=== PATIENT | female | born 1945 | race Caucasian/White ===

== ENCOUNTER 2020-03-24 11:56 | Inpatient (IN) | payer MEDICARE, MEDICAID, SELFPAY ==
[2020-03-24] VITALS (9 sets, daily range): BP systolic 123–132; BP diastolic 65–86; PULSE 100–132; RESP 18–24; TEMP 36.2–36.6; O2SAT 94–97; BMI 36.4
--- NOTE | 2020-03-24 | ECG_ITS ---
Measurements Intervals [place] Rate: 153 P: MS: 0 QRS: -84 QRSD: 126 T: 24 QT: 312 QTc: 499 Interpretive Statements ATRIAL FIBRILLATION WITH RAPID VENTRICULAR RESPONSE RIGHT BUNDLE BRANCH BLOCK INFERIOR INFARCT, AGE INDETERMINATE CONSIDER ANTERIOR INFARCT, AGE INDETERMINATE BASELINE ARTIFACT- I, II, AVR, AVL, AVF, V2-V3 ABNORMAL ECG Electronically Signed On 03-24-2020 15:54:59 [employer] by Andre Campoverde D.O.
--- NOTE | ~2020-03-24 | XR_ITS ---
EXAMINATION: XR chest 1V INDICATION: Chest pain TECHNIQUE: AP view of the chest is obtained. COMPARISON: 12/14/2018 FINDINGS: There are airspace opacities of the lung bases. No pleural effusion or pneumothorax is iden tified. The cardiomediastinal silhouette is normal. A calcified nodule of the left lung base is consi stent with old granulomatous disease. IMPRESSION: 1. Bibasilar airspace opacities, consistent with atelectasis versus pneumonia. Reviewed, dictated and finalized at location A. T MECHANIC
--- NOTE | ~2020-03-24 | XR_ITS ---
EXAMINATION: XR lumbar spine 2-3V DATE: 03/24/2020 12:42 INDICATION: Low back pain TECHNIQUE: Anteroposterior and lateral views of the lumbar spine, and cone-down lateral view of the l umbosacral junction were obtained. COMPARISON: None. FINDINGS: Bone alignment is normal. There is no fracture. There is severe loss of intervertebral disc space height at L4-5 and L5-S1 and moderate loss of intervertebral disc space height throughout the remainder of the lumbar spine. Small degenerative osteophytes project from the anterior endplates of multiple vertebral bodies. Calcified atherosclerosis is noted. IMPRESSION: 1. Moderate to severe lumbar spondylosis without acute findings. Reviewed, dictated and finalized at location A. NDER WIND UP HELPER
--- NOTE | ~2020-03-24 | US_ITS ---
EXAMINATION: US venous doppler [facility] DATE: 03/25/2020 07:57 INDICATION: Bilateral lower limb swelling TECHNIQUE: Gonzalez scale images without and with compression and Doppler images of the bilateral lower e xtremity veins were obtained. COMPARISON: 04/10/2018 FINDINGS: The right common femoral vein, profunda femoral vein, femoral vein, popliteal vein, peroneal trunk, p osterior tibial veins, and greater saphenous vein are patent. The left common femoral vein, profunda femoral vein, femoral vein, popliteal vein, peroneal trunk, po sterior tibial veins, and greater saphenous vein are patent. IMPRESSION: 1. Patent bilateral lower extremity veins. No evidence of deep venous thrombosis. Reviewed, dictated and finalized at location A. ER UNLOADER IMPRESSION: 1. Patent bilateral lower extremity veins. No evidence of deep venous thrombosi s.
--- NOTE | ~2020-03-24 | CT_ITS ---
EXAMINATION: CT abdomen pelvis w con EXAM DATE: 03/24/2020 15:36 INDICATION: Left lower quadrant pain. TECHNIQUE: Spiral CT of the abdomen and pelvis was performed following intravenous injection of 100 m L Omnipaque 350. Axial, coronal and sagittal images were reviewed. The dose-length product (DLP) fo r this examination was 1270.93 mGy-cm. The exposure was tailored according to patient size (auto mA exposure control), and iterative reconstruction (ASIR) was used as additional dose reduction techniqu e. Comparison is made to prior examination from 04/09/[address] FINDINGS: Geographic shaped region of slightly increased enhancement in the left liver lobe likely a vascular perfusion anomaly, transient hepatic attenuation difference in atypical location. The liver , spleen, adrenal glands and pancreas are otherwise unremarkable. Gallbladder is unremarkable. No b iliary obstruction. Portal and splenic veins are patent. Kidneys enhance symmetrically. There is n o hydronephrosis. The uterus is unremarkable. The bladder is undistended at time of imaging. The re is no retroperitoneal or pelvic lymphadenopathy. There is mild scattered arteriosclerotic diseas e. The appendix is normal. The stomach and small bowel are unremarkable. There is mild sigmoid colonic diverticulosis. There is no adjacent inflammatory change to suggest diverticulitis. There is expecte d amount of colonic stool. No free intraperitoneal gas. The heart is normal in size. There are n o pericardial or pleural effusions. Left basilar scarring unchanged. There are no osteoblastic or o steolytic lesions identified. IMPRESSION: 1. No acute intra-abdominal findings. 2. Mild sigmoid diverticulosis. Reviewed, dictated and finalized at location A. ISH LITERATURE PROFESSOR
[2020-03-24] MEDS: METOPROLOL TARTRATE INJ 5 MG/5 ML VIAL IV PUSH (12:13)
[2020-03-24 12:21] LABS: Basophils Percent Auto 0.3 % (0.2-1.2); Eosinophils Percent Auto 0.1 % (0-4.4); Hematocrit 44.5 % (37.0-47.0); Hemoglobin 13.9 g/dL (12.0-15.0); Immature Granulocyte Absolute 0.07 K/mm3 (0.00-0.031); Immature Granulocyte Percent A 0.5 % (0-0.5); Lymphocytes Absolute Auto 1.46 K/mm3 (0.9-3.2); Lymphocytes Percent Auto 9.9 % (18.3-44.2); Mean Corpuscular HGB Conc 31.2 g/dl (32-36); Mean Corpuscular Hemoglobin 29.6 pg (26-34); Mean Corpuscular Volume 94.9 fl (80-100); Monocytes Absolute Auto 0.7 K/mm3 (0.1-0.6); Monocytes Percent Auto 4.5 % (2.6-8.5); Neutrophils Absolute Auto 12.5 K/mm3 (1.3-6.7); Neutrophils Percent Auto 84.7 % (45.5-73.1); Platelet Count Result 265 k/mm3 (150-375); Red Blood Count 4.69 M/mm3 (4.2-5.4); Red Cell Distribution Width 13.6 % (11.5-14.5); White Blood Count 14.7 K/mm3 (4.5-10.0)
[2020-03-24 12:33] LABS: Prothrombin Time 14.1 Seconds (11.1-14.7)
[2020-03-24 12:35] LABS: Potassium 4.5 mmol/L (3.4-5.0)
[2020-03-24 12:39] LABS: Alanine Aminotransferase 19 U/L (4-35); Albumin Level 4.3 g/dL (3.5-5.1); Alkaline Phosphatase 101 U/L (38-126); Anion Gap 8 mmol/L (8-16); Aspartate Amino Transferase 28 U/L (14-36); Bilirubin,Total 0.6 mg/dL (0.2-1.3); Blood Urea Nitrogen 14 mg/dL (7-17); Calcium 9.3 mg/dL (8.4-10.2); Carbon Dioxide 30 mmol/L (22-30); Chloride 100 mmol/L (98-107); Estimated CRCL calculation 88 ml/min; Estimated Glomerular Filt Rate > 60; Glucose 243 mg/dL (65-105); Sodium 138 mmol/L (137-145)
[2020-03-24 12:48] LABS: NT Pro B Type Natriuretic Pept 606 PG/ML (5-100); Troponin I < 0.012 ng/mL (0.000-0.034)
[2020-03-24 13:57] LABS: Add Urine Microscopic? YES; Appearance Urine Clear (Clear); Bilirubin Urine Negative (Negative); Color Urine Yellow (Yellow); Glucose Urine UA 3+ mg/dL (Negative); Ketones Urine Trace mg/dL (Negative); Leukocyte Esterase Ur Trace LEU/UL (Negative); Mucus Urine Heavy /lpf; Nitrate Urine Negative (Negative); Protein Urine 2+ mg/dL (Negative); RBC Urine 0-2 /hpf (0-2); Specific Grav Ur 1.029 (1.001-1.035); Urobilinogen Urine Negative mg/dL (<2.0)
--- NOTE | 2020-03-24 13:58 | ED.GENADULT ---
HPI - General Adult General Chief complaint: Back Pain/Injury Stated complaint: low back pain Time Seen by Provider: 03/24/20 12:00 Source: patient Mode of arrival: EMS Limitations: no limitations History of Present Illness HPI narrative: 74-year-old with a history of COPD, hypertension, diabetes, dementia who was brought in from home with complaints of low back pain for past 2 days. Patient denies any trauma or lifting any heavy objects. No history of chest pain or shortness of breath. No Covid exposure. However when patient was placed on the monitor she is tachycardic. Troponin Onset (ago): day(s) (2) Location: back (Lower back) Radiation: non-radiation Severity: moderate Quality: aching Exacerbating factors: none Associated symptoms: denies other symptoms Related Data Home Medications Medication Instructions Recorded Confirmed acetaminophen 500 mg PO Q6H PRN 03/24/20 albuterol sulfate 1 inh INHALATION QID PRN 03/24/20 budesonide-formoterol [Symbicort] 2 puff INHALATION Q12H 03/24/20 codeine-guaifenesin [Cheratussin ea PO 03/24/20 AC] donepezil [Aricept] 10 mg PO HS 03/24/20 ferrous sulfate 325 mg PO DAILY 03/24/20 hydrocolloid dressing [Duoderm] 03/24/20 ibuprofen 600 mg PO Q6H PRN 03/24/20 insulin glargine [Lantus Solostar 30 unit SUBCUT QPM 03/24/20 U-100 Insulin] ipratropium-albuterol 3 ml INHALATION Q6H PRN 03/24/20 levothyroxine 50 mcg PO DAILY 03/24/20 mecobalamin (vitamin B12) 1,000 mcg SUBLINGUAL DAILY 03/24/20 metformin [Riomet] 500 mg PO BID 03/24/20 nystatin 1 applic TOPICAL QID 03/24/20 omeprazole 20 mg PO DAILY 03/24/20 umeclidinium-vilanterol [Anoro 1 inh INHALATION DAILY 03/24/20 Ellipta] Allergies Allergy/AdvReac Type Severity Reaction Status Date / Time No Known Allergies Allergy Unknown Verified 03/24/20 11:57 Review of Systems Review of Systems: All systems reviewed & are unremarkable except as noted in HPI and below Constitutional: Constitutional: Reports no additional constitutional complaints Eyes: Eyes: Reports no additional eye complaints ENT: Reports system reviewed and no additional complaints, except as documented Cardiovascular: Cardiovascular: Reports no additional cardiovascular complaints Respiratory: Respiratory: Reports no additional respiratory complaints Gastrointestinal: Gastrointestinal: Reports no additional gastrointestinal complaints Musculoskeletal: Musculoskeletal: Reports as per HPI Neurologic: Reports system reviewed and no additional complaints, except as documented Endocrine: Endocrine: Reports no additional endocrine complaints PMFSH Family History Family History Father Cerebrovascular accident Grandparent Cerebrovascular accident Family history of heart disease in male family member before age 55 Mother Family history of heart disease in male family member before age 55 Social History Social History Alcohol intake: never Exam Narrative: Exam Narrative: GENERAL: Well-appearing, well-nourished, and in no acute distress. HEAD: Normocephalic, atraumatic. EYES: PERRLA and EOMI. NECK: Supple. CHEST: Clear to auscultation. No respiratory distress. HEART: Tachycardic. ABDOMEN: Soft, nontender, nondistended, normal active bowel sounds. EXTREMITIES: Normal range of motion. No edema. SKIN: Warm, dry, no rash. NEURO: No focal deficits. Alert and oriented x3. PSYCH: Normal mood and affect. Course Course Emergency Course: Patient was placed on the data conversion analyst showed A. fib with RVR, which patient never had it before given IV 5 mg of Lopressor. Her heart rate dropped to 101 range presently she is maintaining heart rate anywhere between 60s to 108. Discussed labs and x-ray findings with the patient and the son. Will admit her to the hospital for A. fib with RVR. I discussed with Dr. Bhatia agreed to consult the
[2020-03-24 14:00] LABS: Blood Urine Negative (Negative)
[2020-03-24] MEDS: ENOXAPARIN 100 MG/ML SYRINGE 90 MG SUB-Q (14:34)
--- NOTE | 2020-03-24 15:15 | PM.IMHP ---
H&P: HPI History of Present Illness Date/Time: 03/24/20 15:15 <Snehal Henderson PA-C - Last Filed: 03/24/20 19:30> Chief Complaint: Low back pain. <Snehal Henderson PA-C - Last Filed: 03/24/20 19:30> Narrative: This is a 74-year-old female with insulin-dependent diabetes, dementia, hypothyroidism, hypertension, anemia, COPD, and diastolic congestive heart failure who presented to the emergency department earlier today via EMS from [place] for evaluation of low back pain. She tells me she has chronic low back pain however has been much worse over the past 3 days or so, to the point where she has pretty severe pain when trying to move. It has been difficult for her to transfer from bed to wheelchair to commode due to the pain. The pain is described as constant and aching however is sharp and shooting with movement. It does not radiate into the buttocks or legs but is made worse when raising her legs off the bed. Tylenol seems to help. On arrival to the emergency department she was found to be in atrial fibrillation with rapid ventricular response, and is completely asymptomatic with this thus it is impossible to tell how long she has been in this rhythm and she denies having ever been diagnosed with such. At the time my evaluation she is is supine in bed and has no real complaints. She specifically denies fever, chills, sweats, cold and flu symptoms, chest pain, pleuritic pain, palpitations, shortness of breath, nausea, vomiting, and dysuria. No saddle anesthesia, bowel, or bladder incontinence. No focal weakness. She has not had any recent falls or injury. No exposure to COVID-19. <Snehal Henderson PA-C - Last Filed: 03/24/20 19:30> Review of Systems Review of Systems: Narrative: Twelve systems were reviewed with pertinent positives and negatives as per HPI. She denies sinus congestion, rhinorrhea, otalgia, and odynophagia. No cough. No anosmia or dysgeusia. No headache. No vertigo. She does have mild neuropathy in her feet, and that is unchanged. She has had several loose stools over the past couple of days and on exam she was tender to palpation in the left lower quadrant. She denies blood in mucus in the stool. No history of kidney stones or diverticulitis. She denies blurry vision, polydipsia, polyuria. Except as documented, all other systems were reviewed and are negative. <Snehal Henderson PA-C - Last Filed: 03/24/20 19:30> [facility] Past Medical History Medical History: Medical History (Updated 03/24/20 @ 20:05 by Jodie Bhatia MD) Anemia Arthritis COPD (chronic obstructive pulmonary disease) Dementia Diabetic peripheral neuropathy Former smoker 50 pack-year smoking history. Grade II diastolic dysfunction Noted on echocardiogram in December 2018. Ejection fraction was 60 to 65%. Hypothyroidism Insulin dependent type 2 diabetes mellitus <Snehal Henderson PA-C - Last Filed: 03/24/20 19:30> Surgical History Surgical History: Surgical History History of cataract extraction History of dilation and curettage <Snehal Henderson PA-C - Last Filed: 03/24/20 19:30> Family History Family History: Family History (Updated 03/24/20 @ 20:00 by Jodie Bhatia MD) Father Cerebrovascular accident Grandparent Cerebrovascular accident Family history of heart disease in male family member before age 55 Mother Family history of heart disease in male family member before age 55 Heart disease of a heart attack Heart attack <Snehal Henderson PA-C - Last Filed: 03/24/20 19:30> Social History Social History: Social History (Updated 03/24/20 @ 20:01 by Jodie Bhatia MD) Social History: She is a resident at [facility]. Former smoker, up to a pack of cigarettes a day for 50 years, and quit in 2009. She stopped drinking alcohol in 2007. No illicit substance use. Three children.
--- NOTE | 2020-03-24 17:02 | ADMGEN ---
This patient, Ana Neely, was admitted to IMU Room 201-01 at 1551 on 03/24/20. Patient/family oriented to hospital policies and general routines including ID bracelet, bed and alarms, visiting hours, pain management, procedures, bathroom and other care routines, personal items, smoking policy, room service/diet, and visiting hours. Information on how to activate the Rapid Response Team has been discussed. Patient/Family are encouraged to report perceived risks to care and to ask questions if they do not understand what they are told or what they should do.
[2020-03-24 17:30] LABS: Troponin I < 0.012 ng/mL (0.000-0.034)
[2020-03-24 17:37] LABS: Glucose Point of Care 174 (65-105)
--- NOTE | 2020-03-24 19:34 | PM.CNCAR ---
Assessment and Plan Assessment and plan (1) Atrial fibrillation with rapid ventricular response: Code(s): I48.91 - Unspecified atrial fibrillation Status: Acute Assessment and Plan: Patient incidentally found to have atrial fibrillation RVR of uncertain duration. Heart rate is a bit better with IV diltiazem. She did get a dose of Lovenox in the emergency room. She seems to be tolerating it well with no clinical heart failure. The etiology is related to her age and I wonder she may have some sleep apnea. Will do an echo to see there is any left ventricular dysfunction or valve disease. I will transition her from IV diltiazem to p.o. diltiazem tomorrow, and start an anticoagulant, Eliquis 5 mg BID to avoid drug interaction with diltiazem. Check an apnea link as well. Since she is asymptomatic and likely has a low activity level we will pursue rate control and anticoagulation strategy. Reviewed all this with the patient and she is in agreement. (2) Hypothyroidism: Code(s): E03.9 - Hypothyroidism, unspecified Status: Acute Assessment and Plan: Normal on levothyroxine (3) COPD (chronic obstructive pulmonary disease): Code(s): J44.9 - Chronic obstructive pulmonary disease, unspecified Status: Inactive Assessment and Plan: Stable. (4) Dementia: Code(s): F03.90 - Unspecified dementia without behavioral disturbance Status: Acute Assessment and Plan: Some memory loss but overall fairly intact (5) Insulin dependent type 2 diabetes mellitus: Code(s): E11.9 - Type 2 diabetes mellitus without complications; Z79.4 - senior living (current) use of insulin Status: Acute Assessment and Plan: Treatment per hospitalist History of Present Illness History of Present Illness Consult date/time: 03/24/20 19:34 Reason For Visit: afib with rvr Narrative: Date of service: 03/24/2020 Mrs. Ana Neely is a pleasant 74-year-old white female whom I was asked to see at the request of the hospitalist for my advice and opinion regarding her new onset of atrial fibrillation, in consultation. She has a history of dementia, diabetes, hypertension, COPD and diastolic CHF. The patient was transferred from [facility] to the emergency room for complaints of low back pain and was found to have AFib RVR. Heart rate of 153 and she appeared asymptomatic. She denies any chest pain or pressure, or shortness of breath. She was given Lopressor 5 mg IV push and then started on at Cardizem drip at 5 milligrams/hour. Current heart rate is running 100-115 beats per minute. The patient states that she gets around without a walker or cane and has had no falls or dizziness. No history of any bleeding problems. She is hypothyroid and takes levothyroxine; her TSH was normal today. Review of Systems Constitutional: Constitutional: Denies chills and Denies weakness Eyes: Eyes: Reports no additional eye complaints ENT: Denies epistaxis and Denies nasal congestion Cardiovascular: Cardiovascular: Denies chest pain, Denies pedal edema, Denies leg edema, Denies lightheadedness and Denies palpitations Respiratory: Respiratory: Denies hemoptysis, Denies dyspnea and Denies dyspnea on exertion Gastrointestinal: Gastrointestinal: Denies abdominal pain and Denies hematochezia Genitourinary: Genitourinary: Denies hematuria Musculoskeletal: Musculoskeletal: Reports back pain Integumentary/Breasts: Skin/Breast: Denies rash Neurologic: Reports confusion
[2020-03-24 20:51] LABS: Hemoglobin A1C 7.4 % (<5.7)
[2020-03-24 21:03] LABS: Troponin I < 0.012 ng/mL (0.000-0.034)
[2020-03-24] MEDS: DONEPEZIL HCL 10 MG TABLET PO (21:29)
[2020-03-24] MEDS: APIXABAN 5 MG TABLET PO (21:29)
[2020-03-24 21:34] LABS: Glucose Point of Care 235 (65-105)
[2020-03-24] MEDS: INSULIN GLARGINE (*BKC) 100 UNITS/ML 30 UNITS SUB-Q (21:48)
[2020-03-24 23:42] LABS: Glucose Point of Care 231 (65-105)
[2020-03-25] VITALS (12 sets, daily range): BP systolic 103–121; BP diastolic 45–76; PULSE 70–127; RESP 16–22; TEMP 35.8–37; O2SAT 90–100
[2020-03-25 05:20] LABS: Hematocrit 40.5 % (37.0-47.0); Hemoglobin 12.7 g/dL (12.0-15.0); Mean Corpuscular HGB Conc 31.4 g/dl (32-36); Mean Corpuscular Hemoglobin 29.7 pg (26-34); Mean Corpuscular Volume 94.8 fl (80-100); Mean Platelet Volume 10.4 fl (7.4-10.4); Platelet Count Result 258 k/mm3 (150-375); Red Blood Count 4.27 M/mm3 (4.2-5.4); Red Cell Distribution Width 13.9 % (11.5-14.5); White Blood Count 8.1 K/mm3 (4.5-10.0)
[2020-03-25 05:52] LABS: Alanine Aminotransferase 13 U/L (4-35); Albumin Level 3.6 g/dL (3.5-5.1); Alkaline Phosphatase 85 U/L (38-126); Anion Gap 5 mmol/L (8-16); Aspartate Amino Transferase 19 U/L (14-36); Bilirubin,Total 0.5 mg/dL (0.2-1.3); Blood Urea Nitrogen 13 mg/dL (7-17); CRP 7.4 mg/dL (<1.0); Calcium 8.8 mg/dL (8.4-10.2); Carbon Dioxide 33 mmol/L (22-30); Chloride 101 mmol/L (98-107); Estimated CRCL calculation 76 ml/min; Estimated Glomerular Filt Rate > 60; Glucose 191 mg/dL (65-105); Magnesium 1.7 mg/dL (1.6-2.3); Potassium 3.8 mmol/L (3.4-5.0); Sodium 139 mmol/L (137-145)
[2020-03-25] MEDS: ENOXAPARIN 100 MG/ML SYRINGE 90 MG SUB-Q (06:36)
[2020-03-25] MEDS: LEVOTHYROXINE SODIUM 50 MCG TABLET PO (06:37)
--- NOTE | 2020-03-25 06:59 | PC.NURSE ---
Pt. was bladder scanned at 5:30 her bladder showed less than 200 ml. of urine.
--- NOTE | 2020-03-25 07:38 | PCRCNOTE ---
Apnea link was not performed due to not having time to apply it to patient. Will be administered tonight (03/25/20)
[2020-03-25 07:43] LABS: Glucose Point of Care 182 (65-105)
[2020-03-25] MEDS: dilTIAZem HCL CD 180 MG CAP.ER.24H PO (09:08)
[2020-03-25] MEDS: PANTOPRAZOLE 40 MG TABLET PO (09:08)
[2020-03-25] MEDS: APIXABAN 5 MG TABLET PO ×2 (09:08→20:16)
[2020-03-25 11:20] LABS: Glucose Point of Care 240 (65-105)
[2020-03-25] MEDS: INSULIN ASPART (*BKC) 100 UNITS/ML SUB-Q (12:25)
--- NOTE | 2020-03-25 14:47 | PM.IMPN ---
Progress Note: A&P Assessment and Plan (1) Atrial fibrillation with rapid ventricular response: Code(s): I48.91 - Unspecified atrial fibrillation Status: Acute Assessment and Plan: The patient was found to have new onset AFib with RVR. She was started on a diltiazem drip with improvement in her rate. She was also started on therapeutic Lovenox. She remained stable and was transitioned to oral diltiazem and Eliquis. [id number]-Farp = 5. Patient has been asymptomatic so unclear of duration. TSH normal. LE venous doppler negative. Appreciate cardiology input. (2) Low back pain: Qualifiers: Back pain laterality: midline Chronicity: unspecified Sciatica presence: without sciatica Qualified Code(s): M54.5 - Low back pain Code(s): M54.5 - Low back pain Status: Acute Assessment and Plan: [place] patient with musculoskeletal back pain. Lumbar xray showing moderate to severe lumbar spondylosis without acute findings. She seems to do well with Tylenol. PT/OT consulted. (3) Leukocytosis: Code(s): D72.829 - Elevated white blood cell count, unspecified Status: Acute Assessment and Plan: Patient with elevated white blood cell count at 14.7K. no evidence to suggest infection. Repeat WBC normal. 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 Glucose reviewed on 03/25. Glucose elevated at times. Continue sliding scale insulin, Accu-Cheks, and hypoglycemic protocol. Continue Lantus (5) Hypothyroidism: Code(s): E03.9 - Hypothyroidism, unspecified Status: Acute Assessment and Plan: TSH normal. Continue levothyroxine. (6) Dementia: Code(s): F03.90 - Unspecified dementia without behavioral disturbance Status: Acute Assessment and Plan: Stable. Continue Aricept. (7) Grade II diastolic dysfunction: Code(s): I51.9 - Heart disease, unspecified Status: Inactive Assessment and Plan: Stable. Trop negative x3. BNP 600. CXR showing bibasilar airspace opacities, consistent with atelectasis versus pneumonia; suspect atelectasis. Subjective Date/time seen: 03/25/20 14:47 Interval history: Date of service 03/25 74yo female with COPD, DM and dementia here for back pain and found to have AFib/RVR. Patient feels well. No complaints of CP or SOB. No n/v. Was out of bed earlier today. No palpitations. no cough. no anosmia or dysgeusia. Exam Narrative: Exam Narrative: 96.4 114/76 96 20 95% ra Gen - NARD sitting up in bed in NARD Chest - few basilar rhonchi o/w clear, nml RR CV - Irregularly irregular, Tele showing AFib with mostly controlled rate Abd - soft, obese, NT, +BS Ext - trace pedal LE edema; Negative Danya's sign Psych - alert, pleasant and cooperative. Skin - warm and dry Objective Data Vital Signs Vital Signs: Vital Signs - 24 hr 03/24/20 18:00 03/24/20 20:00 03/24/20 22:00 Temperature 97.2 F L Pulse Rate 108 H 100 112 H Respiratory Rate 22 H Blood Pressure 132/65 Pulse Oximetry 97 03/24/20 23:45 03/25/20 00:00 03/25/20 01:38 Temperature 97.6 F Pulse Rate 104 H 127 H 104 H Respiratory Rate 20 20 Blood Pressure 131/75 Pulse Oximetry 95 95 03/25/20 04:00 03/25/20 06:00 03/25/20 08:00 Temperature 97.6 F 96.8 F L Pulse Rate 82 94 89 Respiratory Rate 22 H 20 Blood Pressure 119/74 103/45 L Pulse Oximetry 100 90 03/25/20 10:00 03/25/20 11:50 03/25/20 12:00 Temperature 96.4 F L Pulse Rate 103 H 86 97 Respiratory Rate 20 Blood Pressure 114/76 Pulse Oximetry 95 03/25/20 14:00 Temperature Pulse Rate 96 Respiratory Rate Blood Pressure Pulse Oximetry Intake/Output Intake/Output: Intake & Output 03/22/20 03/23/20 03/24/20
--- NOTE | 2020-03-25 15:17 | PM.PNCARD ---
Progress Note: A&P Assessment and Plan (1) Atrial fibrillation with rapid ventricular response: Code(s): I48.91 - Unspecified atrial fibrillation Status: Acute Assessment and Plan: Patient incidentally found to have atrial fibrillation RVR of uncertain duration. Since she is asymptomatic and has a low activity level we will pursue rate control and anticoagulation strategy Heart rate is controlled with diltiazem 180 mg daily. Anticoagulated with Eliquis 5 mg BID Check an Apnea Link as well. Reviewed again with the patient and she is in agreement. Transferring to a medical bed. Follow heart rate with vital signs. Back to [place] when she has a negative COVID test. (2) Hypothyroidism: Code(s): E03.9 - Hypothyroidism, unspecified Status: Acute Assessment and Plan: Normal TSH on levothyroxine (3) Dementia: Code(s): F03.90 - Unspecified dementia without behavioral disturbance Status: Acute Assessment and Plan: Some memory loss but overall fairly intact (4) Insulin dependent type 2 diabetes mellitus: Code(s): E11.9 - Type 2 diabetes mellitus without complications; Z79.4 - care home (current) use of insulin Status: Acute Assessment and Plan: Treatment per hospitalist Subjective Date/time seen: 03/25/20 15:17 Interval history: Follow-up for new onset of atrial fibrillation, uncertain duration. Date of service: 03/25/2020 Patient was transitioned from IV diltiazem to p.o. diltiazem 180 mg daily this morning, and she was started on Eliquis 5 mg b.i.d.. Telemetry shows AFib heart rate 80-110 beats per minute. Apnea link could not be performed last night. Review of Systems Constitutional: Constitutional: Reports fatigue Eyes: Eyes: Reports no additional eye complaints ENT: Denies epistaxis Cardiovascular: Cardiovascular: Denies chest pain, Denies pedal edema, Denies leg edema, Denies lightheadedness and Denies palpitations Respiratory: Respiratory: Denies cough, Denies hemoptysis and Denies dyspnea Gastrointestinal: Gastrointestinal: Denies abdominal pain Genitourinary: Genitourinary: Denies hematuria Musculoskeletal: Musculoskeletal: Reports back pain (better) Integumentary/Breasts: Skin/Breast: Denies rash Neurologic: Reports system reviewed and no additional complaints, except as documented and Reports confusion Psychiatric: Psychiatric: Reports no additional psychiatric complaints Exam Narrative: Exam Narrative: Obese older lady, alert, able answer questions fairly easily, no distress Const: General: comfortable, no acute distress and confusion (Mild memory loss) Orientation/consciousness: confusion (Mild memory loss) HENMT: General nose exam: no epistaxis Eyes: EOM: EOMs intact bilaterally Neck: Neck: supple and no JVD (Obese neck however) Resp: Effort & Inspection: normal respiratory effort Auscultation: rales (Few fine rales in the right face) Cardio: Rhythm: abnormal rhythm irregularly irregular Heart sounds: no murmurs Other: Pedal pulses are intact GI: Inspection: non-distended Skin: General skin exam: normal color and no rashes or lesions noted Neuro: General: confusion (Mild memory loss) Cognition (Neuro): abnormal cognition Speech: normal speech Motor exam (neuro): Normal motor muscle tone present throughout Other: Fairly well oriented despite her mild dementia Extrem: General: edema (Trace lower extremity edema) Psych: Mental Status: mental status grossly abnormal (Some memory loss noted) Affect: normal affect Objective Data Vital Signs Vital Signs: Vital Signs - 24 hr 03/24/20 18:00
[2020-03-25 16:06] LABS: Glucose Point of Care 166 (65-105)
--- NOTE | 2020-03-25 16:33 | PC.NURSE ---
This patient, Ana Neely, was transferred to [facility] on 03/25/20 at 1630. Personal belongings sent with patient. Report given to Nirmala SCHAFER. Appropriate documentation sent with patient.
[2020-03-25] MEDS: INSULIN GLARGINE (*BKC) 100 UNITS/ML 30 UNITS SUB-Q (17:50)
[2020-03-25 17:53] LABS: Glucose Point of Care 215 (65-105)
[2020-03-25] MEDS: TOLNAFTATE 1% POWDER 45 GM BTL 1 APPLIC TOPICAL (20:16)
[2020-03-25] MEDS: DONEPEZIL HCL 10 MG TABLET PO (20:16)
[2020-03-25 21:20] LABS: Glucose Point of Care 217 (65-105)
[2020-03-26] MEDS: LEVOTHYROXINE SODIUM 50 MCG TABLET PO (05:40)
[2020-03-26 06:00] VITALS: BP 144/60; PULSE 104; RESP 16; TEMP 36.1; O2SAT 94
[2020-03-26] MEDS: ACETAMINOPHEN 325 MG TABLET 650 MG PO ×3 (06:48→18:59)
[2020-03-26 07:40] LABS: Glucose Point of Care 197 (65-105)
[2020-03-26] MEDS: APIXABAN 5 MG TABLET PO ×2 (08:40→20:10)
[2020-03-26] MEDS: PANTOPRAZOLE 40 MG TABLET PO (08:40)
[2020-03-26 08:41] VITALS: RESP 16; O2SAT 95
[2020-03-26] MEDS: TOLNAFTATE 1% POWDER 45 GM BTL 1 APPLIC TOPICAL ×2 (08:41→20:10)
[2020-03-26] MEDS: dilTIAZem HCL CD 180 MG CAP.ER.24H PO (08:41)
--- NOTE | 2020-03-26 09:36 | PM.PNCARD ---
Progress Note: A&P Assessment and Plan (1) Atrial fibrillation with rapid ventricular response: Code(s): I48.91 - Unspecified atrial fibrillation Status: Acute Assessment and Plan: Patient incidentally found to have atrial fibrillation RVR of uncertain duration. Since she is asymptomatic and has a low activity level we will pursue rate control and anticoagulation Anticoagulated with Eliquis 5 mg BID Will need to follow heart rate via vital signs. Heart rate is a little fast now. Will increase her diltiazem 240 mg p.o. daily Reviewed again with the patient and she is in agreement. Transferring to a medical bed. Follow heart rate with vital signs. Back to [place] when she has a negative COVID test. (2) Hypothyroidism: Code(s): E03.9 - Hypothyroidism, unspecified Status: Acute Assessment and Plan: Normal TSH on levothyroxine (3) Dementia: Code(s): F03.90 - Unspecified dementia without behavioral disturbance Status: Acute Assessment and Plan: Some memory loss but overall fairly intact (4) Insulin dependent type 2 diabetes mellitus: Code(s): E11.9 - Type 2 diabetes mellitus without complications; Z79.4 - [facility] (current) use of insulin Status: Acute Assessment and Plan: Treatment per hospitalist Subjective Date/time seen: 03/26/20 09:36 Interval history: Follow-up for new onset of atrial fibrillation, uncertain duration. Date of service: 03/26/2020 Patient was transitioned from IV diltiazem to p.o. diltiazem 180 mg daily this morning, and she was started on Eliquis 5 mg b.i.d.. Telemetry shows AFib heart rate 80-110 beats per minute. Apnea link could not be performed last night. Review of Systems Constitutional: Constitutional: Denies chills, Reports fatigue and Denies weakness Eyes: Eyes: Reports no additional eye complaints ENT: Denies epistaxis and Denies nasal congestion Cardiovascular: Cardiovascular: Denies chest pain, Denies pedal edema, Denies leg edema, Denies lightheadedness, Denies palpitations, Denies dyspnea and Denies dyspnea on exertion Respiratory: Respiratory: Denies cough, Denies hemoptysis, Denies dyspnea and Denies dyspnea on exertion Gastrointestinal: Gastrointestinal: Denies abdominal pain and Denies hematochezia Genitourinary: Genitourinary: Denies hematuria Musculoskeletal: Musculoskeletal: Reports back pain (better) Integumentary/Breasts: Skin/Breast: Denies rash Neurologic: Reports system reviewed and no additional complaints, except as documented, Reports confusion and Denies weakness Psychiatric: Psychiatric: Reports no additional psychiatric complaints and Reports confusion Endocrine: Endocrine: Reports fatigue and Denies palpitations Exam Narrative: Exam Narrative: Obese older lady, alert, able answer questions fairly easily, no distress Const: General: comfortable, no acute distress and confusion Orientation/consciousness: confusion HENMT: General nose exam: no epistaxis Eyes: EOM: EOMs intact bilaterally Neck: Neck: supple and no JVD (Obese neck however) Thyroid: thyroid normal Carotids: no bruits Lymphatic: lymphadenopathy not noted Resp: Effort & Inspection: normal respiratory effort Auscultation: rales (Few fine rales in the right face) Cardio: Rate: tachycardic Rhythm: abnormal rhythm irregularly irregular Heart sounds: no murmurs Other: Pedal pulses are intact GI: Inspection: non-distended Skin: General skin exam: normal color and no rashes or lesions noted Neuro: General: confusion Cognition (Neuro): abnormal cognition Speech: normal speech Motor exam (neuro): Normal
--- NOTE | 2020-03-26 11:19 | PCDIET ---
Physician consult for DM. Patient states to no diet questions or concerns. Patient is eating 50-100% of a heart healthy/diabetic diet. Patient instruction attached. No further nutritional intervention.
[2020-03-26 12:01] LABS: Glucose Point of Care 242 (65-105)
[2020-03-26] MEDS: INSULIN ASPART (*BKC) 100 UNITS/ML SUB-Q (12:03)
[2020-03-26 14:00] VITALS: BP 128/71; PULSE 83; RESP 16; TEMP 36.1; O2SAT 94
[2020-03-26 16:31] LABS: Glucose Point of Care 170 (65-105)
[2020-03-26] MEDS: INSULIN GLARGINE (*BKC) 100 UNITS/ML 30 UNITS SUB-Q (17:36)
--- NOTE | 2020-03-26 18:09 | PM.IMPN ---
Progress Note: A&P Assessment and Plan (1) Atrial fibrillation with rapid ventricular response: Code(s): I48.91 - Unspecified atrial fibrillation Status: Acute Assessment and Plan: The patient was found to have new onset AFib with RVR. She was started on a diltiazem drip with improvement in her rate. She was also started on therapeutic Lovenox. She remained stable and was transitioned to oral diltiazem and Eliquis. [id number] = 5. Patient has been asymptomatic so unclear of duration. TSH normal. LE venous doppler negative. Cardizem dose adjusted for better rate control. Appreciate cardiology input. (2) Low back pain: Qualifiers: Back pain laterality: midline Chronicity: unspecified Sciatica presence: without sciatica Qualified Code(s): M54.5 - Low back pain Code(s): M54.5 - Low back pain Status: Acute Assessment and Plan: [place] patient with musculoskeletal back pain. Lumbar xray showing moderate to severe lumbar spondylosis without acute findings. She seems to do well with Tylenol. PT/OT consulted. (3) Leukocytosis: Code(s): D72.829 - Elevated white blood cell count, unspecified Status: Acute Assessment and Plan: Patient with elevated white blood cell count at 14.7K. no evidence to suggest infection. Repeat WBC normal. 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 Glucose reviewed on 03/26 Glucose elevated at times (170-240). Continue sliding scale insulin, Accu-Cheks, and hypoglycemic protocol. Resume metformin. Continue Lantus. (5) Hypothyroidism: Code(s): E03.9 - Hypothyroidism, unspecified Status: Acute Assessment and Plan: TSH normal. Continue levothyroxine. (6) Dementia: Code(s): F03.90 - Unspecified dementia without behavioral disturbance Status: Acute Assessment and Plan: Stable. Continue Aricept. (7) Grade II diastolic dysfunction: Code(s): I51.9 - Heart disease, unspecified Status: Inactive Assessment and Plan: Stable. Trop negative x3. BNP 600. CXR showing bibasilar airspace opacities, consistent with atelectasis versus pneumonia; suspect atelectasis. Additional Plan Placement being arranged. COVID-19 screening test STILL pending. Subjective Date/time seen: 03/26/20 18:09 Interval history: Date of service 03/26 74yo female with COPD, DM and dementia here for back pain and found to have AFib/RVR. No issues overnight. Patient slept well. No chest pain or shortness of breath. No nausea or vomiting. Eating normally. Exam Narrative: Exam Narrative: AF 96.9 128/71 83 16 94% ra Gen - NARD Chest - few scattered rhonchi, nml RR CV - Irregularly irregular Abd - soft, obese, NT, +BS Ext - trace pedal LE edema Psych - alert, pleasant and cooperative. Skin - warm and dry Objective Data Vital Signs Vital Signs: Vital Signs - 24 hr 03/25/20 22:00 03/25/20 23:10 03/26/20 06:00 Temperature 98.6 F 97.0 F L Pulse Rate 70 104 H Respiratory Rate 16 94 H Blood Pressure 121/56 L 144/60 H Pulse Oximetry 94 95 16 L 03/26/20 08:41 03/26/20 14:00 Temperature 96.9 F L Pulse Rate 83 Respiratory Rate 16 16 Blood Pressure 128/71 Pulse Oximetry 95 94 Intake/Output Intake/Output: Intake & Output 03/23/20 03/24/20 03/25/20 03/26/20 23:59 23:59 23:59 23:59 Intake Total 530 1000 Output Total 550 550 Balance -20 450 Meds/Results Medications: Active Medications Generic Name Dose Route Start Last Admin Trade Name Freq PRN Reason Stop Dose Admin Acetaminophen 650 mg 03/24/20 14:17 03/26/20 10:28 Acetaminophen 325 Mg Tablet PO 650 mg Q4H PRN Administration Mild Pain (1-3) or Fever Apixaban 5 mg 03/24/20 21:0
[2020-03-26 18:27] LABS: SARS-CoV-2 RNA PCR Negative
[2020-03-26 19:43] VITALS: O2SAT 95
[2020-03-26 20:00] VITALS: PULSE 83; RESP 16; O2SAT 95
[2020-03-26] MEDS: DONEPEZIL HCL 10 MG TABLET PO (20:10)
[2020-03-26 21:03] LABS: Glucose Point of Care 244 (65-105)
[2020-03-26 22:00] VITALS: BP 137/69; PULSE 83; RESP 16; TEMP 36.2; O2SAT 95
--- NOTE | 2020-03-27 | ECHO_ITS ---
Patient Info Name: Ana Neely Age: 74 years : 1945 Gender: Female Ht: 63 in Wt: 205 lbs BSA: 2.08 m2 HR: 84 bpm BP: 121 / 56 mmHg Technical Quality: Good Exam Date: 03/27/2020 8:35 AM Exam Location: [facility] Pulmonary Patient Status: Inpatient Admit Date: 03/26/2020 Staff Ordering Physician: Snehal Henderson PA-C Card Room Manager: Mannie De Luna RDCS, RT Attending Provider: Owen Hunter MD Referring Physician: Beatriz RUSSELL; Exam Type: CA echo doppler color flow Study Info Indications I48.1 - Persistent atrial fibrillation Complete two-dimensional, color flow and Doppler transthoracic echocardiogram is performed. Strain analysis performed. Summary 1. Complete two-dimensional, color flow and Doppler transthoracic echocardiogram is performed. 2. Normal LV size, mild LVH; normal LV systolic function, EF 55-60%; diastolic dysfunction is present with elevated left heart pressures. Mild left atrial enlargement. Mild mitral annular calcification, mild MR. Aortic valve is not well visualized, no hemodynamically significant stenosis by Doppler. [id number] TR, moderate pulmonary hypertension, RVSP 51 mmHg. Left Ventricle Left ventricular chamber dimension is normal. Left ventricular systolic function is normal, estimated at 55-60%. There is mildly increased left ventricular wall thickness. The left ventricular diastolic function is abnormal. Right Ventricle Right ventricular chamber dimension is normal. Right ventricular systolic function is normal. Left Atria Left atrial chamber dimension is mildly enlarged. Right Atria Right atrial chamber dimension is normal. Aortic Valve The aortic valve is not well visualized. There is no aortic valve stenosis. Pulmonic Valve The pulmonic valve is not well visualized. Mitral Valve The mitral valve has normal leaflets. There is mild mitral valve regurgitation. The mitral valve annulus is mildly calcified. Tricuspid Valve The tricuspid valve leaflets are normal. There is moderate tricuspid valve regurgitation. Mild pulmonary hypertension, estimated pulmonary arterial systolic pressure is 51 mmHg. Pericardium/Pleural The pericardium appears epicardial fat pad. Inferior Vena Cava Dilated inferior vena cava with <50% collapse upon inspiration consistent with elevated right atrial pressure, 15 mmHg. Aorta There is mild aortic atherosclerosis. Left Ventricular Outflow Tract Name Value Normal LVOT 2D LVOT Diameter 1.9 cm LVOT Doppler LVOT Peak Gradient 3 mmHg LVOT Mean Gradient 2 mmHg LVOT VTI 17 cm LVOT VTI/AV VTI Ratio 0.6 LVOT Stroke Volume 45 ml LVOT CO 3.7 l/min LVOT CI 1.8 l/min/m2 Mitral Valve Name Value Normal MV Doppler
[2020-03-27] MEDS: LEVOTHYROXINE SODIUM 50 MCG TABLET PO (05:52)
[2020-03-27] MEDS: ACETAMINOPHEN 325 MG TABLET 650 MG PO (05:52)
[2020-03-27 06:00] VITALS: BP 133/60; PULSE 95; RESP 16; TEMP 36.1; O2SAT 94
[2020-03-27 07:58] LABS: Glucose Point of Care 172 (65-105)
[2020-03-27] MEDS: PANTOPRAZOLE 40 MG TABLET PO (09:16)
[2020-03-27] MEDS: metFORMIN HCL 500 MG TABLET PO (09:17)
[2020-03-27] MEDS: CYANOCOBALAMIN 1,000 MCG TABLET 1000 MCG PO (09:18)
[2020-03-27] MEDS: APIXABAN 5 MG TABLET PO (09:19)
[2020-03-27] MEDS: TOLNAFTATE 1% POWDER 45 GM BTL 1 APPLIC TOPICAL (10:50)
[2020-03-27 10:57] VITALS: BP 117/97; PULSE 76; RESP 17; TEMP 36.2; O2SAT 91
[2020-03-27] MEDS: INSULIN ASPART (*BKC) 100 UNITS/ML SUB-Q (11:20)
[2020-03-27 11:23] LABS: Glucose Point of Care 204 (65-105)
--- NOTE | 2020-03-27 15:32 | PC.NURSE ---
On 03/27/20, the student, [HEBERT RICHARDSON ], provided care and completed [facility] documentation on this patient. I have reviewed the student's documentation and agree with the findings.
--- NOTE | 2020-03-27 17:43 | PM.DS ---
DS: Admitting Diagnosis Admitting Diagnosis Admitting Diagnosis: Back pain with AFib rapid ventricular response DS: Discharge Diagnosis Discharge Diagnosis (1) Atrial fibrillation with rapid ventricular response: Code(s): I48.91 - Unspecified atrial fibrillation Status: Acute Assessment and Plan: The patient was found to have new onset AFib with RVR. She was started on a diltiazem drip with improvement in her rate. She was also started on therapeutic Lovenox. She remained stable and was transitioned to oral diltiazem 240 mg daily and Eliquis 5 mg b.i.d.. [id number] = 5. Patient has been asymptomatic so unclear of duration. TSH normal. LE venous doppler negative. Will follow-up with cardiology (2) Low back pain: Qualifiers: Back pain laterality: midline Chronicity: unspecified Sciatica presence: without sciatica Qualified Code(s): M54.5 - Low back pain Code(s): M54.5 - Low back pain Status: Acute Assessment and Plan: [place] patient with musculoskeletal back pain. Lumbar xray showing moderate to severe lumbar spondylosis without acute findings. She seems to do well with Tylenol. PT/OT consult with patient while here also (3) Leukocytosis: Code(s): D72.829 - Elevated white blood cell count, unspecified Status: Acute Assessment and Plan: Patient with elevated white blood cell count at 14.7K. no evidence to suggest infection. Repeat WBC normal. 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 Glucose reviewed on 03/27. Glucose elevated at times. Continue sliding scale insulin while here Accu-Cheks, and hypoglycemic protocol. Continued Lantus (5) Hypothyroidism: Code(s): E03.9 - Hypothyroidism, unspecified Status: Acute Assessment and Plan: TSH normal. Continue levothyroxine. (6) Dementia: Code(s): F03.90 - Unspecified dementia without behavioral disturbance Status: Acute Assessment and Plan: Stable. Continue Aricept. (7) Grade II diastolic dysfunction: Code(s): I51.9 - Heart disease, unspecified Status: Inactive Assessment and Plan: Stable. Trop negative x3. BNP 600. CXR showing bibasilar airspace opacities, consistent with atelectasis versus pneumonia; suspect atelectasis, with resolving leukocytosis echo normal 60% 5 DS: Summary Hospital Course Hospital Course: 74-year-old mildly demented female with type 2 diabetes on insulin who resides in assisted living presented to emergency room with complaints of back pain. She was found to be in atrial fibrillation rapid ventricular response and was admitted. Placed on diltiazem drip been transitioned to p.o. diltiazem 240 daily and placed on Lovenox and transitioned to Eliquis 5 b.i.d.. Seen by cardiology. Echo no significant valvular problems and normal ejection fraction 60%. Back pain thought to be mild muscle skeletal and resolved with Tylenol Time Spent with Patient Time attestation: Total time spent providing and/or coordinating discharge services: 35 minutes Exam Narrative: Exam Narrative: Condition on discharge Blood pressure 118/86 pulse is 76 irregular Lungs clear CV regular no murmur heard Extremities without edema Neuro alert pleasant cooperative sitting in a chair eating lunch, up with physical therapy and stable to be discharged back to assisted living DS: Data Data Completed and Pending Labs on day of discharge: Labs from last 24 hours 03/27/20 03/27/20 03/26/20 11:16 07:52 20:13 POC Capillary Glucose 204 H 172 H 244 H SARS-CoV-2 RNA (RT-PCR) 03/25/20 16:22 POC Capillary Glucose SARS-CoV-2 RNA (RT-PCR) Negative Discharge Plan Discharge Attending physician on discharge: Humza Garcia
== END 2020-03-27 13:45 | DRG 309 ==
LOC: ANHED 14:12 → ANHIMU 15:07 → ANH2MED 03-25 16:36
PROVIDERS: Physician Assistant; Admitting Provider Internal Medicine; Emergency Provider Family Medicine; PCP Physician Assistant; Visit Provider Internal Medicine
DX: I48.91 Unspecified atrial fibrillation (principal); I50.32 Chronic diastolic (congestive) heart failure; E11.9 Type 2 diabetes mellitus without complications; F03.90 Unspecified dementia, unspecified severity, without behavioral disturbance, psychotic disturbance, mood disturbance, and anxiety; I11.0 Hypertensive heart disease with heart failure; E03.9 Hypothyroidism, unspecified; Z79.4 Long term (current) use of insulin; J44.9 Chronic obstructive pulmonary disease, unspecified; Z20.822 Contact with and (suspected) exposure to COVID-19
CPT/HCPCS: 36415; 71045; 72100; 74177; 80053; 81001; 83036; 83735; 83880; 84443; 84484; 85025; 85027; 85610; 86140; 87086; 93005; 93306; 93970; 94640; 94762; 96372; 96374; 96375; 97110; 97116; 97161; 97165; 99285; A9270; C9803; G0378; J1650; J1815; Q9967; U0003; U0005

== ENCOUNTER 2020-11-24 14:03 | Inpatient (IN) | payer MEDICARE, MEDICAID, SELFPAY ==
[2020-11-24] VITALS (8 sets, daily range): BP systolic 128–136; BP diastolic 66–84; PULSE 66–109; RESP 18–29; TEMP 36.4–36.7; O2SAT 92–97; BMI 40.7
--- NOTE | ~2020-11-24 | XR_ITS ---
EXAMINATION: XR chest 1V portable EXAM DATE: 11/24/2020 14:25 INDICATION: Dyspnea. TECHNIQUE: Portable AP frontal chest x-ray was obtained. Comparison is made to prior examination from 03/24/2020. FINDINGS: There is small to moderate left, and small right pleural effusion. There is bibasilar atele ctasis. Superimposed edema or pneumonia also possible. Cardiomegaly and pulmonary vascular congestion . These findings appear to developed compared to previous examination, consider CHF exacerbation. No pneumothorax suspected. Some thoracic spondylosis. IMPRESSION: 1. Findings consistent with CHF exacerbation. Pneumonia not excludable. 2. Small to moderate left, small right effusions, adjacent atelectasis. Reviewed, dictated and finalized at location A.
--- NOTE | ~2020-11-24 | XR_ITS ---
EXAMINATION: [id number] DATE: 11/27/2020 12:40 INDICATION: Right pleural effusion postthoracentesis TECHNIQUE: frontal view of the chest was obtained. COMPARISON: Chest radiograph dated 11/24/2020 FINDINGS: Mild opacities at the right lower lung zone with near complete resolution of the prior right pleural effusion postthoracentesis. Additional mild opacities at the left lower lung zone with some blunting at costophrenic angle consistent with small left pleural effusion and associated basilar atelectasis and/or pneumonia. Calcified left lower lobe nodule consistent with old granulomatous disease. No pneu mothorax. The cardiomediastinal silhouette is normal. IMPRESSION: 1. Near complete resolution of prior right pleural effusion with no pneumothorax post thoracentesis. 2. Decreased opacities in the left lower lung zone consistent with decreasing small left pleural effu alaina and associated basilar atelectasis and/or pneumonia. Reviewed, dictated and finalized at location A. IMPRESSION: 1. Near complete resolution of prior right pleural effusion with no pneumothora x post thoracentesis. 2. Decreased opacities in the left lower lung zone consistent with decreasing s mall left pleural effusion and associated basilar atelectasis and/or pneumonia.
--- NOTE | ~2020-11-24 | NM_ITS ---
EXAMINATION: NM hepatobiliary wo pharm DATE: 11/28/2020 12:49 INDICATION: Gallbladder wall thickening nonspecific for acute cholecystitis on prior ultrasound COMPARISON: None. TECHNIQUE: 4 mCi Tc-99m mebrofenin (Choletec) was administered intravenously. Scintigraphic images o f the abdomen were obtained for 46 minutes. Patient was unable to continue to lie flat precluding ass essment of gallbladder ejection fraction. FINDINGS: There is normal clearance of radiotracer from the blood pool. There is homogeneous tracer u ptake by the liver. Activity progresses to the bowel and gallbladder. IMPRESSION: 1. Activity extending into the gall bladder which with relatively high specificity excludes acute ch olecystitis. Reviewed, dictated and finalized at location A. IMPRESSION: 1. Activity extending into the gall bladder which with relatively high specifi city excludes acute cholecystitis.
--- NOTE | ~2020-11-24 | CT_ITS ---
EXAMINATION: CT chest abdomen pelvis wo con EXAM DATE: 11/26/2020 13:52 INDICATION: Sepsis. TECHNIQUE: Spiral CT of the chest, abdomen and pelvis was performed without contrast. Axial, ramirez l and sagittal images chest, abdomen and pelvis were reviewed. Coronal maximum intensity pixel image s of chest reviewed. The dose-length product (DLP) for this examination was 1566.66 mGy-cm. The exp osure was tailored according to patient size (auto mA exposure control), and iterative reconstruction (ASIR) was used as additional dose reduction technique. Comparison is made to prior examination from 03/24/2020. FINDINGS: CHEST: There is moderate-sized right-sided nonloculated appearing pleural effusions with adjacent rig ht lower lobe subsegmental atelectasis. There is small left pleural effusion with adjacent subsegment al atelectasis. Right middle lobe calcified granuloma. Very faint mosaic attenuation, could be mild p ulmonary edema or air trapping. Tracheobronchial tree is patent. There is no mediastinal, hilar or axillary lymphadenopathy. There is no pneumothorax. Heart normal in size. There is mild coronar y arterial calcification, arterial sclerosis. ABDOMEN PELVIS: There is small amount of ascites. Generalized body wall fat stranding. There is moder ate amount of fat stranding surrounding the gallbladder with suspicion of small poorly calcified gall stones. Could be reactive or acute cholecystitis, these findings are new compared to prior study. The re is mild body wall edema and diffuse mesenteric edema. The liver, spleen, adrenal glands and pancreas are unremarkable. There is no nephrolithiasis or hydr onephrosis. The uterus is unremarkable. The bladder is unremarkable. There is no retroperitoneal or pelvic lymphadenopathy. There is mild scattered arteriosclerotic disease. There are no findings to suggest appendicitis. There is mild to moderate descending/sigmoid junction colonic diverticulosis. There is no adjacent inflammatory change to suggest diverticulitis. The stom ach and small bowel are unremarkable. There is expected amount of colonic stool. No free intraperi toneal gas. There are no osteoblastic or osteolytic lesions identified. IMPRESSION: 1. Moderate amount of pericholecystic fat stranding, nonspecific in setting of small ascites, genera lized fat stranding but acute cholecystitis should be considered/excluded. Probable small cholelithia sis. 2. Moderate right, small left pleural effusions with adjacent atelectasis. 3. Mild bilateral mosaic attenuation, air trapping or mild pulmonary edema most likely. Reviewed, dictated and finalized at location A. IMPRESSION: 1. Moderate amount of pericholecystic fat stranding, nonspecific in setting of small ascites, generalized fat stranding but acute cholecystitis should be con sidered/excluded. Probable small cholelithiasis. 2. Moderate right, small left pleural effusions with adjacent atelectasis. 3. Mild bilateral mosaic attenuation, air trapping or mild pulmonary edema mos t likely.
--- NOTE | ~2020-11-24 | US_ITS ---
EXAMINATION: US right upper quadrant EXAM DATE: 11/26/2020 16:34 INDICATION: Abnormal CT scanner, abnormal gallbladder. TECHNIQUE: Multiple grayscale and Doppler images of the abdomen right upper quadrant were obtained (anastasiia cobb a technologist who performed the scan) and subsequently reviewed. Correlation is made to CT earlier same date. FINDINGS: The pancreatic head and body are normal in appearance. The pancreatic tail is not visualized. The l iver has normal echogenicity and contour. There are no focal liver lesions identified. There is no evidence of intrahepatic biliary duct dilation. Portal venous flow was seen in the hepatopedal, nor mal direction and has normal Doppler waveform. No right-sided hydronephrosis. Common bile duct measures 4 mm, which is normal. The gallbladder wall measures 6 mm in thickness, mod erately thickened. There is some gallbladder sludge/debris. No pericholecystic fluid. Technologist p erforming exam reports patient did not demonstrate sonographic De Luna's sign. Please note that this sign is less reliable in patients who have received pain medication. IMPRESSION: Gallbladder wall thickening and sludge, nonspecific findings given absence of sonographic De Luna's sign. Differential diagnosis for gallbladder wall edema includes interstitial edema, chron ic liver disease, acute or chronic cholecystitis. Reviewed, dictated and finalized at location A. IMPRESSION: Gallbladder wall thickening and sludge, nonspecific findings given absence of sonographic De Luna's sign. Differential diagnosis for gallbladder w all edema includes interstitial edema, chronic liver disease, acute or chronic cholecystitis.
--- NOTE | ~2020-11-24 | US_ITS ---
EXAMINATION: US thoracentesis DATE: 11/27/2020 12:54 INDICATION: Moderate-sized right pleural effusion TECHNIQUE: The procedure and its risks and benefits were discussed with the patient. Potential risks discussed included bleeding, infection, and pneumothorax. The patient understood the risks and agreed to proceed. The skin was prepped and draped in sterile fashion. 1% lidocaine was used for local anes thesia. Under ultrasound guidance, a 5 Fr catheter with trochar was advanced into the small right ple ural effusion. Fluid was aspirated. The catheter was removed, and a dressing was applied. There were no immediate complications. FINDINGS: Ultrasound images demonstrate a small right pleural effusion and the catheter within the fluid. IMPRESSION: 1. Successful ultrasound-guided thoracentesis yielding 800 mL of clear audrey-colored fluid. Reviewed, dictated and finalized at location A. IMPRESSION: 1. Successful ultrasound-guided thoracentesis yielding 800 mL of clear audrey-c olored fluid.
--- NOTE | 2020-11-24 14:13 | ECG_ITS ---
Measurements Intervals Decker Rate: 88 P: RI: 0 QRS: -55 QRSD: 117 T: 23 QT: 344 QTc: 417 Interpretive Statements ATRIAL FIBRILLATION LOW QRS VOLTAGE IN PRECORDIAL LEADS INCOMPLETE RIGHT BUNDLE BRANCH BLOCK BASELINE ARTIFACT- I, II, III, AVR, AVL, AVF, V2 ABNORMAL ECG Electronically Signed On 11-25-2020 11:11:31 CDT by Andre Campoverde D.O.
[2020-11-24] MEDS: ALBUTEROL SULFATE NEB 2.5 MG/0.5 ML INH 5 MG INHALATION ×4 (14:35→15:17)
[2020-11-24] MEDS: IPRATROPIUM BR 0.02% INH SOLN 0.5 MG/2.5 ML VIAL INHALATION ×4 (14:35→15:17)
[2020-11-24 14:45] LABS: Alveolar/Arterial O2 Gradient 113.1 mmHg; Base Excess ABG 4.3 mEq/l (+/-2.0); Fractional Inspired Oxygen 36 %; Oxygen Content ABG 16.7 %vol (16.0-22.0); Oxygen Saturation ABG 92.9 % (95.0-100.0); Oxyhemoglobin 91.2 % THb (90.0-100.0); PO2 ABG 71.7 mmHg (80.0-100.0); PO2 FiO2 Ratio Arterial Blood 1.99 %
[2020-11-24 14:47] LABS: Modified Allen's Test Pass; Site Drawn RIGHT RADIAL
[2020-11-24 14:48] LABS: Device NASAL CANNULA
[2020-11-24 15:02] LABS: Basophils Absolute Auto 0.1 K/mm3 (0.0-0.1); Basophils Percent Auto 0.6 % (0.2-1.2); Eosinophils Absolute Auto 0.2 K/mm3 (0-0.3); Eosinophils Percent Auto 1.6 % (0-4.4); Hematocrit 41.8 % (37.0-47.0); Hemoglobin 11.8 g/dL (12.0-15.0); Immature Granulocyte Absolute 0.04 K/mm3 (0.00-0.031); Immature Granulocyte Percent A 0.4 % (0-0.5); Lymphocytes Absolute Auto 1.05 K/mm3 (0.9-3.2); Lymphocytes Percent Auto 10.9 % (18.3-44.2); Mean Corpuscular HGB Conc 28.2 g/dl (32-36); Mean Corpuscular Hemoglobin 29.1 pg (26-34); Mean Corpuscular Volume 103.2 fl (80-100); Mean Platelet Volume 10.1 fl (7.4-10.4); Monocytes Absolute Auto 0.6 K/mm3 (0.1-0.6); Monocytes Percent Auto 6.4 % (2.6-8.5); Neutrophils Absolute Auto 7.7 K/mm3 (1.3-6.7); Neutrophils Percent Auto 80.1 % (45.5-73.1); Platelet Count Result 291 k/mm3 (150-375); Red Blood Count 4.05 M/mm3 (4.2-5.4); Red Cell Distribution Width 15.1 % (11.5-14.5); White Blood Count 9.6 K/mm3 (4.5-10.0)
[2020-11-24] MEDS: methylPREDNISolone SOD SUCC 125 MG VIAL IV PUSH (15:02)
[2020-11-24 15:19] LABS: Alanine Aminotransferase 14 U/L (4-35); Albumin Level 4.2 g/dL (3.5-5.1); Alkaline Phosphatase 88 U/L (38-126); Anion Gap 11 mmol/L (8-16); Aspartate Amino Transferase 20 U/L (14-36); Bilirubin,Total 0.5 mg/dL (0.2-1.3); Blood Urea Nitrogen 16 mg/dL (7-17); Calcium 8.7 mg/dL (8.4-10.2); Carbon Dioxide 31 mmol/L (22-30); Chloride 102 mmol/L (98-107); Estimated CRCL calculation 80 ml/min; Estimated Glomerular Filt Rate > 60; Glucose 116 mg/dL (65-110); Potassium 4.5 mmol/L (3.4-5.0); Sodium 144 mmol/L (137-145)
[2020-11-24 15:20] LABS: Anisocytosis 1+ (NORMAL); Hypochromasia 1+ (NORMAL); Platelet Estimate Adequate (Adequate)
[2020-11-24] MEDS: FUROSEMIDE INJ 40 MG/4 ML VIAL IV PUSH (15:39)
[2020-11-24 16:04] LABS: NT Pro B Type Natriuretic Pept 761 pg/mL (5-100)
--- NOTE | 2020-11-24 16:29 | ED.SOB ---
HPI - SOB/Dyspnea General Chief Complaint: Shortness of Breath/Dyspnea Stated Complaint: sob Time Seen by Provider: 11/24/20 14:09 History of Present Illness HPI Narrative: Patient presents from nursing facility with shortness of breath has been worse over the past 2 days. He was feeling noted oxygen level of 89% and they were concerned so referred the patient to the ER for evaluation. Patient reports she been feeling more short of breath over the past 24 hours denies cough or fevers denies focal areas of pain such as chest pain abdominal pain nausea vomiting or diarrhea. Related Data Home Medications Medication Instructions Recorded Confirmed Anoro Ellipta 1 inh INHALATION DAILY 03/24/20 03/24/20 Lantus Solostar U-100 Insulin 30 unit SUBCUT HS 03/24/20 03/25/20 donepezil [Aricept] 10 mg PO HS 03/24/20 03/24/20 hydrocolloid dressing 03/24/20 03/24/20 levothyroxine 50 mcg PO DAILY 03/24/20 03/24/20 metformin [Riomet] 500 mg PO BID 03/24/20 03/24/20 omeprazole 20 mg PO DAILY 03/24/20 03/24/20 acetaminophen 500 mg PO Q4-8H PRN 03/25/20 03/25/20 albuterol sulfate [Ventolin HFA] 2 puff INHALATION Q6H PRN 03/25/20 03/25/20 budesonide-formoterol [Symbicort] 2 puff INHALATION Q12H 03/25/20 03/25/20 codeine-guaifenesin 5 - 10 ml PO Q4H PRN 03/25/20 03/25/20 ferrous sulfate 300 mg PO DAILY 03/25/20 03/25/20 ipratropium-albuterol 3 ml INHALATION Q6H PRN 03/25/20 03/25/20 mecobalamin (vitamin B12) 1,000 mcg PO DAILY 03/25/20 03/25/20 nystatin 1 applic TOPICAL QID 03/25/20 03/25/20 Allergies Allergy/AdvReac Type Severity Reaction Status Date / Time No Known Allergies Allergy Unknown Verified 03/24/20 11:57 Review of Systems Review of Systems: CONSTITUTIONAL: Denies fever, chills, or sweats. EYES: Denies visual changes, redness, or discharge. ENT: Denies rhinorrhea, congestion, sore throat, or otalgia. CARDIOVASCULAR: Denies chest pain, palpitations, or edema. RESPIRATORY: Denies coug GASTROINTESTINAL: Denies abdominal pain, nausea, vomiting, or diarrhea. GENITOURINARY: Denies dysuria or hematuria. SKIN: Denies rash or itching. MUSCULOSKELETAL: Denies back pain, joint pain, or myalgia. NEUROLOGIC: Denies headache, numbness, dizziness, or weakness. PSYCHIATRIC: Denies anxiety or depression. All systems reviewed & are unremarkable except as noted in HPI and below PMFSH Past Medical History Medical History Anemia Arthritis COPD (chronic obstructive pulmonary disease) Dementia Diabetic peripheral neuropathy Former smoker 50 pack-year smoking history. Grade II diastolic dysfunction Noted on echocardiogram in December 2018. Ejection fraction was 60 to 65%. Hypothyroidism Insulin dependent type 2 diabetes mellitus Surgical History Surgical History History of cataract extraction History of dilation and curettage Family History Family History Father Cerebrovascular accident Grandparent Cerebrovascular accident Family history of heart disease in male family member before age 55 Mother Family history of heart disease in male family member before age 55 Heart disease of a heart attack Heart attack Social History Social History Social History: She is a resident at [facility] in [place]. Former smoker, up to a pack of cigarettes a day for 50 years, and quit in 2009. She stopped drinking alcohol in 2007. No illicit substance use. Three children. Her son Kwesi Neely is her healthcare power of loan originator. She wishes to be a do not resuscitate but son reports that she has an advance directive stating that she wishes to be a full code. 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 Smoking packs per day: 1 Smoking cigarettes per day: 20.0 Year
--- NOTE | 2020-11-24 18:46 | ADMGEN ---
This patient, Ana Neely, was admitted to 3 Med Surg Room 302-01 @ 1840. Patient/family oriented to hospital policies and general routines including ID bracelet, bed and alarms, visiting hours, pain management, procedures, bathroom and other care routines, personal items, smoking policy, room service/diet, and visiting hours. Information on how to activate the Rapid Response Team has been discussed. Patient/Family are encouraged to report perceived risks to care and to ask questions if they do not understand what they are told or what they should do.
--- NOTE | 2020-11-24 23:21 | PM.IMHP ---
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 She was brought to the emergency room due to shortness of breath over the last 2 days. Her O2 saturations dropped down 89% and she is not typically on oxygen at the facility. The patient was brought to the emergency room for evaluation. The patient has dementia and is having difficulty answering questions at this time. She denied any fever chills or cough. No nausea vomiting or diarrhea. Chest x-ray was read as findings consistent with congestive heart failure pneumonia not excludable. Small to moderate left small pleural effusion adjacent atelectasis. The patient's last echo on 03/27/2020 was read as mild to moderate TR moderate pulmonary hypertension. EF was 55-60%. The patient was given nebulizer treatments as well as Solu-Medrol in the emergency room she was also given azithromycin and Lasix. Whenever patient is oxygen was removed she would drop down in the upper 80s for her O2 saturations. Her EKG was found to be AFib and she is already anticoagulated on Eliquis. The patient is being admitted to observation status on the date of service of 11/24/2020. Chief Complaint: Shortness of breath Review of Systems Review of Systems: All systems reviewed & are unremarkable except as noted in HPI and below Constitutional: Constitutional: Reports as per HPI and Reports no additional constitutional complaints Eyes: Eyes: Reports as per HPI and Reports no additional eye complaints ENT: Reports system reviewed and no additional complaints, except as documented and Reports Normal hearing present Cardiovascular: Cardiovascular: Reports no additional cardiovascular complaints Respiratory: Respiratory: Reports no additional respiratory complaints and Reports no additional respiratory complaints Gastrointestinal: Gastrointestinal: Reports as per HPI and Reports no additional gastrointestinal complaints Musculoskeletal: Musculoskeletal: Reports no additional musculoskeletal complaints Integumentary/Breasts: Skin/Breast: Reports system reviewed and no additional complaints, except as docu and Reports as per HPI Neurologic: Reports system reviewed and no additional complaints, except as documented, Reports as per HPI and Reports Normal hearing present Psychiatric: Psychiatric: Reports no additional psychiatric complaints and Reports as per HPI Endocrine: Endocrine: Reports no additional endocrine complaints Hematologic/Lymphatic: Hematologic/Lymphatic: Reports no additional hematologic/lymphatic complaints Allergic/Immunologic: Allergic/Immunologic: Reports no additional allergic/immunologic complaints PMFSH Past Medical History Medical History (Updated 11/24/20 @ 23:33 by Kia Reyes NP) Anemia Arthritis Atrial fibrillation CHF exacerbation COPD (chronic obstructive pulmonary disease) Dementia Diabetic peripheral neuropathy Former smoker 50 pack-year smoking history. Grade II diastolic dysfunction Noted on echocardiogram in December 2018. Ejection fraction was 60 to 65%. Hypothyroidism Insulin dependent type 2 diabetes mellitus Surgical History Surgical History History of cataract extraction History of dilation and curettage Family History Family History Father Cerebrovascular accident Grandparent Cerebrovascular accident Family history of heart disease in male family member before age 55 Mother Family history of heart disease in male family member before age 55 Heart disease of a heart attack Heart attack Social History Social History Social History: She is a resident at [facility]. Former smoker, up to a pack of cigarettes a day for 50 years, and quit in 2009. She stopped drinking alcoho
[2020-11-25] VITALS (14 sets, daily range): BP systolic 110–127; BP diastolic 54–79; PULSE 68–106; RESP 12–22; TEMP 36.4–36.6; O2SAT 89–97
[2020-11-25] MEDS: LEVALBUTEROL NEB 1.25 MG/3 ML 0.63 MG INHALATION ×3 (04:04→21:39)
[2020-11-25] MEDS: LEVOTHYROXINE SODIUM 50 MCG TABLET PO (06:08)
[2020-11-25 07:45] LABS: Alanine Aminotransferase 14 U/L (4-35); Albumin Level 4.1 g/dL (3.5-5.1); Alkaline Phosphatase 88 U/L (38-126); Anion Gap 9 mmol/L (8-16); Aspartate Amino Transferase 16 U/L (14-36); Bilirubin,Total 0.5 mg/dL (0.2-1.3); Blood Urea Nitrogen 19 mg/dL (7-17); Calcium 8.8 mg/dL (8.4-10.2); Carbon Dioxide 33 mmol/L (22-30); Chloride 98 mmol/L (98-107); Estimated CRCL calculation 80 ml/min; Estimated Glomerular Filt Rate > 60; Glucose 241 mg/dL (65-110); Lactate Dehydrogenase 329 U/L (313-618); Magnesium 1.9 mg/dL (1.6-2.3); Potassium 4.6 mmol/L (3.4-5.0); Sodium 140 mmol/L (137-145)
[2020-11-25 07:47] LABS: Lactic Acid Reflex 2.2 mmol/L (0.7-2.1)
[2020-11-25 07:59] LABS: Glucose Point of Care 215 mg/dl (65-105)
[2020-11-25 08:38] LABS: Hemoglobin A1C 6.3 % (<5.7)
[2020-11-25] MEDS: UMECLIDINIUM/VILANTEROL 62.5-25 MCG ELLIPTA 1 PUFF INHALATION (08:43)
--- NOTE | 2020-11-25 08:44 | PCRCNOTE ---
Window of time for administration has passed. See next scheduled administration.
[2020-11-25 08:51] LABS: Thyroid Stimulating Hormone Reflex 0.874 uIU/mL (0.465-4.68)
[2020-11-25] MEDS: predniSONE 20 MG TABLET 60 MG PO (08:54)
[2020-11-25] MEDS: FUROSEMIDE INJ 40 MG/4 ML VIAL IV PUSH ×2 (08:55→17:32)
[2020-11-25] MEDS: INSULIN ASPART (*BKC) 100 UNITS/ML SUB-Q ×3 (08:56→17:37)
[2020-11-25] MEDS: APIXABAN 5 MG TABLET PO ×2 (09:00→20:22)
[2020-11-25 09:58] LABS: Reflex Lactic Acid Yes or No Add Lactic
[2020-11-25 10:59] LABS: Lactic Acid 3.7 mmol/L (0.7-2.1)
--- NOTE | 2020-11-25 11:32 | P.PNIM_ITS ---
Progress Note: A&P Assessment and Plan (1) Acute respiratory failure with hypoxia: Code(s): J96.01 - Acute respiratory failure with hypoxia Status: Acute Assessment and Plan: * Acute respiratory failure with hypoxia * SPO2 noted to be 89% on Room air with activity * Drops to 87% at rest with talking * Supplemental oxygen, wean to maintain a saturation >90% * Trend SPO2 * Probably related to CHF exacerbation * Lasix 40mg IV daily (2) CHF exacerbation: Code(s): I50.9 - Heart failure, unspecified Status: Acute Assessment and Plan: * Acute exacerbation, probably combination of systolic and diastolic heart failure, but will get echo to confirm * Last echo was March of this year. EF was noted of 55-60% with diastolic dysfunction. * Chest x-ray shows CHF exacerbation not rule out pneumonia * BNP elevated at 761 * Repeat Echo-ordered and pending * IV Lasix 40mg IV daily * Titrate oxygen to greater than 92 %. * Consider evaluation for home O2. * Strict I&O * Trend output (3) Atrial fibrillation: Code(s): I48.91 - Unspecified atrial fibrillation Status: Chronic Assessment and Plan: * Rate is controlled. * Continue with Eliquis and diltiazem * Tele monitor- afib consider DC * trend heart rate * Adjust medications as needed. 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 * Sliding scale insulin. * Verify Lantus. * Patient's pharmacy is closed at this time. * Trend labs * Hypoglycemia protocol * Sliding scale insulin (6) Dementia: Code(s): F03.90 - Unspecified dementia without behavioral disturbance Status: Acute Assessment and Plan: * Continue with home medication. (7) Hypothyroidism: Code(s): E03.9 - Hypothyroidism, unspecified Status: Acute Assessment and Plan: * Continue with levothyroxine. * thyroid levels 0.874 Time Spent With Patient Time with patient: Greater than 35 minutes Subjective Date/time seen: 11/25/20 10:30 Interval history: Patient is a 75-year-old female with a past medical history COPD, AFib, anemia, hypothyroidism, diabetes who presented to the ED with increased shortness of breath over the last couple days. Patient stated that she feels fine today. When asked her what happened or why she came here she said she does not remember. Patient denies any increase in sputum or wheezes. Patient also denies any issues with urination including frequency urgency and burning. Patient denies having any abdominal pain nausea or vomiting. Patient denies weakness fatigue, fevers, sweats, chills. I do feel like this is more of a CHF exacerbation especially since the chest x-ray reads CHF exacerbation not rule out pneumonia. Patient's BNP was elevated upon admission at 761. [place]if[place] have been st
--- NOTE | 2020-11-25 11:32 | PM.IMPN ---
Progress Note: A&P Assessment and Plan (1) Acute respiratory failure with hypoxia: Code(s): J96.01 - Acute respiratory failure with hypoxia Status: Acute Assessment and Plan: Acute respiratory failure with hypoxia SPO2 noted to be 89% on Room air with activity Drops to 87% at rest with talking Supplemental oxygen, wean to maintain a saturation >90% Trend SPO2 Probably related to CHF exacerbation Lasix 40mg IV daily (2) CHF exacerbation: Code(s): I50.9 - Heart failure, unspecified Status: Acute Assessment and Plan: Acute exacerbation, probably combination of systolic and diastolic heart failure, but will get echo to confirm Last echo was March of this year. EF was noted of 55-60% with diastolic dysfunction. Chest x-ray shows CHF exacerbation not rule out pneumonia BNP elevated at 761 Repeat Echo-ordered and pending IV Lasix 40mg IV daily Titrate oxygen to greater than 92 %. Consider evaluation for home O2. Strict I&O Trend output (3) Atrial fibrillation: Code(s): I48.91 - Unspecified atrial fibrillation Status: Chronic Assessment and Plan: Rate is controlled. Continue with Eliquis and diltiazem Tele monitor- afib consider DC trend heart rate Adjust medications as needed. 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 Sliding scale insulin. Verify Lantus. Patient's pharmacy is closed at this time. Trend labs Hypoglycemia protocol Sliding scale insulin (6) Dementia: Code(s): F03.90 - Unspecified dementia without behavioral disturbance Status: Acute Assessment and Plan: Continue with home medication. (7) Hypothyroidism: Code(s): E03.9 - Hypothyroidism, unspecified Status: Acute Assessment and Plan: Continue with levothyroxine. thyroid levels 0.874 Time Spent With Patient Time with patient: Greater than 35 minutes Subjective Date/time seen: 11/25/20 10:30 Interval history: Patient is a 75-year-old female with a past medical history COPD, AFib, anemia, hypothyroidism, diabetes who presented to the ED with increased shortness of breath over the last couple days. Patient stated that she feels fine today. When asked her what happened or why she came here she said she does not remember. Patient denies any increase in sputum or wheezes. Patient also denies any issues with urination including frequency urgency and burning. Patient denies having any abdominal pain nausea or vomiting. Patient denies weakness fatigue, fevers, sweats, chills. I do feel like this is more of a CHF exacerbation especially since the chest x-ray reads CHF exacerbation not rule out pneumonia. Patient's BNP was elevated upon admission at 761. Lasix have been started 40 mg IV once a day. Patient continues to be on supplemental oxygen, unknown if she is currently on oxygen at home. Review of Systems Review of Systems: All systems reviewed & are unremarkable except as noted in HPI and below Exam Const: General: cooperative, healthy appearing, comfortable, no acute distress, well developed, alert, awake and Physically active Nutritional Appearance: average body habitus and overweight Orientation/consciousness: oriented to person and oriented to place Limitations: other limitations O
[2020-11-25 12:17] LABS: Glucose Point of Care 280 mg/dl (65-105)
[2020-11-25 16:49] LABS: Glucose Point of Care 281 mg/dl (65-105)
[2020-11-25] MEDS: INSULIN GLARGINE (*BKC) 100 UNITS/ML 30 UNITS SUB-Q (20:22)
[2020-11-25] MEDS: DONEPEZIL HCL 10 MG TABLET PO (20:22)
[2020-11-25] MEDS: metFORMIN HCL 500 MG TABLET PO (20:31)
[2020-11-26] VITALS (18 sets, daily range): BP systolic 121–133; BP diastolic 61–94; PULSE 67–128; RESP 18–22; TEMP 36.1–36.9; O2SAT 90–100
--- NOTE | 2020-11-26 | ECHO_ITS ---
Patient Info Name: Ana Neely Age: 75 years : 1945 Gender: Female Ht: 63 in Wt: 229 lbs BSA: 2.20 m2 HR: 101 bpm BP: 126 / 63 mmHg Heart Rhythm: Atrial Fibrillation Exam Date: 11/26/2020 9:42 AM Exam Location: [facility] Patient Status: Inpatient Admit Date: 11/25/2020 Staff Ordering Physician: Kia Reyes NP Office Helper: Mannie De Luna RDCS, RT Attending Provider: Fan Greene MD Referring Physician: Amy CORADO; Exam Type: CA echo doppler color flow Study Info Indications I50.9 - Heart failure, unspecified Complete two-dimensional, color flow and Doppler transthoracic echocardiogram is performed. Strain analysis performed. Summary 1. Complete two-dimensional, color flow and Doppler transthoracic echocardiogram is performed. 2. Left ventricular chamber dimension is normal. 3. Left ventricular systolic function is normal, estimated at 50-55%. 4. Left atrial chamber dimension is moderately enlarged. 5. There is mild mitral valve regurgitation. 6. There is mild aortic valve sclerosis. Left Ventricle Left ventricular chamber dimension is normal. Left ventricular systolic function is normal, estimated at 50-55%. The left ventricular diastolic function is indeterminate. Right Ventricle Right ventricular chamber dimension is normal. Left Atria Left atrial chamber dimension is moderately enlarged. Right Atria Right atrial chamber dimension is mildly enlarged. Aortic Valve The aortic valve is trileaflet. There is mild aortic valve sclerosis. Pulmonic Valve The pulmonic valve is not well visualized. Mitral Valve The mitral valve has normal leaflets. There is mild mitral valve regurgitation. Tricuspid Valve The tricuspid valve leaflets are normal. There is mild tricuspid valve regurgitation. Pericardium/Pleural The pericardium appears normal. Aorta The aortic root size at the sinus of Valsalva is normal. Left Ventricular Outflow Tract Name Value Normal LVOT 2D LVOT Diameter 2.0 cm LVOT Doppler LVOT Peak Gradient 6 mmHg LVOT Mean Gradient 4 mmHg LVOT VTI 22 cm LVOT VTI/AV VTI Ratio 0.9 LVOT Stroke Volume 73 ml LVOT CO 7.3 l/min LVOT CI 3.3 l/min/m2 Mitral Valve Name Value Normal MV Doppler MV Peak Gradient 1 mmHg MV Mean Gradient 0 mmHg MV Decel Rhea 678 cm/s2 MV PHT 57 ms MV Area (PHT) 3.8 cm2 4.0-5.0 MV Area (Cont Eq VTI) 8.9 cm2 MV Regurgitation Doppler
[2020-11-26] MEDS: IPRATROPIUM BR 0.02% INH SOLN 0.5 MG/2.5 ML VIAL INHALATION (02:37)
[2020-11-26] MEDS: LEVALBUTEROL NEB 1.25 MG/3 ML 0.63 MG INHALATION ×4 (02:38→20:45)
[2020-11-26 04:25] LABS: Glucose Point of Care 367 mg/dl (65-105)
[2020-11-26] MEDS: LEVOTHYROXINE SODIUM 50 MCG TABLET PO (06:13)
[2020-11-26 06:42] LABS: Basophils Percent Auto 0.1 % (0.2-1.2); Hematocrit 38.3 % (37.0-47.0); Hemoglobin 11.1 g/dL (12.0-15.0); Immature Granulocyte Absolute 0.04 K/mm3 (0.00-0.031); Immature Granulocyte Percent A 0.4 % (0-0.5); Lymphocytes Absolute Auto 0.51 K/mm3 (0.9-3.2); Lymphocytes Percent Auto 4.6 % (18.3-44.2); Mean Platelet Volume 10.5 fl (7.4-10.4); Monocytes Absolute Auto 0.8 K/mm3 (0.1-0.6); Monocytes Percent Auto 6.8 % (2.6-8.5); Neutrophils Absolute Auto 9.8 K/mm3 (1.3-6.7); Neutrophils Percent Auto 88.1 % (45.5-73.1); Platelet Count Result 306 k/mm3 (150-375); Red Blood Count 3.83 M/mm3 (4.2-5.4); Red Cell Distribution Width 14.6 % (11.5-14.5); White Blood Count 11.1 K/mm3 (4.5-10.0)
[2020-11-26 07:13] LABS: Alanine Aminotransferase 14 U/L (4-35); Alkaline Phosphatase 73 U/L (38-126); Anion Gap 13 mmol/L (8-16); Aspartate Amino Transferase 15 U/L (14-36); Bilirubin,Total 0.3 mg/dL (0.2-1.3); Blood Urea Nitrogen 26 mg/dL (7-17); Calcium 8.6 mg/dL (8.4-10.2); Carbon Dioxide 31 mmol/L (22-30); Chloride 95 mmol/L (98-107); Estimated CRCL calculation 69 ml/min; Estimated Glomerular Filt Rate > 60; Glucose 268 mg/dL (65-110); Sodium 139 mmol/L (137-145)
[2020-11-26] MEDS: UMECLIDINIUM/VILANTEROL 62.5-25 MCG ELLIPTA 1 PUFF INHALATION (08:55)
[2020-11-26 08:57] LABS: Lactic Acid Reflex 4.3 mmol/L (0.7-2.1)
[2020-11-26] MEDS: predniSONE 20 MG TABLET 60 MG PO (09:11)
[2020-11-26] MEDS: metFORMIN HCL 500 MG TABLET PO ×2 (09:12→17:28)
[2020-11-26] MEDS: PANTOPRAZOLE 40 MG TABLET PO (09:12)
[2020-11-26] MEDS: CYANOCOBALAMIN 1,000 MCG TABLET 1000 MCG PO (09:13)
[2020-11-26] MEDS: APIXABAN 5 MG TABLET PO (09:13)
[2020-11-26] MEDS: SODIUM CHLORIDE 0.9% IV 1,000 ML 999 ML IV CONT ×2 (09:17→15:41)
[2020-11-26 09:34] LABS: Glucose Point of Care 234 mg/dl (65-105)
[2020-11-26 11:34] LABS: Reflex Lactic Acid Yes or No Add Lactic
[2020-11-26 11:50] LABS: Glucose Point of Care 205 mg/dl (65-105)
[2020-11-26 12:13] LABS: Lactic Acid 3.2 mmol/L (0.7-2.1)
[2020-11-26] MEDS: FERROUS SULFATE 324 MG TABLET PO (12:31)
[2020-11-26] MEDS: SODIUM CHLORIDE 0.9% IV 1,000 ML 100 ML IV CONT (13:19)
--- NOTE | 2020-11-26 15:02 | P.PNIM_ITS ---
Progress Note: A&P Assessment and Plan (1) Sepsis: Code(s): A41.9 - Sepsis, unspecified organism Status: Acute Assessment and Plan: * patient meets criteria for sepsis with an elevated lactate, temp 36.1? respi rations 21, pulse rate of 95, SpO2 of 98% on 2 L nasal cannula with a blood pressure of 126/63 * Latic acid in the ED was 2.2 repeat went up to 3.7 * Patient was given 2L of fluid * NS at 80ml/hr continuous * Repeat lactic pending * IV Rocephin and azithromycin have been started * blood cultures are pending * deescalate antibiotics per cultures * probably related to the pleural effusion or gallbladder (2) Cholelithiasis: Code(s): K80.20 - Calculus of gallbladder without cholecystitis without obstruction Status: Acute Assessment and Plan: * CT shows fat stranding with probable stones * RUQ ultrasound ordered and pending * No complaints of stomach pain * General surgery consulted thank you (3) Bilateral pleural effusion: Code(s): J90 - Pleural effusion, not elsewhere classified Status: Acute Assessment and Plan: * CT of the chest shows moderate right and small left pleural effusion * US guided thoracentesis with labs ordered * Could be the cause of the shortness of breath (4) Acute respiratory failure with hypoxia: Code(s): J96.01 - Acute respiratory failure with hypoxia Status: Acute Assessment and Plan: * Acute respiratory failure with hypoxia * SPO2 noted to be 89% on Room air with activity * Drops to 87% at rest with talking * Supplemental oxygen, wean to maintain a saturation >90% * Trend SPO2 * Probably related to CHF exacerbation, or pleural effusion * US thoracentesis ordered with labs * Lasix 40mg IV daily (5) CHF exacerbation: Code(s): I50.9 - Heart failure, unspecified Status: Acute Assessment and Plan: * Acute exacerbation, probably diastolic heart failure since echo shows indeterminate diastolic dysfunction with EF of 50-55% * Chest x-ray shows CHF exacerbation not rule out pneumonia * CT of chest shows pulmonary edema * BNP elevated at 761 (11/25/20) * IV Lasix 40mg IV daily * Titrate oxygen to greater than 92 %. * Consider evaluation for home O2. * Strict I&O * Trend output (6) Atrial fibrillation: Code(s): I48.91 - Unspecified atrial fibrillation Status: Chronic Assessment and Plan: * Rate is controlled. * Continue with Eliquis and diltiazem * Tele monitor- afib * trend heart rate * Adjust medications as needed. (7) COPD (chronic obstructive pulmonary disease): Code(s): J44.9 - Chronic obstructive pulmonary disease, unspecified Status: Acute Assessment and Plan: * No signs of acute exacerbation * Seems to be acute exacerbation of CHF * Continue home inhalers * Stop prednisone at this time (8) Insulin dependent type 2 diabetes mellitus: Code(s): E11.9 - Type 2 diabetes mellitus without complications; Z79.4 - long-term (current) use of insulin Status: Acute Assessment and Plan: * Glucose on labs is 241 * A1c 6.3 * Will get a hold metformin at this time until we can verify her dosage. * Sliding scale insulin. * Verify Lantus. * Patient's pharmacy is closed at this time. * Trend labs * Hypoglycemia protocol * Sliding scale insulin
--- NOTE | 2020-11-26 15:02 | PM.IMPN ---
Progress Note: A&P Assessment and Plan (1) Sepsis: Code(s): A41.9 - Sepsis, unspecified organism Status: Acute Assessment and Plan: patient meets criteria for sepsis with an elevated lactate, temp 36.1? respirations 21, pulse rate of 95, SpO2 of 98% on 2 L nasal cannula with a blood pressure of 126/63 Latic acid in the ED was 2.2 repeat went up to 3.7 Patient was given 2L of fluid NS at 80ml/hr continuous Repeat lactic pending IV Rocephin and azithromycin have been started blood cultures are pending deescalate antibiotics per cultures probably related to the pleural effusion or gallbladder (2) Cholelithiasis: Code(s): K80.20 - Calculus of gallbladder without cholecystitis without obstruction Status: Acute Assessment and Plan: CT shows fat stranding with probable stones RUQ ultrasound ordered and pending No complaints of stomach pain General surgery consulted thank you (3) Bilateral pleural effusion: Code(s): J90 - Pleural effusion, not elsewhere classified Status: Acute Assessment and Plan: CT of the chest shows moderate right and small left pleural effusion US guided thoracentesis with labs ordered Could be the cause of the shortness of breath (4) Acute respiratory failure with hypoxia: Code(s): J96.01 - Acute respiratory failure with hypoxia Status: Acute Assessment and Plan: Acute respiratory failure with hypoxia SPO2 noted to be 89% on Room air with activity Drops to 87% at rest with talking Supplemental oxygen, wean to maintain a saturation >90% Trend SPO2 Probably related to CHF exacerbation, or pleural effusion US thoracentesis ordered with labs Lasix 40mg IV daily (5) CHF exacerbation: Code(s): I50.9 - Heart failure, unspecified Status: Acute Assessment and Plan: Acute exacerbation, probably diastolic heart failure since echo shows indeterminate diastolic dysfunction with EF of 50-55% Chest x-ray shows CHF exacerbation not rule out pneumonia CT of chest shows pulmonary edema BNP elevated at 761 (11/25/20) IV Lasix 40mg IV daily Titrate oxygen to greater than 92 %. Consider evaluation for home O2. Strict I&O Trend output (6) Atrial fibrillation: Code(s): I48.91 - Unspecified atrial fibrillation Status: Chronic Assessment and Plan: Rate is controlled. Continue with Eliquis and diltiazem Tele monitor- afib trend heart rate Adjust medications as needed. (7) COPD (chronic obstructive pulmonary disease): Code(s): J44.9 - Chronic obstructive pulmonary disease, unspecified Status: Acute Assessment and Plan: No signs of acute exacerbation Seems to be acute exacerbation of CHF Continue home inhalers Stop prednisone at this time (8) Insulin dependent type 2 diabetes mellitus: Code(s): E11.9 - Type 2 diabetes mellitus without complications; Z79.4 - alf (current) use of insulin Status: Acute Assessment and Plan: Glucose on labs is 241 A1c 6.3 Will get a hold metformin at this time until we can verify her dosage. Sliding scale insulin. Verify Lantus. Patient's pharmacy is closed at this time. Trend labs Hypoglycemia protocol Sliding scale insulin (9) Dementia: Code(s): F03.90 - Unspecified dementia without behavioral disturbance Status: Acute Assessment and Plan: Continue with home medication. (10) Hypothyroidism: Code(s): E03.9 - Hypothyroidism, unspecified Status: Acute Assessment and Plan: Continue with levothyroxine. thyroid levels 0.874 Time Spent With Patient Time with patient: Greater than 35 minutes Subjective Date/time seen: 11/26/20 15:02 Interval history: Patient is a 75-year-old female with a past medical history COPD, AFib, anemia, hyp
[2020-11-26 17:07] LABS: Glucose Point of Care 269 mg/dl (65-105)
[2020-11-26] MEDS: INSULIN ASPART (*BKC) 100 UNITS/ML SUB-Q (17:28)
[2020-11-26 20:19] LABS: INR 1.5; Prothrombin Time 17.4 Seconds (11.1-14.7)
[2020-11-26 20:30] LABS: Alanine Aminotransferase 24 U/L (4-35); Alkaline Phosphatase 71 U/L (38-126); Amylase 48 U/L (30-110); Aspartate Amino Transferase 21 U/L (14-36); Bilirubin,Total 0.1 mg/dL (0.2-1.3); Bilirubin,Total 0.2 mg/dL (0.2-1.3); Cholesterol 167 mg/dL (0-200); Glucose 357 mg/dL (65-110); Lactate Dehydrogenase 327 U/L (313-618); Triglycerides 112 mg/dL (<150)
[2020-11-26 20:34] LABS: Lactic Acid Reflex 6.8 mmol/L (0.7-2.1)
[2020-11-26 20:48] LABS: Glucose Point of Care 302 mg/dl (65-105)
[2020-11-26] MEDS: SODIUM CHLORIDE 0.9% IV 1,000 ML 80 ML IV CONT (20:50)
[2020-11-26] MEDS: DONEPEZIL HCL 10 MG TABLET PO (20:54)
[2020-11-26] MEDS: INSULIN GLARGINE (*BKC) 100 UNITS/ML 30 UNITS SUB-Q (20:55)
[2020-11-26] MEDS: SODIUM CHLORIDE 0.9% IV 500 ML 999 ML IV CONT (20:59)
[2020-11-26] MEDS: INSULIN ASPART (*BKC) 100 UNITS/ML 6 UNITS SUB-Q (21:00)
[2020-11-27] VITALS (14 sets, daily range): BP systolic 96–150; BP diastolic 66–90; PULSE 67–115; RESP 18–24; TEMP 36.1–36.7; O2SAT 90–100
[2020-11-27] MEDS: LEVALBUTEROL NEB 1.25 MG/3 ML 0.63 MG INHALATION ×2 (01:32→20:03)
[2020-11-27 06:41] LABS: Basophils Percent Auto 0.1 % (0.2-1.2); Hematocrit 39.6 % (37.0-47.0); Hemoglobin 11.3 g/dL (12.0-15.0); Immature Granulocyte Absolute 0.04 K/mm3 (0.00-0.031); Immature Granulocyte Percent A 0.4 % (0-0.5); Lymphocytes Absolute Auto 0.47 K/mm3 (0.9-3.2); Lymphocytes Percent Auto 4.5 % (18.3-44.2); Mean Corpuscular HGB Conc 28.5 g/dl (32-36); Mean Corpuscular Hemoglobin 28.3 pg (26-34); Mean Corpuscular Volume 99.2 fl (80-100); Monocytes Absolute Auto 0.5 K/mm3 (0.1-0.6); Monocytes Percent Auto 5.1 % (2.6-8.5); Neutrophils Absolute Auto 9.4 K/mm3 (1.3-6.7); Neutrophils Percent Auto 89.9 % (45.5-73.1); Platelet Count Result 287 k/mm3 (150-375); Red Blood Count 3.99 M/mm3 (4.2-5.4); Red Cell Distribution Width 14.6 % (11.5-14.5); White Blood Count 10.5 K/mm3 (4.5-10.0)
[2020-11-27 06:55] LABS: Alanine Aminotransferase 16 U/L (4-35); Albumin Level 4.2 g/dL (3.5-5.1); Alkaline Phosphatase 71 U/L (38-126); Anion Gap 14 mmol/L (8-16); Aspartate Amino Transferase 18 U/L (14-36); Bilirubin,Total 0.3 mg/dL (0.2-1.3); Blood Urea Nitrogen 25 mg/dL (7-17); Calcium 8.7 mg/dL (8.4-10.2); Carbon Dioxide 28 mmol/L (22-30); Chloride 99 mmol/L (98-107); Estimated CRCL calculation 80 ml/min; Estimated Glomerular Filt Rate > 60; Glucose 256 mg/dL (65-110); Magnesium 2.1 mg/dL (1.6-2.3); Potassium 4.4 mmol/L (3.4-5.0); Sodium 141 mmol/L (137-145)
[2020-11-27 07:03] LABS: INR 1.2; Prothrombin Time 15.1 Seconds (11.1-14.7)
[2020-11-27 07:04] LABS: Partial Thromboplastin Time 28.8 SECONDS (22.3-36.8)
[2020-11-27 07:44] LABS: Lactic Acid Reflex 3.4 mmol/L (0.7-2.1)
[2020-11-27] MEDS: CYANOCOBALAMIN 1,000 MCG TABLET 1000 MCG PO (08:43)
[2020-11-27] MEDS: metFORMIN HCL 500 MG TABLET PO ×2 (08:43→18:12)
[2020-11-27] MEDS: PANTOPRAZOLE 40 MG TABLET PO (08:43)
[2020-11-27] MEDS: FERROUS SULFATE 324 MG TABLET PO (08:44)
[2020-11-27 08:48] LABS: Glucose Point of Care 200 mg/dl (65-105)
--- NOTE | 2020-11-27 09:45 | PM.CNGS ---
Assessment and Plan Assessment and plan (1) Abnormal findings on diagnostic imaging of gallbladder: Code(s): R93.2 - Abnormal findings on diagnostic imaging of liver and biliary tract Status: Acute Assessment and Plan: The etiology of her lactic acidosis is unclear at this time. Hospitalist is currently treating for possible sepsis with IV antibiotics covering for a pulmonary or gallbladder source. CT scan and ultrasound reviewed and discussed with the patient in detail. There is evidence of sludge with gallbladder wall thickening and a negative De Luna's sign. CT scan suggests some pericholecystic fat stranding, although nonspecific in the setting of small ascites. The patient does not seem to clinically correlate with what you would typically expect in acute cholecystitis. Her acute issues currently seem to be pulmonary related, although I will order a HIDA scan today to further evaluate the gallbladder for cystic duct patency. Given her multiple co-morbidities, anticoagulation, and age, she would be a higher risk surgical candidate. If there are findings of acute cholecystitis on the HIDA scan, then we will discuss treatment options at that point. If the cystic duct is patent, then would recommend evaluating a different source for her lactic acidosis. (2) Sepsis: Code(s): A41.9 - Sepsis, unspecified organism Status: Acute Assessment and Plan: Concern for sepsis with SIRS criteria of temp <96.9F, elevated lactic acid, and previously had mild tachycardia. She was started on IV Azithromycin and Ceftriaxone. She was made NPO for thoracentesis today and started on gentle IV fluids. Blood cultures were also drawn yesterday and pending. Source could be pulmonary vs gallbladder. See plan above. (3) Bilateral pleural effusion: Code(s): J90 - Pleural effusion, not elsewhere classified Status: Acute Assessment and Plan: Plan for thoracentesis today. It appears her primary issues are pulmonary related. Continue management per hospitalist. (4) CHF exacerbation: Code(s): I50.9 - Heart failure, unspecified Status: Acute Assessment and Plan: This is the main reason for her admission. She has been receiving diuresis. IV fluids were initiated yesterday at a low rate due to concern with possible sepsis. Management per hospitalist. (5) Acute respiratory failure with hypoxia: Code(s): J96.01 - Acute respiratory failure with hypoxia Status: Acute (6) COPD (chronic obstructive pulmonary disease): Code(s): J44.9 - Chronic obstructive pulmonary disease, unspecified Status: Acute (7) Atrial fibrillation: Code(s): I48.91 - Unspecified atrial fibrillation Status: Chronic Assessment and Plan: Currently rate controlled. Continue management per hospitalist. (8) Anticoagulant long-term use: Code(s): Z79.01 - snf (current) use of anticoagulants Status: Acute Assessment and Plan: On Eliquis for atrial fibrillation. Last dose at 9:00 a.m. yesterday. Eliquis currently on hold. See plan above. (9) Insulin dependent type 2 diabetes mellitus: Code(s): E11.9 - Type 2 diabetes mellitus without complications; Z79.4 - snf (current) use of insulin Status: Acute (10) Dementia: Code(s): F03.90 - Unspecified dementia without behavioral disturbance Status: Acute (11) Obesity, morbid, BMI 40.0-49.9: Code(s): E66.01 - Morbid (severe) obesity due to excess calories Status: Acute Additional Plan I have discussed the patient's case and plan of care with Dr. Tovar. Thank you for allowing us to see the patient in consultation and we will continue to follow along with you. History of Present Illness Consult details Consult date: 11/27/20 Reason for consult: other (Possible acute cholecystitis, lactic acidosis) Requesting physician: Rubén Sevilla APN-C Narrative: This is a 75-year-old
[2020-11-27 10:12] LABS: Reflex Lactic Acid Yes or No Add Lactic
[2020-11-27 11:23] LABS: Lactic Acid 3.1 mmol/L (0.7-2.1)
[2020-11-27 12:08] LABS: Glucose Point of Care 117 mg/dl (65-105)
[2020-11-27 12:43] LABS: pH Pleural Fluid 7.458 (7.210-7.500)
--- NOTE | 2020-11-27 13:05 | PCOTNOTE ---
Attempted to see Patient for P.M. OT treatment session. Per RN, Patient has been gone a good part of the day and just returned to the room from having an ultrasound and thoracentesis. RN did not recommend Patient to be seen this afternoon.
[2020-11-27 13:50] LABS: Pleural fluid source Pleural fluid
[2020-11-27 13:51] LABS: Appearance Pleural Fluid Cloudy (Clear); Color Pleural Fluid Red (Colorless)
[2020-11-27 13:52] LABS: Neutrophils Pleural Fluid 27 % (0-25)
[2020-11-27 13:53] LABS: Lymphocytes Pleural Fluid 70 %; Mesothelial Cells Pleural Flui 3 %
[2020-11-27] MEDS: SODIUM CHLORIDE 0.9% IV 1,000 ML 80 ML IV CONT (14:15)
--- NOTE | 2020-11-27 16:36 | P.PNIM_ITS ---
Progress Note: A&P Assessment and Plan (1) Sepsis: Code(s): A41.9 - Sepsis, unspecified organism Status: Acute Assessment and Plan: * On admission the patient met sepsis criteria with an elevated lactate, temp 36.1? respirations 21, pulse rate of 95, SpO2 of 98% on 2 L nasal cannula with a blood pressure of 126/63 * Latic acid in the ED was 2.2 repeat went up to 3.7 * Patient was given 2L of fluid * NS at 80ml/hr continuous * Repeat lactic 3.1. * Continue IV Rocephin and azithromycin * S/p thoracentesis with 800ccs of fluid drained. * Follow up pleural fluid studies * blood cultures are pending * deescalate antibiotics per cultures * probably related to the pleural effusion or gallbladder (2) Cholelithiasis: Code(s): K80.20 - Calculus of gallbladder without cholecystitis without obstruction Status: Acute Assessment and Plan: * CT shows fat stranding with probable stones * RUQ ultrasound ordered and pending * No complaints of stomach pain * General surgery consulted. Plan to perform HIDA scan in AM * NPO after midnight (3) Bilateral pleural effusion: Code(s): J90 - Pleural effusion, not elsewhere classified Status: Acute Assessment and Plan: * CT of the chest shows moderate right and small left pleural effusion * s/p US guided thoracentesis . * Could be the cause of the shortness of breath (4) Acute respiratory failure with hypoxia: Code(s): J96.01 - Acute respiratory failure with hypoxia Status: Acute Assessment and Plan: * Acute respiratory failure with hypoxia * SPO2 noted to be 89% on Room air with activity * Drops to 87% at rest with talking * Supplemental oxygen, wean to maintain a saturation >90% * Trend SPO2 * Probably related to CHF exacerbation, or pleural effusion * US thoracentesis ordered with labs * Lasix 40mg IV daily (5) CHF exacerbation: Code(s): I50.9 - Heart failure, unspecified Status: Acute Assessment and Plan: * Acute exacerbation, probably diastolic heart failure since echo shows indeterminate diastolic dysfunction with EF of 50-55% * Chest x-ray shows CHF exacerbation not rule out pneumonia * REpeat chest Xray after thoracentesis: Near complete resolution of prior right pleural effusion with no pneumothorax post thoracentesis. * CT of chest shows pulmonary edema * BNP elevated at 761 (11/25/20) * IV Lasix 40mg IV daily * Titrate oxygen to greater than 92 %. * Consider evaluation for home O2. * Strict I&O * Trend output (6) Atrial fibrillation: Code(s): I48.91 - Unspecified atrial fibrillation Status: Chronic Assessment and Plan: * Rate is controlled. * Continue with Eliquis and diltiazem * Tele monitor- afib * trend heart rate * Adjust medications as needed. (7) COPD (chronic obstructive pulmonary disease): Code(s): J44.9 - Chronic obstructive pulmonary disease, unspecified Status: Acute Assessment and Plan: * No signs of acute exacerbation * Seems to be acute exacerbation of CHF * Continue home inhalers * Stop prednisone at this time (8) Insulin dependent type 2 diabetes mellitus: Code(s): E11.9 - Type 2 diabetes mellitus without complications; Z79.4 - long term care social worker (current) use of insulin Status: Acute Assessment and Plan: * Glucose on labs is 256 * Accuchecks are in the 117
--- NOTE | 2020-11-27 16:36 | PM.IMPN ---
Progress Note: A&P Assessment and Plan (1) Sepsis: Code(s): A41.9 - Sepsis, unspecified organism Status: Acute Assessment and Plan: On admission the patient met sepsis criteria with an elevated lactate, temp 36.1? respirations 21, pulse rate of 95, SpO2 of 98% on 2 L nasal cannula with a blood pressure of 126/63 Latic acid in the ED was 2.2 repeat went up to 3.7 Patient was given 2L of fluid NS at 80ml/hr continuous Repeat lactic 3.1. Continue IV Rocephin and azithromycin S/p thoracentesis with 800ccs of fluid drained. Follow up pleural fluid studies blood cultures are pending deescalate antibiotics per cultures probably related to the pleural effusion or gallbladder (2) Cholelithiasis: Code(s): K80.20 - Calculus of gallbladder without cholecystitis without obstruction Status: Acute Assessment and Plan: CT shows fat stranding with probable stones RUQ ultrasound ordered and pending No complaints of stomach pain General surgery consulted. Plan to perform HIDA scan in AM NPO after midnight (3) Bilateral pleural effusion: Code(s): J90 - Pleural effusion, not elsewhere classified Status: Acute Assessment and Plan: CT of the chest shows moderate right and small left pleural effusion s/p US guided thoracentesis . Could be the cause of the shortness of breath (4) Acute respiratory failure with hypoxia: Code(s): J96.01 - Acute respiratory failure with hypoxia Status: Acute Assessment and Plan: Acute respiratory failure with hypoxia SPO2 noted to be 89% on Room air with activity Drops to 87% at rest with talking Supplemental oxygen, wean to maintain a saturation >90% Trend SPO2 Probably related to CHF exacerbation, or pleural effusion US thoracentesis ordered with labs Lasix 40mg IV daily (5) CHF exacerbation: Code(s): I50.9 - Heart failure, unspecified Status: Acute Assessment and Plan: Acute exacerbation, probably diastolic heart failure since echo shows indeterminate diastolic dysfunction with EF of 50-55% Chest x-ray shows CHF exacerbation not rule out pneumonia REpeat chest Xray after thoracentesis: Near complete resolution of prior right pleural effusion with no pneumothorax post thoracentesis. CT of chest shows pulmonary edema BNP elevated at 761 (11/25/20) IV Lasix 40mg IV daily Titrate oxygen to greater than 92 %. Consider evaluation for home O2. Strict I&O Trend output (6) Atrial fibrillation: Code(s): I48.91 - Unspecified atrial fibrillation Status: Chronic Assessment and Plan: Rate is controlled. Continue with Eliquis and diltiazem Tele monitor- afib trend heart rate Adjust medications as needed. (7) COPD (chronic obstructive pulmonary disease): Code(s): J44.9 - Chronic obstructive pulmonary disease, unspecified Status: Acute Assessment and Plan: No signs of acute exacerbation Seems to be acute exacerbation of CHF Continue home inhalers Stop prednisone at this time (8) Insulin dependent type 2 diabetes mellitus: Code(s): E11.9 - Type 2 diabetes mellitus without complications; Z79.4 - terminal superintendent (current) use of insulin Status: Acute Assessment and Plan: Glucose on labs is 256 Accuchecks are in the 117-200 range. A1c 6.3 Will get a hold metformin at this time until we can verify her dosage. Sliding scale insulin. Verify Lantus. Patient's pharmacy is closed at this time. Trend labs Hypoglycemia protocol Sliding scale insulin (9) Dementia: Code(s): F03.90 - Unspecified dementia without behavioral disturbance Status: Acute Assessment and Plan: Continue with home medication. (10) Hypothyroidism: Code(s): E03.9 - Hypothyroidism, unspecified Status: Acute Assessment an
[2020-11-27 17:07] LABS: Glucose Point of Care 145 mg/dl (65-105)
[2020-11-27] MEDS: FUROSEMIDE INJ 40 MG/4 ML VIAL IV PUSH (21:54)
[2020-11-27] MEDS: DONEPEZIL HCL 10 MG TABLET PO (21:54)
[2020-11-27 22:16] LABS: Glucose Point of Care 104 mg/dl (65-105)
[2020-11-28] VITALS (16 sets, daily range): BP systolic 127–132; BP diastolic 67–73; PULSE 80–106; RESP 16–20; TEMP 36.1–36.8; O2SAT 93–98
[2020-11-28] MEDS: LEVALBUTEROL NEB 1.25 MG/3 ML 0.63 MG INHALATION ×4 (02:29→20:14)
[2020-11-28 08:09] LABS: Glucose Point of Care 146 mg/dl (65-105)
[2020-11-28] MEDS: UMECLIDINIUM/VILANTEROL 62.5-25 MCG ELLIPTA 1 PUFF INHALATION (08:47)
[2020-11-28] MEDS: metFORMIN HCL 500 MG TABLET PO ×2 (09:40→17:27)
[2020-11-28] MEDS: CYANOCOBALAMIN 1,000 MCG TABLET 1000 MCG PO (09:40)
[2020-11-28] MEDS: PANTOPRAZOLE 40 MG TABLET PO (09:40)
[2020-11-28] MEDS: FERROUS SULFATE 324 MG TABLET PO (09:41)
[2020-11-28] MEDS: predniSONE 20 MG TABLET 60 MG PO (09:41)
[2020-11-28] MEDS: APIXABAN 5 MG TABLET PO ×2 (09:43→20:46)
--- NOTE | 2020-11-28 12:11 | P.PNIM_ITS ---
Progress Note: A&P Assessment and Plan (1) Sepsis: Code(s): A41.9 - Sepsis, unspecified organism Status: Acute Assessment and Plan: * On admission the patient met sepsis criteria with an elevated lactate, temp 36.1? respirations 21, pulse rate of 95, SpO2 of 98% on 2 L nasal cannula with a blood pressure of 126/63 * Latic acid in the ED was 2.2 repeat went up to 3.7. ON 11/27/2020 lactic acid is improving at 3.1. * Patient was given 2L of fluid * NS at 80ml/hr continuous * Continue IV Rocephin and azithromycin * HIDA scan showed cystic duct patentcy, no acute cholecystitis. Surgery will sign off. * S/p thoracentesis with 800ccs of fluid drained. * Pleural fluid studies are pending. * blood cultures are pending * Deescalate antibiotics per cultures * probably related to the pleural effusion or gallbladder (2) Cholelithiasis: Code(s): K80.20 - Calculus of gallbladder without cholecystitis without obstruction Status: Acute Assessment and Plan: * CT shows fat stranding with probable stones * On 11/28 HIDA scan showed cystic duct patentcy, no acute cholecystitis. Surgery will sign off. (3) Bilateral pleural effusion: Code(s): J90 - Pleural effusion, not elsewhere classified Status: Acute Assessment and Plan: * CT of the chest shows moderate right and small left pleural effusion * s/p US guided thoracentesis . * Follow up pleural fluid cultures. (4) Acute respiratory failure with hypoxia: Code(s): J96.01 - Acute respiratory failure with hypoxia Status: Acute Assessment and Plan: * Acute respiratory failure with hypoxia * SPO2 noted to be 89% on Room air with activity * Drops to 87% at rest with talking * Supplemental oxygen, wean to maintain a saturation >90% * Improving and currently requiring only 1 liter of oxygen to maintain sa turation of 96-98%. * Probably related to CHF exacerbation, * Continue lasix 40mg IV daily (5) CHF exacerbation: Code(s): I50.9 - Heart failure, unspecified Status: Acute Assessment and Plan: * Acute exacerbation, probably diastolic heart failure since echo shows indeterminate diastolic dysfunction with EF of 50-55% * Chest x-ray shows CHF exacerbation not rule out pneumonia * REpeat chest Xray after thoracentesis: Near complete resolution of prior right pleural effusion with no pneumothorax post thoracentesis. * CT of chest shows pulmonary edema * BNP elevated at 761 (11/25/20). Repeat BNP in AM. * IV Lasix 40mg IV daily * Titrate oxygen to greater than 92 %. * Consider evaluation for home O2. * Strict I&O. Patient made 2.6 liters of urine overnight. * Trend output (6) Atrial fibrillation: Code(s): I48.91 - Unspecified atrial fibrillation Status: Chronic Assessment and Plan: * Rate is controlled. * Continue with Eliquis and diltiazem * Tele monitor- afib * trend heart rate (7) COPD (chronic obstructive pulmonary disease): Code(s): J44.9 - Chronic obstructive pulmonary disease, unspecified Status: Acute Assessment and Plan: * No signs of acute exacerbation * Seems to be acute exacerbation of CHF * Continue home inhalers * Stopped prednisone at this time (8) Insulin dependent type 2 diabetes mellitus: Code(s): E11.9 - Type 2 diabetes mellitus without complications; Z79.4 - watermelon inspector (current) use of insulin
--- NOTE | 2020-11-28 14:02 | PM.PNGS ---
Progress Note: A&P Assessment and Plan (1) Abnormal findings on diagnostic imaging of gallbladder: Code(s): R93.2 - Abnormal findings on diagnostic imaging of liver and biliary tract Status: Acute Assessment and Plan: HIDA scan showed cystic duct patentcy, no acute cholecystitis. Would recommend looking at other etiologies for her elevated lactic acid, which now has trended down. No indication for surgical intervention at this time. Will sign off the case. Please call if there are any surgical needs in the future. (2) Sepsis: Code(s): A41.9 - Sepsis, unspecified organism Status: Acute Assessment and Plan: Hospitalist treating for possible sepsis. This does not appear to be caused by her gallbladder. Management per Hospitalist. (3) Anticoagulant long-term use: Code(s): Z79.01 - half-way (current) use of anticoagulants Status: Acute Assessment and Plan: Eliquis restarted. Additional Plan I have discussed plan with Dr. Tovar. Subjective Subjective Date/Time Seen: 11/28/20 14:02 Patient reports: no new complaints, tolerating a regular diet and afebrile Interval history: Patient seen today and having no specific complaints. She feels her breathing and SOB has improved after the thoracentesis. Tolerating her diet. Still not having any abdominal pain, nausea, or vomiting. Review of Systems Review of Systems: All systems reviewed & are unremarkable except as noted in HPI and below Exam Const: General: no acute distress and awake Nutritional Appearance: obese GI: Inspection: non-distended and obesity GI Palp: Yes Soft to palpation, No Tenderness to palpation present (GI), No Guarding due to palpation present (GI) and No Rebound tenderness present Auscultation: normal bowel sounds Psych: Mental Status: mental status grossly normal Insight: Fair insight present (Psych) Objective Data Vital Signs Vital Signs: Vital Signs - 24 hr 11/27/20 16:00 11/27/20 20:05 11/27/20 20:11 Temperature Pulse Rate 90 78 82 Respiratory Rate 18 18 Blood Pressure Pulse Oximetry 98 11/27/20 22:00 11/28/20 00:00 11/28/20 02:33 Temperature 98.0 F Pulse Rate 83 91 96 Respiratory Rate 18 18 Blood Pressure 96/66 L Pulse Oximetry 97 11/28/20 02:40 11/28/20 04:00 11/28/20 06:00 Temperature 98.2 F Pulse Rate 86 96 84 Respiratory Rate 18 18 Blood Pressure 132/73 Pulse Oximetry 98 11/28/20 08:00 11/28/20 08:47 11/28/20 08:57 Temperature Pulse Rate 93 88 Respiratory Rate 18 18 Blood Pressure Pulse Oximetry 96 11/28/20 13:35 11/28/20 13:47 Temperature Pulse Rate 89 85 Respiratory Rate 18 18 Blood Pressure Pulse Oximetry Intake/Output Intake/Output: Intake & Output 11/25/20 11/26/20 11/27/20 11/28/20 23:59 23:59 23:59 23:59 Intake Total 1640 1969 1300 520 Output Total 600 2600 Balance 1640 1969 700 -2080 Meds/Results Medications: Active Medications Generic Name Dose Route Start Last Admin Trade Name Freq PRN Reason Stop Dose Admin Acetaminophen 500 mg 11/25/20 14:56 Acetaminophen 500 Mg Tablet PO Q4H PRN PAIN RATED 1-3 Hydrocodone Bitart/Acetaminophen 1 tab 11/28/20 13:04 Hydrocodone/Acetaminophen (*Crx) 5-325 Mg Tablet PO Q4H PRN Pain Rated 4-6 Albuterol 2 puff 11/25/20 14:56 Albuterol Sulfate (*Sp) Aerosol 1 Puff INHALATION Q6H PRN COPD Albuterol 2.5 mg 11/25/20 15:06 Albuterol Sulfate Neb 2.5 Mg/0.5 Ml Inh INHALATION Q6H PRN COPD Apixaban 5 mg 11/25/20 21:00 11/28/20 09:43 Apixaban 5 Mg Tablet PO 5 mg Q12HR DIAZ Administration Budesonide/Formoterol Fumarate 2 puff 11/25/20 20:00 11/28/20 08:46 Budesonide/Form 160-4.5 Mcg (*Sp) INHALATION 2 puff Q12HRT DIAZ Administration Cyanocobalamin 1,000 mcg 11/26/20 09:00 11/28/20 09:40 Cyanocobalamin 1,000 Mcg Tablet PO 1,000 mcg DAILY DIAZ Administration D
[2020-11-28] MEDS: FUROSEMIDE INJ 40 MG/4 ML VIAL IV PUSH ×2 (15:44→20:46)
[2020-11-28 17:24] LABS: Glucose Point of Care 359 mg/dl (65-105)
[2020-11-28] MEDS: INSULIN ASPART (*BKC) 100 UNITS/ML SUB-Q (17:30)
[2020-11-28] MEDS: INSULIN GLARGINE (*BKC) 100 UNITS/ML 30 UNITS SUB-Q (20:44)
[2020-11-28] MEDS: DONEPEZIL HCL 10 MG TABLET PO (20:47)
[2020-11-28 21:01] LABS: Glucose Point of Care 323 mg/dl (65-105)
[2020-11-29] VITALS (17 sets, daily range): BP systolic 122–132; BP diastolic 60–66; PULSE 75–99; RESP 18–20; TEMP 36.7–37; O2SAT 91–98
[2020-11-29] MEDS: LEVALBUTEROL NEB 1.25 MG/3 ML 0.63 MG INHALATION ×4 (01:39→20:06)
[2020-11-29 06:28] LABS: Anion Gap 8 mmol/L (8-16); Blood Urea Nitrogen 22 mg/dL (7-17); Calcium 8.1 mg/dL (8.4-10.2); Carbon Dioxide 35 mmol/L (22-30); Chloride 94 mmol/L (98-107); Estimated CRCL calculation 69 ml/min; Estimated Glomerular Filt Rate > 60; Glucose 216 mg/dL (65-110); Potassium 4.1 mmol/L (3.4-5.0); Sodium 137 mmol/L (137-145)
[2020-11-29 06:31] LABS: NT Pro B Type Natriuretic Pept 1020 pg/mL (5-100)
[2020-11-29] MEDS: LEVOTHYROXINE SODIUM 50 MCG TABLET PO (07:34)
[2020-11-29] MEDS: UMECLIDINIUM/VILANTEROL 62.5-25 MCG ELLIPTA 1 PUFF INHALATION (08:25)
[2020-11-29 08:48] LABS: Glucose Point of Care 126 mg/dl (65-105)
[2020-11-29] MEDS: FERROUS SULFATE 324 MG TABLET PO (09:17)
[2020-11-29] MEDS: APIXABAN 5 MG TABLET PO ×2 (09:17→20:41)
[2020-11-29] MEDS: metFORMIN HCL 500 MG TABLET PO ×2 (09:17→17:11)
[2020-11-29] MEDS: PANTOPRAZOLE 40 MG TABLET PO (09:17)
[2020-11-29] MEDS: CYANOCOBALAMIN 1,000 MCG TABLET 1000 MCG PO (09:17)
[2020-11-29] MEDS: FUROSEMIDE INJ 40 MG/4 ML VIAL IV PUSH ×2 (09:18→17:12)
[2020-11-29 11:55] LABS: Glucose Point of Care 207 mg/dl (65-105)
[2020-11-29] MEDS: predniSONE 20 MG TABLET 40 MG PO (12:08)
[2020-11-29] MEDS: INSULIN ASPART (*BKC) 100 UNITS/ML SUB-Q ×2 (12:14→17:10)
--- NOTE | 2020-11-29 12:56 | PM.IMPN ---
Progress Note: A&P Assessment and Plan (1) Sepsis: Code(s): A41.9 - Sepsis, unspecified organism Status: Acute Assessment and Plan: On admission the patient met sepsis criteria with an elevated lactate, temp 36.1? respirations 21, pulse rate of 95, SpO2 of 98% on 2 L nasal cannula with a blood pressure of 126/63 Latic acid in the ED was 2.2 repeat went up to 3.7. ON 11/27/2020 lactic acid is improving at 3.1. Patient was given 2L of fluid NS at 80ml/hr continuous Continue IV Rocephin and azithromycin HIDA scan showed cystic duct patentcy, no acute cholecystitis. Surgery will sign off. S/p thoracentesis with 800ccs of fluid drained. Pleural fluid studies are pending. blood cultures are pending Deescalate antibiotics per cultures probably related to the pleural effusion or gallbladder (2) Cholelithiasis: Code(s): K80.20 - Calculus of gallbladder without cholecystitis without obstruction Status: Acute Assessment and Plan: CT shows fat stranding with probable stones On 11/28 HIDA scan showed cystic duct patentcy, no acute cholecystitis. Surgery will sign off. (3) Bilateral pleural effusion: Code(s): J90 - Pleural effusion, not elsewhere classified Status: Acute Assessment and Plan: CT of the chest shows moderate right and small left pleural effusion s/p US guided thoracentesis . Follow up pleural fluid cultures. (4) Acute respiratory failure with hypoxia: Code(s): J96.01 - Acute respiratory failure with hypoxia Status: Acute Assessment and Plan: Acute respiratory failure with hypoxia SPO2 noted to be 89% on Room air with activity Drops to 87% at rest with talking Supplemental oxygen, wean to maintain a saturation >90% Improving and currently requiring only 1 liter of oxygen to maintain saturation of 96-98%. Probably related to CHF exacerbation, Continue lasix 40mg IV daily (5) CHF exacerbation: Code(s): I50.9 - Heart failure, unspecified Status: Acute Assessment and Plan: Acute exacerbation, probably diastolic heart failure since echo shows indeterminate diastolic dysfunction with EF of 50-55% Chest x-ray shows CHF exacerbation not rule out pneumonia REpeat chest Xray after thoracentesis: Near complete resolution of prior right pleural effusion with no pneumothorax post thoracentesis. CT of chest shows pulmonary edema BNP elevated at 761 (11/25/20). Repeat BNP in AM. IV Lasix 40mg IV daily Titrate oxygen to greater than 92 %. Consider evaluation for home O2. Strict I&O. Patient made 2.6 liters of urine overnight. Trend output (6) Atrial fibrillation: Code(s): I48.91 - Unspecified atrial fibrillation Status: Chronic Assessment and Plan: Rate is controlled. Continue with Eliquis and diltiazem Tele monitor- afib trend heart rate (7) COPD (chronic obstructive pulmonary disease): Code(s): J44.9 - Chronic obstructive pulmonary disease, unspecified Status: Acute Assessment and Plan: No signs of acute exacerbation Seems to be acute exacerbation of CHF Continue home inhalers Stopped prednisone at this time (8) Insulin dependent type 2 diabetes mellitus: Code(s): E11.9 - Type 2 diabetes mellitus without complications; Z79.4 - shelter (current) use of insulin Status: Acute Assessment and Plan: Glucose on labs is 256 Accuchecks are in the 117-200 range. A1c 6.3 Will get a hold metformin at this time until we can verify her dosage. Sliding scale insulin. Verify Lantus. Patient's pharmacy is closed at this time. Trend labs Hypoglycemia protocol Sliding scale insulin (9) Dementia: Code(s): F03.90 - Unspecified dementia without behavioral disturbance Status: Acute Assessment and Plan: Continue with home medication. fall pr
[2020-11-29 16:16] LABS: Glucose Point of Care 231 mg/dl (65-105)
[2020-11-29] MEDS: INSULIN GLARGINE (*BKC) 100 UNITS/ML 30 UNITS SUB-Q (20:39)
[2020-11-29] MEDS: DONEPEZIL HCL 10 MG TABLET PO (20:41)
[2020-11-29 23:17] LABS: Glucose Point of Care 253 mg/dl (65-105)
[2020-11-30] VITALS (17 sets, daily range): BP systolic 103–124; BP diastolic 55–58; PULSE 70–85; RESP 18–20; TEMP 36.3–37.2; O2SAT 90–95
[2020-11-30] MEDS: LEVALBUTEROL NEB 1.25 MG/3 ML 0.63 MG INHALATION ×4 (03:01→20:37)
[2020-11-30] MEDS: LEVOTHYROXINE SODIUM 50 MCG TABLET PO (06:09)
--- NOTE | 2020-11-30 07:13 | PM.IMPN ---
Progress Note: A&P Additional Plan START OF DOCTOR ADDYS PROGRESS NOTE Subjective: The patient currently rates her respiratory status as a 6 out 10 attend her baseline. Overnight she offers no complaints. She denies fever, rigors, nausea, vomiting, cough, wheeze, abdominal pain, chest pain. At this point the patient her current medical condition plan of care and answered all questions Objective: General: -Alert -No acute distress -No dyspnea -No tachypnea -obese Heart: -Regular rate -iRegular rhythm -No murmurs -No gallops -No rubs Lungs: -No wheeze -No rhonchi -No rales -distant breath sounds bilaterally Abdomen: -Normal bowel sounds in all four quadrants -No rebound -No guarding -No tenderness Extremities: -2/4 pulse in all four extremities -No clubbing -No cyanosis -2+ bipedal pitting edema bilaterally Additional Details / Additional Findings / Exceptions / Miscellaneous: Pertinent Laboratory Results / Pertinent Radiology Results / Pertinent Diagnostic Results / Pertinent Vital Signs: Patient saturating 90% on room air Assessment / Plan: Dyspnea secondary to question of pneumonia and/or CHF and/or pleural effusion Query pneumonia. A Zithromax 500 mg IV daily plus Rocephin 1 g IV daily Xopenex q.6 hours CHF, ejection fraction 50-55%. Lasix 40 mg IV q.8 hours Bilateral pleural effusion. Patient status post right thoracocentesis Sineff 10/19/2020 with aspiration of 100 mL of fluid Moderate pulmonary hypertension Arthritis Atrial fibrillation. Eliquis 5 mg p.o. q.12 hours post Cardizem CD 200 40 mg p.o. daily COPD. Symbicort 160/12.5 m puffs q.12 hours plus Xopenex q.6 hours plus prednisone 40 mg p.o. daily plus increase Ellipta 1 inhalation daily Dementia. Aricept 10 mg p.o. q.h.s. Neuropathy Diabetes. Will check fingerstick glucose q.a.c. and HS and provide insulin sliding scale plus metformin 500 mg p.o. b.i.d. plus Lantus 30 units subcutaneously q.h.s. Hypothyroidism. Synthroid 50 mg p.o. daily GERD. Protonix 40 mg p.o. daily Cholelithiasis, asymptomatic Anemia. Will monitor hemoglobin level intermittently. Check serum ferritin, iron panel, fecal occult blood. Ferrous sulfate 324 mg p.o. daily Hypocalcemia. Monitor calcium levels intermittently and supplements necessary Obesity. Patient will be counseled regarding lifestyle modification DVT prophylaxis. Eliquis 5 mg p.o. q.12 hours Disposition: Are requested the nursing staff perform a walk test with this patient on this day of November 30, 2020 to determine whether she has any supplemental oxygen requirement. Which the patient will likely be a candidate for discharge on this day END OF DOCTOR BRANDON?S PROGRESS NOTE Subjective Date/time seen: 11/30/20 07:13 Objective Data Vital Signs Vital Signs: Vital Signs - 24 hr 11/29/20 08:00 11/29/20 08:28 11/29/20 08:43 Temperature Pulse Rate 98 76 78 Respiratory Rate 18 18 Blood Pressure Pulse Oximetry 96 11/29/20 12:00 11/29/20 14:00 11/29/20 14:30 Temperature 98.0 F Pulse Rate 99 75 88 Respiratory Rate 20 20 Blood Pressure 124/66 Pulse Oximetry 92 92 11/29/20 14:38 11/29/20 16:00 11/29/20 20:00 Temperature Pulse Rate 80 80 80 Respiratory Rate 20 Blood Pressure Pulse Oximetry 11/29/20 20:05 11/29/20 20:07 11/29/20 20:17 Temperature Pulse Rate 77 80 Respiratory Rate 18 18 Blood Pressure Pulse Oximetry 91 11/29/20 22:00 11/30/20 00:00 11/30/20 03:02 Temperature 98.6 F Pulse Rate 80 85 78 Respiratory Rate 18 18 Blood Pressure 132/60 Pulse Oximetry 96 11/30/20 03:07 11/30/20 04:00 11/30/20 06:00 Temperature 98.9 F Pulse Rate 81 81 82 Respiratory Rate 18 20 Blood Pressure 108/55 L Pulse Oximetry 90 Intake/Output Intake/Output: Intake & Output 11/27/20 11/28/20 11/29/20 11/30/20 23:59 23:59 23:59 23:59 Intake Total 1
[2020-11-30] MEDS: UMECLIDINIUM/VILANTEROL 62.5-25 MCG ELLIPTA 1 PUFF INHALATION (08:01)
[2020-11-30 08:13] LABS: Glucose Point of Care 168 mg/dl (65-105)
[2020-11-30] MEDS: metFORMIN HCL 500 MG TABLET PO ×2 (08:34→16:17)
[2020-11-30] MEDS: FUROSEMIDE INJ 40 MG/4 ML VIAL IV PUSH ×3 (08:34→21:39)
[2020-11-30] MEDS: FERROUS SULFATE 324 MG TABLET PO (08:35)
[2020-11-30] MEDS: PANTOPRAZOLE 40 MG TABLET PO (08:35)
[2020-11-30] MEDS: CYANOCOBALAMIN 1,000 MCG TABLET 1000 MCG PO (08:35)
[2020-11-30] MEDS: APIXABAN 5 MG TABLET PO ×2 (08:35→21:38)
--- NOTE | 2020-11-30 10:15 | PCRCNOTE ---
HOME O2 EVAL NOT REQUIRED. PT GOING TO [facility]
[2020-11-30 10:22] LABS: Iron 26 ug/dL (37-170)
[2020-11-30 10:32] LABS: Percent Iron Saturation 7 % (20-50)
[2020-11-30 11:00] LABS: Anion Gap 12 mmol/L (8-16); Blood Urea Nitrogen 24 mg/dL (7-17); Calcium 8.7 mg/dL (8.4-10.2); Carbon Dioxide 33 mmol/L (22-30); Chloride 92 mmol/L (98-107); Estimated CRCL calculation 69 ml/min; Estimated Glomerular Filt Rate > 60; Glucose 243 mg/dL (65-110); Potassium 3.9 mmol/L (3.4-5.0); Sodium 137 mmol/L (137-145)
[2020-11-30 12:50] LABS: Glucose Point of Care 108 mg/dl (65-105)
[2020-11-30] MEDS: predniSONE 20 MG TABLET 40 MG PO (16:16)
--- NOTE | 2020-11-30 16:19 | PM.DS ---
DS: Admitting Diagnosis Discharge Date 4:21 p.m. on December 01, 2019 Admitting Diagnosis Query pneumonia DS: Summary Hospital Course Hospital Course: See discharge summary below Time Spent with Patient Time attestation: Total time spent providing and/or coordinating discharge services: START OF DOCTOR SHADIA?S DISCHARGE SUMMARY Date of Admission: November 24, 2020 Date of Discharge: 4:20 p.m. on November 30, 2020 Primary Diagnosis: Query pneumonia Secondary Diagnosis: CHF, ejection fraction 50-55% Moderate pulmonary hypertension Pleural effusion, status post thoracocentesis November 27, 2020 with aspiration of 100 mL of fluid Arthritis Atrial fibrillation COPD Dementia Neuropathy Diabetes Hypothyroidism GERD Cholelithiasis, asymptomatic Anemia Hypocalcemia Obesity Consultations: None Disposition: The patient will be advised follow-up with her primary care physician 3-5 days post discharge Discharge Medications: Prednisone 10 mg PO: 4 tabs daily x3 days then 3 tabs daily x3 days then 2 tabs daily x3 days then 1 tab daily x3 days. Quantity sufficient. 0 refills K-Dur 20 mEq p.o. daily Lasix 20 mg p.o. b.i.d. Levaquin 500 mg p.o. daily. Quantity 3. 0 refills Aricept 10 mg p.o. q.h.s. DuoNeb q.6 hours p.r.n. shortness of breath/wheeze Proventil HFA: 90 microsphere spray: 2 puffs q.6 hours p.r.n. shortness of breath/wheeze Eliquis [address] Some court 160/4.5 micro: 2 puffs q.12 hours An oral Ellipta 62.5 micro inhaled daily Prilosec 20 mg p.o. daily Metformin 500 mg p.o. b.i.d. Synthroid 50 micron p.o. daily Lantus 30 units subcutaneously q.h.s. Vitamin B12 1000 micron p.o. daily Cardizem CD 20 40 mg p.o. daily Ferrous sulfate 300 mg p.o. daily END OF DOCTOR SHADIA?S DISCHARGE SUMMARY DS: Data Data Completed and Pending Completed studies during hospitalization: Pending at discharge 11/26/20 15:11 Cytology [PTH] Routine Labs on day of discharge: Labs from last 24 hours 11/30/20 11/30/20 11/30/20 12:07 09:02 07:49 Sodium Potassium Chloride Carbon Dioxide Anion Gap BUN Creatinine Estim Creat Clear Calc Estimated GFR Glucose POC Capillary Glucose 108 H 168 H Calcium Iron 26 L TIBC 375 % Saturation 7 L Ferritin 29.70 11/30/20 11/29/20 05:56 20:37 Sodium 137 Potassium 3.9 Chloride 92 L Carbon Dioxide 33 H Anion Gap 12 BUN 24 H Creatinine 0.70 Estim Creat Clear Calc 69 Estimated GFR > 60 Glucose 243 H POC Capillary Glucose 253 H Calcium 8.7 Iron TIBC % Saturation Ferritin Preliminary micro results at discharge 11/27/20 12:12 Acid Fast Bacilli Culture - Preliminary Pleural Fluid 11/27/20 12:11 Anaerobic Culture - Preliminary Pleural Fluid Aerobic Culture - Preliminary Fungal Culture - Preliminary 11/26/20 10:19 Blood Culture - Preliminary Blood 11/26/20 10:20 Blood Culture - Preliminary Blood Discharge Plan Discharge Discharging Clinician: shadia Patient Disposition: SNF Activity: as tolerated Diet: diabetic and low sodium Discharge Instructions: Diet: Fluid restriction to 2000 mL per day for history of CHF. The patient is advised follow-up with her primary care physician 3-5 days post discharge for post hospitalization evaluation Patient Instructions: Apixaban (By mouth), Pain Management (DC), COPD (Chronic Obstructive Pulmonary Disease) (DC) Stand Alone Forms: General Discharge Information Discharge Medications: New levofloxacin 500 mg tablet 500 mg PO DAILY 3 Days Qty: 3 RF: 0 prednisone 10 mg tablet 10 mg PO DAILY Qty: 1 RF: 0 furosemide [Lasix] 20 mg tablet 20 mg PO BID Qty: 60 RF: 0 potassium chloride 20 mEq tablet extended release 20 meq PO DAILY Qty: 30 RF: 0 Continued donepezil [Aricep
[2020-11-30 16:53] LABS: Glucose Point of Care 112 mg/dl (65-105)
[2020-11-30 18:11] LABS: EDCOVIDSCREEN Negative (Negative)
[2020-11-30] MEDS: INSULIN GLARGINE (*BKC) 100 UNITS/ML 30 UNITS SUB-Q (21:37)
[2020-11-30] MEDS: DONEPEZIL HCL 10 MG TABLET PO (21:38)
[2020-11-30 22:12] LABS: Glucose Point of Care 203 mg/dl (65-105)
[2020-11-30 22:21] LABS: Amylase, Pleural Fluid <10 U/L
[2020-11-30 22:35] LABS: Albumin Pleural Fluid 0.8 g/dL
[2020-12-01] VITALS (8 sets, daily range): BP systolic 94; BP diastolic 59; PULSE 71–88; RESP 18; TEMP 36.1; O2SAT 92–95
[2020-12-01] MEDS: LEVALBUTEROL NEB 1.25 MG/3 ML 0.63 MG INHALATION ×2 (01:45→09:26)
[2020-12-01] MEDS: LEVOTHYROXINE SODIUM 50 MCG TABLET PO (06:27)
[2020-12-01 06:43] LABS: Basophils Percent Auto 0.1 % (0.2-1.2); Hematocrit 41.2 % (37.0-47.0); Hemoglobin 11.7 g/dL (12.0-15.0); Immature Granulocyte Absolute 0.04 K/mm3 (0.00-0.031); Immature Granulocyte Percent A 0.4 % (0-0.5); Lymphocytes Absolute Auto 0.58 K/mm3 (0.9-3.2); Mean Corpuscular HGB Conc 28.4 g/dl (32-36); Mean Corpuscular Hemoglobin 28.7 pg (26-34); Mean Platelet Volume 10.5 fl (7.4-10.4); Monocytes Absolute Auto 0.5 K/mm3 (0.1-0.6); Neutrophils Absolute Auto 8.5 K/mm3 (1.3-6.7); Neutrophils Percent Auto 88.5 % (45.5-73.1); Platelet Count Result 248 k/mm3 (150-375); Red Blood Count 4.08 M/mm3 (4.2-5.4); Red Cell Distribution Width 14.5 % (11.5-14.5); White Blood Count 9.6 K/mm3 (4.5-10.0)
--- NOTE | 2020-12-01 06:55 | PM.IMPN ---
Progress Note: A&P Additional Plan START OF DOCTOR ADDYS PROGRESS NOTE Subjective: The patient our system complaints at this time. She denies fever, rigors, nausea, vomiting, cough, wheeze, abdominal pain, chest pain, dyspnea, or any other concerns complaints. Explained to the patient her current medical condition and plan of care and advanced all questions Objective: General: -Alert -No acute distress -No dyspnea -No tachypnea -obese Heart: -Regular rate -iRegular rhythm -No murmurs -No gallops -No rubs Lungs: -No wheeze -No rhonchi -trace bibasilar rales -distant breath sounds bilaterally Abdomen: -Normal bowel sounds in all four quadrants -No rebound -No guarding -No tenderness Extremities: -2/4 pulse in all four extremities -No clubbing -No cyanosis -3 + bipedal pitting edema bilaterally Additional Details / Additional Findings / Exceptions / Miscellaneous: Pertinent Laboratory Results / Pertinent Radiology Results / Pertinent Diagnostic Results / Pertinent Vital Signs: Blood pressure 94/59. Morning labs pending Assessment / Plan: Dyspnea secondary to question of pneumonia and/or CHF and/or pleural effusion Query pneumonia. A Zithromax 500 mg IV daily plus Rocephin 1 g IV daily Xopenex q.6 hours CHF, ejection fraction 50-55%. Lasix 40 mg IV q.8 hours Bilateral pleural effusion. Patient status post right thoracocentesis Sineff 10/19/2020 with aspiration of 100 mL of fluid Moderate pulmonary hypertension Arthritis Atrial fibrillation. Eliquis 5 mg p.o. q.12 hours post Cardizem CD 200 40 mg p.o. daily COPD. Symbicort 160/12.5 m puffs q.12 hours plus Xopenex q.6 hours plus prednisone 40 mg p.o. daily plus increase Ellipta 1 inhalation daily Dementia. Aricept 10 mg p.o. q.h.s. Neuropathy Diabetes. Will check fingerstick glucose q.a.c. and HS and provide insulin sliding scale plus metformin 500 mg p.o. b.i.d. plus Lantus 30 units subcutaneously q.h.s. Hypothyroidism. Synthroid 50 mg p.o. daily GERD. Protonix 40 mg p.o. daily Cholelithiasis, asymptomatic Iron deficiency Anemia. Will monitor hemoglobin level intermittently. Ferrous sulfate 325 mg p.o. b.i.d. plus vitamin-C 500 mg p.o. daily Hypocalcemia. Monitor calcium levels intermittently and supplements necessary Obesity. Patient will be counseled regarding lifestyle modification DVT prophylaxis. Eliquis 5 mg p.o. q.12 hours Disposition: An attempt was made on the evening of November 30, 2020 to discharge the patient. Per nursing staff, it appears that there may have been transportation/family issue. I will attempt to discharge the patient on this day of December 01, 2020 END OF DOCTOR BRANDON?S PROGRESS NOTE Subjective Date/time seen: 12/01/20 06:55 Objective Data Vital Signs Vital Signs: Vital Signs - 24 hr 11/30/20 07:55 11/30/20 08:00 11/30/20 08:04 Temperature Pulse Rate 83 80 85 Respiratory Rate 20 20 Blood Pressure Pulse Oximetry 93 11/30/20 08:05 11/30/20 13:52 11/30/20 14:00 Temperature 97.3 F L Pulse Rate 80 84 Respiratory Rate 18 20 Blood Pressure 124/55 L Pulse Oximetry 90 93 91 11/30/20 14:03 11/30/20 20:00 11/30/20 20:37 Temperature Pulse Rate 82 70 79 Respiratory Rate 18 18 18 Blood Pressure Pulse Oximetry 94 11/30/20 20:39 11/30/20 20:45 11/30/20 22:00 Temperature 97.4 F L Pulse Rate 83 70 Respiratory Rate 18 18 Blood Pressure 103/58 L Pulse Oximetry 95 94 12/01/20 01:46 12/01/20 01:53 12/01/20 06:00 Temperature 97.0 F L Pulse Rate 71 76 88 Respiratory Rate 18 18 18 Blood Pressure 94/59 L Pulse Oximetry 92 Intake/Output Intake/Output: Intake & Output 11/28/20 11/29/20 11/30/20 12/01/20 23:59 23:59 23:59 23:59 Intake Total 2210 1700 1670 450 Output Total 2600 1300 3350 1700 Balance -390 400 -8131 -1250 Meds/Results Medications: Active Medications Generic Name Dose Ro
[2020-12-01 07:00] LABS: Alanine Aminotransferase 19 U/L (4-35); Alkaline Phosphatase 69 U/L (38-126); Aspartate Amino Transferase 20 U/L (14-36); Bilirubin,Total 0.2 mg/dL (0.2-1.3); Blood Urea Nitrogen 25 mg/dL (7-17); Carbon Dioxide > 40 mmol/L (22-30); Chloride 87 mmol/L (98-107); Estimated CRCL calculation 69 ml/min; Estimated Glomerular Filt Rate > 60; Glucose 222 mg/dL (65-110); Potassium 3.8 mmol/L (3.4-5.0); Sodium 137 mmol/L (137-145)
[2020-12-01] MEDS: CYANOCOBALAMIN 1,000 MCG TABLET 1000 MCG PO (08:28)
[2020-12-01] MEDS: predniSONE 20 MG TABLET 40 MG PO (08:29)
[2020-12-01] MEDS: FERROUS SULFATE 324 MG TABLET PO (08:29)
[2020-12-01] MEDS: PANTOPRAZOLE 40 MG TABLET PO (08:29)
[2020-12-01] MEDS: APIXABAN 5 MG TABLET PO (08:29)
[2020-12-01] MEDS: metFORMIN HCL 500 MG TABLET PO (08:29)
[2020-12-01] MEDS: ASCORBIC ACID 500 MG TABLET PO (08:30)
[2020-12-01 08:42] LABS: Glucose Point of Care 116 mg/dl (65-105)
[2020-12-01] MEDS: UMECLIDINIUM/VILANTEROL 62.5-25 MCG ELLIPTA 1 PUFF INHALATION (09:27)
[2020-12-01 22:42] LABS: LDH Pleural Fluid 67 U/L; Total Protein Pleural Fluid <3.0 g/dL
== END 2020-12-01 12:26 | DRG 871 ==
LOC: ANHED 16:50 → ANH3MEDSUR 18:39
PROVIDERS: Internal Medicine; Nurse Practitioner; Admitting Provider Internal Medicine; Emergency Provider Emergency Medicine; PCP Physician Assistant; Visit Provider Internal Medicine
DX: A41.9 Sepsis, unspecified organism (principal); J96.01 Acute respiratory failure with hypoxia; Z68.41 Body mass index [BMI] 40.0-44.9, adult; J91.8 Pleural effusion in other conditions classified elsewhere; I50.9 Heart failure, unspecified; K80.20 Calculus of gallbladder without cholecystitis without obstruction; Z20.822 Contact with and (suspected) exposure to COVID-19; E66.01 Morbid (severe) obesity due to excess calories; I48.91 Unspecified atrial fibrillation; J44.9 Chronic obstructive pulmonary disease, unspecified; E11.42 Type 2 diabetes mellitus with diabetic polyneuropathy; E03.9 Hypothyroidism, unspecified; F03.90 Unspecified dementia, unspecified severity, without behavioral disturbance, psychotic disturbance, mood disturbance, and anxiety; I27.20 Pulmonary hypertension, unspecified; D64.9 Anemia, unspecified; M19.90 Unspecified osteoarthritis, unspecified site; K21.9 Gastro-esophageal reflux disease without esophagitis; E83.51 Hypocalcemia; Z79.01 Long term (current) use of anticoagulants; Z79.84 Long term (current) use of oral hypoglycemic drugs; Z79.4 Long term (current) use of insulin; Z79.899 Other long term (current) drug therapy; Z87.891 Personal history of nicotine dependence; Z98.49 Cataract extraction status, unspecified eye
CPT/HCPCS: 32555; 36415; 36600; 71045; 71250; 74176; 76705; 78226; 80048; 80053; 80076; 82040; 82042; 82150; 82247; 82465; 82728; 82805; 82947; 82948; 83036; 83540; 83550; 83605; 83615; 83735; 83880; 83986; 84155; 84157; 84311; 84443; 84478; 85025; 85060; 85610; 85730; 86140; 87015; 87040; 87070; 87075; 87102; 87116; 87205; 87206; 87426; 88104; 88108; 88184; 88305; 89051; 93005; 93306; 94640; 96374; 96375; 96376; 97110; 97116; 97161; 97165; 97530; 97535; 99285; A9270; A9537; C9803; G0378; J0456; J0696; J1815; J1940; J2930; J7030; J7512

== ENCOUNTER 2021-12-04 10:06 | Inpatient (IN) | payer OTHER, SELFPAY ==
[2021-12-04] VITALS (56 sets, daily range): BP systolic 114–145; BP diastolic 53–104; PULSE 98–160; RESP 18–29; TEMP 36.6–36.9; O2SAT 91–100; BMI 35.4
--- NOTE | ~2021-12-04 | XR_ITS ---
EXAMINATION: XR chest 1V portable DATE: 12/04/2021 10:26 INDICATION: Shortness of breath. Cough. TECHNIQUE: A single frontal view of the chest was obtained. COMPARISON: Chest single view 11/27/2020, chest CT 11/26/2020 FINDINGS: A calcified left lung nodule and calcified left hilar and mediastinal lymph nodes are consi stent with old granulomatous disease. There are airspace opacities in the lower lung zones. No pneumo thorax. The heart size is normal. IMPRESSION: 1. Airspace opacities in the lower lung zones with improvement on the right, consistent with atelecta sis/scarring versus pneumonia. Reviewed, dictated and finalized at location A. IMPRESSION: 1. Airspace opacities in the lower lung zones with improvement on the right, co nsistent with atelectasis/scarring versus pneumonia.
--- NOTE | 2021-12-04 10:03 | ECG_ITS ---
Measurements Intervals Norris Rate: 125 P: KS: 0 QRS: -87 QRSD: 118 T: 51 QT: 315 QTc: 456 Interpretive Statements ATRIAL FIBRILLATION WITH RAPID VENTRICULAR RESPONSE WITH ABERRANT CONDUCTION OR VENTRICULAR PREMATURE COMPLEXES LOW QRS VOLTAGE IN PRECORDIAL LEADS INCOMPLETE RIGHT BUNDLE BRANCH BLOCK LEFT ANTERIOR FASCICULAR BLOCK CANNOT RULE OUT ANTERIOR MYOCARDIAL INFARCTION, OF INDETERMINATE AGE CANNOT RULE OUT INFERIOR MYOCARDIAL INFARCTION, PROBABLY OLD ABNORMAL ECG COMPARED TO ECG 11/24/2020 14:27:33 ABERRANT CONDUCTION OF SUPRAVENTRICULAR BEAT(S) NOW PRESENT LEFT ANTERIOR FASCICULAR BLOCK NOW PRESENT MYOCARDIAL INFARCT FINDING NOW PRESENT Electronically Signed On 12-04-2021 15:18:54 CDT by Sammy Zuniga M.D.
--- NOTE | 2021-12-04 10:04 | ED.SOB ---
HPI - SOB/Dyspnea General Chief Complaint: Shortness of Breath/Dyspnea Stated Complaint: sore throat & SOB History of Present Illness HPI Narrative: Pt presents with SOB and sore throat this am per [facility] staff. Pt denies fever or CP. Rapid covid neg at [facility]. Pt says she is chronically SOB. Pt not aware of Hx of CHF. Related Data Home Medications Medication Instructions Recorded Confirmed donepezil 10 mg tablet (Aricept) 10 mg PO HS 03/24/20 11/24/20 hydrocolloid dressing 4 X 4 03/24/20 11/25/20 insulin glargine 100 unit/mL (3 30 unit subcut HS 03/24/20 11/25/20 mL) subcutaneous pen (Lantus Solostar U-100 Insulin) levothyroxine 50 mcg capsule 50 mcg PO DAILY 03/24/20 11/24/20 metformin 500 mg/5 mL oral 500 mg PO BID 03/24/20 11/25/20 solution (Riomet) omeprazole 20 mg capsule,delayed 20 mg PO DAILY 03/24/20 11/24/20 release umeclidinium 62.5 mcg-vilanterol 1 inh inhalation DAILY 03/24/20 11/25/20 25 mcg/actuation powdr for inhalation (Anoro Ellipta) albuterol sulfate 90 mcg/actuation 2 puff inhalation Q6H PRN COPD 03/25/20 11/25/20 aerosol inhaler (Ventolin HFA) budesonide-formoterol HFA 160 2 puff inhalation Q12H 03/25/20 11/25/20 mcg-4.5 mcg/actuation aerosol inhaler (Symbicort) ferrous sulfate 300 mg (60 mg 300 mg PO DAILY 03/25/20 11/25/20 iron)/5 mL oral liquid ipratropium 0.5 mg-albuterol 3 mg 3 ml inhalation Q6H PRN COPD 03/25/20 11/25/20 (2.5 mg base)/3 mL nebulization soln mecobalamin (vitamin B12) 1,000 1,000 mcg PO DAILY 03/25/20 11/25/20 mcg chewable tablet Allergies Allergy/AdvReac Type Severity Reaction Status Date / Time No Known Allergies Allergy Unknown Verified 12/04/21 10:10 Review of Systems Review of Systems: All systems reviewed & are unremarkable except as noted in HPI and below PMFSH Past Medical History Medical History Anemia Arthritis Atrial fibrillation CHF exacerbation COPD (chronic obstructive pulmonary disease) Dementia Diabetic peripheral neuropathy Former smoker 50 pack-year smoking history. Grade II diastolic dysfunction Noted on echocardiogram in December 2018. Ejection fraction was 60 to 65%. Hypothyroidism Insulin dependent type 2 diabetes mellitus Surgical History Surgical History History of cataract extraction History of dilation and curettage Family History Family History Father Cerebrovascular accident Grandparent Cerebrovascular accident Family history of heart disease in male family member before age 55 Mother Family history of heart disease in male family member before age 55 Heart disease of a heart attack Heart attack Social History Social History (Updated 12/04/21 @ 16:43 by Kia Reyes NP) Social History: She is a resident at [facility] in [place]. Former smoker, up to a pack of cigarettes a day for 50 years, and quit in 2009. She stopped drinking alcohol in 2007. No illicit substance use. Three children. Her son Kwesi Neely is her healthcare power of finance attorney. She wishes to be a do not resuscitate but son reports that she has an advance directive stating that she wishes to be a full code. 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 Smoking packs per day: 1 Smoking cigarettes per day: 20.0 Years smoked: 50 Smoking pack-years: 50.00 Smoking status: Former smoker Alcohol intake: unknown Substance use: unknown Substance use type: does not use Gender identity (if verbalized by the patient): Female Spiritual care concerns: No Exam Const: General: healthy appearing Nutritional Appearance: well nourished Orientation/consciousness: patient oriented x3 Limitations: no limitations HENMT: Head: normal to inspection Neck:
[2021-12-04] MEDS: ALBUTEROL SULFATE NEB 2.5 MG/3 ML INH 5 MG INHALATION ×3 (10:14→11:00)
[2021-12-04 10:46] LABS: Basophils Absolute Auto 0.1 K/mm3 (0.0-0.1); Basophils Percent Auto 0.3 % (0.2-1.2); Eosinophils Percent Auto 0.1 % (0-4.4); Hematocrit 42.1 % (37.0-47.0); Hemoglobin 13.1 g/dL (12.0-15.0); Immature Granulocyte Absolute 0.09 K/mm3 (0.00-0.031); Immature Granulocyte Percent A 0.5 % (0-0.5); Lymphocytes Absolute Auto 0.72 K/mm3 (0.9-3.2); Lymphocytes Percent Auto 3.6 % (18.3-44.2); Mean Corpuscular HGB Conc 31.1 g/dl (32-36); Mean Corpuscular Hemoglobin 30.2 pg (26-34); Monocytes Absolute Auto 1.1 K/mm3 (0.1-0.6); Monocytes Percent Auto 5.8 % (2.6-8.5); Neutrophils Absolute Auto 17.8 K/mm3 (1.3-6.7); Neutrophils Percent Auto 89.7 % (45.5-73.1); Platelet Count Result 311 k/mm3 (150-375); Red Blood Count 4.34 M/mm3 (4.2-5.4); White Blood Count 19.8 K/mm3 (4.5-10.0)
[2021-12-04 10:57] LABS: Alanine Aminotransferase 22 U/L (6-35); Albumin Level 4.7 g/dL (3.5-5.1); Alkaline Phosphatase 88 U/L (38-126); Anion Gap 15 mmol/L (8-16); Aspartate Amino Transferase 21 U/L (14-36); Bilirubin,Total 0.7 mg/dL (0.2-1.3); Blood Urea Nitrogen 27 mg/dL (7-17); Calcium 9.2 mg/dL (8.4-10.2); Carbon Dioxide 27 mmol/L (22-30); Chloride 95 mmol/L (98-107); Estimated CRCL calculation 38 ml/min; Estimated Glomerular Filt Rate 44; Glucose 223 mg/dL (65-110); Magnesium 1.2 mg/dL (1.6-2.3); Sodium 137 mmol/L (137-145)
[2021-12-04 11:01] LABS: INR 1.5; Prothrombin Time 17.5 Seconds (11.1-14.7)
[2021-12-04 11:08] LABS: NT Pro B Type Natriuretic Pept 1370 pg/mL (5-100); Troponin I < 0.012 ng/mL (0.000-0.034)
[2021-12-04] MEDS: dilTIAZem 100 MG/100 ML 100 MG/100 ML BAG IV CONT (11:26)
[2021-12-04] MEDS: dilTIAZem HCl INJ 25 MG/5 ML VIAL 20 MG IV PUSH (11:26)
[2021-12-04 11:41] LABS: SARS-CoV-2 RNA PCR Negative
[2021-12-04] MEDS: FUROSEMIDE INJ 40 MG/4 ML VIAL IV PUSH (13:07)
--- NOTE | 2021-12-04 13:54 | PM.IMHP ---
H&P: HPI History of Present Illness Date/Time: 12/04/21 13:54 Chief Complaint: Shortness of breath Narrative: This is a 76-year-old female patient who has a history of dementia, diabetes, congestive heart failure, and atrial fibrillation. The patient keeps falling asleep during the interview but is able to answer some of the questions. She is from [facility]. It was reported that the patient had a rapid COVID test that was negative at the [facility]. She states that she is chronically short of breath. She is not aware of any CHF history. Her white count is noted to be 19.8. Her creatinine is listed as 1.2. Glucose is 223. BUN 27. Magnesium is low at 1.2. Troponin is negative. BNP is 1370. COVID test here is negative. Does x-ray was read as airspace opacities in the lower lung zones with improvement on the right consistent with atelectasis scarring versus pneumonia. The patient was given a nebulizer treatment. She was found to be in AFib with RVR and she was given a bolus of Cardizem and started on a Cardizem drip. She was also started on Rocephin and azithromycin for community-acquired pneumonia. She was also given Lasix for CHF. Patient is being admitted for observation on 12/04/2021. Review of Systems Review of Systems: See HPI All systems reviewed & are unremarkable except as noted in HPI and below Constitutional: Constitutional: Reports as per HPI and Reports no additional constitutional complaints Eyes: Eyes: Reports as per HPI and Reports no additional eye complaints ENT: Reports system reviewed and no additional complaints, except as documented and Reports Normal hearing present Cardiovascular: Cardiovascular: Reports no additional cardiovascular complaints Respiratory: Respiratory: Reports no additional respiratory complaints and Reports no additional respiratory complaints Gastrointestinal: Gastrointestinal: Reports as per HPI and Reports no additional gastrointestinal complaints Musculoskeletal: Musculoskeletal: Reports no additional musculoskeletal complaints Integumentary/Breasts: Skin/Breast: Reports system reviewed and no additional complaints, except as docu and Reports as per HPI Neurologic: Reports system reviewed and no additional complaints, except as documented, Reports as per HPI and Reports Normal hearing present Psychiatric: Psychiatric: Reports no additional psychiatric complaints and Reports as per HPI Endocrine: Endocrine: Reports no additional endocrine complaints Hematologic/Lymphatic: Hematologic/Lymphatic: Reports no additional hematologic/lymphatic complaints Allergic/Immunologic: Allergic/Immunologic: Reports no additional allergic/immunologic complaints [facility] Past Medical History Medical History Anemia Arthritis Atrial fibrillation CHF exacerbation COPD (chronic obstructive pulmonary disease) Dementia Diabetic peripheral neuropathy Former smoker 50 pack-year smoking history. Grade II diastolic dysfunction Noted on echocardiogram in December 2018. Ejection fraction was 60 to 65%. Hypothyroidism Insulin dependent type 2 diabetes mellitus Surgical History Surgical History History of cataract extraction History of dilation and curettage Family History Family History Father Cerebrovascular accident Grandparent Cerebrovascular accident Family history of heart disease in male family member before age 55 Mother Family history of heart disease in male family member before age 55 Heart disease of a heart attack Heart attack Social History Social History (Updated 12/04/21 @ 16:43 by Kia Reyes NP) Social History: She is a resident at [facility]. Former smoker, up to a pack of cigarettes a day for 50 years, and quit in 2009. She stopped drinking alcohol in 200
--- NOTE | 2021-12-04 19:01 | ADMGEN ---
This patient, Ana Neely, was admitted to IMU Room 203-01. Patient/family oriented to hospital policies and general routines including ID bracelet, bed and alarms, visiting hours, pain management, procedures, bathroom and other care routines, personal items, smoking policy, room service/diet, and visiting hours. Information on how to activate the Rapid Response Team has been discussed. Patient/Family are encouraged to report perceived risks to care and to ask questions if they do not understand what they are told or what they should do.
[2021-12-04 20:08] LABS: Estimated CRCL calculation 38 ml/min; Estimated Glomerular Filt Rate 44
[2021-12-04 20:14] LABS: Glucose Point of Care 198 mg/dl (65-105)
[2021-12-04] MEDS: IPRATROPIUM BR 0.02% INH SOLN 0.5 MG/2.5 ML VIAL INHALATION (20:25)
[2021-12-04] MEDS: MAGNESIUM SULF 2 GM/WATER 50ML 2 GM/50 ML BAG IVPB (22:40)
[2021-12-05] VITALS (27 sets, daily range): BP systolic 99–130; BP diastolic 53–63; PULSE 64–123; RESP 20–24; TEMP 36.4–37.1; O2SAT 92–97
[2021-12-05] MEDS: dilTIAZem 100 MG/100 ML 100 MG/100 ML BAG IV CONT ×2 (01:10→23:58)
[2021-12-05] MEDS: IPRATROPIUM BR 0.02% INH SOLN 0.5 MG/2.5 ML VIAL INHALATION ×3 (03:03→20:18)
[2021-12-05 04:20] LABS: Basophils Percent Auto 0.2 % (0.2-1.2); Hematocrit 36.9 % (37.0-47.0); Hemoglobin 11.4 g/dL (12.0-15.0); Immature Granulocyte Absolute 0.11 K/mm3 (0.00-0.031); Immature Granulocyte Percent A 0.7 % (0-0.5); Lymphocytes Absolute Auto 1.61 K/mm3 (0.9-3.2); Lymphocytes Percent Auto 9.8 % (18.3-44.2); Mean Corpuscular HGB Conc 30.9 g/dl (32-36); Mean Corpuscular Hemoglobin 29.2 pg (26-34); Mean Corpuscular Volume 94.6 fl (80-100); Mean Platelet Volume 9.6 fl (7.4-10.4); Monocytes Absolute Auto 1.4 K/mm3 (0.1-0.6); Monocytes Percent Auto 8.2 % (2.6-8.5); Neutrophils Absolute Auto 13.4 K/mm3 (1.3-6.7); Neutrophils Percent Auto 81.1 % (45.5-73.1); Platelet Count Result 266 k/mm3 (150-375); Red Cell Distribution Width 13.9 % (11.5-14.5); White Blood Count 16.5 K/mm3 (4.5-10.0)
[2021-12-05 04:33] LABS: Alanine Aminotransferase 19 U/L (6-35); Albumin Level 4.2 g/dL (3.5-5.1); Alkaline Phosphatase 72 U/L (38-126); Anion Gap 16 mmol/L (8-16); Aspartate Amino Transferase 17 U/L (14-36); Bilirubin,Total 0.5 mg/dL (0.2-1.3); Blood Urea Nitrogen 25 mg/dL (7-17); Calcium 8.5 mg/dL (8.4-10.2); Carbon Dioxide 28 mmol/L (22-30); Chloride 92 mmol/L (98-107); Estimated CRCL calculation 41 ml/min; Estimated Glomerular Filt Rate 48; Glucose 223 mg/dL (65-110); Lactic Acid Reflex 3.3 mmol/L (0.7-2.0); Magnesium 1.9 mg/dL (1.6-2.3); Potassium 3.9 mmol/L (3.4-5.0); Sodium 136 mmol/L (137-145)
[2021-12-05 07:16] LABS: Reflex Lactic Acid Yes or No Add Lactic
[2021-12-05 07:54] LABS: Lactic Acid 2.3 mmol/L (0.7-2.0)
[2021-12-05 08:27] LABS: Glucose Point of Care 216 mg/dl (65-105)
[2021-12-05] MEDS: UMECLIDINIUM/VILANTEROL 62.5-25 MCG ELLIPTA 1 PUFF INHALATION (08:30)
[2021-12-05] MEDS: PANTOPRAZOLE 40 MG TABLET PO (08:57)
[2021-12-05] MEDS: LEVOTHYROXINE SODIUM 50 MCG TABLET PO (08:57)
[2021-12-05] MEDS: FERROUS SULFATE 324 MG TABLET PO (08:57)
[2021-12-05] MEDS: CYANOCOBALAMIN 1,000 MCG TABLET 1000 MCG PO (08:57)
[2021-12-05] MEDS: ATORVASTATIN 20 MG TABLET PO (08:57)
[2021-12-05] MEDS: SPIRONOLACTONE 50 MG TABLET PO (08:57)
[2021-12-05] MEDS: APIXABAN 5 MG TABLET PO ×2 (08:57→22:01)
[2021-12-05] MEDS: POTASSIUM CHLORIDE 20 MEQ TABLET.ER PO (08:58)
[2021-12-05] MEDS: FUROSEMIDE INJ 40 MG/4 ML VIAL IV PUSH (08:58)
[2021-12-05] MEDS: INSULIN ASPART (*BKC) 100 UNITS/ML SUB-Q ×3 (09:02→18:06)
[2021-12-05 11:43] LABS: Glucose Point of Care 210 mg/dl (65-105)
--- NOTE | 2021-12-05 12:21 | PM.IMPN ---
Progress Note: A&P Assessment and Plan (1) Atrial fibrillation with rapid ventricular response: Code(s): I48.91 - Unspecified atrial fibrillation Status: Acute Assessment and Plan: -she has a history of AFib but now she is in RVR. -she is on a Cardizem drip now. She is typically on oral Cardizem. Restart her oral home dose Cardizem and taper off Cardizem drip today. -continue with her home dose of Eliquis. TSH normal Add metoprolol 12.5 mg b.i.d. (2) Congestive heart failure (CHF): Code(s): I50.9 - Heart failure, unspecified Status: Acute Assessment and Plan: -continue with IV Lasix. She is typically on oral Lasix. -last echo was on 11/26/2020 read as the following ? 1. Complete two-dimensional, color flow and Doppler transthoracic echocardiogram is performed. ? 2. Left ventricular chamber dimension is normal. ? 3. Left ventricular systolic function is normal, estimated at 50-55%. ? 4. Left atrial chamber dimension is moderately enlarged. ? 5. There is mild mitral valve regurgitation. ? 6. There is mild aortic valve sclerosis. (3) Pneumonia: Code(s): J18.9 - Pneumonia, unspecified organism Status: Acute Assessment and Plan: Chest x-ray this lower lung zones on the right atelectasis/scarring versus pneumonia the patient was started on azithromycin and Rocephin per community-acquired antibiotics stewardship. Also on vancomycin -blood and sputum cultures are pending. -the patient is being checked for strep A because she complained of a sore throat. COVID negative Lactic Acidosis (4) COPD (chronic obstructive pulmonary disease): Code(s): J44.9 - Chronic obstructive pulmonary disease, unspecified Status: Acute Assessment and Plan: Seems like having COPD exacerbation as well Start Solu-Medrol. 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 Sliding scale insulin -hold metformin A1c 7.0 -continue with Lantus. (6) Hypothyroidism: Code(s): E03.9 - Hypothyroidism, unspecified Status: Acute Assessment and Plan: -continue levothyroxine TSH normal Plan DVT prophylaxis on Eliquis Subjective Date/time seen: 12/05/21 12:21 Interval history: HPI: This is a 76-year-old female patient who has a history of dementia, diabetes, congestive heart failure, and atrial fibrillation.? The patient keeps falling asleep during the interview but is able to answer some of the questions.? She is from [facility].? It was reported that the patient had a rapid COVID test that was negative at the snf.? She states that she is chronically short of breath.? She is not aware of any CHF history.? Her white count is noted to be 19.8.? Her creatinine is listed as 1.2.? Glucose is 223.? BUN 27.? Magnesium is low at 1.2.? Troponin is negative.? BNP is 1370.? COVID test here is negative.? Does x-ray was read as airspace opacities in the lower lung zones with improvement on the right consistent with atelectasis scarring versus pneumonia.? The patient was given a nebulizer treatment.? She was found to be in AFib with RVR and she was given a bolus of Cardizem and started on a Cardizem drip.? She was also started on Rocephin and azithromycin for community-acquired pneumonia.? She was also given Lasix for CHF.? Patient is being admitted for observation on 12/04/2021 12/05/2021 no overnight events. Feels all right. On Cardizem drip. Denies any chest pain. Reports cough and shortness of breath progressively getting worse. Review of Systems Review of Systems: All systems reviewed & are unremarkable except as noted in HPI and below Exam Narrative: GENERAL: The patient is well developed, not in acute dis
[2021-12-05] MEDS: ALBUTEROL SULFATE NEB 2.5 MG/3 ML INH INHALATION (13:47)
[2021-12-05 13:49] LABS: Appearance Urine Clear (Clear); Bilirubin Urine Negative (Negative); Blood Urine 3+ (Negative); Color Urine Yellow (Yellow); Glucose Urine UA Negative (Negative); Ketones Urine Negative (Negative); Leukocyte Esterase Ur Trace LEU/UL (Negative); Nitrate Urine Negative (Negative); Protein Urine Negative (Negative); Specific Grav Ur 1.015 (1.001-1.035); Urobilinogen Urine 0.2 mg/dL (<2.0)
[2021-12-05 13:56] LABS: Mucus Urine Rare /lpf; RBC Urine >75 /hpf (0-2); Squamous Epithelial Cell Urine Rare /hpf (Few)
--- NOTE | 2021-12-05 13:57 | PC.NURSE ---
On 12/05/21, the student, [Reina Trinidad], provided care and completed [facility] documentation on this patient. I have reviewed the student's documentation and agree with the findings.
[2021-12-05 14:00] LABS: Add Urine Microscopic? YES
[2021-12-05] MEDS: guaiFENesin 12 HR 600 MG TABCR 1200 MG PO ×2 (15:08→22:00)
[2021-12-05] MEDS: METOPROLOL TARTRATE 12.5 MG TABLET PO ×2 (15:08→22:02)
[2021-12-05] MEDS: methylPREDNISolone SOD SUCC 40 MG VIAL IV PUSH ×2 (15:08→22:02)
[2021-12-05 15:09] LABS: Free T4 Free Thyroxine Reflex 1.28 ng/dL (0.78-2.19)
[2021-12-05 16:01] LABS: Total Triiodothyronine (T3) 0.71 NG/ML (0.97-1.69)
[2021-12-05 17:07] LABS: Glucose Point of Care 307 mg/dl (65-105)
[2021-12-05 20:44] LABS: Glucose Point of Care 482 mg/dl (65-105)
[2021-12-05] MEDS: DONEPEZIL HCL 10 MG TABLET PO (22:01)
[2021-12-05] MEDS: INSULIN GLARGINE (*BKC) 100 UNITS/ML 30 UNITS SUB-Q (22:08)
[2021-12-06] VITALS (23 sets, daily range): BP systolic 90–136; BP diastolic 54–89; PULSE 59–103; RESP 16–20; TEMP 35.9–36.7; O2SAT 94–98
[2021-12-06] MEDS: IPRATROPIUM BR 0.02% INH SOLN 0.5 MG/2.5 ML VIAL INHALATION ×4 (02:08→21:48)
--- NOTE | 2021-12-06 04:08 | PC.NURSE ---
Report was passed on in the evening shift to discontinue the cardizem drip and oral cardizem was to be given in the am. However, the order was not put in the system to discontinue. I contacted Dr. Berger and she informed me to continue the cardizem drip at 5 and have them to discontinue the order by the provider. The patient is tolerating the drip with a heart rate in 70's to 90's. Order clarification in am. 12/06/21.
[2021-12-06 04:36] LABS: Basophils Percent Auto 0.1 % (0.2-1.2); Hemoglobin 10.6 g/dL (12.0-15.0); Immature Granulocyte Percent A 0.8 % (0-0.5); Lymphocytes Absolute Auto 0.36 K/mm3 (0.9-3.2); Mean Corpuscular HGB Conc 32.1 g/dl (32-36); Mean Corpuscular Hemoglobin 29.6 pg (26-34); Mean Corpuscular Volume 92.2 fl (80-100); Monocytes Absolute Auto 0.2 K/mm3 (0.1-0.6); Monocytes Percent Auto 1.4 % (2.6-8.5); Neutrophils Absolute Auto 11.4 K/mm3 (1.3-6.7); Neutrophils Percent Auto 94.7 % (45.5-73.1); Platelet Count Result 236 k/mm3 (150-375); Red Blood Count 3.58 M/mm3 (4.2-5.4); Red Cell Distribution Width 13.2 % (11.5-14.5)
[2021-12-06 04:55] LABS: Lactic Acid Reflex 1.4 mmol/L (0.7-2.0)
[2021-12-06 05:00] LABS: Alanine Aminotransferase 17 U/L (6-35); Albumin Level 3.8 g/dL (3.5-5.1); Alkaline Phosphatase 84 U/L (38-126); Anion Gap 12 mmol/L (8-16); Aspartate Amino Transferase 15 U/L (14-36); Bilirubin,Total 0.3 mg/dL (0.2-1.3); Blood Urea Nitrogen 28 mg/dL (7-17); Calcium 8.6 mg/dL (8.4-10.2); Carbon Dioxide 27 mmol/L (22-30); Chloride 91 mmol/L (98-107); Estimated CRCL calculation 41 ml/min; Estimated Glomerular Filt Rate 48; Glucose 371 mg/dL (65-110); Potassium 4.3 mmol/L (3.4-5.0); Sodium 130 mmol/L (137-145)
[2021-12-06] MEDS: FUROSEMIDE INJ 40 MG/4 ML VIAL IV PUSH (08:23)
[2021-12-06] MEDS: POTASSIUM CHLORIDE 20 MEQ TABLET.ER PO (08:23)
[2021-12-06] MEDS: METOPROLOL TARTRATE 12.5 MG TABLET PO ×2 (08:24→21:17)
[2021-12-06] MEDS: FERROUS SULFATE 324 MG TABLET PO (08:24)
[2021-12-06] MEDS: guaiFENesin 12 HR 600 MG TABCR 1200 MG PO ×2 (08:24→21:17)
[2021-12-06] MEDS: methylPREDNISolone SOD SUCC 40 MG VIAL IV PUSH ×2 (08:24→21:18)
[2021-12-06] MEDS: PANTOPRAZOLE 40 MG TABLET PO (08:24)
[2021-12-06] MEDS: CYANOCOBALAMIN 1,000 MCG TABLET 1000 MCG PO (08:25)
[2021-12-06] MEDS: SPIRONOLACTONE 50 MG TABLET PO (08:25)
[2021-12-06] MEDS: APIXABAN 5 MG TABLET PO ×2 (08:25→21:17)
[2021-12-06] MEDS: INSULIN ASPART (*BKC) 100 UNITS/ML SUB-Q (08:25)
[2021-12-06] MEDS: LEVOTHYROXINE SODIUM 50 MCG TABLET PO (08:25)
[2021-12-06] MEDS: ATORVASTATIN 20 MG TABLET PO (08:25)
[2021-12-06 08:31] LABS: Glucose Point of Care 348 mg/dl (65-105)
[2021-12-06] MEDS: UMECLIDINIUM/VILANTEROL 62.5-25 MCG ELLIPTA 1 PUFF INHALATION (09:04)
[2021-12-06 12:35] LABS: Glucose Point of Care 482 mg/dl (65-105)
--- NOTE | 2021-12-06 12:49 | PM.IMPN ---
Progress Note: A&P Assessment and Plan (1) Atrial fibrillation with rapid ventricular response: Code(s): I48.91 - Unspecified atrial fibrillation Status: Acute Assessment and Plan: -she has a history of AFib but now she is in RVR. -she is on a Cardizem drip now. She is typically on oral Cardizem. Restart her oral home dose Cardizem and taper off Cardizem drip today. -continue with her home dose of Eliquis. TSH normal Added metoprolol 12.5 mg b.i.d. heart rate better controlled off Cardizem drip (2) Congestive heart failure (CHF): Code(s): I50.9 - Heart failure, unspecified Status: Acute Assessment and Plan: -continue with IV Lasix. She is typically on oral Lasix. Continue diuresis as tolerated -last echo was on 11/26/2020 read as the following ? 1. Complete two-dimensional, color flow and Doppler transthoracic echocardiogram is performed. ? 2. Left ventricular chamber dimension is normal. ? 3. Left ventricular systolic function is normal, estimated at 50-55%. ? 4. Left atrial chamber dimension is moderately enlarged. ? 5. There is mild mitral valve regurgitation. ? 6. There is mild aortic valve sclerosis. (3) Pneumonia: Code(s): J18.9 - Pneumonia, unspecified organism Status: Acute Assessment and Plan: Chest x-ray this lower lung zones on the right atelectasis/scarring versus pneumonia the patient was started on azithromycin and Rocephin per community-acquired antibiotics stewardship. Also on vancomycin -blood and sputum cultures are pending. -the patient is being checked for strep A because she complained of a sore throat. COVID negative Lactic Acidosis resolved. (4) COPD (chronic obstructive pulmonary disease): Code(s): J44.9 - Chronic obstructive pulmonary disease, unspecified Status: Acute Assessment and Plan: Seems like having COPD exacerbation as well Start Solu-Medrol. 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 Sliding scale insulin -hold metformin A1c 7.0 -continue with Lantus. On home doses of Lantus Adjust insulin at prandial insulin (6) Hypothyroidism: Code(s): E03.9 - Hypothyroidism, unspecified Status: Acute Assessment and Plan: -continue levothyroxine TSH normal Plan DVT prophylaxis on Eliquis Subjective Date/time seen: 12/06/21 12:49 Interval history: HPI: This is a 76-year-old female patient who has a history of dementia, diabetes, congestive heart failure, and atrial fibrillation.? The patient keeps falling asleep during the interview but is able to answer some of the questions.? She is from [facility].? It was reported that the patient had a rapid COVID test that was negative at the halfway.? She states that she is chronically short of breath.? She is not aware of any CHF history.? Her white count is noted to be 19.8.? Her creatinine is listed as 1.2.? Glucose is 223.? BUN 27.? Magnesium is low at 1.2.? Troponin is negative.? BNP is 1370.? COVID test here is negative.? Does x-ray was read as airspace opacities in the lower lung zones with improvement on the right consistent with atelectasis scarring versus pneumonia.? The patient was given a nebulizer treatment.? She was found to be in AFib with RVR and she was given a bolus of Cardizem and started on a Cardizem drip.? She was also started on Rocephin and azithromycin for community-acquired pneumonia.? She was also given Lasix for CHF.? Patient is being admitted for observation on 12/04/2021 12/05/2021 no overnight events. Feels all right. On Cardizem drip. Denies any chest pain. Reports cough and shortness of breath progressively getting worse. 12/06/2021: No overnight events. Feeli
[2021-12-06] MEDS: INSULIN ASPART (*BKC) 100 UNITS/ML 15 UNITS SUB-Q (13:07)
[2021-12-06 16:35] LABS: Glucose Point of Care 480 mg/dl (65-105)
[2021-12-06] MEDS: INSULIN ASPART (*BKC) 100 UNITS/ML 20 UNITS SUB-Q (17:04)
[2021-12-06 20:21] LABS: Glucose Point of Care > 500 mg/dl (65-105)
[2021-12-06] MEDS: INSULIN GLARGINE (*BKC) 100 UNITS/ML 40 UNITS SUB-Q (21:03)
[2021-12-06] MEDS: INSULIN ASPART (*BKC) 100 UNITS/ML 12 UNITS SUB-Q (21:09)
[2021-12-06] MEDS: DONEPEZIL HCL 10 MG TABLET PO (21:17)
[2021-12-06 23:46] LABS: Glucose Point of Care 323 mg/dl (65-105)
[2021-12-07] VITALS (21 sets, daily range): BP systolic 98–127; BP diastolic 58–79; PULSE 82–121; RESP 16–21; TEMP 35.8–36.8; O2SAT 93–97
[2021-12-07] MEDS: INSULIN ASPART (*BKC) 100 UNITS/ML SUB-Q ×4 (01:36→16:38)
[2021-12-07] MEDS: IPRATROPIUM BR 0.02% INH SOLN 0.5 MG/2.5 ML VIAL INHALATION ×4 (02:09→20:47)
[2021-12-07 04:17] LABS: Basophils Percent Auto 0.1 % (0.2-1.2); Hemoglobin 10.3 g/dL (12.0-15.0); Immature Granulocyte Absolute 0.09 K/mm3 (0.00-0.031); Immature Granulocyte Percent A 0.8 % (0-0.5); Lymphocytes Absolute Auto 0.33 K/mm3 (0.9-3.2); Lymphocytes Percent Auto 2.8 % (18.3-44.2); Mean Corpuscular HGB Conc 31.2 g/dl (32-36); Mean Corpuscular Hemoglobin 29.3 pg (26-34); Mean Corpuscular Volume 93.8 fl (80-100); Mean Platelet Volume 10.2 fl (7.4-10.4); Monocytes Absolute Auto 0.5 K/mm3 (0.1-0.6); Monocytes Percent Auto 3.9 % (2.6-8.5); Neutrophils Absolute Auto 10.8 K/mm3 (1.3-6.7); Neutrophils Percent Auto 92.4 % (45.5-73.1); Platelet Count Result 284 k/mm3 (150-375); Red Blood Count 3.52 M/mm3 (4.2-5.4); Red Cell Distribution Width 13.2 % (11.5-14.5); White Blood Count 11.7 K/mm3 (4.5-10.0)
[2021-12-07 04:58] LABS: Alanine Aminotransferase 27 U/L (6-35); Albumin Level 3.8 g/dL (3.5-5.1); Alkaline Phosphatase 64 U/L (38-126); Anion Gap 14 mmol/L (8-16); Aspartate Amino Transferase 29 U/L (14-36); Bilirubin,Total 0.3 mg/dL (0.2-1.3); Blood Urea Nitrogen 39 mg/dL (7-17); Calcium 8.4 mg/dL (8.4-10.2); Carbon Dioxide 27 mmol/L (22-30); Chloride 89 mmol/L (98-107); Estimated CRCL calculation 41 ml/min; Estimated Glomerular Filt Rate 48; Glucose 341 mg/dL (65-110); Magnesium 2.1 mg/dL (1.6-2.3); Potassium 4.1 mmol/L (3.4-5.0); Sodium 130 mmol/L (137-145)
[2021-12-07] MEDS: LEVOTHYROXINE SODIUM 50 MCG TABLET PO (06:12)
[2021-12-07 08:05] LABS: Glucose Point of Care 326 mg/dl (65-105)
[2021-12-07] MEDS: guaiFENesin 12 HR 600 MG TABCR 1200 MG PO ×2 (08:58→21:13)
[2021-12-07] MEDS: SPIRONOLACTONE 50 MG TABLET PO (08:58)
[2021-12-07] MEDS: PANTOPRAZOLE 40 MG TABLET PO (08:58)
[2021-12-07] MEDS: FUROSEMIDE INJ 40 MG/4 ML VIAL IV PUSH (08:59)
[2021-12-07] MEDS: ATORVASTATIN 20 MG TABLET PO (08:59)
[2021-12-07] MEDS: CYANOCOBALAMIN 1,000 MCG TABLET 1000 MCG PO (08:59)
[2021-12-07] MEDS: POTASSIUM CHLORIDE 20 MEQ TABLET.ER PO (09:00)
[2021-12-07] MEDS: APIXABAN 5 MG TABLET PO ×2 (09:00→21:13)
[2021-12-07] MEDS: METOPROLOL TARTRATE 25 MG TABLET PO ×2 (09:01→21:13)
[2021-12-07] MEDS: FERROUS SULFATE 324 MG TABLET PO (09:01)
[2021-12-07] MEDS: INSULIN ASPART (*BKC) 100 UNITS/ML 12 UNITS SUB-Q ×4 (09:02→23:58)
[2021-12-07] MEDS: methylPREDNISolone SOD SUCC 40 MG VIAL IV PUSH (10:39)
[2021-12-07 11:50] LABS: Glucose Point of Care 305 mg/dl (65-105)
--- NOTE | 2021-12-07 12:10 | PM.IMPN ---
Progress Note: A&P Assessment and Plan (1) Atrial fibrillation with rapid ventricular response: Code(s): I48.91 - Unspecified atrial fibrillation Status: Acute Assessment and Plan: -she has a history of AFib but now she is in RVR. -she is on a Cardizem drip now. She is typically on oral Cardizem. Restart her oral home dose Cardizem and taper off Cardizem drip today. -continue with her home dose of Eliquis. TSH normal Added metoprolol 12.5 mg b.i.d. heart rate better controlled off Cardizem drip Increase metoprolol to 25 mg b.i.d. (2) Congestive heart failure (CHF): Code(s): I50.9 - Heart failure, unspecified Status: Acute Assessment and Plan: -continue with IV Lasix. She is typically on oral Lasix. Continue diuresis as tolerated -last echo was on 11/26/2020 read as the following ? 1. Complete two-dimensional, color flow and Doppler transthoracic echocardiogram is performed. ? 2. Left ventricular chamber dimension is normal. ? 3. Left ventricular systolic function is normal, estimated at 50-55%. ? 4. Left atrial chamber dimension is moderately enlarged. ? 5. There is mild mitral valve regurgitation. ? 6. There is mild aortic valve sclerosis. Will switch Lasix to oral 12/07/2021 (3) Pneumonia: Code(s): J18.9 - Pneumonia, unspecified organism Status: Acute Assessment and Plan: Chest x-ray this lower lung zones on the right atelectasis/scarring versus pneumonia the patient was started on azithromycin and Rocephin per community-acquired antibiotics stewardship. Also on vancomycin -blood and sputum cultures are pending. -the patient is being checked for strep A because she complained of a sore throat which came back negative COVID negative Lactic Acidosis resolved. (4) COPD (chronic obstructive pulmonary disease): Code(s): J44.9 - Chronic obstructive pulmonary disease, unspecified Status: Acute Assessment and Plan: Seems like having COPD exacerbation as well Start Solu-Medrol. 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 Sliding scale insulin -hold metformin A1c 7.0 -continue with Lantus. On home doses of Lantus Adjust insulin at prandial insulin (6) Hypothyroidism: Code(s): E03.9 - Hypothyroidism, unspecified Status: Acute Assessment and Plan: -continue levothyroxine TSH normal Plan DVT prophylaxis on Eliquis Subjective Date/time seen: 12/07/21 12:10 Interval history: HPI: This is a 76-year-old female patient who has a history of dementia, diabetes, congestive heart failure, and atrial fibrillation.? The patient keeps falling asleep during the interview but is able to answer some of the questions.? She is from [facility].? It was reported that the patient had a rapid COVID test that was negative at the long-term.? She states that she is chronically short of breath.? She is not aware of any CHF history.? Her white count is noted to be 19.8.? Her creatinine is listed as 1.2.? Glucose is 223.? BUN 27.? Magnesium is low at 1.2.? Troponin is negative.? BNP is 1370.? COVID test here is negative.? Does x-ray was read as airspace opacities in the lower lung zones with improvement on the right consistent with atelectasis scarring versus pneumonia.? The patient was given a nebulizer treatment.? She was found to be in AFib with RVR and she was given a bolus of Cardizem and started on a Cardizem drip.? She was also started on Rocephin and azithromycin for community-acquired pneumonia.? She was also given Lasix for CHF.? Patient is being admitted for observation on 12/04/2021 12/05/2021 no overnight events. Feels all right. On
[2021-12-07 16:43] LABS: Glucose Point of Care 390 mg/dl (65-105)
[2021-12-07 18:18] LABS: Vancomycin Trough 12.3 ug/mL (10.0-20.0)
--- NOTE | 2021-12-07 18:32 | PC.NURSE ---
This patient, Ana Neely, was transferred to [facility] on 12/07/21 at 1753. Personal belongings sent with patient. Report given to HEATHER SCHAFER. Appropriate documentation sent with patient.
--- NOTE | 2021-12-07 18:52 | PC.NURSE ---
Pt received from IMU Room 203 into Room 344 @ 1810 with all belongings and oriented to the room and equipment use
[2021-12-07] MEDS: INSULIN GLARGINE (*BKC) 100 UNITS/ML 40 UNITS SUB-Q (21:11)
[2021-12-07] MEDS: DONEPEZIL HCL 10 MG TABLET PO (21:12)
[2021-12-07] MEDS: INSULIN ASPART (*BKC) 100 UNITS/ML 8 UNITS SUB-Q (21:27)
[2021-12-07 23:11] LABS: Glucose Point of Care 476 mg/dl (65-105)
[2021-12-07 23:11] LABS: Glucose Point of Care 448 mg/dl (65-105)
[2021-12-08] VITALS (20 sets, daily range): BP systolic 101–122; BP diastolic 52–64; PULSE 61–114; RESP 12–20; TEMP 35.4–36.6; O2SAT 93–97
[2021-12-08] MEDS: IPRATROPIUM BR 0.02% INH SOLN 0.5 MG/2.5 ML VIAL INHALATION ×4 (02:30→21:04)
[2021-12-08] MEDS: LEVOTHYROXINE SODIUM 50 MCG TABLET PO (06:10)
[2021-12-08 06:42] LABS: Basophils Percent Auto 0.2 % (0.2-1.2); Hemoglobin 10.6 g/dL (12.0-15.0); Immature Granulocyte Absolute 0.21 K/mm3 (0.00-0.031); Immature Granulocyte Percent A 1.6 % (0-0.5); Lymphocytes Absolute Auto 0.54 K/mm3 (0.9-3.2); Mean Corpuscular HGB Conc 32.1 g/dl (32-36); Mean Corpuscular Hemoglobin 29.5 pg (26-34); Mean Corpuscular Volume 91.9 fl (80-100); Mean Platelet Volume 10.1 fl (7.4-10.4); Monocytes Absolute Auto 0.8 K/mm3 (0.1-0.6); Monocytes Percent Auto 6.1 % (2.6-8.5); Neutrophils Absolute Auto 11.8 K/mm3 (1.3-6.7); Neutrophils Percent Auto 88.1 % (45.5-73.1); Platelet Count Result 348 k/mm3 (150-375); Red Blood Count 3.59 M/mm3 (4.2-5.4); Red Cell Distribution Width 13.2 % (11.5-14.5); White Blood Count 13.4 K/mm3 (4.5-10.0)
[2021-12-08 06:56] LABS: Alanine Aminotransferase 28 U/L (6-35); Albumin Level 3.9 g/dL (3.5-5.1); Alkaline Phosphatase 70 U/L (38-126); Anion Gap 13 mmol/L (8-16); Aspartate Amino Transferase 22 U/L (14-36); Bilirubin,Total 0.2 mg/dL (0.2-1.3); Blood Urea Nitrogen 41 mg/dL (7-17); Calcium 8.7 mg/dL (8.4-10.2); Carbon Dioxide 31 mmol/L (22-30); Chloride 90 mmol/L (98-107); Estimated CRCL calculation 45 ml/min; Estimated Glomerular Filt Rate 54; Glucose 196 mg/dL (65-110); Magnesium 2.2 mg/dL (1.6-2.3); Potassium 4.4 mmol/L (3.4-5.0); Sodium 134 mmol/L (137-145)
[2021-12-08] MEDS: UMECLIDINIUM/VILANTEROL 62.5-25 MCG ELLIPTA 1 PUFF INHALATION (08:07)
[2021-12-08 08:36] LABS: Glucose Point of Care 232 mg/dl (65-105)
[2021-12-08] MEDS: predniSONE 20 MG TABLET 40 MG PO (08:40)
[2021-12-08] MEDS: PANTOPRAZOLE 40 MG TABLET PO (08:40)
[2021-12-08] MEDS: guaiFENesin 12 HR 600 MG TABCR 1200 MG PO ×2 (08:40→20:47)
[2021-12-08] MEDS: APIXABAN 5 MG TABLET PO ×2 (08:40→20:47)
[2021-12-08] MEDS: ATORVASTATIN 20 MG TABLET PO (08:40)
[2021-12-08] MEDS: METOPROLOL TARTRATE 25 MG TABLET PO (08:41)
[2021-12-08] MEDS: SPIRONOLACTONE 50 MG TABLET PO (08:41)
[2021-12-08] MEDS: POTASSIUM CHLORIDE 20 MEQ TABLET.ER PO (08:41)
[2021-12-08] MEDS: FERROUS SULFATE 324 MG TABLET PO (08:41)
[2021-12-08] MEDS: FUROSEMIDE 40 MG TABLET PO (08:41)
[2021-12-08] MEDS: INSULIN ASPART (*BKC) 100 UNITS/ML SUB-Q ×3 (08:41→17:21)
[2021-12-08] MEDS: CYANOCOBALAMIN 1,000 MCG TABLET 1000 MCG PO (08:41)
[2021-12-08] MEDS: INSULIN ASPART (*BKC) 100 UNITS/ML 12 UNITS SUB-Q ×3 (08:42→17:21)
--- NOTE | 2021-12-08 10:33 | PM.IMPN ---
Progress Note: A&P Assessment and Plan (1) Atrial fibrillation with rapid ventricular response: Code(s): I48.91 - Unspecified atrial fibrillation Status: Acute Assessment and Plan: -she has a history of AFib but now she is in RVR. -she is on a Cardizem drip now. She is typically on oral Cardizem. Restart her oral home dose Cardizem and taper off Cardizem drip today. -continue with her home dose of Eliquis. TSH normal Added metoprolol 12.5 mg b.i.d. heart rate better controlled off Cardizem drip Increase metoprolol to 25 mg b.i.d. Will increase Cardizem to 300 mg and lower her metoprolol as she is more wheezy today since the increase in metoprolol dose. (2) Congestive heart failure (CHF): Code(s): I50.9 - Heart failure, unspecified Status: Acute Assessment and Plan: -continue with IV Lasix. She is typically on oral Lasix. Continue diuresis as tolerated -last echo was on 11/26/2020 read as the following ? 1. Complete two-dimensional, color flow and Doppler transthoracic echocardiogram is performed. ? 2. Left ventricular chamber dimension is normal. ? 3. Left ventricular systolic function is normal, estimated at 50-55%. ? 4. Left atrial chamber dimension is moderately enlarged. ? 5. There is mild mitral valve regurgitation. ? 6. There is mild aortic valve sclerosis. Will switch Lasix to oral 12/07/2021 Continue Lasix (3) Pneumonia: Code(s): J18.9 - Pneumonia, unspecified organism Status: Acute Assessment and Plan: Chest x-ray this lower lung zones on the right atelectasis/scarring versus pneumonia the patient was started on azithromycin and Rocephin per community-acquired antibiotics stewardship. Also on vancomycin -blood and sputum cultures are pending. -the patient is being checked for strep A because she complained of a sore throat which came back negative COVID negative Lactic Acidosis resolved. follow cultures been negative will stop vancomycin today continue on Rocephin and azithromycin as ordered. (4) COPD (chronic obstructive pulmonary disease): Code(s): J44.9 - Chronic obstructive pulmonary disease, unspecified Status: Acute Assessment and Plan: Seems like having COPD exacerbation as well Start Solu-Medrol. With Anoro -continue with albuterol/DuoNebs -continue Symbicort Solu Medrol switched to prednisone today. More wheezy Will add Pulmicort nebs and PAP therapy already on Mucinex and bronchodilators (5) Insulin dependent type 2 diabetes mellitus: Code(s): E11.9 - Type 2 diabetes mellitus without complications; Z79.4 - custodial (current) use of insulin Status: Acute Assessment and Plan: -Accu-Cheks AC and HS. Sliding scale insulin -hold metformin A1c 7.0 -continue with Lantus. On home doses of Lantus Adjust insulin at prandial insulin Blood sugars are much better today (6) Hypothyroidism: Code(s): E03.9 - Hypothyroidism, unspecified Status: Acute Assessment and Plan: -continue levothyroxine TSH normal Plan DVT prophylaxis on Eliquis Subjective Date/time seen: 12/08/21 10:33 Interval history: HPI: This is a 76-year-old female patient who has a history of dementia, diabetes, congestive heart failure, and atrial fibrillation.? The patient keeps falling asleep during the interview but is able to answer some of the questions.? She is from [facility].? It was reported that the patient had a rapid COVID test that was negative at the [facility].? She states that she is chronically short of breath.? She is not aware of any CHF history.? Her white count is noted to be 19.8.? Her creatinine is listed as 1.2.? Glucose is 223.? BUN 27.? Magnesium is low at 1.2.? Troponin is negative.? BNP is 1370.? COVID test here is negative.? Does x-ray was read as airspace opacities in the lower lung zones with improvement on the right consistent with atelectasis scarring versus pneumonia.? The patient was
[2021-12-08 12:36] LABS: Glucose Point of Care 239 mg/dl (65-105)
[2021-12-08 17:15] LABS: Glucose Point of Care 233 mg/dl (65-105)
[2021-12-08] MEDS: INSULIN GLARGINE (*BKC) 100 UNITS/ML 40 UNITS SUB-Q (20:46)
[2021-12-08] MEDS: METOPROLOL TARTRATE 12.5 MG TABLET PO (20:47)
[2021-12-08] MEDS: DONEPEZIL HCL 10 MG TABLET PO (20:47)
[2021-12-08 20:53] LABS: Glucose Point of Care 352 mg/dl (65-105)
[2021-12-08] MEDS: BUDESONIDE RESPULE NEB 0.5 MG/2 ML AMP INHALATION (21:04)
[2021-12-09] VITALS (12 sets, daily range): BP systolic 111–114; BP diastolic 64–74; PULSE 91–124; RESP 16–18; TEMP 36.2–36.3; O2SAT 96–97
[2021-12-09] MEDS: IPRATROPIUM BR 0.02% INH SOLN 0.5 MG/2.5 ML VIAL INHALATION ×2 (02:43→07:49)
[2021-12-09 05:42] LABS: Basophils Percent Auto 0.4 % (0.2-1.2); Hematocrit 33.8 % (37.0-47.0); Hemoglobin 10.6 g/dL (12.0-15.0); Immature Granulocyte Absolute 0.41 K/mm3 (0.00-0.031); Immature Granulocyte Percent A 3.8 % (0-0.5); Lymphocytes Absolute Auto 0.73 K/mm3 (0.9-3.2); Lymphocytes Percent Auto 6.7 % (18.3-44.2); Mean Corpuscular HGB Conc 31.4 g/dl (32-36); Mean Corpuscular Hemoglobin 29.7 pg (26-34); Mean Corpuscular Volume 94.7 fl (80-100); Monocytes Absolute Auto 0.9 K/mm3 (0.1-0.6); Monocytes Percent Auto 8.6 % (2.6-8.5); Neutrophils Absolute Auto 8.8 K/mm3 (1.3-6.7); Neutrophils Percent Auto 80.5 % (45.5-73.1); Platelet Count Result 329 k/mm3 (150-375); Red Blood Count 3.57 M/mm3 (4.2-5.4); Red Cell Distribution Width 13.4 % (11.5-14.5); White Blood Count 10.9 K/mm3 (4.5-10.0)
[2021-12-09 05:51] LABS: Alanine Aminotransferase 27 U/L (6-35); Albumin Level 3.7 g/dL (3.5-5.1); Alkaline Phosphatase 68 U/L (38-126); Anion Gap 9 mmol/L (8-16); Aspartate Amino Transferase 21 U/L (14-36); Bilirubin,Total 0.2 mg/dL (0.2-1.3); Blood Urea Nitrogen 40 mg/dL (7-17); Calcium 8.5 mg/dL (8.4-10.2); Carbon Dioxide 29 mmol/L (22-30); Chloride 96 mmol/L (98-107); Estimated CRCL calculation 50 ml/min; Estimated Glomerular Filt Rate > 60; Glucose 223 mg/dL (65-110); Magnesium 2.2 mg/dL (1.6-2.3); Potassium 4.6 mmol/L (3.4-5.0); Sodium 134 mmol/L (137-145)
[2021-12-09] MEDS: LEVOTHYROXINE SODIUM 50 MCG TABLET PO (06:20)
[2021-12-09] MEDS: BUDESONIDE RESPULE NEB 0.5 MG/2 ML AMP INHALATION ×2 (07:49→08:10)
[2021-12-09] MEDS: UMECLIDINIUM/VILANTEROL 62.5-25 MCG ELLIPTA 1 PUFF INHALATION (07:49)
[2021-12-09 08:36] LABS: Glucose Point of Care 185 mg/dl (65-105)
[2021-12-09] MEDS: POTASSIUM CHLORIDE 20 MEQ TABLET.ER PO (08:52)
[2021-12-09] MEDS: PANTOPRAZOLE 40 MG TABLET PO (08:52)
[2021-12-09] MEDS: ERGOCALCIFEROL 50,000 UNIT CAPSULE 50000 UNITS PO (08:52)
[2021-12-09] MEDS: METOPROLOL TARTRATE 12.5 MG TABLET PO (08:52)
[2021-12-09] MEDS: guaiFENesin 12 HR 600 MG TABCR 1200 MG PO (08:52)
[2021-12-09] MEDS: ATORVASTATIN 20 MG TABLET PO (08:52)
[2021-12-09] MEDS: SPIRONOLACTONE 50 MG TABLET PO (08:52)
[2021-12-09] MEDS: predniSONE 20 MG TABLET 40 MG PO (08:53)
[2021-12-09] MEDS: FERROUS SULFATE 324 MG TABLET PO (08:53)
[2021-12-09] MEDS: APIXABAN 5 MG TABLET PO (08:53)
[2021-12-09] MEDS: CYANOCOBALAMIN 1,000 MCG TABLET 1000 MCG PO (08:53)
[2021-12-09] MEDS: FUROSEMIDE 40 MG TABLET PO (08:55)
[2021-12-09] MEDS: INSULIN ASPART (*BKC) 100 UNITS/ML 12 UNITS SUB-Q ×3 (08:56→17:21)
[2021-12-09 11:57] LABS: Glucose Point of Care 197 mg/dl (65-105)
--- NOTE | 2021-12-09 13:38 | PM.DS ---
DS: Admitting Diagnosis Discharge Date 12/09/2021 Admitting Diagnosis shortness of breath DS: Discharge Diagnosis Discharge Diagnosis (1) Atrial fibrillation with rapid ventricular response: Code(s): I48.91 - Unspecified atrial fibrillation Status: Acute (2) Congestive heart failure (CHF): Code(s): I50.9 - Heart failure, unspecified Status: Acute (3) Pneumonia: Code(s): J18.9 - Pneumonia, unspecified organism Status: Acute (4) COPD (chronic obstructive pulmonary disease): Code(s): J44.9 - Chronic obstructive pulmonary disease, unspecified Status: Acute (5) Insulin dependent type 2 diabetes mellitus: Code(s): E11.9 - Type 2 diabetes mellitus without complications; 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 -she is on a Cardizem drip now.? She is typically on oral Cardizem.? Restart her oral home dose Cardizem and taper off Cardizem drip today. -continue with her home dose of Eliquis. TSH normal Added metoprolol 12.5 mg b.i.d. heart rate better controlled off Cardizem drip Increase Cardizem to 300 mg for better control. Delete that # acute on chronic diastolic congestive heart failure: -continue with IV Lasix.? She is typically on oral Lasix.? Continue diuresis as tolerated -last echo was on 11/26/2020 read as the following ? 1. Complete two-dimensional, color flow and Doppler transthoracic echocardiogram is performed. ? 2. Left ventricular chamber dimension is normal. ? 3. Left ventricular systolic function is normal, estimated at 50-55%. ? 4. Left atrial chamber dimension is moderately enlarged. ? 5. There is mild mitral valve regurgitation. ? 6. There is mild aortic valve sclerosis. Switch Lasix to oral and continue same. # pneumonia: Chest x-ray this lower lung zones on the right atelectasis/scarring versus pneumonia ?the patient was started on azithromycin and Rocephin per community-acquired antibiotics stewardship.? Also on vancomycin -blood and sputum cultures are pending. -the patient is being checked for strep A because she complained of a sore throat which came back negative COVID negative Lactic Acidosis resolved. ?follow cultures been negative . Stop vancomycin. Completed azithromycin course. Will switch Rocephin to cefdinir at discharge. # COPD exacerbation: Seems like having COPD exacerbation as well Started on Solu-Medrol.? With Anoro -continue with albuterol/DuoNebs -continue Symbicort ? Solu Medrol switched to prednisone and will be tapered over 10 days at discharge. Continue Mucinex # insulin-dependent type 2 diabetes mellitus: -Accu-Cheks AC and HS.? Sliding scale insulin -hold metformin A1c 7.0 -continue with Lantus.? On home doses of Lantus Adjust insulin at prandial insulin Blood sugars Improving after tapering down of her steroid # hypothyroidism: -continue levothyroxine TSH normal # DVT prophylaxis on Eliquis Time Spent with Patient Time attestation: Total time spent providing and/or coordinating discharge services: 45 minutes Exam Narrative: GENERAL: The patient is well developed, not in acute distress HEENT: Nonicteric sclerae, PERRLA, EOMI. Oropharynx clear. Moist mucous membranes. Conjunctivae appear well perfused. CHEST: Chest wall is nontender. HEART: AFib rate controlled, without murmur, rubs, or gallops LUNGS: Coarse breath sound bilaterally, mild end expiratory wheezes , no respiratory distress ABDOMEN: Soft, positive bowel sounds, non-tender, no organomegaly. SKIN: No rash, no excessive bruising, petechiae, or purpura. NEUROLOGIC: Cranial nerves II-XII intact, alert and oriented x 3, no gross motor deficits EXTREMITIES: Trace edema, no cyano
[2021-12-09 17:18] LABS: Glucose Point of Care 187 mg/dl (65-105)
== END 2021-12-09 18:45 | DRG 291 ==
LOC: ANHED 13:48 → ANHIMU 15:59 → ANH3MED 12-07 17:54
PROVIDERS: Nurse Practitioner; Admitting Provider Internal Medicine; Emergency Provider Emergency Medicine; Visit Provider Internal Medicine
DX: I50.33 Acute on chronic diastolic (congestive) heart failure (principal); J18.9 Pneumonia, unspecified organism; I48.20 Chronic atrial fibrillation, unspecified; J44.0 Chronic obstructive pulmonary disease with (acute) lower respiratory infection; J44.1 Chronic obstructive pulmonary disease with (acute) exacerbation; D64.9 Anemia, unspecified; E03.9 Hypothyroidism, unspecified; E11.42 Type 2 diabetes mellitus with diabetic polyneuropathy; M19.90 Unspecified osteoarthritis, unspecified site; F03.90 Unspecified dementia, unspecified severity, without behavioral disturbance, psychotic disturbance, mood disturbance, and anxiety; Z20.822 Contact with and (suspected) exposure to COVID-19; Z87.891 Personal history of nicotine dependence; Z79.4 Long term (current) use of insulin
CPT/HCPCS: 36415; 71045; 80053; 80202; 81001; 82565; 82728; 82948; 83036; 83605; 83735; 83880; 84439; 84443; 84480; 84484; 85025; 85610; 85730; 87040; 87081; 87086; 87088; 87880; 93005; 94640; 96365; 96366; 96367; 96375; 96376; 97110; 97161; 97165; 97530; 97535; 99285; A9270; C9803; G0378; J0456; J0696; J1815; J1940; J2920; J3370; J3475; J7512; U0003; U0005

== ENCOUNTER 2022-03-20 10:13 | Emergency (ER) | payer OTHER, SELFPAY ==
--- NOTE | ~2022-03-20 | CT_ITS ---
Noncontrast CT scan of the cervical spine Technique: Multiple contiguous axial [address] images of the cervical spine were obtained and rec onstructed in 2D sagittal and coronal planes on the acquisition scanner. Dose reduction technique was used on this scan by utilizing automated exposure control, adjustment of the mA and/or kV according to patient size. Clinical History: Pain Findings: No fractures or dislocations. Moderate degenerative disc changes present at C4-C5, C5-C6, and C6-C7. Scattered mild facet joint degenerative changes are present in the cervical spine. Probabl e right neural foraminal narrowing at C5-C6 and C6-C7. Probable mild disc bulge present at C5-C6. The re is uncovertebral degenerative change, most notably at C4-C5, C5-C6, and C6-C7. No prevertebral sof t tissue swelling. Impression: No fracture or subluxation of the cervical spine. Mild degenerative change, as detailed above. Reviewed, dictated and finalized at [facility]. TE BROADCAST TECHNICIAN Impression: No fracture or subluxation of the cervical spine. Mild degenerative change, as detailed above.
--- NOTE | ~2022-03-20 | CT_ITS ---
CT head without contrast Indication: Status post fall Technique: Serial scans were obtained through the brain without the administration of contrast. Dose reduction technique was used on this scan by utilizing automated exposure control and iterative recon struction technique. The dose-length product (DLP) was 681.00 mGy-cm. Findings: There is no evidence of intracranial hemorrhage, mass lesion, or acute infarct. The ventri cles and subarachnoid spaces are dilated, consistent with minimal atrophy. Low attenuation regions a re seen within the periventricular white matter bilaterally, likely representing changes from chronic microvascular ischemic disease. There is no evidence of edema, mass effect or midline shift. The v isualized paranasal sinuses and mastoid air cells are clear. Impression: No intracranial hemorrhage, mass, or acute infarct. Atrophy and chronic white matter changes, as above. Reviewed, dictated and finalized at location . TIC LOADER Impression: No intracranial hemorrhage, mass, or acute infarct. Atrophy and chronic white matter changes, as above.
--- NOTE | ~2022-03-20 | XR_ITS ---
Portable chest x-ray Comparison: 12/04/2021 Clinical History: Status post fall Findings: Calcified left lower lobe granuloma present. Lungs are otherwise clear. Cardiomediastinal silhouette is stable. Bones and soft tissues are unremarkable. Impression: No acute abnormality. Reviewed, dictated and finalized at location . ER BARREL DRUM Impression: No acute abnormality.
--- NOTE | ~2022-03-20 | XR_ITS ---
AP view of the pelvis Clinical history: Pain Findings: No acute fracture or dislocation is seen. Osseous alignment is anatomic. Bilateral hip and SI joint spaces are preserved. Soft tissues are unremarkable. Impression: No significant abnormality is seen. Reviewed, dictated and finalized at location M. NSED VETERINARY TECHNICIAN Impression: No significant abnormality is seen.
[2022-03-20 10:11] VITALS: BP 117/58; PULSE 82; RESP 18; TEMP 36.6; O2SAT 94
--- NOTE | 2022-03-20 10:51 | ED.FALL ---
HPI - Fall General Chief Complaint: Fall Stated Complaint: unwitnessed GLF, unknown downtime Time Seen by Provider: 03/20/22 10:17 History of Present Illness HPI Narrative: Patient at assisted living home was found on the ground, she denies any pain anywhere to me. She doesn't remember what happened, but says she has no headache, neck pain, back pain, arm or leg pain, no focal numbness or weakness. Related Data Home Medications Medication Instructions Recorded Confirmed donepezil 10 mg tablet (Aricept) 10 mg PO HS 03/24/20 12/04/21 insulin glargine 100 unit/mL (3 30 unit subcut HS 03/24/20 12/04/21 mL) subcutaneous pen (Lantus Solostar U-100 Insulin) levothyroxine 50 mcg capsule 50 mcg PO DAILY 03/24/20 12/04/21 metformin 500 mg/5 mL oral 850 mg PO BID 03/24/20 12/04/21 solution (Riomet) omeprazole 20 mg capsule,delayed 20 mg PO DAILY 03/24/20 12/04/21 release umeclidinium 62.5 mcg-vilanterol 1 inh inhalation DAILY 03/24/20 12/04/21 25 mcg/actuation powdr for inhalation (Anoro Ellipta) albuterol sulfate 90 mcg/actuation 2 puff inhalation Q6H PRN COPD 03/25/20 12/04/21 aerosol inhaler (Ventolin HFA) budesonide-formoterol HFA 160 2 puff inhalation Q12H 03/25/20 12/04/21 mcg-4.5 mcg/actuation aerosol inhaler (Symbicort) ferrous sulfate 300 mg (60 mg 325 mg PO DAILY 03/25/20 12/04/21 iron)/5 mL oral liquid ipratropium 0.5 mg-albuterol 3 mg 3 ml inhalation Q6H PRN COPD 03/25/20 12/04/21 (2.5 mg base)/3 mL nebulization soln mecobalamin (vitamin B12) 1,000 1,000 mcg PO DAILY 03/25/20 12/04/21 mcg chewable tablet atorvastatin 20 mg tablet 20 mg PO DAILY 12/04/21 12/04/21 furosemide 20 mg tablet (Lasix) 40 mg PO DAILY 12/04/21 12/04/21 spironolactone 50 mg tablet 50 mg PO DAILY 12/04/21 12/04/21 acetaminophen 500 mg tablet 500 mg PO Q6H PRN Pain 03/20/22 (Acetaminophen Pain Relief) ergocalciferol (vitamin D2) 1,250 03/20/22 mcg (50,000 unit) capsule (Vitamin D2) Allergies Allergy/AdvReac Type Severity Reaction Status Date / Time No Known Allergies Allergy Unknown Verified 12/04/21 10:10 Review of Systems Review of Systems: CONST: No fever. HEENT: No sore throat C/V: No chest pain RESP: No cough GI: No abdominal pain : No dysuria. M/S: No joint pain. SKIN: No rash. NEURO: [No headache or focal numbness or weakness] PSYCH: [No depression] [facility] Past Medical History Medical History Anemia Arthritis Atrial fibrillation CHF exacerbation COPD (chronic obstructive pulmonary disease) Dementia Diabetic peripheral neuropathy Former smoker 50 pack-year smoking history. Grade II diastolic dysfunction Noted on echocardiogram in December 2018. Ejection fraction was 60 to 65%. Hypothyroidism Insulin dependent type 2 diabetes mellitus Surgical History Surgical History History of cataract extraction History of dilation and curettage Family History Family History Father Cerebrovascular accident Grandparent Cerebrovascular accident Family history of heart disease in male family member before age 55 Mother Family history of heart disease in male family member before age 55 Heart disease of a heart attack Heart attack Social History Social History (Updated 12/04/21 @ 16:43 by Kia Reyes NP) Social History: She is a resident at [facility] in [place]. Former smoker, up to a pack of cigarettes a day for 50 years, and quit in 2009. She stopped drinking alcohol in 2007. No illicit substance use. Three children. Her son Kwesi Neely is her healthcare power of divorce attorney. She wishes to be a do not resuscitate but son reports that she has an advance directive stating that she wishes to be a full code. 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
--- NOTE | 2022-03-20 12:00 | PC.NURSE ---
Spoke with Kwesi ASENCIO who requested that we send pt back to [facility] via EMS.
[2022-03-20 13:15] VITALS: BP 123/58; PULSE 77; RESP 18; O2SAT 96
== END 2022-03-20 13:15 ==
PROVIDERS: Emergency Provider Emergency Medicine
DX: Z04.3 Encounter for examination and observation following other accident (principal); F03.90 Unspecified dementia, unspecified severity, without behavioral disturbance, psychotic disturbance, mood disturbance, and anxiety; I48.91 Unspecified atrial fibrillation; E11.9 Type 2 diabetes mellitus without complications; D64.9 Anemia, unspecified; I50.9 Heart failure, unspecified; E03.9 Hypothyroidism, unspecified; M19.90 Unspecified osteoarthritis, unspecified site; Z79.4 Long term (current) use of insulin; Z79.84 Long term (current) use of oral hypoglycemic drugs; Z98.49 Cataract extraction status, unspecified eye; Z87.891 Personal history of nicotine dependence; W19.XXXA Unspecified fall, initial encounter
CPT/HCPCS: 70450; 71045; 72125; 72170; 99284

== ENCOUNTER 2022-04-14 13:43 | Emergency (ER) | payer OTHER, SELFPAY ==
[2022-04-14] VITALS (7 sets, daily range): BP systolic 112–128; BP diastolic 62–73; PULSE 60–74; RESP 15–23; TEMP 36.6–37.1; O2SAT 95–97
--- NOTE | ~2022-04-14 | CT_ITS ---
EXAMINATION: CT brain wo con INDICATION: Headache COMPARISON: 03/20/2022 TECHNIQUE: Standard unenhanced head CT. The dose-length product (DLP) was 756.67 mGy-cm. The mA was a djusted according to patient size. Iterative reconstruction technique was employed. FINDINGS: There is no acute intraparenchymal hemorrhage. No evidence of mass lesion. No evidence of a cute infarction. There is moderate periventricular and subcortical hypodensity probably related to sm all vessel ischemic disease. There is moderate prominence of the sulci and ventricles related to cere bral atrophy. Intracranial calcified cerebral atherosclerosis is noted. There are no extra-axial maddison ections. There is no mass effect or midline shift. The orbits and soft tissues are unremarkable. The visualized sinuses and mastoid air cells are well aerated. IMPRESSION: 1. No acute intracranial abnormality. 2. Age related findings. Reviewed, dictated and finalized at location B. QUE CLOCKS REPAIRER
--- NOTE | 2022-04-14 13:55 | ED.GENADULT ---
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 Patient states that the headache started approximately 1 hour ago. Patient is unsure of what she was doing when the headache started. Patient does have an underlying history of Alzheimer's. Patient denies any light sensitivity. Patient denies any associated nausea or vomiting. Patient denies any current numbness or weakness. Patient states he does not have a prior history of headaches. Patient initially mentioned nothing about chest pain. Patient denied having any chest pain in the wrist department. When the patient's son arrived patient son did report that the reason she was sent and was for chest pain. On further questioning patient states she did have some chest pain trial to arrival but denies any current chest pain. Patient is unable to describe the chest pain that she did have. Patient does have history of A-fib and dementia, CHF, COPD Related Data Home Medications Medication Instructions Recorded Confirmed donepezil 10 mg tablet (Aricept) 10 mg PO HS 03/24/20 12/04/21 insulin glargine 100 unit/mL (3 30 unit subcut HS 03/24/20 12/04/21 mL) subcutaneous pen (Lantus Solostar U-100 Insulin) levothyroxine 50 mcg capsule 50 mcg PO DAILY 03/24/20 12/04/21 metformin 500 mg/5 mL oral 850 mg PO BID 03/24/20 12/04/21 solution (Riomet) omeprazole 20 mg capsule,delayed 20 mg PO DAILY 03/24/20 12/04/21 release umeclidinium 62.5 mcg-vilanterol 1 inh inhalation DAILY 03/24/20 12/04/21 25 mcg/actuation powdr for inhalation (Anoro Ellipta) albuterol sulfate 90 mcg/actuation 2 puff inhalation Q6H PRN COPD 03/25/20 12/04/21 aerosol inhaler (Ventolin HFA) budesonide-formoterol HFA 160 2 puff inhalation Q12H 03/25/20 12/04/21 mcg-4.5 mcg/actuation aerosol inhaler (Symbicort) ferrous sulfate 300 mg (60 mg 325 mg PO DAILY 03/25/20 12/04/21 iron)/5 mL oral liquid ipratropium 0.5 mg-albuterol 3 mg 3 ml inhalation Q6H PRN COPD 03/25/20 12/04/21 (2.5 mg base)/3 mL nebulization soln mecobalamin (vitamin B12) 1,000 1,000 mcg PO DAILY 03/25/20 12/04/21 mcg chewable tablet atorvastatin 20 mg tablet 20 mg PO DAILY 12/04/21 12/04/21 furosemide 20 mg tablet (Lasix) 40 mg PO DAILY 12/04/21 12/04/21 spironolactone 50 mg tablet 50 mg PO DAILY 12/04/21 12/04/21 acetaminophen 500 mg tablet 500 mg PO Q6H PRN Pain 03/20/22 (Acetaminophen Pain Relief) ergocalciferol (vitamin D2) 1,250 03/20/22 mcg (50,000 unit) capsule (Vitamin D2) Allergies Allergy/AdvReac Type Severity Reaction Status Date / Time No Known Allergies Allergy Unknown Verified 12/04/21 10:10 Review of Systems Review of Systems: CONSTITUTIONAL: Denies fever, chills, or sweats. EYES: Denies visual changes, redness, or discharge. ENT: Denies rhinorrhea, congestion, sore throat, or otalgia. CARDIOVASCULAR: See HPI RESPIRATORY: Denies cough or dyspnea. GASTROINTESTINAL: Denies abdominal pain, nausea, vomiting, or diarrhea. GENITOURINARY: Denies dysuria or hematuria. SKIN: Denies rash or itching. MUSCULOSKELETAL: Denies back pain, joint pain, or myalgia. NEUROLOGIC: Headache, see HPI PSYCHIATRIC: Denies anxiety or depression. [facility] Past Medical History Medical History Anemia Arthritis Atrial fibrillation CHF exacerbation COPD (chronic obstructive pulmonary disease) Dementia Diabetic peripheral neuropathy Former smoker 50 pack-year smoking history. Grade II diastolic dysfunction Noted on echocardiogram in December 2018. Ejection fraction was 60 to 65%. Hypothyroidism Insulin dependent type 2 diabetes mellitus Surgical History Surgical History History of cataract extrac
[2022-04-14 14:43] LABS: Basophils Absolute Auto 0.1 K/mm3 (0.0-0.1); Basophils Percent Auto 0.7 % (0.2-1.2); Eosinophils Absolute Auto 0.2 K/mm3 (0-0.3); Eosinophils Percent Auto 1.8 % (0-4.4); Hematocrit 40.9 % (37.0-47.0); Hemoglobin 12.4 g/dL (12.0-15.0); Immature Granulocyte Absolute 0.05 K/mm3 (0.00-0.031); Immature Granulocyte Percent A 0.5 % (0-0.5); Lymphocytes Absolute Auto 1.48 K/mm3 (0.9-3.2); Lymphocytes Percent Auto 14.5 % (18.3-44.2); Mean Corpuscular HGB Conc 30.3 g/dl (32-36); Mean Corpuscular Hemoglobin 29.7 pg (26-34); Mean Corpuscular Volume 97.8 fl (80-100); Mean Platelet Volume 9.8 fl (7.4-10.4); Monocytes Absolute Auto 0.9 K/mm3 (0.1-0.6); Monocytes Percent Auto 8.3 % (2.6-8.5); Neutrophils Absolute Auto 7.6 K/mm3 (1.3-6.7); Neutrophils Percent Auto 74.2 % (45.5-73.1); Platelet Count Result 306 k/mm3 (150-375); Red Blood Count 4.18 M/mm3 (4.2-5.4); Red Cell Distribution Width 13.7 % (11.5-14.5); White Blood Count 10.2 K/mm3 (4.5-10.0)
[2022-04-14 14:56] LABS: Alanine Aminotransferase 19 U/L (6-35); Albumin Level 4.3 g/dL (3.5-5.1); Alkaline Phosphatase 81 U/L (38-126); Anion Gap 11 mmol/L (8-16); Aspartate Amino Transferase 19 U/L (14-36); Bilirubin,Total 0.3 mg/dL (0.2-1.3); Blood Urea Nitrogen 16 mg/dL (7-17); Calcium 8.8 mg/dL (8.4-10.2); Carbon Dioxide 27 mmol/L (22-30); Chloride 98 mmol/L (98-107); Estimated CRCL calculation 42 ml/min; Estimated Glomerular Filt Rate 48; Glucose 124 mg/dL (65-110); Potassium 5.1 mmol/L (3.4-5.0); Sodium 136 mmol/L (137-145)
--- NOTE | 2022-04-14 16:10 | PC.NURSE ---
Waiting on patient's son for ride home
--- NOTE | 2022-04-14 16:37 | ECG_ITS ---
Measurements Intervals [place] Rate: 77 P: [place]V: 0 QRS: -65 QRSD: 114 T: 29 QT: 406 QTc: 462 Interpretive Statements ATRIAL FIBRILLATION MARKED LEFT AXIS DEVIATION [QRS AXIS < -30] LOW QRS VOLTAGE IN PRECORDIAL LEADS [QRS DEFLECTION < 1.0 mV IN CHEST LEADS] INCOMPLETE RIGHT BUNDLE BRANCH BLOCK [90+ ms QRS DURATION, TERMINAL R IN V1/V2, 40+ ms S IN I/aVL/V4/V5/V6] POSSIBLE ANTERIOR MYOCARDIAL INFARCTION , OLD COMPARED TO ECG 12/04/2021 10:13:57 LEFT-AXIS DEVIATION NOW PRESENT AND THE RATE IS SLOWER Electronically Signed On 04-15-2022 11:26:17 COOK HELPER DESSERT by Jodie Bhatia M.D.
[2022-04-14 17:06] LABS: Troponin I < 0.012 ng/mL (0.000-0.034)
[2022-04-14 18:15] LABS: Troponin I < 0.012 ng/mL (0.000-0.034)
== END 2022-04-14 18:34 ==
PROVIDERS: Emergency Provider Emergency Medicine
DX: R51.9 Headache, unspecified (principal); R07.9 Chest pain, unspecified; G30.9 Alzheimer's disease, unspecified; F02.80 Dementia in other diseases classified elsewhere, unspecified severity, without behavioral disturbance, psychotic disturbance, mood disturbance, and anxiety; I48.91 Unspecified atrial fibrillation; I50.9 Heart failure, unspecified; J44.9 Chronic obstructive pulmonary disease, unspecified; E03.9 Hypothyroidism, unspecified; E11.9 Type 2 diabetes mellitus without complications; M19.90 Unspecified osteoarthritis, unspecified site; Z86.2 Personal history of diseases of the blood and blood-forming organs and certain disorders involving the immune mechanism; Z87.891 Personal history of nicotine dependence; Z98.49 Cataract extraction status, unspecified eye; Z79.84 Long term (current) use of oral hypoglycemic drugs; Z79.4 Long term (current) use of insulin; Z79.01 Long term (current) use of anticoagulants
CPT/HCPCS: 36415; 70450; 80053; 84484; 85025; 93005; 96365; 99284; J0131

== ENCOUNTER 2022-07-23 11:07 | Emergency (ER) | payer OTHER, SELFPAY ==
--- NOTE | ~2022-07-23 | US_ITS ---
EXAMINATION: US pelvic complete DATE: 07/23/2022 15:09 INDICATION: Vaginal bleeding, intrauterine pathology TECHNIQUE: Multiple transabdominal and endovaginal sonographic images of the pelvis were obtained. COMPARISON: None. FINDINGS: Uterus: 10.2 x 4.6 x 4.9 cm. Endometrial complex measures 9 mm. Right Ovary: No ovary visualized. No adnexal mass. Left Ovary: No overt visualized. No adnexal mass. There is no free fluid in the pelvis. IMPRESSION: Endometrial hyperplasia, consider gynecology referral for potential endometrial biopsy. Bilateral ova dahiana not visualized. Reviewed, dictated and finalized at location K. IMPRESSION: Endometrial hyperplasia, consider gynecology referral for potential endometrial biopsy. Bilateral ovaries not visualized.
[2022-07-23 11:10] VITALS: BP 121/73; PULSE 87; RESP 16; TEMP 36.3; O2SAT 94
--- NOTE | 2022-07-23 11:19 | ECG_ITS ---
Measurements Intervals [place] Rate: 89 P: [place]: 0 QRS: -69 QRSD: 108 T: -10 QT: 357 QTc: 435 Interpretive Statements ATRIAL FIBRILLATION INCOMPLETE RIGHT BUNDLE BRANCH BLOCK LEFT ANTERIOR FASCICULAR BLOCK LOW QRS VOLTAGE IN PRECORDIAL LEADS POOR R WAVE PROGRESSION, ANTERIOR LEADS BASELINE ARTIFACT- I, III, AVR, AVL, AVF, V5-V6 ABNORMAL ECG COMPARED TO ECG 04/14/2022 16:45:15 NO SIGNIFICANT CHANGES Electronically Signed On 07-23-2022 12:05:46 CDT by Andre Campoverde D.O.
[2022-07-23 11:50] LABS: Basophils Absolute Auto 0.1 K/mm3 (0.0-0.1); Basophils Percent Auto 0.5 % (0.2-1.2); Eosinophils Absolute Auto 0.2 K/mm3 (0-0.3); Eosinophils Percent Auto 1.6 % (0-4.4); Hematocrit 38.7 % (37.0-47.0); Hemoglobin 12.1 g/dL (12.0-15.0); Immature Granulocyte Absolute 0.05 K/mm3 (0.00-0.031); Immature Granulocyte Percent A 0.4 % (0-0.5); Lymphocytes Absolute Auto 1.26 K/mm3 (0.9-3.2); Lymphocytes Percent Auto 10.9 % (18.3-44.2); Mean Corpuscular HGB Conc 31.3 g/dl (32-36); Mean Corpuscular Hemoglobin 29.2 pg (26-34); Mean Corpuscular Volume 93.5 fl (80-100); Mean Platelet Volume 9.5 fl (7.4-10.4); Monocytes Absolute Auto 0.9 K/mm3 (0.1-0.6); Monocytes Percent Auto 8.1 % (2.6-8.5); Neutrophils Absolute Auto 9.1 K/mm3 (1.3-6.7); Neutrophils Percent Auto 78.5 % (45.5-73.1); Platelet Count Result 345 k/mm3 (150-375); Red Blood Count 4.14 M/mm3 (4.2-5.4); Red Cell Distribution Width 13.5 % (11.5-14.5); White Blood Count 11.6 K/mm3 (4.5-10.0)
[2022-07-23 11:55] LABS: INR 1.8; Prothrombin Time 21.9 Seconds (11.1-14.7)
[2022-07-23 11:56] LABS: Alanine Aminotransferase 19 U/L (6-35); Albumin Level 4.2 g/dL (3.5-5.1); Alkaline Phosphatase 80 U/L (38-126); Anion Gap 13 mmol/L (8-16); Aspartate Amino Transferase 18 U/L (14-36); Bilirubin,Total 0.4 mg/dL (0.2-1.3); Blood Urea Nitrogen 18 mg/dL (7-17); Calcium 8.8 mg/dL (8.4-10.2); Carbon Dioxide 25 mmol/L (22-30); Chloride 100 mmol/L (98-107); Estimated Glomerular Filt Rate 54; Glucose 127 mg/dL (65-110); Partial Thromboplastin Time 38.2 SECONDS (22.3-36.8); Potassium 5.2 mmol/L (3.4-5.0); Sodium 138 mmol/L (137-145)
--- NOTE | 2022-07-23 12:33 | ED.FEMALEGU ---
HPI - Female Genitourinary General Chief complaint: Vaginal Bleeding Stated complaint: VAG BLEED Time Seen by Provider: 07/23/22 12:32 Source: patient, EMS and RN notes reviewed Mode of arrival: EMS Limitations: dementia History of Present Illness HPI Narrative: 77 years old white female came from skilled nursing by ambulance with vaginal bleed noticed by staff prior to arrival. Patient is awake, disoriented x3, looks comfortable, not in any pain or distress, does not know why she is in the emergency room at this time. History of atrial fibrillation on Eliquis Related Data Home Medications Medication Instructions Recorded Confirmed donepezil 10 mg tablet (Aricept) 10 mg PO HS 03/24/20 12/04/21 insulin glargine 100 unit/mL (3 30 unit subcut HS 03/24/20 12/04/21 mL) subcutaneous pen (Lantus Solostar U-100 Insulin) levothyroxine 50 mcg capsule 50 mcg PO DAILY 03/24/20 12/04/21 metformin 500 mg/5 mL oral 850 mg PO BID 03/24/20 12/04/21 solution (Riomet) omeprazole 20 mg capsule,delayed 20 mg PO DAILY 03/24/20 12/04/21 release umeclidinium 62.5 mcg-vilanterol 1 inh inhalation DAILY 03/24/20 12/04/21 25 mcg/actuation powdr for inhalation (Anoro Ellipta) albuterol sulfate 90 mcg/actuation 2 puff inhalation Q6H PRN COPD 03/25/20 12/04/21 aerosol inhaler (Ventolin HFA) budesonide-formoterol HFA 160 2 puff inhalation Q12H 03/25/20 12/04/21 mcg-4.5 mcg/actuation aerosol inhaler (Symbicort) ferrous sulfate 300 mg (60 mg 325 mg PO DAILY 03/25/20 12/04/21 iron)/5 mL oral liquid ipratropium 0.5 mg-albuterol 3 mg 3 ml inhalation Q6H PRN COPD 03/25/20 12/04/21 (2.5 mg base)/3 mL nebulization soln mecobalamin (vitamin B12) 1,000 1,000 mcg PO DAILY 03/25/20 12/04/21 mcg chewable tablet atorvastatin 20 mg tablet 20 mg PO DAILY 12/04/21 12/04/21 furosemide 20 mg tablet (Lasix) 40 mg PO DAILY 12/04/21 12/04/21 spironolactone 50 mg tablet 50 mg PO DAILY 12/04/21 12/04/21 acetaminophen 500 mg tablet 500 mg PO Q6H PRN Pain 03/20/22 (Acetaminophen Pain Relief) ergocalciferol (vitamin D2) 1,250 03/20/22 mcg (50,000 unit) capsule (Vitamin D2) Allergies Allergy/AdvReac Type Severity Reaction Status Date / Time No Known Allergies Allergy Unknown Verified 12/04/21 10:10 Review of Systems Review of Systems: ROS unobtainable: Yes unobtainable due to mental status PMFSH Past Medical History Medical History Anemia Arthritis Atrial fibrillation CHF exacerbation COPD (chronic obstructive pulmonary disease) Dementia Diabetic peripheral neuropathy Former smoker 50 pack-year smoking history. Grade II diastolic dysfunction Noted on echocardiogram in December 2018. Ejection fraction was 60 to 65%. Hypothyroidism Insulin dependent type 2 diabetes mellitus Surgical History Surgical History History of cataract extraction History of dilation and curettage Family History Family History Father Cerebrovascular accident Grandparent Cerebrovascular accident Family history of heart disease in male family member before age 55 Mother Family history of heart disease in male family member before age 55 Heart disease of a heart attack Heart attack Social History Social History Social History: She is a resident at [facility] in [place]. Former smoker, up to a pack of cigarettes a day for 50 years, and quit in 2009. She stopped drinking alcohol in 2007. No illicit substance use. Three children. Her son Kwesi Neely is her healthcare power of business attorney. She wishes to be a do not resuscitate but son reports that she has an advance directive stating that she wishes to be a full code. 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
--- NOTE | 2022-07-23 16:25 | PC.NURSE ---
pt assisted in dressing and to chair. report to [facility]. pt provided with apple juice
== END 2022-07-23 16:33 ==
PROVIDERS: Emergency Medicine; Emergency Provider Emergency Medicine
DX: N93.8 Other specified abnormal uterine and vaginal bleeding (principal); F03.90 Unspecified dementia, unspecified severity, without behavioral disturbance, psychotic disturbance, mood disturbance, and anxiety; I48.91 Unspecified atrial fibrillation; I50.9 Heart failure, unspecified; J44.9 Chronic obstructive pulmonary disease, unspecified; E11.42 Type 2 diabetes mellitus with diabetic polyneuropathy; E03.9 Hypothyroidism, unspecified; M19.90 Unspecified osteoarthritis, unspecified site; Z87.891 Personal history of nicotine dependence; Z98.49 Cataract extraction status, unspecified eye; Z79.01 Long term (current) use of anticoagulants; N85.00 Endometrial hyperplasia, unspecified; Z79.84 Long term (current) use of oral hypoglycemic drugs; Z79.4 Long term (current) use of insulin
CPT/HCPCS: 36415; 76856; 80053; 85025; 85610; 85730; 86850; 86900; 86901; 93005; 99284

== ENCOUNTER 2022-12-23 10:03 | Emergency (ER) | payer OTHER, SELFPAY ==
[2022-12-23] VITALS (14 sets, daily range): BP systolic 98–132; BP diastolic 54–97; PULSE 57–135; RESP 18–26; TEMP 36.6–36.7; O2SAT 93–97
--- NOTE | ~2022-12-23 | XR_ITS ---
Portable chest x-ray Comparison: 03/20/2022 Clinical History: Tachycardia Findings: Small left pleural effusion is present. Calcified left basilar granuloma noted. Questionab le minimal interstitial edema or chronic interstitial disease. Cardiomediastinal silhouette is stabl e. Bones and soft tissues are unremarkable. Impression: Small left pleural effusion. Possible minimal interstitial edema or other mild chronic interstitial disease. Reviewed, dictated and finalized at location . Impression: Small left pleural effusion. Possible minimal interstitial edema or other mild chronic interstitial disease.
--- NOTE | 2022-12-23 10:16 | ECG_ITS ---
Measurements Intervals [place] Rate: 121 P: [place]V: 0 QRS: -83 QRSD: 102 T: 6 QT: 301 QTc: 428 Interpretive Statements ATRIAL FIBRILLATION WITH RAPID VENTRICULAR RESPONSE LOW QRS VOLTAGE IN PRECORDIAL LEADS [QRS DEFLECTION < 1.0 mV IN CHEST LEADS] POSSIBLE RIGHT VENTRICULAR CONDUCTION DELAY [RSR (QR) IN V1/V2] POOR R-WAVE PROGRESSION COMPARED TO ECG 07/23/2022 11:13:55 THE RATE IS FASTER Electronically Signed On 12-23-2022 19:55:59 CDT by Jodie Bhatia M.D.
--- NOTE | 2022-12-23 10:20 | ED.EPISTAXIS ---
HPI - Epistaxis General Chief complaint: Epistaxis Stated complaint: epistaxis/dizzy Time Seen by Provider: 12/23/22 10:09 History of Present Illness HPI Narrative: 77-year-old female with history of A-fib on Eliquis, Alzheimer's present emergency department for epistaxis. long term states that the bleeding was persisting for approximately 20 minutes. Bleeding was resolved upon arrival to the ED. Patient does have a history of atrial fibrillation and patient's heart rate on arrival was 105-120. Related Data Home Medications Medication Instructions Recorded Confirmed donepezil 10 mg tablet (Aricept) 10 mg PO HS 03/24/20 12/04/21 insulin glargine 100 unit/mL (3 30 unit subcut HS 03/24/20 12/04/21 mL) subcutaneous pen (Lantus Solostar U-100 Insulin) levothyroxine 50 mcg capsule 50 mcg PO DAILY 03/24/20 12/04/21 metformin 500 mg/5 mL oral 850 mg PO BID 03/24/20 12/04/21 solution (Riomet) omeprazole 20 mg capsule,delayed 20 mg PO DAILY 03/24/20 12/04/21 release umeclidinium 62.5 mcg-vilanterol 1 inh inhalation DAILY 03/24/20 12/04/21 25 mcg/actuation powdr for inhalation (Anoro Ellipta) albuterol sulfate 90 mcg/actuation 2 puff inhalation Q6H PRN COPD 03/25/20 12/04/21 aerosol inhaler (Ventolin HFA) budesonide-formoterol HFA 160 2 puff inhalation Q12H 03/25/20 12/04/21 mcg-4.5 mcg/actuation aerosol inhaler (Symbicort) ferrous sulfate 300 mg (60 mg 325 mg PO DAILY 03/25/20 12/04/21 iron)/5 mL oral liquid ipratropium 0.5 mg-albuterol 3 mg 3 ml inhalation Q6H PRN COPD 03/25/20 12/04/21 (2.5 mg base)/3 mL nebulization soln mecobalamin (vitamin B12) 1,000 1,000 mcg PO DAILY 03/25/20 12/04/21 mcg chewable tablet atorvastatin 20 mg tablet 20 mg PO DAILY 12/04/21 12/04/21 furosemide 20 mg tablet (Lasix) 40 mg PO DAILY 12/04/21 12/04/21 spironolactone 50 mg tablet 50 mg PO DAILY 12/04/21 12/04/21 acetaminophen 500 mg tablet 500 mg PO Q6H PRN Pain 03/20/22 (Acetaminophen Pain Relief) ergocalciferol (vitamin D2) 1,250 03/20/22 mcg (50,000 unit) capsule (Vitamin D2) Allergies Allergy/AdvReac Type Severity Reaction Status Date / Time No Known Allergies Allergy Unknown Verified 12/04/21 10:10 Review of Systems Review of Systems: All systems reviewed & are unremarkable except as noted in HPI and below PMFSH Past Medical History Medical History Anemia Arthritis Atrial fibrillation CHF exacerbation COPD (chronic obstructive pulmonary disease) Dementia Diabetic peripheral neuropathy Former smoker 50 pack-year smoking history. Grade II diastolic dysfunction Noted on echocardiogram in December 2018. Ejection fraction was 60 to 65%. Hypothyroidism Insulin dependent type 2 diabetes mellitus Surgical History Surgical History History of cataract extraction History of dilation and curettage Family History Family History Father Cerebrovascular accident Grandparent Cerebrovascular accident Family history of heart disease in male family member before age 55 Mother Family history of heart disease in male family member before age 55 Heart disease of a heart attack Heart attack Social History Social History Social History: She is a resident at [facility] in [place]. Former smoker, up to a pack of cigarettes a day for 50 years, and quit in 2009. She stopped drinking alcohol in 2007. No illicit substance use. Three children. Her son Kwesi Neely is her healthcare power of trade mark attorney. She wishes to be a do not resuscitate but son reports that she has an advance directive stating that she wishes to be a full code. 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 Smoking packs per day: 1 S
[2022-12-23] MEDS: SODIUM CHLORIDE 0.9% IV 500 ML 999 ML IV CONT (10:32)
[2022-12-23 10:38] LABS: Basophils Absolute Auto 0.1 K/mm3 (0.0-0.1); Basophils Percent Auto 0.5 % (0.2-1.2); Eosinophils Absolute Auto 0.3 K/mm3 (0-0.3); Eosinophils Percent Auto 2.4 % (0-4.4); Hemoglobin 11.7 g/dL (12.0-15.0); Immature Granulocyte Absolute 0.04 K/mm3 (0.00-0.031); Immature Granulocyte Percent A 0.3 % (0-0.5); Lymphocytes Absolute Auto 1.07 K/mm3 (0.9-3.2); Lymphocytes Percent Auto 9.3 % (18.3-44.2); Mean Corpuscular Hemoglobin 28.7 pg (26-34); Mean Corpuscular Volume 95.6 fl (80-100); Mean Platelet Volume 10.4 fl (7.4-10.4); Monocytes Absolute Auto 0.6 K/mm3 (0.1-0.6); Monocytes Percent Auto 5.6 % (2.6-8.5); Neutrophils Absolute Auto 9.4 K/mm3 (1.3-6.7); Neutrophils Percent Auto 81.9 % (45.5-73.1); Platelet Count Result 298 k/mm3 (150-375); Red Blood Count 4.08 M/mm3 (4.2-5.4); Red Cell Distribution Width 14.9 % (11.5-14.5); White Blood Count 11.5 K/mm3 (4.5-10.0)
[2022-12-23 10:50] LABS: Lactic Acid Reflex 2.5 mmol/L (0.7-2.0)
[2022-12-23 10:53] LABS: Alanine Aminotransferase 14 U/L (6-35); Albumin Level 3.9 g/dL (3.5-5.1); Alkaline Phosphatase 100 U/L (38-126); Anion Gap 9 mmol/L (8-16); Aspartate Amino Transferase 20 U/L (14-36); Bilirubin,Total 0.5 mg/dL (0.2-1.3); Blood Urea Nitrogen 21 mg/dL (7-17); Calcium 8.8 mg/dL (8.4-10.2); Carbon Dioxide 28 mmol/L (22-30); Chloride 99 mmol/L (98-107); Estimated CRCL calculation 49 ml/min; Estimated Glomerular Filt Rate > 60; Glucose 245 mg/dL (65-110); Potassium 4.6 mmol/L (3.4-5.0); Sodium 136 mmol/L (137-145)
[2022-12-23] MEDS: dilTIAZem HCl INJ 25 MG/5 ML VIAL 10 MG IV PUSH (12:44)
[2022-12-23 13:21] LABS: Partial Thromboplastin Time 32.6 SECONDS (22.3-36.8)
[2022-12-23 13:35] LABS: Reflex Lactic Acid Yes or No Add Lactic
[2022-12-23 13:36] LABS: INR 1.2; Prothrombin Time 16.1 Seconds (11.1-14.7)
[2022-12-23 14:12] LABS: Lactic Acid 1.6 mmol/L (0.7-2.0)
--- NOTE | 2022-12-23 14:22 | PC.NURSE ---
Attempted to call report to [place]. Voicemail left.
--- NOTE | 2022-12-23 14:26 | PC.NURSE ---
Report given to Rasheeda nurse at [facility].
== END 2022-12-23 15:53 | disposition home or self-care (01) ==
PROVIDERS: Emergency Provider Emergency Medicine
DX: R04.0 Epistaxis (principal); G30.9 Alzheimer's disease, unspecified; F02.80 Dementia in other diseases classified elsewhere, unspecified severity, without behavioral disturbance, psychotic disturbance, mood disturbance, and anxiety; I48.91 Unspecified atrial fibrillation; I50.9 Heart failure, unspecified; D64.9 Anemia, unspecified; E11.42 Type 2 diabetes mellitus with diabetic polyneuropathy; E03.9 Hypothyroidism, unspecified; M19.90 Unspecified osteoarthritis, unspecified site; Z87.891 Personal history of nicotine dependence; Z98.49 Cataract extraction status, unspecified eye; Z79.01 Long term (current) use of anticoagulants; R91.8 Other nonspecific abnormal finding of lung field; R94.31 Abnormal electrocardiogram [ECG] [EKG]
CPT/HCPCS: 23665; 36415; 71045; 80053; 83605; 85025; 85610; 85730; 86850; 86900; 86901; 93005; 96361; 96374; 99284; J7040

== ENCOUNTER 2024-07-28 17:46 | Inpatient (IN) | payer OTHER, SELFPAY ==
[2024-07-28] VITALS (21 sets, daily range): BP systolic 127–161; BP diastolic 39–110; PULSE 78–101; RESP 18–31; TEMP 36.8; O2SAT 90–100
--- NOTE | ~2024-07-28 | XR_ITS ---
XR chest 1V portable 08/04/2024 09:50 Indication: Fluid overload Procedure: AP portable chest Comparison: Comparison to multiple prior studies sequentially, with oldest reviewed study dated 03/20. Findings: Cardiomegaly. Mild interstitial edema. Small effusions. No pneumothorax. No acute osseous a bnormality. Impression: 1: Bibasilar airspace disease may represent pneumonia or edema. 2: Small pleural effusions. Reviewed, dictated and finalized at location A. Impression: 1: Bibasilar airspace disease may represent pneumonia or edema. 2: Small pleural effusions.
--- NOTE | ~2024-07-28 | XR_ITS ---
XR chest 1V portable Ordering provider: Tom Baird MD History: 79 years Female with . chf . Comparison: December 23, 2022 FINDINGS: MEDIASTINUM: The cardiac silhouette is slightly enlarged. Congestive jodie. LUNGS: No pneumothorax. Opacification in the left lung base suggestive of atelectasis versus pneumoni a. Bilateral interstitial changes suggestive of pulmonary edema versus pneumonitis with underlying fi brotic changes. Minimal right basilar atelectasis versus pneumonia. OTHER: No free air under the diaphragm. IMPRESSION: Cardiomegaly with cardiac decompensation and pulmonary edema. Superimposed pneumonitis is highly sugg estive. Left basilar atelectasis versus pneumonia with minimal right basilar atelectasis versus pneumonia Reviewed, dictated and finalized at location A. IMPRESSION: Cardiomegaly with cardiac decompensation and pulmonary edema. Superimposed pneu monitis is highly suggestive. Left basilar atelectasis versus pneumonia with minimal right basilar atelectasi s versus pneumonia
--- NOTE | ~2024-07-28 | XR_ITS ---
EXAMINATION: XR chest 1V portable DATE: 07/31/2024 06:06 INDICATION: Shortness of breath TECHNIQUE: frontal view of the chest was obtained. COMPARISON: Chest radiograph dated 07/28/[address] dated 07/29/2024 FINDINGS: Opacities in the left mid to lower and right lower lung zones consistent with pneumonia with associat ed small bilateral pleural effusions, left greater than right. No pneumothorax. Heart size is normal. Calcified mediastinal and left hilar lymph nodes consistent with old granulomatous disease. IMPRESSION: 1. No significant change in small bilateral pleural effusions and pneumonia in the left mid to lower and right lower lung zones. Reviewed, dictated and finalized at location A.
--- NOTE | ~2024-07-28 | CT_ITS ---
EXAMINATION: CTA chest PE protocol DATE: 07/29/2024 13:40 CDT INDICATION: Shortness of breath and somnolence, pulmonary embolus suspected clinically. Personal hist ory of atrial fibrillation, currently on Eliquis. TECHNIQUE: Computed tomographic angiography (CTA) of the chest was performed with 100 mL Omnipaque-35 0 intravenous contrast. The dose-length product was 750.32 mGy-cm. Maximum intensity projection 3D-re constructions of the aorta and other arteries were constructed by the technologist on a separate work station. COMPARISON: None. FINDINGS/OBSERVATIONS: PULMONARY ARTERIES: No filling defect is identified within the main or proximal pulmonary artery. The main pulmonary artery is not enlarged. THORACIC AORTA: No aneurysmal dilatation or dissection is present. The great vessels are intact LUNGS: Interstitial thickening is detected bilaterally. Bilateral pleural effusions are present with adjacent consolidation in the left lower lobe and adjace nt atelectasis in the right lower lobe. Patchy groundglass opacification is otherwise demonstrated consistent with pulmonary edema. MEDIASTINUM: Scattered mediastinal lymphadenopathy is identified, without pathologic enlargement or m orphologic suspicion. BONES OF THE CHEST: No acute fracture. Age-appropriate degenerative disease. No lytic or blastic lesions. HEART: The heart is of normal size, without pericardial effusion. IMPRESSION: No pulmonary embolus. No thoracic aortic dissection. Bilateral pleural effusions, right greater than left with adjacent compressive consolidation in the l eft lower lobe and adjacent compressive atelectasis in the right lower lobe. Additional findings consistent with pulmonary edema within the remainder of the bilateral lung malik without focal infiltrate. Reviewed, dictated and finalized at location A. IMPRESSION: No pulmonary embolus. No thoracic aortic dissection. Bilateral pleural effusions, right greater than left with adjacent compressive consolidation in the left lower lobe and adjacent compressive atelectasis in th e right lower lobe. Additional findings consistent with pulmonary edema within the remainder of the bilateral lung malik without focal infiltrate.
--- NOTE | ~2024-07-28 | CT_ITS ---
History: Somnolence PROCEDURE: CT head without contrast. COMPARISON: 04/14/2022 TECHNIQUE: Axial imaging of the head performed from the skull base to the vertex without IV contrast. Sagittal a nd coronal reformations obtained. DLP: 605 mGy-cm FINDINGS: The ventricles are enlarged. The dilatation of the ventricles is proportional to the degree of sulcal prominence, not uncommon in the senescent brain. Decreased attenuation is identified within the periventricular white matter, likely secondary to micr ovascular ischemic disease, in a patient of this age. There is no mass, mass effect or midline shift. There is no abnormal extra-axial fluid collection or intracranial hemorrhage. Visualized paranasal sinuses are clear. The mastoid air cells are well aerated. No acute displaced fractures within the overlying cranium. Impression: No acute intracranial hemorrhage or suspicious mass effect. Reviewed, dictated and finalized at location A. Impression: No acute intracranial hemorrhage or suspicious mass effect.
--- NOTE | 2024-07-28 18:00 | ECG_ITS ---
Test Date: 2024-07-28 18:48:58 Measurements Intervals [place] Rate: 82 P: 71 [place]: 170 QRS: -59 QRSD: 122 T: 48 QT: 384 QTc: 449 Interpretive Statements SINUS RHYTHM WITH OCCASIONAL SUPRAVENTRICULAR PREMATURE COMPLEXES RIGHT BUNDLE BRANCH BLOCK [120+ ms QRS DURATION, UPRIGHT V1, 40+ ms S IN I/aVL/V4/V5/V6] LEFT ANTERIOR FASCICULAR BLOCK [QRS AXIS <= -45, QR IN I, RS IN II] POSSIBLE ANTERIOR MYOCARDIAL INFARCTION , OF INDETERMINATE AGE [30 ms Q WAVE IN V3/V4, OR R < 0.2 mV IN V4] No previous ECG available for comparison Electronically Signed On 07-29-2024 15:02:41 CDT by Soniya Gamino M.D.
[2024-07-28 19:02] LABS: Basophils Percent Auto 0.2 % (0.2-1.2); Eosinophils Percent Auto 0.1 % (0-4.4); Hematocrit 40.5 % (37.0-47.0); Hemoglobin 11.9 g/dL (12.0-15.0); Immature Granulocyte Absolute 0.06 K/mm3 (0.00-0.031); Immature Granulocyte Percent A 0.4 % (0-0.5); Lymphocytes Absolute Auto 0.63 K/mm3 (0.9-3.2); Lymphocytes Percent Auto 4.4 % (18.3-44.2); Mean Corpuscular HGB Conc 29.4 g/dl (32-36); Mean Corpuscular Hemoglobin 28.4 pg (26-34); Mean Corpuscular Volume 96.7 fl (80-100); Mean Platelet Volume 10.6 fl (7.4-10.4); Monocytes Absolute Auto 1.1 K/mm3 (0.1-0.6); Monocytes Percent Auto 7.8 % (2.6-8.5); Neutrophils Absolute Auto 12.3 K/mm3 (1.3-6.7); Neutrophils Percent Auto 87.1 % (45.5-73.1); Platelet Count Result 237 k/mm3 (150-375); Red Blood Count 4.19 M/mm3 (4.2-5.4); Red Cell Distribution Width 14.3 % (11.5-14.5); White Blood Count 14.2 K/mm3 (4.5-10.0)
--- OUTSIDE RECORDS SUMMARY | 2024-07-28 19:02 | XMS_ITS | Referral Summary ---
Author Organization [facility] Address [address] [place] [address] Care Team Providers Care Websphere Consultant Name Role Phone Karin Bowman NP Primary Care Provider [phone] Allergies No known active allergies Medications acetaminophen (TYLENOL) 500 mg tablet Take 1 tablet (500 mg total) by mouth every 6 (six) hours as needed for pain Active Anoro Ellipta 62.5-25 mcg/actuation blister with deviceIndications :Chronic obstructive pulmonary disease, unspecified COPD type (HCC) INHALE 1 PUFF BY MOUTH EVERY DAY 60 each 3 02/15/20 21 Active Eliquis 5 mg tabletIndications :Atrial fibrillation, unspecified type (HCC) TAKE 1 TABLET BY MOUTH 2 TIMES A DAY 180 tablet 1 05/03/19 22 Active omeprazole (PriLOSEC) 20 mg capsule TAKE 1 CAPSULE BY MOUTH EVERY DAY (MAY OPEN CAPSULE INTO 1 TBSP OF APPLESAUCE) 90 capsule 05/30/19 22 Active insulin glargine (LANTUS) 100 unit/mL (3 mL) pen for injectionIndicati ons:Controlled type 2 diabetes mellitus without complication, with long-term current use of insulin (HCC) Inject 30 Units under the skin nightly 15 mL 07/03/19 22 Active atorvastatin (LIPITOR) 20 mg tablet Take 1 tablet (20 mg total) by mouth daily 01/23/20 22 Active dilTIAZem CD (CARDIZEM CD) 300 mg 24 hr capsule Take 1 capsule (300 mg total) by mouth daily 07/02/19 23 Active FeroSuL 325 mg (65 mg iron) tablet Take 1 tablet (325 mg total) by mouth daily with breakfast 06/11/19 23 Active levothyroxine (SYNTHROID) 75 mcg tablet Take 1 tablet (75 mcg total) 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 before 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 05/10/19 23 Active medroxyPROGESTERo ne (PROVERA) 2.5 mg tablet Take 1 tablet (2.5 mg total) by mouth daily 08/07/19 23 Active potassium chloride (KAYCIEL) solution 20 mEq/15 mL Take 15 mL (20 mEq total) by mouth daily 07/17/19 23 Active acidophilus-pecti n, citrus 25 million cell -100 mg tablet Take 1 tablet by mouth daily Active albuterol HFA (PROVENTIL HFA,VENTOLIN HFA,PROAIR HFA) 90 mcg/actuation inhaler Inhale 2 puffs every 6 (six) hours as needed for wheezing Active ipratropium-albut Go (DUO-NEB) 0.5-2.5 mg/3 mL nebulizer solutionIndicatio ns:Chronic Obstructive Pulmonary Disease with Bronchospasms Take 3 mL by nebulization every 6 (six) hours as needed for wheezing Active spironolactone (ALDACTONE) 50 mg tablet Take 1 tablet (50 mg total) by mouth daily Active budesonide-formot Go (SYMBICORT) 160-4.5 mcg/actuation inhaler Inhale 2 puffs 2 (two) times a day Rinse mouth with water after use. Do not swallow. Active cyanocobalamin (Vitamin B-12) 1,000 mcg sublingual tablet Take 1 tablet (1,000 mcg total) by mouth daily Active cholecalciferol (VITAMIN D-3) 50,000 unit capsule Take 1 capsule (50,000 Units total) by mouth once a week On Mondays Active donepeziL (ARICEPT) 10 mg tablet Take 1 tablet (10 mg total) by mouth nightly Active furosemide (LASIX) 40 mg tablet Take 1 tablet (40 mg total) by mouth daily Active metoprolol tartrate (LOPRESSOR) 25 mg immediate release tablet Take 1 tablet (25 mg total) by mouth 2 (two) times a day Active Active Problems Problem Noted Date Diagnosed Date Adenomatous polyp of descending colon 10/01/2023 Atrial fibrillation with RVR 06/22/2023 Sepsis 06/22/[address] of the abdomen 03/30/2023 Vaginal bleeding 03/30/2023 COPD exacerbation 01/18/2023 Sleep-related hypoxia 08/08/2022 08/08/2022 Longstanding persistent atrial fibrillation 03/02 Chronic anticoagulation 03/17/2022 Hyperlipidemia associated with type 2 diabetes tete delatorre 03/17/2022 Essential hypertension 03/17/2022 Mild dementia 03/17/2022 Chronic diastolic congestive heart failure 07/1608/08/2022 Chronic atrial fibrillation with RVR 07/15/2021 08/08/2022 Obesity (BMI 30.0-34.9) 01/14/2021 Assessment & Plan (01/14/2021 7:58 AM GEOSPATIAL EXTRACTOR ANALYSIS): Obesity is unchanged. Discussed the patient's BMI. The BMI is above average. BMI management plan is completed. BMI Follow-up includes: nutrition counseling, exercise counseling and education provided. Need for immunization against influenza 01/15/20 Assessment & Plan (01/14/2021 9:40 AM GEOSPATIAL EXTRACTOR ANALYSIS): Updated in office today Need for 23-polyvalent pneumococcal polysacchari de vaccine 09/21/2020 Assessment & Plan (09/21/2020 9:42 PM CDT): Updated in office today Medicare annual wellness visit, subsequent 09/20 Assessment & Plan (09/21/2020 9:42 PM CDT): Encouraged healthy lifestyle, good nutrition and exercise. Encouraged Calcium and Vitamin D and weight bearing exercise for bone health. Reviewed immunizations. Reviewed age appropirate screenings. Medicare Wellness Documentation is completed within the chart Other dysphagia 02/27/2019 Assessment & Plan (03/11/2019 11:04 AM GEOSPATIAL EXTRACTOR ANALYSIS): This appears to be more of a preference than a true difficulty swallowing pills or foods. Reviewed with son could order a swallow study to further evaluate, but at this point, he probably wouldn't change her diet based on the results. Verbalizes an understanding that if there is a swallowing issue, it could lead to aspiration/pneumonia which can lead to multiple other problems and even . He may call at any time if decides to follow thru with a swallow study. Will transition meds that are able to become ODt or liquids and see if helps. Aricept is a ODT Levothyroxine - keep the same Metformin oral solution PPI - can use And open the capsule Pharmacy was contacted in a telephone call to order/transition the above medications. Pneumonia of left lower lobe due to infectious o rganism 12/23/2018 Assessment & Plan (12/23/2018 9:20 PM CDT): Complete antibiotics. Will check CXR in about a month to confirm resolution. Chronic respiratory failure with hypoxia 019 Assessment & Plan (10/30/2019 9:29 AM CDT): Continue to follow with Dr. Carr Assessment & Plan (12/23/2018 9:17 PM CDT): Improving. Complete antibiotic. Continue inhalers. Suggested getting an O2 sat monitor for patient to use at [facility] and if begins to drop to lower 90s, needs to come in for immediate evaluation. Iron deficiency anemia due to chronic blood loss 12/20/2018 Assessment & Plan (01/14/2021 9:40 AM GEOSPATIAL EXTRACTOR ANALYSIS): Check labs Assessment & Plan (09/21/2020 9:41 PM CDT): Check labs Assessment & Plan (10/30/2019 9:31 AM CDT): Continue to monitor closely. Still on supplement. May need to see GI as she has refused colonoscopy Assessment & Plan (12/23/2018 9:23 PM CDT): Trending down per discharge summary-- No active bleeding. Will followup for referral to GI. Monitor labs. 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 Bring accuchecks to office when instructed to do so. Check A1c about every 3-6 months. Take medication as prescribed. Get annual eye exam. Encouraged SANDER/Statin if able to tolerate. Encouraged weight control and encouraged diabetic diet and exercise. Assessment & Plan (10/30/2019 9:28 AM CDT): Stressed importance of continued A1c control to minimize the chcf effects of diabetes. Bring accuchecks to office when instructed to do so. Check A1c about every 3-6 months. Take medication as prescribed. Get annual eye exam. Encouraged SANDER/Statin if able to tolerate. Encouraged weight control and encouraged diabetic diet and exercise. Continue to control DM Enocouraged family to obtain Accuchecks and I would be glad to review. Assessment & Plan (03/11/2019 11:06 AM GEOSPATIAL EXTRACTOR ANALYSIS): Reviewed the availability of a liquid metformin. Assessment & Plan (12/23/2018 9:15 PM CDT): Continue current plan Assessment & Plan (08/17/2018 9:21 PM CDT): This is a significant, separately identifiable problem that was evaluated and managed on the same day as the wellness exam New condition: Stressed importance of continued A1c control to minimize the intermediate card tender effects of diabetes. Bring accuchecks to office when instructed to do so. Check A1c about every 3-6 months. Take medication as prescribed. Get annual eye exam. Encouraged SANDER/Statin if able to tolerate. Encouraged weight control and encouraged diabetic diet and exercise. Beginning to see changes in her feet. Encouraged shoes and check feet for sores. Colonoscopy refused 08/17/2018 Assessment & Plan (09/21/2020 9:41 PM CDT): Reviewed importance of screening. Pt voiced understanding. Assessment & Plan (12/23/2018 9:24 PM CDT): May reconsider Assessment & Plan (08/17/2018 9:29 PM CDT): Pt understands risks of not screening COPD (chronic obstructive pulmonary disease) Assessment & Plan (01/14/2021 9:38 AM GEOSPATIAL EXTRACTOR ANALYSIS): Continue Anoro, Synbicort and prn albuterol Assessment & Plan (09/21/2020 9:41 PM CDT): Continue Symbicort/albuterol Assessment & Plan (10/30/2019 9:28 AM CDT): Pneumonia appears to have cleared. Weened O2. Return to normal dosing of inhalers. Continue to follow with Dr. Carr Assessment & Plan (12/23/2018 9:17 PM CDT): Continue inhalers. Assessment & Plan (08/17/2018 9:22 PM CDT): This is a significant, separately identifiable problem that was evaluated and managed on the same day as the wellness exam Cough still present. If sxs increase, may consider PFTs/pulmonary referral. Call immediately if has increased sxs, fever, chills, sweats, or purulent sputum Late onset Alzheimer's disea se without behavioral disturbance 08/13/2018 Assessment & Plan (01/14/2021 9:39 AM GEOSPATIAL EXTRACTOR ANALYSIS): Continue Aricept Assessment & Plan (09/21/2020 9:41 PM CDT): Continue aricept. She is happily demented. NO behavioral concerns. Assessment & Plan (10/30/2019 9:27 AM CDT): Continue the Aricept. Michael continues to meet her cares in the Assisted Living area. Assessment & Plan (03/11/2019 11:05 AM GEOSPATIAL EXTRACTOR ANALYSIS): Stable on the Aricept but will try to transition to the ODT formulation. Assessment & Plan (12/23/2018 9:15 PM CDT): Continue Aricept. Monitor Assessment & Plan (12/19/2018 8:39 PM CDT): No significant change. Unable to provide history Assessment & Plan (08/17/2018 9:16 PM CDT): Stable with the Aricept. Insulin long-term use 08/13/2018 Assessment & Plan (09/21/2020 9:31 PM CDT): Continue with insulin as directed Assessment & Plan (10/30/2019 9:31 AM CDT): Take as directed Assessment & Plan (12/23/2018 9:24 PM CDT): Continue current regimen Assessment & Plan (08/17/2018 9:18 PM CDT): Continue. See DM above Controlled type 2 diabetes tete delatorre without complication, with long-term current use of insulin 08/13/2018 Assessment & Plan (01/14/2021 9:39 AM GEOSPATIAL EXTRACTOR ANALYSIS): Stressed importance of continued A1c control to minimize the intermediate card tender effects of diabetes. Bring accuchecks to office when instructed to do so. Check A1c about every 3-6 months. Take medication as prescribed. Get annual eye exam. Encouraged SANDER/Statin if able to tolerate. Encouraged weight control and encouraged diabetic diet and exercise. Continue metformin Assessment & Plan (09/21/2020 9:39 PM CDT): Stressed importance of continued A1c control to minimize the chcf effects of diabetes. Bring accuchecks to office when instructed to do so. Check A1c about every 3-6 months. Take medication as prescribed. Get annual eye exam. Encouraged SANDER/Statin if able to tolerate. Encouraged weight control and encouraged diabetic diet and exercise. Past due labs to determine control Assessment & Plan (10/30/2019 9:30 AM CDT): Stressed importance of continued A1c control to minimize the chcf effects of diabetes. Bring accuchecks to office when instructed to do so. Check A1c about every 3-6 months. Take medication as prescribed. Get annual eye exam. Encouraged SANDER/Statin if able to tolerate. Encouraged weight control and encouraged diabetic diet and exercise. Assessment & Plan (12/23/2018 9:22 PM CDT): Continue current regimen Assessment & Plan (08/17/2018 9:17 PM CDT): This is a significant, separately identifiable problem that was evaluated and managed on the same day as the wellness exam DM not well controlled. Increase the Lantus to 30 units hs. Stressed importance of continued A1c control to minimize the chcf effects of diabetes. Bring accuchecks to office when instructed to do so. Check A1c about every 3-6 months. Take medication as prescribed. Get annual eye exam. Encouraged SANDER/Statin if able to tolerate. Encouraged weight control and encouraged diabetic diet and exercise. Acquired hypothyroidism 08/13/2018 Assessment & Plan (01/14/2021 9:39 AM GEOSPATIAL EXTRACTOR ANALYSIS): Continue levothyroxine Assessment & Plan (09/21/2020 9:40 PM CDT): Continue levothyroxine. Monitor labs. Assessment & Plan (10/30/2019 9:30 AM CDT): Continue levothyroxine Assessment & Plan (03/11/2019 11:06 AM GEOSPATIAL EXTRACTOR ANALYSIS): Small tablet. Will see if able to continue and or put in applesauce/pudding. Assessment & Plan (12/23/2018 9:22 PM CDT): Recheck labs in 4 weeks. On Levothyroxine 50mcg. Assessment & Plan (08/17/2018 9:18 PM CDT): Continue Levothyroxine. Check labs Gastroesophageal reflux disease without esophagi tis 08/13/2018 Assessment & Plan (09/21/2020 9:40 PM CDT): Continue PPI Assessment & Plan (10/30/2019 9:29 AM CDT): Continue PPI Assessment & Plan (03/11/2019 11:05 AM GEOSPATIAL EXTRACTOR ANALYSIS): Open the capsule into applesauce. Assessment & Plan (12/23/2018 9:21 PM CDT): Continue PPI Assessment & Plan (08/17/2018 9:16 PM CDT): Stable with PPI Diabetic neuropathy 07/14/2016 08/08/2022 Resolved Problems Problem Noted Date Diagnosed Date Resolved Date BMI 37.0-37.9, adult 01/14/2021 023 Assessment & Plan (01/14/2021 7:59 AM GEOSPATIAL EXTRACTOR ANALYSIS): Obesity is unchanged. Discussed the patient's BMI. The BMI is above average. BMI management plan is completed. BMI Follow-up includes: nutrition counseling, exercise counseling and education provided. BMI 36.0-36.9,adult 09/21/2020 01/15/20 21 Assessment & Plan (09/21/2020 9:36 AM CDT): Obesity is unchanged. Discussed the patient's BMI. The BMI is above average. BMI management plan is completed. BMI Follow-up includes: nutrition counseling, exercise counseling and education provided. Pneumonia 09/25/2019 09/20/2020 Assessment & Plan (10/30/2019 9:31 AM CDT): Clinically appears to have resolved. Monitor for s/s return as near completion of medication. Plan to recheck CXR in a few month Due for Pneumo 23 when back in the office. BMI 38.0-38.9,adult 02/17/2019 09/22/19 21 Assessment & Plan (10/30/2019 9:32 AM CDT): Obesity is unchanged. Discussed the patient's BMI. The BMI is above average. BMI management plan is completed. BMI Follow-up includes: nutrition counseling, exercise counseling and education provided. Assessment & Plan (02/17/2019 11:25 AM GEOSPATIAL EXTRACTOR ANALYSIS): Obesity is unchanged. Discussed the patient's BMI. The BMI is above average. BMI management plan is completed. BMI Follow-up includes: nutrition counseling, exercise counseling and education provided. Diastolic dysfunction 12/20/20182023 Overview (12/20/2018): ECHO 11/2018 at [place] Assessment & Plan (12/23/2018 9:21 PM CDT): Monitor at this point. BMI 37.0-37.9, adult 12/14/2018 019 Assessment & Plan (12/23/2018 9:23 PM CDT): Obesity is unchanged. Discussed the patient's BMI. The BMI is above average. BMI management plan is completed. BMI Follow-up includes: nutrition counseling, exercise counseling and education provided. Assessment & Plan (12/14/2018 10:50 AM CDT): Obesity is unchanged. Discussed the patient's BMI. The BMI is above average. BMI management plan is completed. BMI Follow-up includes: nutrition counseling, exercise counseling and education provided. BMI 38.0-38.9,adult 08/17/2018 12/15/19 19 Assessment & Plan (08/17/2018 9:37 AM CDT): Obesity is unchanged. Discussed the patient's BMI. The BMI is above average; BMI management plan is completed. General weight loss/lifestyle modification strategies discussed (elicit support from others; identify saboteurs; non-food rewards, etc). Encouraged increased exercise. Obesity (BMI 30-39.9) 08/17/20182020 Assessment & Plan (09/21/2020 9:36 AM CDT): Obesity is unchanged. Discussed the patient's BMI. The BMI is above average. BMI management plan is completed. BMI Follow-up includes: nutrition counseling, exercise counseling and education provided. Assessment & Plan (10/30/2019 9:29 AM CDT): Obesity is unchanged. Discussed the patient's BMI. The BMI is above average. BMI management plan is completed. BMI Follow-up includes: nutrition counseling, exercise counseling and education provided. Assessment & Plan (02/17/2019 11:25 AM GEOSPATIAL EXTRACTOR ANALYSIS): Obesity is unchanged. Discussed the patient's BMI. The BMI is above average. BMI management plan is completed. BMI Follow-up includes: nutrition counseling, exercise counseling and education provided. Assessment & Plan (12/23/2018 9:21 PM CDT): Obesity is unchanged. Discussed the patient's BMI. The BMI is above average. BMI management plan is completed. BMI Follow-up includes: nutrition counseling, exercise counseling and education provided. Assessment & Plan (12/14/2018 10:50 AM CDT): Obesity is unchanged. Discussed the patient's BMI. The BMI is above average. BMI management plan is completed. BMI Follow-up includes: nutrition counseling, exercise counseling and education provided. Assessment & Plan (08/17/2018 9:37 AM CDT): Obesity is unchanged. Discussed the patient's BMI. The BMI is above average; BMI management plan is completed. General weight loss/lifestyle modification strategies discussed (elicit support from others; identify saboteurs; non-food rewards, etc). Encouraged increased exercise. Immunizations Immunization Administration Dates Next Due Influenza, Quadrivalent, Hig h Dose, Preservative Free, Intrr 01/14/2021,11/19/2019 Influenza, Trivalent, High D ose, Split, Preservative Free, Intramuscular 11/22/2018 Pneumococcal Conjugate PCV 13 08/17/2018 Pneumococcal Polysaccharide PPV23 09/21/2020 Social History Tobacco Use Types Packs/Day Years Used Date Smoking Tobacco: Former Passive Smoke Exposure: Past Smokeless Tobacco: Never Tobacco Cessation:Counseling Given: Not Answered Alcohol Use Standard Drinks/Week Comments Never 0 (1 standard drink = 0.6 oz pur e alcohol) [facility] Utilities Answer Date Recorded In the past 12 months has e [employer], gas, oil, or water [employer] threatened to shut off services in your home? No 06/23/2023 Social Connection and Isolat ion Panel [NHANES] Answer Date Recorded In a typical week, how many times do you talk on the phone with family, friends, or neighbors? More than three times a week 06/23/2023 How often do you get togethe r with friends or relatives? Three times a week 06/23/2023 How often do you attend chur ch or congregation services? Never 06/23/2023 Do you belong to any clubs o r organizations such as mandaeism groups, unions, fraternal or athletic groups, or school groups? No 06/23/2023 How often do you attend meet ings of the clubs or organizations you belong to? Never 06/23/2023 Are you , , di vorced, , never , or living with a partner? 06/23/2023 AUDIT-C Answer Date Recorded Frequency of Alcohol Consumption Never 08/17/2018 Average Number of Drinks Not on file 019 Frequency of Binge Drinking Not on file 07/31 Overall Financial Resource Strain (CARDIA) Answe r Date Recorded How hard is it for you to pa y for the very basics like food, housing, medical care, and heating? Not hard at all 06/23/2023 PHQ-2 Answer Date Recorded PHQ-2 Total Score (If total score is 3 or more points, staff should administer the PHQ-9) 0 09/21/2020 Hunger Vital Sign Answer Date Recorded Within the past 12 months, y ou worried that your food would run out before you got the money to buy more. Never true 06/23/19 24 Within the past 12 months, t he food you bought just didn't last and you didn't have money to get more. Never true 06/23/2023 PRAPARE - Transportation Answer Date Re corded In the past 12 months, has l ack of transportation kept you from medical appointments or from getting medications? No 06/01 In the past 12 months, has l ack of transportation kept you from meetings, work, or from getting things needed for daily living? No 06/23/2023 Housing Stability Vital Sign Answer Bryce e Recorded In the last 12 months, was t here a time when you were not able to pay the mortgage or rent on time? No 06/23/2023 In the last 12 months, how many places have you lived? 1 06/23/2023 In the last 12 months, was t here a time when you did not have a steady place to sleep or slept in a assisted (including now)? No 06/23/2023 Personal Safety Answer Date Recorded Have you ever been in or are you currently in a harmful physical or emotional relationship or is someone making you feel afraid or unsafe? 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 Not on file Not on file Last Filed Vital Signs Vital Sign Reading Time Taken Comments Blood Pressure 125/81 10/01/2023 2:12 PM CDT Pulse 67 10/01/2023 2:12 PM CDT Temperature 36.3 C (97.4 F) 10/01/2023 2:12 PM CDT Respiratory Rate 23 08/24/2023 2:45 PM CDT Oxygen Saturation 94% 10/01/2023 2:12 PM CDT Inhaled Oxygen Concentration - - Weight 88.9 kg (196 lb) 10/01/2023 2:12 PM CDT Height 160 cm (5' 3) 10/01/2023 2:12 PM CDT Body Mass Index 34.72 10/01/2023 2:12 PM CDT Plan of Treatment Not on file Procedures Procedure Name Priority Date/Time Associated Diagnosis Comments EGFR STAT 08/24/2023 11:50 AM CDT HEMOGLOBIN A1C Routine 06/23/2023 6:24 AM CDT LIPID PANEL Routine 06/23/2023 6:24 AM CDT from Last 3 Months or Most Recently Relevant to Health Maintenance Results * eGFR (08/24/2023 11:50 AM CDT) eGFR 71 >=60 mL/min/1. 73 m2 Comment: Interpretive Data Reference Interval Normal >/= 90 mL/min/1.73m2 Mildly decreased* 60 - 89 mL/min/1.73m2 Mildly to moderately decreased 45 - 59 mL/min/1.73m2 Moderately to severely decreased 30 - 44 mL/min/1.73m2 Severely decreased 15 - 29 mL/min/1.73m2 Kidney Failure < 15 mL/min/1.73m2 *Relative to young adult level Estimated glomerular filtration rate is determined by the 2020 CKD-EPI equation recommended by the National Kidney Foundation (A Unifying Approach to GFR Estimation: Recommendations of the NKF-ASK Task Force on Reassessing the Inclusion of Race in Diagnosing Kidney Disease, JASN 2020). The CKD-EPI equation should not be used for patients with unstable renal function and has not been validated in children and those over 70. Current interpretive data was last reviewed 2020. Blood 08/24/2023 11:5 0 AM CDT 08/24/2023 11:53 AM CDT Eddi Calvo MD LAB BLOOD ORDERABLES F inal Result Performing Organization Address [facility] Co de Phone Number [email or web address] [place] [address] * (ABNORMAL) Hemoglobin A1c (06/23/2023 6:24 AM CDT) Pathologist [facility] Hgb A1C 8.7(H) 4.0 - 5.6 % Estimated Average Glucose 203 mg/dL [facility] Comment: The ADA recommends reporting an estimated Average Glucose (eAG) with all Hemoglobin A1c results using the equation derived from a study of 507 normal and diabetic adults. Minority populations were underrepresented and children were not included. (Diabetes Care 31:1158-2216, 2008). The eAG is not equivalent to a fasting glucose. Blood 06/23/2023 6:24 AM CDT 06/23/2023 6:56 AM CDT Melissa Felix MD LAB BLOOD ORDERABLES Fin al Result Performing Organization Address [facility]/ZIP Co de Phone Number [email or web address] [place] [address] * Lipid panel (06/23/2023 6:24 AM CDT) Cholesterol 101 30 - 199 mg/dL Comment: Interpretive Data Ages < or = 19 years Acceptable: <170 mg/dL Borderline high: 170-199 mg/dL High: >or= 200 mg/dL Ages > or = 20 years Desirable: <200 mg/dL Borderline high: 200-239 mg/dL High: >or= 240 mg/dL Literature References: 1. Expert Panel on Integrated Guidelines for Cardiovascular Health and Risk Reduction in Children and Adolescents. Pediatrics 2011;128:S213 2. NCEP Expert Panel. Circulation 2004;110:227 Current Interpretive Data was last revised on 2017. Triglycerides 79 <=149 mg/dL MARIA EUGENIA Comment: Interpretive Data Ages < or = 9 years Acceptable: <75 mg/dL Borderline high: 75-99 mg/dL High: >or= 100 mg/dL Ages 10 to 20 years Acceptable: <90 mg/dL Borderline high: 90-129 mg/dL High: >or= 130 mg/dL Ages > or = 20 years Desirable: <150 mg/dL Borderline high: 150-199 mg/dL High: 200-499 mg/dL Very high: >or= 499 mg/dL Literature References: 1. Expert Panel on Integrated Guidelines for Cardiovascular Health and Risk Reduction in Children and Adolescents. Pediatrics 2011;128:S213 2. NCEP Expert Panel. Circulation 2004;110:227 Current Interpretive Data was last revised on 2017. HDL 43 >=40 mg/dL MARIA EUGENIA Comment: Interpretive Data Ages < or = 19 years Acceptable: >45 mg/dL Borderline low: 40-45 mg/dL Low: <40 mg/dL Ages > or = 20 years Desirable: >or= 60 mg/dL Low: <40 mg/dL Literature References: 1. Expert Panel on Integrated Guidelines for Cardiovascular Health and Risk Reduction in Children and Adolescents. Pediatrics 2011;128:S213 2. NCEP Expert Panel. Circulation 2004;110:227 Current Interpretive Data was last revised on 2017. LDL, calculated 42 <=129 mg/dL MARIA EUGENIA Comment: Interpretive Data Ages < or = 19 years Acceptable: <110 mg/dL Borderline high: 110-129 mg/dL High: >or= 130 mg/dL Ages > or = 20 years Optimal: <100 mg/dL Near optimal: 100-129 mg/dL Borderline high: 130-159 mg/dL High: >160 mg/dL Literature References: 1. Expert Panel on Integrated Guidelines for Cardiovascular Health and Risk Reduction in Children and Adolescents. Pediatrics 2011;128:S213 2. NCEP Expert Panel. Circulation 2004;110:227 Current Interpretive Data was last revised on 2017. Non-HDL Cholesterol 58 mg/dL MARIA EUGENIA GREEN[place]G Comment: Interpretive Data Ages < or = 19 years Acceptable: <120 mg/dL Borderline high: 120-144 mg/dL High: >145 mg/dL Ages > or = 20 years When triglycerides are >200 mg/dL, Non-HDL cholesterol is a secondary target of therapy with treatment goals that are 30 mg/dL greater than the LDL cholesterol target. Literature References: 1. Expert Panel on Integrated Guidelines for Cardiovascular Health and Risk Reduction in Children and Adolescents. Pediatrics 2011;128:S213 2. NCEP Expert Panel. Circulation 2004;110:227 Current Interpretive Data was last revised on 2017. Chol/HDL ratio 2 MARIA EUGENIA GREENBERG Blood 06/23/2023 6:24 AM CDT 06/23/2023 6:56 AM CDT us Melissa Felix MD LAB BLOOD ORDERABLES Fin al Result MARIA EUGENIA [address] [facility] Department [place] [address] from Last 3 Months or Most Recently Relevant to Health Maintenance Insurance [place] COM[place]ARE [place] [facility] [place] [facility] Member Subscriber Plan / Payer (Ef fective 2020-Present) Name:Ana Neely Relation to Subscriber:Self Name:Ana Neely Payer ID:[id number] (NAIC) Group ID:Not on file Type:MEDICAID RISK OTHER Address: ATTN: CLAIMS DEPT [address] [place] [id number] Advance Directives For more information, please contact: [phone] * Full Code (Latest Code Status on File) Date Activated Date Inactivated Comments 06/22/2023 9:04 PM 06/29/2023 3:23 PM * Full Code Date Activated Date Inactivated Comments 01/18/2023 2:34 PM 01/26/2023 2:39 PM Care Teams Websphere Consultant Relationship Specialty Start Date End Date Karin Bowman NP [address] [facility] [address] [place] [address] PCP - General Nurse Practitioner 06/23/23
--- OUTSIDE RECORDS SUMMARY | 2024-07-28 19:02 | XMS_ITS | Clinical Summary ---
Author Organization [facility] Address [address] [place] [address] Care Team Providers Care Sales Representative [employer] Name Role Phone Karin Bowman NP Primary Care Provider [phone] Allergies No known active allergies Medications acetaminophen [...] 1 tablet (75 mcg total) by mouth early childhood associate before breakfast 05/10/19 23 Active medroxyPROGESTERo ne [...] 01/14/2021 Assessment & Plan (01/14/2021 7:58 AM WASTEWATER [employer] SUPERVISOR): Obesity is unchanged. Discussed the patient's BMI. The BMI is above average. BMI management plan is completed. BMI Follow-up includes: nutrition counseling, exercise counseling and education provided. Need for immunization against influenza 01/15/20 Assessment & Plan (01/14/2021 9:40 AM WASTEWATER TREAT[employer] PLANT SUPERVISOR): Updated in office today Need for 23-polyvalent [...] 02/27/2019 Assessment & Plan (03/11/2019 11:04 AM WASTEWATER TREATMENT PLANT SUPERVISOR): This appears to be more of a [...] sat monitor for patient to use at [place] and if begins to drop to lower 90s, needs to come in for immediate evaluation. Iron deficiency anemia due to chronic blood loss 12/20/2018 Assessment & Plan (01/14/2021 9:40 AM WASTEWATER TREATMENT PLANT SUPERVISOR): Check labs Assessment & Plan (09/21/2020 9:41 [...] of continued A1c control to minimize the mcc effects of diabetes. Bring accuchecks to office when instructed to do so. Check A1c about every 3-6 months. Take medication as prescribed. Get annual eye exam. Encouraged SANDER/Statin if able to tolerate. Encouraged weight control and encouraged diabetic diet and exercise. Assessment & Plan (10/30/2019 9:28 AM CDT): Stressed importance of continued A1c control to minimize the mcc effects of diabetes. Bring accuchecks to office when instructed to do so. Check A1c about every 3-6 months. Take medication as prescribed. Get annual eye exam. Encouraged SANDER/Statin if able to tolerate. Encouraged weight control and encouraged diabetic diet and exercise. Continue to control DM Enocouraged family to obtain Accuchecks and I would be glad to review. Assessment & Plan (03/11/2019 11:06 AM W[employer]EWATER [employer]ANT SUPERVISOR): Reviewed the availability of a liquid metformin. Assessment & Plan (12/23/2018 9:15 PM CDT): Continue current plan Assessment & Plan (08/17/2018 9:21 PM CDT): This is a significant, separately identifiable problem that was evaluated and managed on the same day as the wellness exam New condition: Stressed importance of continued A1c control to minimize the oysterman effects of diabetes. Bring accuchecks to office [...] disease) Assessment & Plan (01/14/2021 9:38 AM WASTEWATER T[employer]ANT SUPERVISOR): Continue Anoro, Synbicort and prn albuterol Assessment [...] 08/13/2018 Assessment & Plan (01/14/2021 9:39 AM WASTEWATER TREATMENT PLANT SUPERVISOR): Continue Aricept Assessment & Plan (09/21/2020 9:41 PM CDT): Continue aricept. She is happily demented. NO behavioral concerns. Assessment & Plan (10/30/2019 9:27 AM CDT): Continue the Aricept. Michael continues to meet her cares in the Assisted Living area. Assessment & Plan (03/11/2019 11:05 AM WASTEWATER TREATMENT PLANT SUPERVISOR): Stable on the Aricept but will try [...] 08/13/2018 Assessment & Plan (01/14/2021 9:39 AM WASTEWATER TREATMENT PLANT SUPERVISOR): Stressed importance of continued A1c control to minimize the oysterman effects of diabetes. Bring accuchecks to office when instructed to do so. Check A1c about every 3-6 months. Take medication as prescribed. Get annual eye exam. Encouraged SANDER/Statin if able to tolerate. Encouraged weight control and encouraged diabetic diet and exercise. Continue metformin Assessment & Plan (09/21/2020 9:39 PM CDT): Stressed importance of continued A1c control to minimize the mcc effects of diabetes. Bring accuchecks to office when instructed to do so. Check A1c about every 3-6 months. Take medication as prescribed. Get annual eye exam. Encouraged SANDER/Statin if able to tolerate. Encouraged weight control and encouraged diabetic diet and exercise. Past due labs to determine control Assessment & Plan (10/30/2019 9:30 AM CDT): Stressed importance of continued A1c control to minimize the mcc effects of diabetes. Bring accuchecks to office [...] of continued A1c control to minimize the mcc effects of diabetes. Bring accuchecks to office when instructed to do so. Check A1c about every 3-6 months. Take medication as prescribed. Get annual eye exam. Encouraged SANDER/Statin if able to tolerate. Encouraged weight control and encouraged diabetic diet and exercise. Acquired hypothyroidism 08/13/2018 Assessment & Plan (01/14/2021 9:39 AM WASTEWATER [employer] SUPERVISOR): Continue levothyroxine Assessment & Plan (09/21/2020 9:40 PM CDT): Continue levothyroxine. Monitor labs. Assessment & Plan (10/30/2019 9:30 AM CDT): Continue levothyroxine Assessment & Plan (03/11/2019 11:06 AM WASTEWATER T[employer]MENT [employer]ANT SUPERVISOR): Small tablet. Will see if able to [...] PPI Assessment & Plan (03/11/2019 11:05 AM WASTEWATER TREATMENT PLANT SUPERVISOR): Open the capsule into applesauce. Assessment & Plan (12/23/2018 9:21 PM CDT): Continue PPI Assessment & Plan (08/17/2018 9:16 PM CDT): Stable with PPI Diabetic neuropathy 07/14/2016 08/08/2022 Resolved Problems Problem Noted Date Diagnosed Date Resolved Date BMI 37.0-37.9, adult 01/14/2021 023 Assessment & Plan (01/14/2021 7:59 AM WASTEWATER T[employer]ATMENT [employer]ANT SUPERVISOR): Obesity is unchanged. Discussed the patient's BMI. [...] provided. Assessment & Plan (02/17/2019 11:25 AM WASTEWATER TREATMENT PLANT SUPERVISOR): Obesity is unchanged. Discussed the patient's BMI. The BMI is above average. BMI management plan is completed. BMI Follow-up includes: nutrition counseling, exercise counseling and education provided. Diastolic dysfunction 12/20/20182023 Overview (12/20/2018): ECHO 11/2018 at [place] Assessment & Plan (12/23/2018 9:21 PM CDT): [...] provided. Assessment & Plan (02/17/2019 11:25 AM WASTEWATER TREATMENT PLANT SUPERVISOR): Obesity is unchanged. Discussed the patient's BMI. [...] PCV 13 08/17/2018 Pneumococcal Polysaccharide PPV23 09/21/2020 Surgical History Surgery Date Site/Laterality Comments MYOMECTOMY Medical History Medical History Date Comments Dementia (HCC) DM type 2 (diabetes mellitus, type 2) (HCC) Hypertension COPD (chronic obstructive pulmonary disease) (HC C) Diastolic CHF (HCC) Hypothyroid Hypothyroid Atrial fibrillation (HCC) Family History Medical History Relation Name Comments No Known Problems Daughter Stroke Father No Known Problems Mother No Known Problems Son 2 Breast cancer Neg Hx Ovarian cancer Neg Hx Uterine cancer Neg Hx Relation Name Status Comments Daughter Alive Father Mother Son 2 Alive Social History Tobacco Use Types Packs/Day Years Used Date Smoking Tobacco: Former Passive Smoke Exposure: Past Smokeless Tobacco: Never Tobacco Cessation:Counseling Given: Not Answered Alcohol Use Standard Drinks/Week Comments Never 0 (1 standard drink = 0.6 oz pur e alcohol) [facility] Utilities Answer Date Recorded In the past 12 months has th e electric, gas, oil, or water company threatened to shut off services in your [...] often do you attend chur ch or amish services? Never 06/23/2023 Do you belong to any clubs o r organizations such as muslim groups, unions, fraternal or athletic groups, or [...] place to sleep or slept in a [place] facility (including now)? No 06/23/2023 Personal Safety Answer Date Recorded Have you ever been in or are you currently in a harmful physical or emotional relationship or is someone making you feel afraid or unsafe? 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 Not on file Not on file Obstetrics History Para Term AB IAB SAB Ectopic Multiple Livin g Live Births 3 3 3 3 3 Date Outcome GA Total Labor Labor/2nd/3rd Weight Sex Type Anes PTL Becky A1 A5 Name Clin Term Vag-Spo nt Living Term Vag-Spo nt Living Term Vaginal Living Last Filed Vital Signs Vital Sign Reading [...] 10/01/2023 2:12 PM CDT Plan of Treatment Health Maintenance Due Date Last Done Comments Albumin Creatinine Ratio, Urine 1945 Hepatitis C Screening 1945 Osteoporosis Screening-Bone Density Scan 1945 Dilated Eye Exam 1945 DTaP/Tdap/Td Vaccine (1 - Tdap) 1956 Hepatitis B Screening 05/31/1963 Zoster Vaccine (1 of 2) 05/31/1995 Foot Exam 08/18/2019 08/17/2018 Depression Screening 09/21/2021 09/21/2020, 08/18/19 19 Well Visit 65+ 09/21/2021 09/21/2020, 08/17/2018 Covid-19 Vaccine (4 - 2023-2 5 season) 2023 02/11/2021, 04/19/2020, 03/29/2020 Hemoglobin A1C 12/23/2023 06/23/2023, 09/30, 09/15/2019, Additional history exists Lipid Panel 06/22/2024 06/23/2023, 03/03, 09/30/2021, Additional history exists Fall Risk Assessment 06/27/2024 06/28/2023, 09/21/2020, 08/17/2018 eGFR 08/23/2024 08/24/2023, 06/01, 06/26/2023, Additional history exists Influenza Vaccine (Season Ended) 2024 01/14/2021, 11/19/2019, 11/22/2018 Pneumococcal vaccine 65+ Completed 09/21/2020, 07/31 Procedures Procedure Name Priority Date/Time Associated Diagnosis [...] AM CDT 08/24/2023 11:53 AM CDT Eddi Cavlo MD LAB BLOOD ORDERABLES F inal Result Performing Organization Address City/[facility] Co de Phone Number [address] [employer] [place], [place] [phone] * (ABNORMAL) Hemoglobin A1c (06/23/2023 6:24 AM CDT) Hgb A1C 8.7(H) 4.0 - 5.6 % Estimated Average Glucose 203 mg/dL [facility] Comment: The ADA recommends reporting an estimated Average Glucose (eAG) with all Hemoglobin A1c results using the equation derived from a study of 507 normal and diabetic adults. Minority populations were underrepresented and children were not included. (Diabetes Care 31:0756-1057, 2008). The eAG is not equivalent to a fasting glucose. Blood 06/23/2023 6:24 AM CDT 06/23/2023 6:56 AM CDT Melissa Felix MD LAB BLOOD ORDERABLES Fin al Result Performing Organization Address City/[facility]/ZIP Co de Phone Number [address] [employer] [place] [address] * Lipid panel (06/23/2023 6:24 AM CDT) [...] on 2017. Chol/HDL ratio 2 MARIA EUGENIA Blood 06/23/2023 6:24 AM CDT 06/23/2023 6:56 AM CDT Melissa Felix MD LAB BLOOD ORDERABLES Fin al Result MARIA EUGENIA [address] [facility] Department [place] [address] from Last 3 Months or Most Recently Relevant to Health Maintenance Insurance [facility] COMPLETE MEDICARE [place] [facility] [place] [facility] Advance Directives For more information, please contact: [phone] * Full Code (Latest Code Status on File) Date Activated Date Inactivated Comments 06/22/2023 9:04 PM 06/29/2023 3:23 PM * Full Code Date Activated Date Inactivated Comments 01/18/2023 2:34 PM 01/26/2023 2:39 PM Care Teams Sales Representative [employer] Relationship Specialty Start Date End Date Karin Bowman NP [address] [facility] [address] [place] [address] PCP - General Nurse Practitioner 06/23/23
--- OUTSIDE RECORDS SUMMARY | 2024-07-28 19:02 | XMS_ITS | Continuity of Care Document ---
Author Organization Formerly [facility] Address [address] [place] [address] [place] [address] Phone Care Team Providers Care [facility] Lab Technician Name Role Phone Kalyan Villarreal Unavailable Unavailable Procedures Procedure Date Post-op Follow-up Visit Remove Cataract, Insert Lens Post-op Follow-up Visit [facility] Post-op Follow-up Visit Remove Cataract, Insert Lens Office/outpatient Visit, New [facility] Advance Directives Directive Yes / No Effective Date File Name No Information Encounters Encounter Description Practice Location Reason(s) For Visit Diagnoses Date Provider Providers Copied on Encounter [facility], [id number] [place] [address] [address], [place], [place], [id number], [place] tel:[phone] [facility] No Information 4-200 9 Krishnasamy Kalyan. [address], [facility], [place]. tel:[phone] [facility], [address] [place] [address] [address], [place], [place], [id number], [place] tel:[phone] [facility] No Information May-2 3-200 9 Krishnasamy Kalyan. [address], [facility], [place]. tel:[phone] Referring Provider: Jada Wharton OD, [facility] [address] [place], [address]. tel:[phone] [facility] Eye [facility], [address], [place], [place], [id number], [place] tel:[phone] [facility] No Information 5-200 9 Krishnasamy Kalyan. [address], [place], [address], [place]. tel:[phone] Referring Provider: Kalyan cobb, [address] [facility] [address], [place], [address]. tel:[phone] [facility], [address], [place], [place], [id number], [place] tel:[phone] [facility] No Information 2 7-200 9 Krishnasamy Kalyan. [address] [facility] [address], [place], [facility] [place], [place]. tel:[phone] [facility], [address], [place], [place], [id number], [place] tel:[phone] [facility] No Information 2 6-200 9 Krishnasamy Kalyan. [address] [facility] [address], [address], [place]. tel:[phone] Referring Provider: Jada Wharton OD, [facility] [address] [place], [address]. tel:[phone] Office/outpat ient Visit, [facility] Eye [facility], [address], [place], [place], [id number], [place] tel:[phone] [facility] No Information 1 1-200 9 Krishnasamy Kalyan. [address] [facility] [address], [address], [place]. tel:[phone] Referring Provider: Kalyan cobb, [address] [facility] [address], [place], [address]. tel:[phone] Family History Family Member Type Diagnosis Age At Onset No Information Payers Payer name Insurance type Covered green party ID Authoriza tion(s) No Information Social History Type Description Quantity Date Captured Comments Sex Female Smoking Status No Information Chief Complaint And Reason For Visit No Information Reason For Referral Reason For Referral No Information History Of Present Illness Encounter Date Complaint History Of Prese nt Illness No Information Functional Status Date Functional Assessmen t No Information Instructions Date Instruction Additional Infor mation No Information Assessments Type Assessment Date No Information Patient Care Teams Name Effective Dates (start - stop) Status Members No Information
[2024-07-28 19:14] LABS: INR 1.3; Partial Thromboplastin Time 35.5 Seconds (22.3-36.8); Prothrombin Time 16.8 Seconds (11.1-14.7)
[2024-07-28 19:16] LABS: Alanine Aminotransferase 14 U/L (6-35); Albumin Level 3.6 g/dL (3.5-5.1); Alkaline Phosphatase 121 U/L (38-126); Anion Gap 5 mmol/L (4-12); Aspartate Amino Transferase 18 U/L (14-36); Bilirubin,Total 0.5 mg/dL (0.2-1.3); Blood Urea Nitrogen 20 mg/dL (7-17); Calcium 8.7 mg/dL (8.4-10.2); Carbon Dioxide 34 mmol/L (22-30); Chloride 97 mmol/L (98-107); Estimated CRCL calculation 53 ml/min; Estimated Glomerular Filt Rate > 60; Glucose 256 mg/dL (65-110); Hypochromasia 1+; Platelet Estimate Adequate (Adequate); Potassium 3.8 mmol/L (3.4-5.0); Schistocytes None Seen; Sodium 136 mmol/L (137-145)
[2024-07-28 19:24] LABS: NT Pro B Type Natriuretic Pept 687 pg/mL (19.9-100); Troponin I < 0.012 ng/mL (0.000-0.034)
[2024-07-28 19:42] LABS: Alveolar/Arterial O2 Gradient 16.9 mmHg; Base Excess ABG 3.4 mEq/l (+/-2.0); Fractional Inspired Oxygen 28 %; HCO3 ABG 32.6 mEq/l (22.0-26.0); Oxygen Content ABG 16.9 %vol (16.0-22.0); Oxygen Saturation ABG 95.8 % (95.0-100.0); Oxyhemoglobin 94.6 % THb (90.0-100.0); PO2 ABG 94.2 mmHg (80.0-100.0); PO2 FiO2 Ratio Arterial Blood 3.36 %; Total Hemoglobin 12.6 g/dL (12.0-18.0)
[2024-07-28 19:45] LABS: Device NASAL CANNULA; Modified Allen's Test Pass; Site Drawn RIGHT RADIAL
[2024-07-28] MEDS: IPRATROPIUM 0.5 MG/ALBUTEROL SULFATE 2.5 MG AMPUL.NEB 3 ML 12 ML INHALATION ×2 (20:05→21:58)
[2024-07-28] MEDS: MAGNESIUM SULF 2 GM/WATER 50ML 2 GM/50 ML BAG IVPB (20:08)
--- NOTE | 2024-07-28 20:44 | ED_ITS ---
HPI - General Adult General Chief complaint: Shortness of Breath/Dyspnea Stated complaint: sob Time Seen by Provider: 07/28/24 18:34 History of Present Illness HPI narrative: This is a 79-year-old female with history of COPD, CHF presenting for shortness of breath. Patient is somnolent on my exam cannot provide any history. per EMS they were called 1st for stress and she is found to be in the 70s on room air. She was placed on 6 L nasal cannula brought to the ED. Related Data Home Medications ?Medication ?Instructions ?Recorded ?Confirmed ?Last Taken ?Type donepezil 10 mg tablet (Aricept) 10 mg PO HS 03/24/20 12/04/21 Unknown History insulin glargine 100 unit/mL (3 30 unit subcut HS 03/24/20 12/04/21 Unknown History mL) subcutaneous pen (Lantus Solostar U-100 Insulin) levothyroxine 50 mcg capsule 50 mcg PO DAILY 03/24/20 12/04/21 Unknown History metformin 500 mg/5 mL oral 850 mg PO BID 03/24/20 12/04/21 Unknown History solution (Riomet) omeprazole 20 mg capsule,delayed 20 mg PO DAILY 03/24/20 12/04/21 Unknown History release umeclidinium 62.5 mcg-vilanterol 1 inh inhalation DAILY 03/24/20 12/04/21 Unknown History 25 mcg/actuation powdr for inhalation (Anoro Ellipta) albuterol sulfate 90 mcg/actuation 2 puff inhalation Q6H PRN COPD 03/25/20 12/04/21 Unknown History aerosol inhaler (Ventolin HFA) budesonide-formoterol HFA 160 2 puff inhalation Q12H 03/25/20 12/04/21 Unknown History mcg-4.5 mcg/actuation aerosol inhaler (Symbicort) ferrous sulfate 300 mg (60 mg 325 mg PO DAILY 03/25/20 12/04/21 Unknown History iron)/5 mL oral liquid ipratropium 0.5 mg-albuterol 3 mg 3 ml inhalation Q6H PRN COPD 03/25/20 12/04/21 Unknown History (2.5 mg base)/3 mL nebulization soln mecobalamin (vitamin B12) 1,000 1,000 mcg PO DAILY 03/25/20 12/04/21 Unknown History mcg chewable tablet atorvastatin 20 mg tablet 20 mg PO DAILY 12/04/21 12/04/21 Unknown History furosemide 20 mg tablet (Lasix) 40 mg PO DAILY 12/04/21 12/04/21 Unknown History spironolactone 50 mg tablet 50 mg PO DAILY 12/04/21 12/04/21 Unknown History acetaminophen 500 mg tablet 500 mg PO Q6H PRN Pain 03/20/22 Unknown History (Acetaminophen Pain Relief) ergocalciferol (vitamin D2) 1,250 03/20/22 Unknown History mcg (50,000 unit) capsule (Vitamin D2) Allergies Allergy/AdvReac Type Severity Reaction Status Date / Time No Known Allergies Allergy Unknown Verified 07/28/24 18:26 [facility] Past Medical History Medical History CHF exacerbation Atrial fibrillation COPD (chronic obstructive pulmonary disease) Arthritis Former smoker 50 pack-year smoking history. Dementia Anemia Hypothyroidism Diabetic peripheral neuropathy Insulin dependent type 2 diabetes mellitus Grade II diastolic dysfunction Noted on echocardiogram in December 2018. Ejection fraction was 60 to 65%. Surgical History Surgical History History of dilation and curettage History of cataract extraction Family History Family History Father Cerebrovascular accident Grandparent Cerebrovascular accident Family history of heart disease in male family member before age 55 Mother Family history of heart disease in male family member before age 55 Heart disease of a heart attack Heart attack Social History Social History Social History: She is a resident at [facility]. Former smoker, up to a pack of cigarettes a day for 50 years, and quit in 2009. She stopped drinking alcohol in 2007. No illicit substance use. Three children. Her son Kwesi Neely is her healthcare power of hydraulic chair assembler. She wishes to be a do not resuscitate but son reports that she has an advance directive stating that she wishes to be a full code. 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 Smoking packs per day: 1 Smoking cigarettes per day: 20.0 Years smoked: 50 Smoking pack-years: 50.00 Smoking status: Former smoker Alcohol intake: never Substance use: never Substance use type: does not use Gender identity (if verbalized by the patient): Female Spiritual care concerns: No Exam 2 Narrative: APPEARANCE: patient is somnolent but arousable, does not answer questions appropriately Head: atraumatic. EYES: EOMI, NOSE: Atraumatic NECK: Trachea midline RESPIRATORY: tachypneic, scattered wheezing and rhonchi in all lung malik CARDIOVASCULAR: RRR, no peripheral edema ABDOMINAL: Non-distended MUSCULOSKELETAl: No obvious deformities NEURO: Alert. Moving 4/4 extremities SKIN:: Warm, dry. Normal color PSYCHIATRIC: somnolent Course Vital Signs Vital signs: Vital Signs Temperature 98.2 F 07/28/24 17:50 Pulse Rate 78 07/28/24 17:50 Respiratory Rate 24 H 07/28/24 17:50 Blood Pressure 140/66 07/28/24 17:50 Pulse Oximetry 97 07/28/24 17:50 Oxygen Delivery Nasal Cannula 07/28/24 17:50 Oxygen Flow Rate 2 07/28/24 17:50 Temperature 98.2 F 07/28/24 17:50 Pulse Rate 92 07/28/24 21:25 Respiratory Rate 22 H 07/28/24 21:25 Blood Pressure 137/39 L 07/28/24 20:31 Pulse Oximetry 95 07/28/24 21:25 Oxygen Delivery High Flow Therapy with Nasal Cannula 07/28/24 20:28 Oxygen Flow Rate 40 07/28/24 20:28 Fraction of Inspired Oxygen 30 07/28/24 20:28 Medical Decision Making [facility] Narrative Medical decision making narrative: -Course: this is a 79-year-old female presenting w/ respiratory failure. ABG showed mixed hypercarbic and hypoxic respiratory failure. On lung exam she has wheezes and rhonchi in all malik. Patient would not tolerate BiPAP. She was put on high-flow nasal cannula. Started on on hour long breathing treatments and Lasix. Originally placed on ceftriaxone and doxycycline, however DRIP >4. She will be placed on cefepime doxy and vancomycin Goals of care were discussed family as this patient needs intubation. The patient does not want to be intubated and the family is in agreement. She is DNR/DNI but medications okay. Poor prognosis was explained to the family and they understand. She will be placed in the hospital for further management. ELIF Avila Everardo Neely (Kwesi) - [phone] -DDX includes but is not limited to: pneumonia, COPD exacerbation, CHF exacerbation, sepsis -Co-morbidities complicating care: COPD, diastolic heart failure dementia -Social determinants of health: memory care resident -External Chart Review: review of echocardiogram from 11/20 -Independent interpretation of studies: white count elevated 14.2. ABG showed respiratory acidosis. hypercarbic and hypoxic respiratory failure. Kidney function at baseline. Metabolic panel indicative chronic CO2 retention troponin undetectable BNP 687 chest x-ray showed cardiomegaly, pulmonary edema and likely pneumonia Independent EKG interpretation: Rhythm [sinus], Rate 82, [place] -[normal], [place] -[normal], QRS [wide], QTC [normal], T waves -[negative for concerning inversions], ST Segments - [Negative for concerning elevations] Final interpretations: normal sinus rhythm with occasional PACs and right bundle-branch block -Discussion of Management/Consultants:Vincengsuwat = Vital Signs Vital Signs: Vital Signs Temperature 98.2 F 07/28/24 17:50 Pulse Rate 78 07/28/24 17:50 Respiratory Rate 24 H 07/28/24 17:50 Blood Pressure 140/66 07/28/24 17:50 Pulse Oximetry 97 07/28/24 17:50 Oxygen Delivery Nasal Cannula 07/28/24 17:50 Oxygen Flow Rate 2 07/28/24 17:50 Temperature 98.2 F 07/28/24 17:50 Pulse Rate 92 07/28/24 21:25 Respiratory Rate 22 H 07/28/24 21:25 Blood Pressure 137/39 L 07/28/24 20:31 Pulse Oximetry 95 07/28/24 21:25 Oxygen Delivery High Flow Therapy with Nasal Cannula 07/28/24 20:28 Oxygen Flow Rate 40 07/28/24 20:28 Fraction of Inspired Oxygen 30 07/28/24 20:28 Lab Data 07/28/24 18:49 07/28/24 18:49 Labs: Lab Results 07/28/24 Range/Units 18:49 WBC 14.2 H (4.5-10.0) K/mm3 RBC 4.19 L (4.2-5.4) M/mm3 Hgb 11.9 L (12.0-15.0) g/dL Hct 40.5 (37.0-47.0) % MCV 96.7 (80-100) fl MCH 28.4 (26-34) pg MCHC 29.4 L (32-36) g/dl RDW 14.3 (11.5-14.5) % Plt Count 237 (150-375) k/mm3 MPV 10.6 H (7.4-10.4) fl Immature Gran % (Auto) 0.4 (0-0.5) % Neut % (Auto) 87.1 H (45.5-73.1) % Lymph % (Auto) 4.4 L (18.3-44.2) % [place] % (Auto) 7.8 (2.6-8.5) % Eos % (Auto) 0.1 (0-4.4) % Baso % (Auto) 0.2 (0.2-1.2) % Lymph # (Auto) 0.63 L (0.9-3.2) K/mm3 [place] # (Auto) 1.1 H (0.1-0.6) K/mm3 Eos # (Auto) 0.0 (0-0.3) K/mm3 Baso # (Auto) 0.0 (0.0-0.1) K/mm3 Abs Immat Gran (auto) 0.06 H (0.00-0.031) K/mm3 Absolute Neuts (auto) 12.3 H (1.3-6.7) K/mm3 Absolute Nucleated RBC 0.000 (0.0-0.012) K/mm3 Band Neutrophils % Not Reportable Nucleated RBC % 0.0 (0.0-0.2) % Platelet Estimate Adequate (Adequate) Hypochromasia 1+ Schistocytes None seen PT 16.8 H (11.1-14.7) Seconds INR 1.3 APTT 35.5 (22.3-36.8) Seconds Sodium 136 L (137-145) mmol/L Potassium 3.8 (3.4-5.0) mmol/L Chloride 97 L (98-107) mmol/L Carbon Dioxide 34 H (22-30) mmol/L Anion Gap 5 (4-12) mmol/L BUN 20 H (7-17) mg/dL Creatinine 0.79 (0.7-1.0) mg/dL Estim Creat Clear Calc 53 ml/min Estimated GFR > 60 (59 - ) Glucose 256 H (65-110) mg/dL Calcium 8.7 (8.4-10.2) mg/dL Total Bilirubin 0.5 (0.2-1.3) mg/dL AST 18 (14-36) U/L ALT 14 (6-35) U/L Alkaline Phosphatase 121 (38-126) U/L Troponin I < 0.012 (0.000-0.034) ng/mL NT-Pro-B Natriuret Pep 687 H (19.9-100) pg/mL Total Protein 7.0 (6.3-8.2) g/dL Albumin 3.6 (3.5-5.1) g/dL ABG Data ABG results: 07/28/24 19:39 Puncture Site Right radial ABG pH 7.256 L* ABG pCO2 75.0 H* ABG pO2 94.2 ABG PO2/FiO2 Ratio 3.36 ABG HCO3 32.6 H ABG O2 Saturation 95.8 ABG O2 Content 16.9 ABG Base Excess 3.4 A-a Gradient 16.9 Oxyhemoglobin 94.6 Total Hemoglobin 12.6 O2 Delivery Device Nasal cannula O2 Liters/Min 2.0 FiO2 28 Discharge Plan Discharge Clinical Impression: Respiratory failure, CHF (congestive heart failure), Pneumonia, CO2 narcosis Patient Disposition: Still a Patient Condition: Critical Patient Language: [place] Prescriptions: No Action potassium chloride 20 mEq tablet extended release 20 meq PO DAILY Qty: 30 0RF atorvastatin 20 mg tablet 20 mg PO DAILY spironolactone 50 mg tablet 50 mg PO DAILY furosemide [Lasix] 20 mg tablet 40 mg PO DAILY diltiazem HCl 300 mg Capsule,Extended Release 24hr 300 mg PO QAM Qty: 30 0RF metoprolol tartrate 25 mg tablet 12.5 mg PO BID Qty: 30 0RF ergocalciferol (vitamin D2) [Vitamin D2] 1,250 mcg (50,000 unit) capsule acetaminophen [Acetaminophen Pain Relief] 500 mg Tablet 500 mg PO Q6H PRN (Reason: Pain) donepezil [Aricept] 10 mg Tablet 10 mg PO HS omeprazole 20 mg Capsule,Delayed Release(Dr/Ec) 20 mg PO DAILY metformin [Riomet] 500 mg/5 mL Solution 850 mg PO BID insulin glargine [Lantus Solostar U-100 Insulin] 100 unit/mL (3 mL) Insulin Pen 30 unit SUBCUT HS levothyroxine 50 mcg Capsule 50 mcg PO DAILY Anoro Ellipta 62.5-25 mcg/actuation Blister With Device 1 inh INHALATION DAILY ipratropium-albuterol 0.5 mg-3 mg(2.5 mg base)/3 mL Solution For Nebulization 3 ml INHALATION Q6H PRN (Reason: COPD) ferrous sulfate 300 mg (60 mg iron)/5 mL Liquid 325 mg PO DAILY albuterol sulfate [Ventolin HFA] 90 mcg/actuation Hfa Aerosol Inhaler 2 puff INHALATION Q6H PRN (Reason: COPD) budesonide-formoterol [Symbicort] 160-4.5 mcg/actuation Hfa Aerosol Inhaler 2 puff INHALATION Q12H mecobalamin (vitamin B12) 1,000 mcg Tablet,Chewable 1,000 mcg PO DAILY Eliquis 5 mg Tablet 5 mg PO Q12HR Qty: 60 0RF Follow-up/Referrals: Shimon,Sean Rendon DO [Primary Care Provider] -
[2024-07-28 21:10] LABS: pH ABG 7.256 (7.350-7.450)
[2024-07-28] MEDS: DOXYCYCLINE 100 MG/NS 100 ML 100 MG/100 ML BAG IVPB (21:41)
[2024-07-28] MEDS: FUROSEMIDE INJ 40 MG/4 ML VIAL IV PUSH (22:23)
[2024-07-28] MEDS: CEFEPIME 2 GM/NS 50 ML 2 GM/50 ML BAG IVPB (22:24)
[2024-07-28 23:03] LABS: Influenza A QL RT-PCR Negative (Negative); Influenza B QL RT-PCR Negative (Negative); RSV RNA, RT-PCR Negative (Negative); SARS-CoV-2 RNA PCR Negative (Negative)
[2024-07-28] MEDS: VANCOMYCIN 1,250 MG/NS 250 ML 1,250 MG/250 ML BAG 166.67 MG IVPB (23:11)
[2024-07-28 23:37] LABS: MRSA (PCR) NOT DETECTED (NOT DETECTE)
[2024-07-29] VITALS (30 sets, daily range): BP systolic 128–153; BP diastolic 52–61; PULSE 72–95; RESP 18–92; TEMP 36.5–36.9; O2SAT 86–100; BMI 33.1
[2024-07-29] MEDS: VANCOMYCIN 1,000 MG/NS 250 ML 1,000 MG/250 ML BAG 250 MG IVPB (01:31)
--- NOTE | 2024-07-29 01:37 | ADMGEN ---
This patient, Ana Neely, was admitted to IMU Room 206-02at [id number]. Patient/family oriented to hospital policies and general routines including ID bracelet, bed and alarms, visiting hours, pain management, procedures, bathroom and other care routines, personal items, smoking policy, room service/diet, and visiting hours. Information on how to activate the Rapid Response Team has been discussed. Patient/Family are encouraged to report perceived risks to care and to ask questions if they do not understand what they are told or what they should do.
--- NOTE | 2024-07-29 03:42 | PM.IMHP ---
H&P: HPI History of Present Illness Date/Time: 07/29/24 03:42 Chief Complaint: Shortness of breath Narrative: 79-year-old female with past medical history diastolic CHF, atrial fibrillation on Eliquis, COPD, prior tobacco abuse, dementia, anemia, hypothyroidism, arthritis, insulin-dependent diabetes mellitus who presents with shortness of breath and somnolence. EN route EMS placed the patient on 6 L as she was saturating 70% on room air. ER evaluation demonstrated white count of 14.2, hemoglobin 11.9, INR 1.3, pH 7.256 with pCO2 75, bicarb 32.6, BNP 687, troponin 0.012, quad viral screen negative. Chest x-ray demonstrated cardiomegaly and pulmonary edema. Possible pneumonitis, atelectasis and pneumonia. An attempt at BiPAP was made but she cannot tolerate and was pulling the mask off. In light of the aforementioned in the patient's altered mental status family was contacted and they confirmed the patient will be DNR, only medical therapy to be administered. High-flow nasal cannula at 40 L and 30% FiO2 was placed. The patient was resting comfortably thereafter. She was given breathing treatments, cefepime, doxycycline, vancomycin, magnesium 2 g rider. Review of Systems Review of Systems: All systems reviewed & are unremarkable except as noted in HPI and below (HPI) PMFSH Past Medical History Medical History CHF exacerbation Atrial fibrillation COPD (chronic obstructive pulmonary disease) Arthritis Former smoker 50 pack-year smoking history. Dementia Anemia Hypothyroidism Diabetic peripheral neuropathy Insulin dependent type 2 diabetes mellitus Grade II diastolic dysfunction Noted on echocardiogram in December 2018. Ejection fraction was 60 to 65%. Surgical History Surgical History History of dilation and curettage History of cataract extraction Family History Family History Father Cerebrovascular accident Grandparent Cerebrovascular accident Family history of heart disease in male family member before age 55 Mother Family history of heart disease in male family member before age 55 Heart disease of a heart attack Heart attack Social History Social History Social History: She is a resident at [facility] in [place]. Former smoker, up to a pack of cigarettes a day for 50 years, and quit in 2009. She stopped drinking alcohol in 2007. No illicit substance use. Three children. Her son Kwesi Neely is her healthcare power of compliance attorney. She wishes to be a do not resuscitate but son reports that she has an advance directive stating that she wishes to be a full code. 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 Smoking packs per day: 1 Smoking cigarettes per day: 20.0 Years smoked: 50 Smoking pack-years: 50.00 Smoking status: Former smoker Tobacco type: cigarettes Alcohol intake: former Substance use: never Substance use type: does not use Do You Feel Safe in your Home?: Yes Lack of Transportation: No Lack of Food: Never True Current Housing: I Have Housing Concerned About Future Housing: No Difficulty Paying Gas/Electric Bills: No Difficulty Paying for Meds: No Currently Unemployed: No Education: Trade/Vocational Certificate Difficulty w/ Childcare or Family Care: No Gender identity (if verbalized by the patient): Female Spiritual care concerns: No Meds Home Medications and Allergies Home Medications ?Medication ?Instructions ?Recorded ?Confirmed ?Type donepezil 10 mg tablet (Aricept) 10 mg PO HS 03/24/20 07/29/24 History insulin glargine 100 unit/mL (3 35 unit subcut HS 03/24/20 07/29/24 History mL) subcutaneous pen (Lantus Solostar U-100 Insulin) omeprazole 20 mg capsule,delayed 20 mg PO DAILY 03/24/20 07/29/24 History release umeclidinium 62.5 mcg-vilanterol 1 inh inhalation DAILY 03/24/20 07/29/24 History 25 mcg/actuation powdr for inhalation (Anoro Ellipta) albuterol sulfate 90 mcg/actuation 2 puff inhalation Q6H PRN COPD 03/25/20 07/29/24 History aerosol inhaler (Ventolin HFA) budesonide-formoterol HFA 160 2 puff inhalation Q12H 03/25/20 07/29/24 History mcg-4.5 mcg/actuation aerosol inhaler (Symbicort) ferrous sulfate 300 mg (60 mg 325 mg PO DAILY 03/25/20 07/29/24 History iron)/5 mL oral liquid ipratropium 0.5 mg-albuterol 3 mg 3 ml inhalation Q6H PRN COPD 03/25/20 07/29/24 History (2.5 mg base)/3 mL nebulization soln mecobalamin (vitamin B12) 1,000 1,000 mcg PO DAILY 03/25/20 07/29/24 History mcg chewable tablet apixaban 5 mg tablet (Eliquis) 5 mg PO Q12HR #60 tabs 03/27/20 07/29/24 Rx atorvastatin 20 mg tablet 20 mg PO DAILY 12/04/21 07/29/24 History furosemide 20 mg tablet (Lasix) 40 mg PO DAILY 12/04/21 07/29/24 History spironolactone 50 mg tablet 50 mg PO DAILY 12/04/21 07/29/24 History diltiazem HCl 300 mg 300 mg PO QAM #30 caps 12/09/21 07/29/24 Rx capsule,extended release 24 hr metoprolol tartrate 25 mg tablet 12.5 mg (1/2 x 25 mg) PO BID #30 12/09/21 07/29/24 Rx tabs acetaminophen 500 mg tablet 500 mg PO Q6H PRN Pain 03/20/22 07/29/24 History (Acetaminophen Pain Relief) Lactobacillus acidophilus 1 1,000 mmu cells PO DAILY 07/29/24 07/29/24 History billion cell capsule cholecalciferol (vitamin D3) 1,250 50,000 unit PO WEEKLY 07/29/24 07/29/24 History mcg (50,000 unit) capsule levothyroxine 75 mcg tablet 75 mcg PO DAILY 07/29/24 07/29/24 History medroxyprogesterone 2.5 mg tablet 2.5 mg PO DAILY 07/29/24 07/29/24 History potassium chloride 20 mEq/15 mL 20 meq PO DAILY 07/29/24 07/29/24 History oral liquid Allergies Allergy/AdvReac Type Severity Reaction Status Date / Time No Known Allergies Allergy Unknown Verified 07/28/24 18:26 Vital Signs Vital Signs - 24 hr 07/28/24 17:50 07/28/24 17:50 07/28/24 18:01 Temperature 98.2 F Pulse Rate 78 82 Respiratory Rate 24 H 20 Blood Pressure 140/66 140/66 Pulse Oximetry 97 97 96 Oxygen Delivery Nasal Cannula Nasal Cannula Oxygen Flow Rate 2 2 Fraction of Inspired Oxygen 07/28/24 18:32 07/28/24 19:30 07/28/24 19:32 Temperature Pulse Rate 78 88 88 Respiratory Rate 24 H 26 H 29 H Blood Pressure 127/55 L 161/66 H Pulse Oximetry 97 97 Oxygen Delivery Oxygen Flow Rate Fraction of Inspired Oxygen 07/28/24 19:45 07/28/24 20:05 07/28/24 20:07 Temperature Pulse Rate 90 85 84 Respiratory Rate 31 H 22 H 26 H Blood Pressure 156/99 H Pulse Oximetry 100 Oxygen Delivery Oxygen Flow Rate Fraction of Inspired Oxygen 07/28/24 20:15 07/28/24 20:28 07/28/24 20:30 Temperature Pulse Rate 92 86 Respiratory Rate 22 H 21 H Blood Pressure Pulse Oximetry 100 100 99 Oxygen Delivery High Flow Therapy with Na Oxygen Flow Rate 40 Fraction of Inspired Oxygen 30 07/28/24 20:31 07/28/24 20:34 07/28/24 21:10 Temperature Pulse Rate 88 88 91 Respiratory Rate 18 24 H Blood Pressure 137/39 L Pulse Oximetry 98 Oxygen Delivery Oxygen Flow Rate Fraction of Inspired Oxygen 07/28/24 21:25 07/28/24 21:46 07/28/24 22:00 Temperature Pulse Rate 92 101 H 91 Respiratory Rate 22 H 20 23 H Blood Pressure 147/110 H Pulse Oximetry 95 92 Oxygen Delivery Oxygen Flow Rate Fraction of Inspired Oxygen 07/28/24 22:21 07/28/24 22:31 07/28/24 22:45 Temperature Pulse Rate 90 91 93 Respiratory Rate 21 H 23 H 29 H Blood Pressure 134/63 Pulse Oximetry 92 93 90 Oxygen Delivery Oxygen Flow Rate Fraction of Inspired Oxygen 07/28/24 22:46 07/29/24 00:38 07/29/24 00:42 Temperature 98.1 F Pulse Rate 93 95 77 Respiratory Rate 25 H 24 H Blood Pressure 139/62 153/56 H Pulse Oximetry 90 99 Oxygen Delivery Oxygen Flow Rate Fraction of Inspired Oxygen 07/29/24 00:45 07/29/24 02:00 07/29/24 02:20 Temperature Pulse Rate 91 Respiratory Rate 92 H Blood Pressure Pulse Oximetry 100 99 Oxygen Delivery High Flow Therapy with Na High Flow Therapy with Na Oxygen Flow Rate 40 40 Fraction of Inspired Oxygen 30 30 07/29/24 03:00 Temperature Pulse Rate Respiratory Rate Blood Pressure Pulse Oximetry 86 L Oxygen Delivery High Flow Therapy with Na Oxygen Flow Rate 40 Fraction of Inspired Oxygen 30 Exam Const: General: comfortable Other: Disoriented HENMT: Mouth: Yes moist mucous membranes Eyes: Pupils: Equal, round and reactive pupils present Resp: Effort & Inspection: normal respiratory effort Auscultation: crackles and wheezes Cardio: Rate: regular rate Rhythm: abnormal rhythm GI: GI Palp: Yes Soft to palpation and No Tenderness to palpation present (GI) Extrem: General: edema (Minimal) H&P: Results Labs Labs: Short CBC 07/28/24 Range/Units 18:49 WBC 14.2 H (4.5-10.0) K/mm3 Hgb 11.9 L (12.0-15.0) g/dL Hct 40.5 (37.0-47.0) % Plt Count 237 (150-375) k/mm3 BMP 07/28/24 18:49 Sodium 136 L Potassium 3.8 Chloride 97 L Carbon Dioxide 34 H BUN 20 H Creatinine 0.79 Glucose 256 H Calcium 8.7 Cardiac Enzymes 07/28/24 Range/Units 18:49 Troponin I < 0.012 (0.000-0.034) ng/mL Liver Function 07/28/24 Range/Units 18:49 Total Bilirubin 0.5 (0.2-1.3) mg/dL AST 18 (14-36) U/L ALT 14 (6-35) U/L Alkaline Phosphatase 121 (38-126) U/L Albumin 3.6 (3.5-5.1) g/dL Assessment and Plan Assessment and plan (1) CO2 narcosis: Code(s): R06.89 - Other abnormalities of breathing Status: Acute (2) Pneumonia: Code(s): J18.9 - Pneumonia, unspecified organism Status: Acute (3) Acute respiratory failure with hypoxia: Code(s): J96.01 - Acute respiratory failure with hypoxia Status: Acute Plan As mentioned above, patient is DNR, could not tolerate BiPAP. Stable with high-flow nasal cannula 40 L and 30% FiO2. Check CT head. Multiple issues could be contributing to the patient's respiratory distress. However, treating hypercapnia is primary goal. Selina scheduled, Solu-Medrol. Check ABG again in the morning. Patient was also given Lasix in ER. Continue daily weights and intake/output. Reassess need for further diuresis shortly. Placed in IMU. Continue telemetry. Restart [employer] Eliquis. Continue antibiotics for now. Trend leukocytosis. Accu-Cheks a.c. HS with LD ISS. DNR. Hospitalist [facility] Advance Care Plan I have confirmed that the patient's Advanced Care Plan is present, code status is documented, or surrogate decision maker is listed in patient medical record.: Yes Medication Reconciliation I have utilized all available resources to obtain, update and review the patients current medications (includes all prescriptions, OTC, herbals, cannabis, and nutritional supplements).: Yes
[2024-07-29 04:23] LABS: Basophils Percent Auto 0.2 % (0.2-1.2); Eosinophils Absolute Auto 0.1 K/mm3 (0-0.3); Eosinophils Percent Auto 0.6 % (0-4.4); Hemoglobin 11.6 g/dL (12.0-15.0); Immature Granulocyte Absolute 0.06 K/mm3 (0.00-0.031); Immature Granulocyte Percent A 0.5 % (0-0.5); Lymphocytes Absolute Auto 0.34 K/mm3 (0.9-3.2); Lymphocytes Percent Auto 2.6 % (18.3-44.2); Mean Corpuscular Hemoglobin 28.4 pg (26-34); Mean Corpuscular Volume 97.8 fl (80-100); Mean Platelet Volume 10.6 fl (7.4-10.4); Monocytes Absolute Auto 1.4 K/mm3 (0.1-0.6); Monocytes Percent Auto 10.3 % (2.6-8.5); Neutrophils Absolute Auto 11.3 K/mm3 (1.3-6.7); Neutrophils Percent Auto 85.8 % (45.5-73.1); Platelet Count Result 233 k/mm3 (150-375); Red Blood Count 4.09 M/mm3 (4.2-5.4); Red Cell Distribution Width 14.3 % (11.5-14.5); White Blood Count 13.2 K/mm3 (4.5-10.0)
[2024-07-29 04:36] LABS: Alanine Aminotransferase 16 U/L (6-35); Albumin Level 3.5 g/dL (3.5-5.1); Alkaline Phosphatase 116 U/L (38-126); Anion Gap 10 mmol/L (4-12); Aspartate Amino Transferase 17 U/L (14-36); Bilirubin,Total 0.4 mg/dL (0.2-1.3); Blood Urea Nitrogen 18 mg/dL (7-17); Calcium 8.4 mg/dL (8.4-10.2); Carbon Dioxide 30 mmol/L (22-30); Chloride 97 mmol/L (98-107); Estimated CRCL calculation 54 ml/min; Estimated Glomerular Filt Rate > 60; Glucose 306 mg/dL (65-110); Magnesium 2.1 mg/dL (1.6-2.3); Potassium 3.3 mmol/L (3.4-5.0); Sodium 137 mmol/L (137-145)
[2024-07-29] MEDS: methylPREDNISolone SOD SUCC 125 MG VIAL 60 MG IV PUSH ×3 (05:57→18:13)
[2024-07-29] MEDS: IPRATROPIUM 0.5 MG/ALBUTEROL SULFATE 2.5 MG AMPUL.NEB 3 ML INHALATION ×3 (07:36→20:17)
[2024-07-29 07:59] LABS: Glucose Point of Care 290 mg/dl (65-105)
[2024-07-29 08:12] LABS: Alveolar/Arterial O2 Gradient 164.9 mmHg; Base Excess ABG 0.7 mEq/l (+/-2.0); Carboxyhemoglobin 1.2 % THb (0-2.0); Fractional Inspired Oxygen 45 %; HCO3 ABG 27.4 mEq/l (22.0-26.0); Methemoglobin ABG 0.3 %THb (0-1.5); Oxygen Content ABG 16.3 %vol (16.0-22.0); Oxygen Saturation ABG 96.7 % (95.0-100.0); Oxyhemoglobin 95.9 % THb (90.0-100.0); PCO2 ABG 53.6 mmHg (35.0-45.0); PO2 FiO2 Ratio Arterial Blood 2.11 %; Reduced Hemoglobin 2.6 %THb (0-5.0); pH ABG 7.327 (7.350-7.450)
[2024-07-29 08:14] LABS: Device HIGH FLOW THERAPY; Modified Allen's Test Pass; Site Drawn LEFT RADIAL
[2024-07-29 08:15] LABS: Liters per Minute 6.5 LPM
[2024-07-29] MEDS: INSULIN ASPART (*BKC) 100 UNITS/ML SUB-Q ×4 (11:15→20:14)
[2024-07-29] MEDS: APIXABAN 5 MG TABLET PO ×2 (11:22→20:10)
[2024-07-29] MEDS: DOXYCYCLINE 100 MG/NS 100 ML 100 MG/100 ML BAG IVPB ×2 (11:23→21:38)
[2024-07-29] MEDS: CEFEPIME 2 GM/NS 50 ML 2 GM/50 ML BAG IVPB ×2 (11:32→21:01)
[2024-07-29 12:28] LABS: Glucose Point of Care 351 mg/dl (65-105)
--- NOTE | 2024-07-29 12:41 | PM.IMPN ---
Progress Note: A&P Assessment and Plan (1) CO2 narcosis: Code(s): R06.89 - Other abnormalities of breathing Status: Acute (2) Pneumonia: Code(s): J18.9 - Pneumonia, unspecified organism Status: Acute (3) Acute respiratory failure with hypoxia: Code(s): J96.01 - Acute respiratory failure with hypoxia Status: Acute Plan 79-year-old female with past medical history diastolic CHF, atrial fibrillation on Eliquis, COPD, prior tobacco abuse, dementia, anemia, hypothyroidism, arthritis, insulin-dependent diabetes mellitus who presents with shortness of breath and somnolence. EN route EMS placed the patient on 6 L as she was saturating 70% on room air. ER evaluation demonstrated white count of 14.2, hemoglobin 11.9, INR 1.3, pH 7.256 with pCO2 75, bicarb 32.6, BNP 687, troponin 0.012, quad viral screen negative. Chest x-ray demonstrated cardiomegaly and pulmonary edema. Possible pneumonitis, atelectasis and pneumonia. An attempt at BiPAP was made but she cannot tolerate and was pulling the mask off. In light of the aforementioned in the patient's altered mental status family was contacted and they confirmed the patient will be DNR, only medical therapy to be administered. High-flow nasal cannula at 40 L and 30% FiO2 was placed. The patient was resting comfortably thereafter. She was given breathing treatments, cefepime, doxycycline, vancomycin, magnesium 2 g rider. Acute hypoxic hypercapnic respiratory failure suspected related to CHF/COPD exacerbation ABG has improved overnight. COPD exacerbation CHF exacerbation continue diuresis with IV Lasix Will also rule out PE with CTA chest. MRSA near came back negative. Will stop vancomycin Chronic diastolic CHF Atrial fibrillation on chronic anticoagulation with Eliquis Dementia Chronic anemia Hypothyroidism Insulin-dependent diabetes mellitus DVT prophylaxis on Eliquis Code status do not resuscitate Subjective Date/time seen: 07/29/24 12:41 Interval history: No Overnight events. Did not tolerate BiPAP. Denies any shortness of breath. Remains on high-flow oxygen via Airvo. Family at bedside and discussed with them. Review of Systems Review of Systems: All systems reviewed & are unremarkable except as noted in HPI and below (HPI) Exam Narrative: APPEARANCE: patient is awake and alert oriented to place and person. Head: atraumatic. Normocephalic EYES: EOMI, NOSE: Atraumatic NECK: Trachea midline RESPIRATORY: Diminished breath sounds bilaterally no wheezes or rhonchi no respiratory distress CARDIOVASCULAR: RRR, no peripheral edema ABDOMINAL: Non-distended MUSCULOSKELETAl: No obvious deformities NEURO: Alert. Moving 4/4 extremities SKIN:: Warm, dry. Normal color PSYCHIATRIC: Calm and cooperative Objective Data Vital Signs Vital Signs: Vital Signs - 24 hr 07/28/24 17:50 07/28/24 17:50 07/28/24 18:01 Temperature 98.2 F Pulse Rate 78 82 Respiratory Rate 24 H 20 Blood Pressure 140/66 140/66 Pulse Oximetry 97 97 96 Oxygen Delivery Nasal Cannula Nasal Cannula Oxygen Flow Rate 2 2 Fraction of Inspired Oxygen 07/28/24 18:32 07/28/24 19:30 07/28/24 19:32 Temperature Pulse Rate 78 88 88 Respiratory Rate 24 H 26 H 29 H Blood Pressure 127/55 L 161/66 H Pulse Oximetry 97 97 Oxygen Delivery Oxygen Flow Rate Fraction of Inspired Oxygen 07/28/24 19:45 07/28/24 20:05 07/28/24 20:07 Temperature Pulse Rate 90 85 84 Respiratory Rate 31 H 22 H 26 H Blood Pressure 156/99 H Pulse Oximetry 100 Oxygen Delivery Oxygen Flow Rate Fraction of Inspired Oxygen 07/28/24 20:15 07/28/24 20:28 07/28/24 20:30 Temperature Pulse Rate 92 86 Respiratory Rate 22 H 21 H Blood Pressure Pulse Oximetry 100 100 99 Oxygen Delivery High Flow Therapy with Na Oxygen Flow Rate 40 Fraction of Inspired Oxygen 30 07/28/24 20:31 07/28/24 20:34 07/28/24 21:10 Temperature Pulse Rate 88 88 91 Respiratory Rate 18 24 H Blood Pressure 137/39 L Pulse Oximetry 98 Oxygen Delivery Oxygen Flow Rate Fraction of Inspired Oxygen 07/28/24 21:25 07/28/24 21:46 07/28/24 22:00 Temperature Pulse Rate 92 101 H 91 Respiratory Rate 22 H 20 23 H Blood Pressure 147/110 H Pulse Oximetry 95 92 Oxygen Delivery Oxygen Flow Rate Fraction of Inspired Oxygen 07/28/24 22:21 07/28/24 22:31 07/28/24 22:45 Temperature Pulse Rate 90 91 93 Respiratory Rate 21 H 23 H 29 H Blood Pressure 134/63 Pulse Oximetry 92 93 90 Oxygen Delivery Oxygen Flow Rate Fraction of Inspired Oxygen 07/28/24 22:46 07/29/24 00:38 07/29/24 00:42 Temperature 98.1 F Pulse Rate 93 95 77 Respiratory Rate 25 H 24 H Blood Pressure 139/62 153/56 H Pulse Oximetry 90 99 Oxygen Delivery Oxygen Flow Rate Fraction of Inspired Oxygen 07/29/24 00:45 07/29/24 02:00 07/29/24 02:20 Temperature Pulse Rate 91 Respiratory Rate 92 H Blood Pressure Pulse Oximetry 100 99 Oxygen Delivery High Flow Therapy with Na High Flow Therapy with Na Oxygen Flow Rate 40 40 Fraction of Inspired Oxygen 30 30 07/29/24 03:00 07/29/24 03:15 07/29/24 04:00 Temperature Pulse Rate Respiratory Rate Blood Pressure Pulse Oximetry 86 L 87 L 93 Oxygen Delivery High Flow Therapy with Na High Flow Therapy with Na Oxygen Flow Rate 40 40 30 Fraction of Inspired Oxygen 30 45 45 07/29/24 04:00 07/29/24 04:00 07/29/24 04:45 Temperature 98.4 F Pulse Rate 89 89 Respiratory Rate 18 Blood Pressure 147/55 H Pulse Oximetry 94 87 L Oxygen Delivery High Flow Therapy with Na Oxygen Flow Rate 40 Fraction of Inspired Oxygen 35 07/29/24 06:00 07/29/24 07:41 07/29/24 07:50 Temperature Pulse Rate 85 84 83 Respiratory Rate 20 18 Blood Pressure Pulse Oximetry Oxygen Delivery Oxygen Flow Rate Fraction of Inspired Oxygen 07/29/24 07:57 07/29/24 08:00 07/29/24 12:00 Temperature 98.1 F 98.1 F Pulse Rate 83 80 Respiratory Rate 22 H 18 Blood Pressure 129/52 L 128/54 L Pulse Oximetry 97 93 96 Oxygen Delivery High Flow Therapy with Na Oxygen Flow Rate 30 Fraction of Inspired Oxygen 45 Intake/Output Intake/Output: Intake & Output 07/26/24 07/27/24 07/28/24 07/29/24 23:59 23:59 23:59 23:59 Intake Total 250 200 Output Total 720 Balance 250 -520 Meds/Results Medications: Active Medications Generic Name Dose Route Start Last Admin Trade Name Freq PRN Reason Stop Dose Admin Albuterol/Ipratropium 3 ml 07/29/24 08:00 07/29/24 07:36 Ipratropium 0.5 Mg/Albuterol Sulfate 2.5 Mg Ampul.Neb 3 Ml INHALATION 3 ml Q6HRT DIAZ Administration Apixaban 5 mg 07/29/24 09:00 07/29/24 11:22 Apixaban 5 Mg Tablet PO 5 mg Q12HR DIAZ Administration Dextrose 12.5 gm 07/29/24 03:41 Dextrose 50% 25 Gm/50 Ml Syringe IV PUSH PRN PRN Hypoglycemia Protocol Glucose 15 gm 07/29/24 03:41 Glucose Oral Gel 15 Gm Of Glucse In 37.5 Gm Tube PO PRN PRN Hypoglycemia Protocol Doxycycline Hyclate 100 mg in 100 mls @ 100 mls/hr 07/29/24 10:00 07/29/24 11:23 Vibramycin 100 Mg/Ns 100 Ml IVPB 100 mls/hr Q12H DIAZ Administration Cefepime HCl 2 gm in 50 mls @ 100 mls/hr 07/29/24 10:00 07/29/24 11:32 Maxipime 2 Gm/Ns 50 Ml IVPB 100 mls/hr Q12H DIAZ Administration Dextrose 1,000 mls @ 100 mls/hr 07/29/24 03:41 Dextrose 5% 1,000 Ml IVPB PRN PRN Hypoglycemia Protocol Insulin Aspart 2 - 5 units 07/29/24 08:00 07/29/24 11:42 Insulin Aspart (*Bkc) 100 Units/Ml SUB-Q 4 units TIDWM DIAZ Administration Protocol Insulin Aspart 1 - 2 units 07/29/24 21:00 Insulin Aspart (*Bkc) 100 Units/Ml SUB-Q HS DIAZ Protocol Methylprednisolone Sodium Succinate 60 mg 07/29/24 06:00 07/29/24 11:43 Methylprednisolone Sod Succ 125 Mg Vial IV PUSH 60 mg Q6HR DIAZ Administration Radiology Results: ITS Impressions Chest X-Ray 07/28/24 19:52 IMPRESSION: Cardiomegaly with cardiac decompensation and pulmonary edema. Superimposed pneumonitis is highly suggestive. Left basilar atelectasis versus pneumonia with minimal right basilar atelectasis versus pneumonia Labs Labs: Laboratory Results - last 24 hr 07/28/24 07/28/24 07/28/24 18:49 19:39 22:21 WBC 14.2 H RBC 4.19 L Hgb 11.9 L Hct 40.5 MCV 96.7 MCH 28.4 MCHC 29.4 L RDW 14.3 Plt Count 237 MPV 10.6 H Immature Gran % (Auto) 0.4 Neut % (Auto) 87.1 H Lymph % (Auto) 4.4 L Stephens % (Auto) 7.8 Eos % (Auto) 0.1 Baso % (Auto) 0.2 Lymph # (Auto) 0.63 L Stephens # (Auto) 1.1 H Eos # (Auto) 0.0 Baso # (Auto) 0.0 Abs Immat Gran (auto) 0.06 H Absolute Neuts (auto) 12.3 H Absolute Nucleated RBC 0.000 Band Neutrophils % Not Reportable Nucleated RBC % 0.0 Platelet Estimate Adequate Hypochromasia 1+ Schistocytes None seen PT 16.8 H INR 1.3 APTT 35.5 Puncture Site Right radial ABG pH 7.256 L* ABG pCO2 75.0 H* ABG pO2 94.2 ABG PO2/FiO2 Ratio 3.36 ABG HCO3 32.6 H ABG O2 Saturation 95.8 ABG O2 Content 16.9 ABG Base Excess 3.4 A-a Gradient 16.9 Oxyhemoglobin 94.6 Carboxyhemoglobin Methemoglobin Reduced Hemoglobin Total Hemoglobin 12.6 O2 Delivery Device Nasal cannula O2 Liters/Min 2.0 FiO2 28 Sodium 136 L Potassium 3.8 Chloride 97 L Carbon Dioxide 34 H Anion Gap 5 BUN 20 H Creatinine 0.79 Estim Creat Clear Calc 53 Estimated GFR > 60 Glucose 256 H POC Capillary Glucose Calcium 8.7 Magnesium Total Bilirubin 0.5 AST 18 ALT 14 Alkaline Phosphatase 121 Troponin I < 0.012 NT-Pro-B Natriuret Pep 687 H Total Protein 7.0 Albumin 3.6 Nasal MRSA (PCR) Not detected Influenza A (RT-PCR) Negative Influenza B (RT-PCR) Negative RSV (RT-PCR) Negative SARS-CoV-2 RNA (RT-PCR) Negative 07/29/24 07/29/24 07/29/24 03:44 03:45 07:14 WBC 13.2 H RBC 4.09 L Hgb 11.6 L Hct 40.0 MCV 97.8 MCH 28.4 MCHC 29.0 L RDW 14.3 Plt Count 233 MPV 10.6 H Immature Gran % (Auto) 0.5 Neut % (Auto) 85.8 H Lymph % (Auto) 2.6 L Stephens % (Auto) 10.3 H Eos % (Auto) 0.6 Baso % (Auto) 0.2 Lymph # (Auto) 0.34 L Stephens # (Auto) 1.4 H Eos # (Auto) 0.1 Baso # (Auto) 0.0 Abs Immat Gran (auto) 0.06 H Absolute Neuts (auto) 11.3 H Absolute Nucleated RBC 0.000 Band Neutrophils % Nucleated RBC % 0.0 Platelet Estimate Hypochromasia Schistocytes PT INR APTT Puncture Site Left radial ABG pH 7.327 L ABG pCO2 53.6 H ABG pO2 95.0 ABG PO2/FiO2 Ratio 2.11 ABG HCO3 27.4 H ABG O2 Saturation 96.7 ABG O2 Content 16.3 ABG Base Excess 0.7 A-a Gradient 164.9 Oxyhemoglobin 95.9 Carboxyhemoglobin 1.2 Methemoglobin 0.3 Reduced Hemoglobin 2.6 Total Hemoglobin 12.0 O2 Delivery Device High flow therapy O2 Liters/Min 6.5 FiO2 45 Sodium 137 Potassium 3.3 L Chloride 97 L Carbon Dioxide 30 Anion Gap 10 BUN 18 H Creatinine 0.75 Estim Creat Clear Calc 54 Estimated GFR > 60 Glucose 306 H POC Capillary Glucose Calcium 8.4 Magnesium 2.1 Total Bilirubin 0.4 AST 17 ALT 16 Alkaline Phosphatase 116 Troponin I NT-Pro-B Natriuret Pep Total Protein 7.0 Albumin 3.5 Nasal MRSA (PCR) Influenza A (RT-PCR) Influenza B (RT-PCR) RSV (RT-PCR) SARS-CoV-2 RNA (RT-PCR) 07/29/24 07/29/24 07:55 11:39 WBC RBC Hgb Hct MCV MCH MCHC RDW Plt Count MPV Immature Gran % (Auto) Neut % (Auto) Lymph % (Auto) Stephens % (Auto) Eos % (Auto) Baso % (Auto) Lymph # (Auto) Stephens # (Auto) Eos # (Auto) Baso # (Auto) Abs Immat Gran (auto) Absolute Neuts (auto) Absolute Nucleated RBC Band Neutrophils % Nucleated RBC % Platelet Estimate Hypochromasia Schistocytes PT INR APTT Puncture Site ABG pH ABG pCO2 ABG pO2 ABG PO2/FiO2 Ratio ABG HCO3 ABG O2 Saturation ABG O2 Content ABG Base Excess A-a Gradient Oxyhemoglobin Carboxyhemoglobin Methemoglobin Reduced Hemoglobin Total Hemoglobin O2 Delivery Device O2 Liters/Min FiO2 Sodium Potassium Chloride Carbon Dioxide Anion Gap BUN Creatinine Estim Creat Clear Calc Estimated GFR Glucose POC Capillary Glucose 290 H 351 H Calcium Magnesium Total Bilirubin AST ALT Alkaline Phosphatase Troponin I NT-Pro-B Natriuret Pep Total Protein Albumin Nasal MRSA (PCR) Influenza A (RT-PCR) Influenza B (RT-PCR) RSV (RT-PCR) SARS-CoV-2 RNA (RT-PCR)
[2024-07-29] MEDS: POTASSIUM CHLORIDE 20 MEQ ER TABLET 40 MEQ PO (15:56)
[2024-07-29] MEDS: FUROSEMIDE INJ 40 MG/4 ML VIAL IV PUSH ×2 (16:00→20:10)
[2024-07-29 16:17] LABS: Glucose Point of Care 442 mg/dl (65-105)
[2024-07-29] MEDS: INSULIN ASPART (*BKC) 100 UNITS/ML 8 UNITS SUB-Q (18:13)
[2024-07-29] MEDS: METOPROLOL TARTRATE 12.5 MG TABLET PO (20:10)
[2024-07-29] MEDS: DONEPEZIL HCL 10 MG TABLET PO (20:10)
[2024-07-29 20:11] LABS: Glucose Point of Care 385 mg/dl (65-105)
[2024-07-29] MEDS: INSULIN GLARGINE (*BKC) 100 UNITS/ML 35 UNITS SUB-Q (20:13)
--- NOTE | 2024-07-29 23:48 | PC.NURSE ---
Patient is refusing bed alarm at this time. Has been educated to fall risks.
[2024-07-30] VITALS (27 sets, daily range): BP systolic 123–134; BP diastolic 47–98; PULSE 68–89; RESP 18–34; TEMP 36.4–36.6; O2SAT 83–99
[2024-07-30] MEDS: methylPREDNISolone SOD SUCC 125 MG VIAL 60 MG IV PUSH ×5 (00:10→23:50)
[2024-07-30] MEDS: IPRATROPIUM 0.5 MG/ALBUTEROL SULFATE 2.5 MG AMPUL.NEB 3 ML INHALATION ×4 (03:00→20:11)
[2024-07-30 04:34] LABS: Basophils Percent Auto 0.1 % (0.2-1.2); Hematocrit 41.1 % (37.0-47.0); Hemoglobin 11.7 g/dL (12.0-15.0); Immature Granulocyte Absolute 0.04 K/mm3 (0.00-0.031); Immature Granulocyte Percent A 0.4 % (0-0.5); Lymphocytes Absolute Auto 0.29 K/mm3 (0.9-3.2); Lymphocytes Percent Auto 3.1 % (18.3-44.2); Mean Corpuscular HGB Conc 28.5 g/dl (32-36); Mean Corpuscular Hemoglobin 28.3 pg (26-34); Mean Corpuscular Volume 99.3 fl (80-100); Mean Platelet Volume 10.2 fl (7.4-10.4); Monocytes Absolute Auto 0.3 K/mm3 (0.1-0.6); Monocytes Percent Auto 2.7 % (2.6-8.5); Neutrophils Absolute Auto 8.9 K/mm3 (1.3-6.7); Neutrophils Percent Auto 93.7 % (45.5-73.1); Platelet Count Result 254 k/mm3 (150-375); Red Blood Count 4.14 M/mm3 (4.2-5.4); White Blood Count 9.5 K/mm3 (4.5-10.0)
[2024-07-30 04:51] LABS: Alanine Aminotransferase 15 U/L (6-35); Albumin Level 3.5 g/dL (3.5-5.1); Alkaline Phosphatase 118 U/L (38-126); Anion Gap 6 mmol/L (4-12); Aspartate Amino Transferase 17 U/L (14-36); Bilirubin,Total 0.2 mg/dL (0.2-1.3); Blood Urea Nitrogen 27 mg/dL (7-17); Calcium 8.7 mg/dL (8.4-10.2); Carbon Dioxide 37 mmol/L (22-30); Chloride 97 mmol/L (98-107); Estimated CRCL calculation 50 ml/min; Estimated Glomerular Filt Rate > 60; Glucose 307 mg/dL (65-110); Magnesium 2.2 mg/dL (1.6-2.3); Potassium 4.1 mmol/L (3.4-5.0); Sodium 140 mmol/L (137-145)
[2024-07-30] MEDS: LEVOTHYROXINE SODIUM 75 MCG TABLET PO (06:18)
[2024-07-30 07:23] LABS: Glucose Point of Care 296 mg/dl (65-105)
[2024-07-30 09:14] LABS: Alveolar/Arterial O2 Gradient 200.1 mmHg; Base Excess ABG 5.9 mEq/l (+/-2.0); Fractional Inspired Oxygen 50 %; HCO3 ABG 35.3 mEq/l (22.0-26.0); Oxygen Content ABG 16.5 %vol (16.0-22.0); Oxygen Saturation ABG 89.8 % (95.0-100.0); Oxyhemoglobin 92.1 % THb (90.0-100.0); PO2 ABG 67.4 mmHg (80.0-100.0); PO2 FiO2 Ratio Arterial Blood 1.35 %; Total Hemoglobin 12.7 g/dL (12.0-18.0)
[2024-07-30 09:19] LABS: Modified Allen's Test Pass; PCO2 ABG 79.1 mmHg (35.0-45.0); Site Drawn RIGHT RADIAL; pH ABG 7.268 (7.350-7.450)
[2024-07-30 09:21] LABS: Device HIGH FLOW NASAL CANN
--- NOTE | 2024-07-30 09:22 | PM.IMPN ---
Progress Note: A&P Assessment and Plan (1) CO2 narcosis: Code(s): R06.89 - Other abnormalities of breathing Status: Acute (2) Pneumonia: Code(s): J18.9 - Pneumonia, unspecified organism Status: Acute (3) Acute respiratory failure with hypoxia: Code(s): J96.01 - Acute respiratory failure with hypoxia Status: Acute Plan 79-year-old female with past medical history diastolic CHF, atrial fibrillation on Eliquis, COPD, prior tobacco abuse, dementia, anemia, hypothyroidism, arthritis, insulin-dependent diabetes mellitus who presents with shortness of breath and somnolence. EN route EMS placed the patient on 6 L as she was saturating 70% on room air. ER evaluation demonstrated white count of 14.2, hemoglobin 11.9, INR 1.3, pH 7.256 with pCO2 75, bicarb 32.6, BNP 687, troponin 0.012, quad viral screen negative. Chest x-ray demonstrated cardiomegaly and pulmonary edema. Possible pneumonitis, atelectasis and pneumonia. An attempt at BiPAP was made but she cannot tolerate and was pulling the mask off. In light of the aforementioned in the patient's altered mental status family was contacted and they confirmed the patient will be DNR, only medical therapy to be administered. High-flow nasal cannula at 40 L and 30% FiO2 was placed. The patient was resting comfortably thereafter. She was given breathing treatments, cefepime, doxycycline, vancomycin, magnesium 2 g rider. Acute hypoxic hypercapnic respiratory failure suspected related to CHF/COPD exacerbation ABG has improved overnight. Recheck ABG again. Hypercapnia has improved will switch Vapotherm to nasal cannula COPD exacerbation continue steroid CHF exacerbation continue diuresis with IV Lasix CTA chest reviewed. Negative for PE. Has evidence of pulmonary edema. MRSA nares came back negative. Stop vancomycin Acute on Chronic diastolic CHF Atrial fibrillation on chronic anticoagulation with Eliquis Dementia Chronic anemia Hypothyroidism Insulin-dependent diabetes mellitus DVT prophylaxis on Eliquis Code status do not resuscitate Subjective Date/time seen: 07/30/24 09:22 Interval history: No Overnight events. Remains on Vapotherm. Wants to go home. Feels better. Denies any shortness of breath. No chest pain. Minimal cough. Review of Systems Review of Systems: All systems reviewed & are unremarkable except as noted in HPI and below (HPI) Exam Narrative: APPEARANCE: patient is awake and alert oriented to place and person. Head: atraumatic. Normocephalic EYES: EOMI, NOSE: Atraumatic NECK: Trachea midline RESPIRATORY: Diminished breath sounds bilaterally mild wheezes or rhonchi no respiratory distress CARDIOVASCULAR: RRR, no peripheral edema ABDOMINAL: Non-distended MUSCULOSKELETAl: No obvious deformities NEURO: Alert. Moving 4/4 extremities SKIN:: Warm, dry. Normal color PSYCHIATRIC: Calm and cooperative Objective Data Vital Signs Vital Signs: Vital Signs - 24 hr 07/29/24 10:00 07/29/24 12:00 07/29/24 12:00 Temperature 98.1 F Pulse Rate 88 80 Respiratory Rate 18 Blood Pressure 128/54 L Pulse Oximetry 96 93 Oxygen Delivery High Flow Therapy with Na Oxygen Flow Rate 30 Fraction of Inspired Oxygen 45 07/29/24 12:00 07/29/24 14:00 07/29/24 14:22 Temperature Pulse Rate 84 84 Respiratory Rate Blood Pressure Pulse Oximetry 91 Oxygen Delivery High Flow Therapy with Na Oxygen Flow Rate 40 Fraction of Inspired Oxygen 45 07/29/24 14:22 07/29/24 14:29 07/29/24 16:00 Temperature Pulse Rate 84 85 85 Respiratory Rate 20 20 20 Blood Pressure Pulse Oximetry 91 Oxygen Delivery High Flow Therapy with Na Oxygen Flow Rate 40 Fraction of Inspired Oxygen 45 07/29/24 16:00 07/29/24 16:00 07/29/24 18:00 Temperature 98.2 F Pulse Rate 87 85 82 Respiratory Rate 20 Blood Pressure 140/52 L Pulse Oximetry 94 Oxygen Delivery Oxygen Flow Rate Fraction of Inspired Oxygen 07/29/24 20:00 07/29/24 20:00 07/29/24 20:10 Temperature 98.2 F Pulse Rate 82 83 85 Respiratory Rate 21 H Blood Pressure 140/57 L Pulse Oximetry 91 Oxygen Delivery Oxygen Flow Rate Fraction of Inspired Oxygen 07/29/24 20:31 07/29/24 20:33 07/29/24 20:34 Temperature Pulse Rate 83 Respiratory Rate 20 Blood Pressure Pulse Oximetry 91 92 Oxygen Delivery High Flow Therapy with Na High Flow Therapy with Na Oxygen Flow Rate 40 42 Fraction of Inspired Oxygen 50 50 07/29/24 20:43 07/29/24 21:00 07/29/24 22:00 Temperature Pulse Rate 86 72 Respiratory Rate 20 Blood Pressure Pulse Oximetry 87 L Oxygen Delivery High Flow Therapy with Na Oxygen Flow Rate 40 Fraction of Inspired Oxygen 55 07/29/24 23:50 07/30/24 00:00 07/30/24 00:00 Temperature 97.7 F Pulse Rate 77 71 Respiratory Rate 20 Blood Pressure 137/61 Pulse Oximetry 94 95 Oxygen Delivery High Flow Therapy with Na Oxygen Flow Rate 40 Fraction of Inspired Oxygen 55 07/30/24 02:00 07/30/24 03:02 07/30/24 03:13 Temperature Pulse Rate 70 87 89 Respiratory Rate 18 18 Blood Pressure Pulse Oximetry Oxygen Delivery Oxygen Flow Rate Fraction of Inspired Oxygen 07/30/24 04:00 07/30/24 04:00 07/30/24 04:00 Temperature 97.7 F Pulse Rate 73 76 Respiratory Rate 20 Blood Pressure 134/53 L Pulse Oximetry 93 97 Oxygen Delivery High Flow Therapy with Na Oxygen Flow Rate 40 Fraction of Inspired Oxygen 55 07/30/24 06:00 07/30/24 07:28 07/30/24 07:28 Temperature Pulse Rate 74 77 Respiratory Rate 20 Blood Pressure Pulse Oximetry 98 Oxygen Delivery High Flow Therapy with Na Oxygen Flow Rate 45 Fraction of Inspired Oxygen 55 07/30/24 07:32 07/30/24 07:42 07/30/24 07:42 Temperature 97.6 F Pulse Rate 77 80 Respiratory Rate 18 20 Blood Pressure 131/47 L Pulse Oximetry 98 83 L Oxygen Delivery Room Air Oxygen Flow Rate Fraction of Inspired Oxygen 21 07/30/24 07:44 Temperature Pulse Rate Respiratory Rate Blood Pressure Pulse Oximetry 94 Oxygen Delivery High Flow Therapy with Na Oxygen Flow Rate 40 Fraction of Inspired Oxygen 50 Intake/Output Intake/Output: Intake & Output 07/27/24 07/28/24 07/29/24 07/30/24 23:59 23:59 23:59 23:59 Intake Total 250 700 540 Output Total 1770 1600 Balance 250 1070 -1060 Meds/Results Medications: Active Medications Generic Name Dose Route Start Last Admin Trade Name Freq PRN Reason Stop Dose Admin Albuterol/Ipratropium 3 ml 07/29/24 08:00 07/30/24 07:28 Ipratropium 0.5 Mg/Albuterol Sulfate 2.5 Mg Ampul.Neb 3 Ml INHALATION 3 ml Q6HRT DIAZ Administration Apixaban 5 mg 07/29/24 09:00 07/29/24 20:10 Apixaban 5 Mg Tablet PO 5 mg Q12HR DIAZ Administration Atorvastatin Calcium 20 mg 07/30/24 09:00 Atorvastatin 20 Mg Tablet PO DAILY DIAZ Cyanocobalamin 1,000 mcg 07/30/24 09:00 Cyanocobalamin 1,000 Mcg Tablet PO QAM DIAZ Dextrose 12.5 gm 07/29/24 03:41 Dextrose 50% 25 Gm/50 Ml Syringe IV PUSH PRN PRN Hypoglycemia Protocol Diltiazem HCl 300 mg 07/30/24 09:00 Diltiazem Hcl Cd 300 Mg Cap.24hr PO QAM DIAZ Donepezil HCl 10 mg 07/29/24 21:00 07/29/24 20:10 Donepezil Hcl 10 Mg Tablet PO 10 mg HS DIAZ Administration Ergocalciferol 50,000 mcg 08/01/24 09:00 Ergocalciferol (Vitamin D2) 1,250 Mcg (50,000 Units) Capsule PO WEEKLY DIZA Ferrous Sulfate 325 mg 07/30/24 12:00 Ferrous Sulfate [address] BY MOUTH DAILY@1200 [facility] Furosemide 40 mg 07/29/24 21:00 07/29/24 20:10 Furosemide Inj 40 Mg/4 Ml Vial IV PUSH 40 mg Q12HR DIAZ Administration Glucagon 1 mg 07/29/24 16:20 Glucagon For Inj 1 Mg Vial IM PRN PRN Hypoglycemia Protocol Glucose 15 gm 07/29/24 03:41 Glucose Oral Gel 15 Gm Of Glucse In 37.5 Gm Tube PO PRN PRN Hypoglycemia Protocol Doxycycline Hyclate 100 mg in 100 mls @ 100 mls/hr 07/29/24 10:00 07/29/24 22:44 Vibramycin 100 Mg/Ns 100 Ml IVPB Infused Q12H IDAZ Infusion Cefepime HCl 2 gm in 50 mls @ 100 mls/hr 07/29/24 10:00 07/29/24 21:34 Maxipime 2 Gm/Ns 50 Ml IVPB Infused Q12H DIAZ Infusion Dextrose 1,000 mls @ 100 mls/hr 07/29/24 03:41 Dextrose 5% 1,000 Ml IVPB PRN PRN Hypoglycemia Protocol Insulin Aspart 2 - 5 units 07/29/24 08:00 07/29/24 18:11 Insulin Aspart (*Bkc) 100 Units/Ml SUB-Q 5 units TIDWM DIAZ Administration Protocol Insulin Aspart 1 - 2 units 07/29/24 21:00 07/29/24 20:14 Insulin Aspart (*Bkc) 100 Units/Ml SUB-Q 2 units HS [facility] Administration Protocol Insulin Aspart 8 units 07/29/24 17:00 07/29/24 18:13 Insulin Aspart (*Bkc) 100 Units/Ml SUB-Q 8 units TIDWM [facility] Administration Insulin Glargine 35 units 07/29/24 21:00 07/29/24 20:13 Insulin Glargine (*Bkc) 100 Units/Ml SUB-Q 35 units HS [facility] Administration Lactobacillus Acidophilus 1 tablet 07/30/24 09:00 Acidophilus/Bulgaricus Chewable Tablet BY MOUTH DAILY [facility] Levothyroxine Sodium 75 mcg 07/30/24 06:30 07/30/24 06:18 Levothyroxine Sodium 75 Mcg Tablet PO 75 mcg DAILY@0630 [facility] Administration Methylprednisolone Sodium Succinate 60 mg 07/29/24 06:00 07/30/24 06:18 Methylprednisolone Sod Succ 125 Mg Vial IV PUSH 60 mg Q6HR [facility] Administration Metoprolol Tartrate 12.5 mg 07/29/24 21:00 07/29/24 20:10 Metoprolol Tartrate 12.5 Mg Tablet PO 12.5 mg Q12HR [facility] Administration Pantoprazole Sodium 40 mg 07/30/24 09:00 [facility]ole [facility] [place] Potassium Chloride 20 meq 07/30/24 09:00 Potassium Chloride 20 Meq Packet (For Liquid) [facility] [place] Rad[facility] Results: ITS Impressions Chest X-Ray 07/28/24 19:52 IMPRESSION: Cardiomegaly with cardiac decompensation and pulmonary edema. Superimposed pneumonitis is highly suggestive. Left basilar atelectasis versus pneumonia with minimal right basilar atelectasis versus pneumonia Chest CTA 07/29/24 13:40 IMPRESSION: No pulmonary embolus. No thoracic aortic dissection. Bilateral pleural effusions, right greater than left with adjacent compressive consolidation in the left lower lobe and adjacent compressive atelectasis in the right lower lobe. Additional findings consistent with pulmonary edema within the remainder of the bilateral lung malik without focal infiltrate. Head CT 07/29/24 13:54 Impression: No acute intracranial hemorrhage or suspicious mass effect. Labs Labs: Laboratory Results - last 24 hr 07/29/24 07/29/24 07/29/24 11:39 16:14 20:09 WBC RBC Hgb Hct MCV MCH MCHC RDW Plt Count MPV Immature Gran % (Auto) Neut % (Auto) Lymph % (Auto) [place] % (Auto) Eos % (Auto) Baso % (Auto) Lymph # (Auto) [place] # (Auto) Eos # (Auto) Baso # (Auto) Abs Immat Gran (auto) Absolute Neuts (auto) Absolute Nucleated RBC Nucleated RBC % Puncture Site ABG pH ABG pCO2 ABG pO2 ABG PO2/FiO2 Ratio ABG HCO3 ABG O2 Saturation ABG O2 Content ABG Base Excess A-a Gradient Oxyhemoglobin Total Hemoglobin O2 Delivery Device O2 Liters/Min FiO2 Sodium Potassium Chloride Carbon Dioxide Anion Gap BUN Creatinine Estim Creat Clear Calc Estimated GFR Glucose POC Capillary Glucose 351 H 442 H 385 H Calcium Magnesium Total Bilirubin AST ALT Alkaline Phosphatase Total Protein Albumin 07/30/24 07/30/24 07/30/24 04:26 07:21 09:06 WBC 9.5 RBC 4.14 L Hgb 11.7 L Hct 41.1 MCV 99.3 MCH 28.3 MCHC 28.5 L RDW 14.0 Plt Count 254 MPV 10.2 Immature Gran % (Auto) 0.4 Neut % (Auto) 93.7 H Lymph % (Auto) 3.1 L [place] % (Auto) 2.7 Eos % (Auto) 0.0 Baso % (Auto) 0.1 L Lymph # (Auto) 0.29 L [place] # (Auto) 0.3 Eos # (Auto) 0.0 Baso # (Auto) 0.0 Abs Immat Gran (auto) 0.04 H Absolute Neuts (auto) 8.9 H Absolute Nucleated RBC 0.000 Nucleated RBC % 0.0 Puncture Site Right radial ABG pH 7.268 L* ABG pCO2 79.1 H* ABG pO2 67.4 L ABG PO2/FiO2 Ratio 1.35 ABG HCO3 35.3 H ABG O2 Saturation 89.8 L ABG O2 Content 16.5 ABG Base Excess 5.9 A-a Gradient 200.1 Oxyhemoglobin 92.1 Total Hemoglobin 12.7 O2 Delivery Device High flow nasal ned O2 Liters/Min 40.0 FiO2 50 Sodium 140 Potassium 4.1 Chloride 97 L Carbon Dioxide 37 H Anion Gap 6 BUN 27 H Creatinine 0.83 Estim Creat Clear Calc 50 Estimated GFR > 60 Glucose 307 H POC Capillary Glucose 296 H Calcium 8.7 Magnesium 2.2 Total Bilirubin 0.2 AST 17 ALT 15 Alkaline Phosphatase 118 Total Protein 7.0 Albumin 3.5
[2024-07-30] MEDS: INSULIN ASPART (*BKC) 100 UNITS/ML 8 UNITS SUB-Q ×3 (09:45→16:37)
[2024-07-30] MEDS: INSULIN ASPART (*BKC) 100 UNITS/ML SUB-Q ×4 (09:46→23:53)
[2024-07-30] MEDS: dilTIAZem HCL CD 300 MG CAP.24HR PO (09:47)
[2024-07-30] MEDS: METOPROLOL TARTRATE 12.5 MG TABLET PO ×2 (09:47→20:33)
[2024-07-30] MEDS: ATORVASTATIN 20 MG TABLET PO (09:47)
[2024-07-30] MEDS: POTASSIUM CHLORIDE 20 MEQ PACKET (FOR LIQUID) PO (09:47)
[2024-07-30] MEDS: APIXABAN 5 MG TABLET PO ×2 (09:48→20:32)
[2024-07-30] MEDS: FUROSEMIDE INJ 40 MG/4 ML VIAL IV PUSH ×2 (09:48→20:33)
[2024-07-30] MEDS: PANTOPRAZOLE 40 MG TABLET PO (09:48)
[2024-07-30] MEDS: CYANOCOBALAMIN 1,000 MCG TABLET 1000 MCG PO (09:48)
[2024-07-30] MEDS: ACIDOPHILUS/BULGARICUS CHEWABLE TABLET 1 TABLET BY MOUTH (09:48)
[2024-07-30 11:49] LABS: Glucose Point of Care 390 mg/dl (65-105)
[2024-07-30] MEDS: FERROUS SULFATE 325 MG TABLET DR BY MOUTH (12:01)
[2024-07-30] MEDS: DOXYCYCLINE 100 MG/NS 100 ML 100 MG/100 ML BAG IVPB ×2 (12:04→21:30)
[2024-07-30] MEDS: CEFEPIME 2 GM/NS 50 ML 2 GM/50 ML BAG IVPB ×2 (12:12→20:53)
--- NOTE | 2024-07-30 15:08 | P.CONPL_ITS ---
Assessment and Plan Assessment and plan (1) Acute on chronic respiratory failure with hypoxia and hypercapnia: Code(s): J96.21 - Acute and chronic respiratory failure with hypoxia; J96.22 - Acute and chronic respiratory failure with hypercapnia Status: Acute Assessment and Plan: She has had elevated pCO2 since at least 2018, was admitted here again in 2020, his had the last several years with admissions at [facility]. Request records. We will continue BiPAP as tolerated, currently has used 15/5 with O2 at 40% with improvement in her pCO2. (2) COPD (chronic obstructive pulmonary disease): Code(s): J44.9 - Chronic obstructive pulmonary disease, unspecified Status: Acute Assessment and Plan: Long standing, uses Anoro at home, and has orders for albuterol but she does not think to ask for it. These are p.r.n. orders. She is not allowed to have her inhaler by the bed because she has memory impairment and could not use it appropriately. (3) CHF exacerbation: Code(s): I50.9 - Heart failure, unspecified Status: Acute Assessment and Plan: This appears to an active diagnosis contributing to her hypercapnia, overall deterioration. Plan plan: There have been some computer problems and this has made completing notes difficult. I had a long discussion with her sons, Jean in-person and Kwesi by phone. She normally gets her care at [facility]. We will optimize her treatment, use high-flow nasal cannula which is comfortable, wean O2 as tolerated, continue trials of BiPAP to help with her hypercapnia, bronchodilators for COPD and diuresis. Her chest CT shows significant pleural effusions more consistent with heart failure and not pneumonia. She has a code status of Do Not Resuscitate. Family is possibly open to discussion about palliative care. They realize she has been living in facilities for 6 years, and with her multiple disease processes her prognosis is very guarded. 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 She was brought to the hospital on 6 L.; Head CT was negative; ABG showed acute & chronic hypercapnic hypoxemic respiratory failure. She has been hypercapnic since 2019, see ABGs below. CTA chest = no PE; she has large pleural effusions R>L with compressive atelectasis RLL and pulmonary edema. I was able to speak with her son Jean at the bedside, and Kwesi by phone who is her main supervisor contact lens. She normally goes to [facility], goes about once a year for a pulmonary admission, however this admission at [place] is the most severe episode, has never had O2 sat this low, this much confusion and decreased responsiveness, and CO2 this high. She is never going to wear a PAP mask, does not use O2 at the memory care unit, my guess is that oxygen has been discussed and due to her poor memory, CO2 retention, noncompliance that a decision was made not to put her on it night time nanny. It is possible that these discussions have taken place, pulmonary doctors at [facility], and decisions were made not to treat her with nppv because she states she will not comply with it. It does appear that she has probably needed oxygen for a while but she has not been prescribed oxygen. She has been getting care for 6 years total, the last 1 year has been in the memory care unit. She is not always cooperative, so this limits options. She was at [facility] a year ago for a bowel blockage, surgery was discussed but the surgeons told them that she would probably . She was treated with conservative medical management and seemed to resolve the problem. She has had several close calls. PMH: diastolic CHF, atrial fibrillation on Eliquis, had new a fib in 2020, COPD, prior tobacco abuse, dementia, anemia, hypothyroidism, arthritis, insulin- dependent diabetes mellitus. Chronic low back pain. Tobacco: 50 pack years, none x 2009. No alcohol since 2007. DATA * 07/28/24 WBC 14.2K with 87% neutrophils, now 9.5 k * 07/28/24 serology negative Influenza A,B, SARS CoV-2, RSV. * 07/28/24 Na 140, K+ 4.1, chloride 97, HCO3 37, BUN 27, creatinine 0.83. * 07/28/24 LP-Zkh-M-type NT 687; normal < 100; has had several higher BNP values in the past, over 1000. * 07/29/24 glucose 290, 442; July 30 today glucose has been 296, 390, still high. * 07/28/24; H/H 11.9/40.5% * 07/28/2024; EKG; sinus rhythm rate 82, occasional supraventricular complex. RBBB, LAFB, possible old anterior [place] * 07/29/24 CTA; IMPRESSION: No pulmonary embolus. No thoracic aortic dissection. Bilateral pleural effusions, right greater than left with adjacent compressive consolidation in the left lower lobe and adjacent compressive atelectasis in the right lower lobe. Additional findings consistent with pulmonary edema within the remainder of the bilateral lung malik without focal infiltrate. ABGs; most recent ABG July 30; 4 pm pH 7.335, pCO2 69, pO2 74, HC03 36, saturation 93.5% on BiPAP and 40% Review of Systems 2 Review of Systems: All systems reviewed & are unremarkable except as noted in HPI and below PMFSH Past Medical History Medical History CHF exacerbation Atrial fibrillation COPD (chronic obstructive pulmonary disease) Arthritis Former smoker 50 pack-year smoking history. Dementia Anemia Hypothyroidism Diabetic peripheral neuropathy Insulin dependent type 2 diabetes mellitus Grade II diastolic dysfunction Noted on echocardiogram in December 2018. Ejection fraction was 60 to 65%. Surgical History Surgical History History of dilation and curettage History of cataract extraction Family History Family History Father Cerebrovascular accident Grandparent Cerebrovascular accident Family history of heart disease in male family member before age 55 Mother Family history of heart disease in male family member before age 55 Heart disease of a heart attack Heart attack Social History Social History Social History: She is a resident at [facility] in [place]. Former smoker, up to a pack of cigarettes a day for 50 years, and quit in 2009. She stopped drinking alcohol in 2007. No illicit substance use. Three children. Her son Kwesi Neely is her healthcare power of attorney at law. She wishes to be a do not resuscitate but son reports that she has an advance directive stating that she wishes to be a full code. 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 Smoking packs per day: 1 Smoking cigarettes per day: 20.0 Years smoked: 50 Smoking pack-years: 50.00 Smoking status: Former smoker Tobacco type: cigarettes Alcohol intake: former Substance use: never Substance use type: does not use Do You Feel Safe in your Home?: Yes Lack of Transportation: No Lack of Food: Never True Current Housing: I Have Housing Concerned About Future Housing: No Difficulty Paying Gas/Electric Bills: No Difficulty Paying for Meds: No Currently Unemployed: No Education: Trade/Vocational Certificate Difficulty w/ Childcare or Family Care: No Gender identity (if verbalized by the patient): Female Spiritual care concerns: No Meds Home Medications and Allergies Home Medications ?Medication ?Instructions ?Recorded ?Confirmed ?Type donepezil 10 mg tablet (Aricept) 10 mg PO HS 03/24/20 07/29/24 History insulin glargine 100 unit/mL (3 35 unit subcut HS 03/24/20 07/29/24 History mL) subcutaneous pen (Lantus Solostar U-100 Insulin) omeprazole 20 mg capsule,delayed 20 mg PO DAILY 03/24/20 07/29/24 History release umeclidinium 62.5 mcg-vilanterol 1 inh inhalation DAILY 03/24/20 07/29/24 History 25 mcg/actuation powdr for inhalation (Anoro Ellipta) albuterol sulfate 90 mcg/actuation 2 puff inhalation Q6H PRN COPD 03/25/20 07/29/24 History aerosol inhaler (Ventolin HFA) budesonide-formoterol HFA 160 2 puff inhalation Q12H 03/25/20 07/29/24 History mcg-4.5 mcg/actuation aerosol inhaler (Symbicort) ferrous sulfate 300 mg (60 mg 325 mg PO DAILY 03/25/20 07/29/24 History iron)/5 mL oral liquid ipratropium 0.5 mg-albuterol 3 mg 3 ml inhalation Q6H PRN COPD 03/25/20 07/29/24 History (2.5 mg base)/3 mL nebulization soln mecobalamin (vitamin B12) 1,000 1,000 mcg PO DAILY 03/25/20 07/29/24 History mcg chewable tablet apixaban 5 mg tablet (Eliquis) 5 mg PO Q12HR #60 tabs 03/27/20 07/29/24 Rx atorvastatin 20 mg tablet 20 mg PO DAILY 12/04/21 07/29/24 History furosemide 20 mg tablet (Lasix) 40 mg PO DAILY 12/04/21 07/29/24 History spironolactone 50 mg tablet 50 mg PO DAILY 12/04/21 07/29/24 History diltiazem HCl 300 mg 300 mg PO QAM #30 caps 12/09/21 07/29/24 Rx capsule,extended release 24 hr metoprolol tartrate 25 mg tablet 12.5 mg (1/2 x 25 mg) PO BID #30 12/09/21 07/29/24 Rx tabs acetaminophen 500 mg tablet 500 mg PO Q6H PRN Pain 03/20/22 07/29/24 History (Acetaminophen Pain Relief) Lactobacillus acidophilus 1 1,000 mmu cells PO DAILY 07/29/24 07/29/24 History billion cell capsule cholecalciferol (vitamin D3) 1,250 50,000 unit PO WEEKLY 07/29/24 07/29/24 History mcg (50,000 unit) capsule levothyroxine 75 mcg tablet 75 mcg PO DAILY 07/29/24 07/29/24 History medroxyprogesterone 2.5 mg tablet 2.5 mg PO DAILY 07/29/24 07/29/24 History potassium chloride 20 mEq/15 mL 20 meq PO DAILY 07/29/24 07/29/24 History oral liquid Allergies Allergy/AdvReac Type Severity Reaction Status Date / Time No Known Allergies Allergy Unknown Verified 07/28/24 18:26 Vital Signs Vital Signs - 24 hr 07/29/24 16:00 07/29/24 16:00 07/29/24 16:00 Temperature 36.8 C Pulse Rate 85 87 85 Respiratory Rate 20 20 Blood Pressure 140/52 L Pulse Oximetry 91 94 Oxygen Delivery High Flow Therapy with Na Oxygen Flow Rate 40 Fraction of Inspired Oxygen 45 07/29/24 18:00 07/29/24 20:00 07/29/24 20:00 Temperature 36.8 C Pulse Rate 82 82 83 Respiratory Rate 21 H Blood Pressure 140/57 L Pulse Oximetry 91 Oxygen Delivery Oxygen Flow Rate Fraction of Inspired Oxygen 07/29/24 20:10 07/29/24 20:31 07/29/24 20:33 Temperature Pulse Rate 85 83 Respiratory Rate 20 Blood Pressure Pulse Oximetry 91 Oxygen Delivery High Flow Therapy with Na Oxygen Flow Rate 40 Fraction of Inspired Oxygen 50 07/29/24 20:34 07/29/24 20:43 07/29/24 21:00 Temperature Pulse Rate 86 Respiratory Rate 20 Blood Pressure Pulse Oximetry 92 87 L Oxygen Delivery High Flow Therapy with Na High Flow Therapy with Na Oxygen Flow Rate 42 40 Fraction of Inspired Oxygen 50 55 07/29/24 22:00 07/29/24 23:50 07/30/24 00:00 Temperature 36.5 C Pulse Rate 72 77 Respiratory Rate 20 Blood Pressure 137/61 Pulse Oximetry 94 95 Oxygen Delivery High Flow Therapy with Na Oxygen Flow Rate 40 Fraction of Inspired Oxygen 55 07/30/24 00:00 07/30/24 02:00 07/30/24 03:02 Temperature Pulse Rate 71 70 87 Respiratory Rate 18 Blood Pressure Pulse Oximetry Oxygen Delivery Oxygen Flow Rate Fraction of Inspired Oxygen 07/30/24 03:13 07/30/24 04:00 07/30/24 04:00 Temperature Pulse Rate 89 73 Respiratory Rate 18 Blood Pressure Pulse Oximetry 93 Oxygen Delivery High Flow Therapy with Na Oxygen Flow Rate 40 Fraction of Inspired Oxygen 55 07/30/24 04:00 07/30/24 06:00 07/30/24 07:28 Temperature 36.5 C Pulse Rate 76 74 Respiratory Rate 20 Blood Pressure 134/53 L Pulse Oximetry 97 98 Oxygen Delivery High Flow Therapy with Na Oxygen Flow Rate 45 Fraction of Inspired Oxygen 55 07/30/24 07:28 07/30/24 07:32 07/30/24 07:42 Temperature 36.4 C Pulse Rate 77 77 80 Respiratory Rate 20 18 20 Blood Pressure 131/47 L Pulse Oximetry 98 Oxygen Delivery Oxygen Flow Rate Fraction of Inspired Oxygen 07/30/24 07:42 07/30/24 07:44 07/30/24 08:00 Temperature Pulse Rate 88 Respiratory Rate 28 H Blood Pressure Pulse Oximetry 83 L 94 99 Oxygen Delivery Room Air High Flow Therapy with Na BiPAP Oxygen Flow Rate 40 Fraction of Inspired Oxygen 21 50 50 07/30/24 10:01 07/30/24 10:28 07/30/24 12:00 Temperature 36.4 C Pulse Rate 88 80 77 Respiratory Rate 28 H 18 Blood Pressure 131/47 L Pulse Oximetry 99 95 98 Oxygen Delivery BiPAP High Flow Therapy with Na Oxygen Flow Rate 40 Fraction of Inspired Oxygen 50 07/30/24 13:30 07/30/24 13:30 07/30/24 13:39 Temperature Pulse Rate 71 71 70 Respiratory Rate 25 H 25 H 24 H Blood Pressure Pulse Oximetry 96 Oxygen Delivery BiPAP Oxygen Flow Rate Fraction of Inspired Oxygen Exam 2 Narrative: GEN: Alert, oriented, not in distress. She is wearing high flow nasal cannula O2 40 L/min and 50% HEENT: pupils are equal, EOMI, symmetrical face; oral membranes moist, no teeth, Mallampati IV airway NECK: Trachea is midline CHEST: Equal air entry, symmetric excursion, scattered crackles and wheezes CV: Regular S1S2 no m/g/r ABD : (+) bowel sounds Extremities : no clubbing, cyanosis, mild LE edema PSYCH: she is pleasant, tells me that she will not wear a mask like what she has worn here if we want her to take it with her at discharge, gait is not test. Results Laboratory Findings 07/31/24 04:02 07/31/24 04:02 ABG, PT/INR, D-dimer: ABG ABG pH 7.268 (7.350-7.450) L* 07/30/24 09:06 ABG pCO2 79.1 mmHg (35.0-45.0) H* 07/30/24 09:06 ABG pO2 67.4 mmHg (80.0-100.0) L 07/30/24 09:06 ABG O2 Saturation 89.8 % (95.0-100.0) L 07/30/24 09:06 PT/INR, D-dimer PT 16.8 Seconds (11.1-14.7) H 07/28/24 18:49 INR 1.3 07/28/24 18:49 Abnormal lab findings: Abnormal Labs 07/28/24 07/28/24 07/29/24 18:49 19:39 03:44 WBC 14.2 H RBC 4.19 L Hgb 11.9 L MCHC 29.4 L MPV 10.6 H Neut % (Auto) 87.1 H Lymph % (Auto) 4.4 L [place] % (Auto) Baso % (Auto) Lymph # (Auto) 0.63 L [place] # (Auto) 1.1 H Abs Immat Gran (auto) 0.06 H Absolute Neuts (auto) 12.3 H PT 16.8 H ABG pH 7.256 L* ABG pCO2 75.0 H* ABG pO2 ABG HCO3 32.6 H ABG O2 Saturation Sodium 136 L Potassium 3.3 L Chloride 97 L 97 L Carbon Dioxide 34 H BUN 20 H 18 H Glucose 256 H 306 H POC Capillary Glucose NT-Pro-B Natriuret Pep 687 H 07/29/24 07/29/24 07/29/24 03:45 07:14 07:55 WBC 13.2 H RBC 4.09 L Hgb 11.6 L MCHC 29.0 L MPV 10.6 H Neut % (Auto) 85.8 H Lymph % (Auto) 2.6 L [place] % (Auto) 10.3 H Baso % (Auto) Lymph # (Auto) 0.34 L [place] # (Auto) 1.4 H Abs Immat Gran (auto) 0.06 H Absolute Neuts (auto) 11.3 H PT ABG pH 7.327 L ABG pCO2 53.6 H ABG pO2 ABG HCO3 27.4 H ABG O2 Saturation Sodium Potassium Chloride Carbon Dioxide BUN Glucose POC Capillary Glucose 290 H NT-Pro-B Natriuret Pep 07/29/24 07/29/24 07/29/24 11:39 16:14 20:09 WBC RBC Hgb MCHC MPV Neut % (Auto) Lymph % (Auto) [place] % (Auto) Baso % (Auto) Lymph # (Auto) [place] # (Auto) Abs Immat Gran (auto) Absolute Neuts (auto) PT ABG pH ABG pCO2 ABG pO2 ABG HCO3 ABG O2 Saturation Sodium Potassium Chloride Carbon Dioxide BUN Glucose POC Capillary Glucose 351 H 442 H 385 H NT-Pro-B Natriuret Pep 07/30/24 07/30/24 07/30/24 04:26 07:21 09:06 WBC RBC 4.14 L Hgb 11.7 L MCHC 28.5 L MPV Neut % (Auto) 93.7 H Lymph % (Auto) 3.1 L [place] % (Auto) Baso % (Auto) 0.1 L Lymph # (Auto) 0.29 L [place] # (Auto) Abs Immat Gran (auto) 0.04 H Absolute Neuts (auto) 8.9 H PT ABG pH 7.268 L* ABG pCO2 79.1 H* ABG pO2 67.4 L ABG HCO3 35.3 H ABG O2 Saturation 89.8 L Sodium Potassium Chloride 97 L Carbon Dioxide 37 H BUN 27 H Glucose 307 H POC Capillary Glucose 296 H NT-Pro-B Natriuret Pep 07/30/24 11:39 WBC RBC Hgb MCHC MPV Neut % (Auto) Lymph % (Auto) [place] % (Auto) Baso % (Auto) Lymph # (Auto) [place] # (Auto) Abs Immat Gran (auto) Absolute Neuts (auto) PT ABG pH ABG pCO2 ABG pO2 ABG HCO3 ABG O2 Saturation Sodium Potassium Chloride Carbon Dioxide BUN Glucose POC Capillary Glucose 390 H NT-Pro-B Natriuret Pep
[2024-07-30 16:01] LABS: Alveolar/Arterial O2 Gradient 131.4 mmHg; Base Excess ABG 7.9 mEq/l (+/-2.0); Fractional Inspired Oxygen 40 %; Oxygen Content ABG 16.5 %vol (16.0-22.0); Oxygen Saturation ABG 93.5 % (95.0-100.0); Oxyhemoglobin 94.5 % THb (90.0-100.0); PO2 ABG 74.3 mmHg (80.0-100.0); PO2 FiO2 Ratio Arterial Blood 1.86 %; Total Hemoglobin 12.4 g/dL (12.0-18.0); pH ABG 7.335 (7.350-7.450)
[2024-07-30 16:03] LABS: Device BIPAP; Expiratory Pressure 5 cmH2O; Modified Allen's Test Pass; PCO2 ABG 69.1 mmHg (35.0-45.0); Site Drawn LEFT RADIAL
[2024-07-30 16:21] LABS: Glucose Point of Care 292 mg/dl (65-105)
[2024-07-30 19:56] LABS: Glucose Point of Care 402 mg/dl (65-105)
[2024-07-30] MEDS: INSULIN GLARGINE (*BKC) 100 UNITS/ML 35 UNITS SUB-Q (20:33)
[2024-07-30] MEDS: ALPRAZolam (*CRX) 0.125 MG TABLET PO (20:33)
[2024-07-30] MEDS: DONEPEZIL HCL 10 MG TABLET PO (20:33)
[2024-07-30] MEDS: INSULIN ASPART (*BKC) 100 UNITS/ML 10 UNITS SUB-Q (20:34)
--- NOTE | 2024-07-30 22:32 | PC.NURSE ---
2020 [facility] called due to glucose of 402 and patients anxiousness due to bipap mask. Order received for 10 units total novolog this evening and one time dose of 0.125 xanax.
[2024-07-30 23:17] LABS: Glucose Point of Care 348 mg/dl (65-105)
[2024-07-31] VITALS (25 sets, daily range): BP systolic 119–150; BP diastolic 46–85; PULSE 60–82; RESP 16–28; TEMP 36.5–37.5; O2SAT 91–99
[2024-07-31] MEDS: IPRATROPIUM 0.5 MG/ALBUTEROL SULFATE 2.5 MG AMPUL.NEB 3 ML INHALATION ×4 (01:59→20:24)
--- NOTE | 2024-07-31 02:22 | PC.NURSE ---
0150 patient woke up coughing. Attempting to get out of bed throwing legs over the rails and refusing to wear bipap. Reoriented to situation many times. Patient currently has vapotherm on as she will not wear the bipap.
[2024-07-31 04:34] LABS: Hematocrit 38.5 % (37.0-47.0); Hemoglobin 11.1 g/dL (12.0-15.0); Immature Granulocyte Absolute 0.04 K/mm3 (0.00-0.031); Immature Granulocyte Percent A 0.3 % (0-0.5); Lymphocytes Absolute Auto 0.24 K/mm3 (0.9-3.2); Lymphocytes Percent Auto 1.9 % (18.3-44.2); Mean Corpuscular HGB Conc 28.8 g/dl (32-36); Mean Corpuscular Hemoglobin 28.2 pg (26-34); Mean Platelet Volume 10.6 fl (7.4-10.4); Monocytes Absolute Auto 0.4 K/mm3 (0.1-0.6); Monocytes Percent Auto 3.4 % (2.6-8.5); Neutrophils Absolute Auto 11.9 K/mm3 (1.3-6.7); Neutrophils Percent Auto 94.4 % (45.5-73.1); Platelet Count Result 279 k/mm3 (150-375); Red Blood Count 3.93 M/mm3 (4.2-5.4); Red Cell Distribution Width 13.9 % (11.5-14.5); White Blood Count 12.6 K/mm3 (4.5-10.0)
[2024-07-31 04:56] LABS: Alanine Aminotransferase 17 U/L (6-35); Albumin Level 3.5 g/dL (3.5-5.1); Alkaline Phosphatase 109 U/L (38-126); Anion Gap 8 mmol/L (4-12); Aspartate Amino Transferase 17 U/L (14-36); Bilirubin,Total 0.2 mg/dL (0.2-1.3); Blood Urea Nitrogen 39 mg/dL (7-17); Calcium 8.7 mg/dL (8.4-10.2); Carbon Dioxide 37 mmol/L (22-30); Chloride 94 mmol/L (98-107); Estimated CRCL calculation 41 ml/min; Estimated Glomerular Filt Rate 52; Glucose 314 mg/dL (65-110); Magnesium 2.2 mg/dL (1.6-2.3); Potassium 3.4 mmol/L (3.4-5.0); Sodium 139 mmol/L (137-145)
[2024-07-31 05:00] LABS: Anisocytosis 1+; Platelet Clumps Present; Platelet Estimate Adequate (Adequate); Stomatocytes 1+
[2024-07-31 05:01] LABS: Schistocytes None Seen
[2024-07-31] MEDS: LEVOTHYROXINE SODIUM 75 MCG TABLET PO (06:34)
[2024-07-31] MEDS: methylPREDNISolone SOD SUCC 125 MG VIAL 60 MG IV PUSH ×4 (06:35→23:16)
[2024-07-31 07:28] LABS: Glucose Point of Care 303 mg/dl (65-105)
[2024-07-31] MEDS: ACIDOPHILUS/BULGARICUS CHEWABLE TABLET 1 TABLET BY MOUTH (09:23)
[2024-07-31] MEDS: FUROSEMIDE INJ 40 MG/4 ML VIAL IV PUSH ×2 (09:23→21:33)
[2024-07-31] MEDS: POTASSIUM CHLORIDE 20 MEQ PACKET (FOR LIQUID) PO (09:23)
[2024-07-31] MEDS: ATORVASTATIN 20 MG TABLET PO (09:23)
[2024-07-31] MEDS: METOPROLOL TARTRATE 12.5 MG TABLET PO ×2 (09:23→21:02)
[2024-07-31] MEDS: APIXABAN 5 MG TABLET PO ×2 (09:23→21:02)
[2024-07-31] MEDS: PANTOPRAZOLE 40 MG TABLET PO (09:24)
[2024-07-31] MEDS: CEFEPIME 2 GM/NS 50 ML 2 GM/50 ML BAG IVPB ×2 (09:24→21:46)
[2024-07-31] MEDS: DOXYCYCLINE 100 MG/NS 100 ML 100 MG/100 ML BAG IVPB ×2 (09:24→21:45)
[2024-07-31] MEDS: dilTIAZem HCL CD 300 MG CAP.24HR PO (09:24)
[2024-07-31] MEDS: CYANOCOBALAMIN 1,000 MCG TABLET 1000 MCG PO (09:24)
[2024-07-31] MEDS: INSULIN ASPART (*BKC) 100 UNITS/ML SUB-Q ×4 (09:25→21:27)
[2024-07-31] MEDS: INSULIN ASPART (*BKC) 100 UNITS/ML 8 UNITS SUB-Q ×3 (09:25→17:14)
--- NOTE | 2024-07-31 09:30 | P.PNIM_ITS ---
Progress Note: A&P Assessment and Plan (1) CO2 narcosis: Code(s): R06.89 - Other abnormalities of breathing Status: Acute (2) Pneumonia: Code(s): J18.9 - Pneumonia, unspecified organism Status: Acute (3) Acute respiratory failure with hypoxia: Code(s): J96.01 - Acute respiratory failure with hypoxia Status: Acute Plan 79-year-old female with past medical history diastolic CHF, atrial fibrillation on Eliquis, COPD, prior tobacco abuse, dementia, anemia, hypothyroidism, arthritis, insulin-dependent diabetes mellitus who presents with shortness of breath and somnolence. EN route EMS placed the patient on 6 L as she was saturating 70% on room air. ER evaluation demonstrated white count of 14.2, hemoglobin 11.9, INR 1.3, pH 7.256 with pCO2 75, bicarb 32.6, BNP 687, troponin 0.012, quad viral screen negative. Chest x-ray demonstrated cardiomegaly and pulmonary edema. Possible pneumonitis, atelectasis and pneumonia. An attempt at BiPAP was made but she cannot tolerate and was pulling the mask off. In light of the aforementioned in the patient's altered mental status family was contacted and they confirmed the patient will be DNR, only medical therapy to be administered. High-flow nasal cannula at 40 L and 30% FiO2 was placed. The patient was resting comfortably thereafter. She was given breathing treatments, cefepime, doxycycline, vancomycin, magnesium 2 g rider. Acute hypoxic hypercapnic respiratory failure suspected related to CHF/COPD exacerbation ABG has improved overnight. Recheck ABG reviewed Hypercapnia has improved will switch Vapotherm to nasal cannula. AVAPS at night. Chest x-ray reviewed COPD exacerbation continue steroid CHF exacerbation continue diuresis with IV Lasix CTA chest reviewed. Negative for PE. Has evidence of pulmonary edema. Continue diuresis MRSA nares came back negative. Stop vancomycin Acute on Chronic diastolic CHF Atrial fibrillation on chronic anticoagulation with Eliquis Dementia Chronic anemia Hypothyroidism Insulin-dependent diabetes mellitus DVT prophylaxis on Eliquis Code status do not resuscitate Subjective Date/time seen: 07/31/24 09:30 Interval history: No overnight events. Used her AVAPS overnight. Wants to go home. Chest x-ray Review of Systems Review of Systems: All systems reviewed & are unremarkable except as noted in HPI and below (HPI) Exam Narrative: APPEARANCE: patient is awake and alert oriented to place and person. Head: atraumatic. Normocephalic EYES: EOMI, NOSE: Atraumatic NECK: Trachea midline RESPIRATORY: Diminished breath sounds bilaterally mild wheezes or rhonchi no respiratory distress CARDIOVASCULAR: RRR, no peripheral edema ABDOMINAL: Non-distended MUSCULOSKELETAl: No obvious deformities NEURO: Alert. Moving 4/4 extremities SKIN:: Warm, dry. Normal color PSYCHIATRIC: Calm and cooperative Objective Data Vital Signs Vital Signs: Vital Signs - 24 hr 07/30/24 10:00 07/30/24 10:01 07/30/24 10:28 Temperature Pulse Rate 86 88 80 Respiratory Rate 28 H Blood Pressure Pulse Oximetry 99 95 Oxygen Delivery BiPAP High Flow Therapy with Na Oxygen Flow Rate 40 Fraction of Inspired Oxygen 50 07/30/24 12:00 07/30/24 12:00 07/30/24 12:00 Temperature 97.6 F Pulse Rate 77 84 88 Respiratory Rate 18 28 H Blood Pressure 131/47 L Pulse Oximetry 98 99 Oxygen Delivery BiPAP Oxygen Flow Rate Fraction of Inspired Oxygen 50 07/30/24 13:30 07/30/24 13:30 07/30/24 13:39 Temperature Pulse Rate 71 71 70 Respiratory Rate 25 H 25 H 24 H Blood Pressure Pulse Oximetry 96 Oxygen Delivery BiPAP Oxygen Flow Rate Fraction of Inspired Oxygen 07/30/24 14:00 07/30/24 16:00 07/30/24 16:00 Temperature Pulse Rate 84 74 88 Respiratory Rate 28 H Blood Pressure Pulse Oximetry 99 Oxygen Delivery BiPAP Oxygen Flow Rate Fraction of Inspired Oxygen 50 07/30/24 16:00 07/30/24 16:15 07/30/24 20:00 Temperature 97.9 F 97.5 F L Pulse Rate 71 86 77 Respiratory Rate 24 H 30 H Blood Pressure 123/98 H 130/71 Pulse Oximetry 95 94 96 Oxygen Delivery High Flow Therapy with Na Oxygen Flow Rate 40 Fraction of Inspired Oxygen 50 07/30/24 20:00 07/30/24 20:00 07/30/24 20:11 Temperature Pulse Rate 73 77 Respiratory Rate 27 H Blood Pressure Pulse Oximetry 93 Oxygen Delivery High Flow Therapy with Na Oxygen Flow Rate 40 Fraction of Inspired Oxygen 55 07/30/24 20:22 07/30/24 20:33 07/30/24 21:17 Temperature Pulse Rate 77 75 77 Respiratory Rate 27 H 27 H Blood Pressure Pulse Oximetry 96 Oxygen Delivery BiPAP Oxygen Flow Rate Fraction of Inspired Oxygen 07/30/24 22:36 07/30/24 23:55 07/31/24 00:00 Temperature Pulse Rate 68 83 Respiratory Rate 34 H Blood Pressure Pulse Oximetry 97 96 Oxygen Delivery BiPAP BiPAP Oxygen Flow Rate Fraction of Inspired Oxygen 40 07/31/24 00:00 07/31/24 00:00 07/31/24 02:01 Temperature 97.7 F Pulse Rate 60 71 77 Respiratory Rate 24 H 27 H Blood Pressure 121/62 Pulse Oximetry 98 Oxygen Delivery Oxygen Flow Rate Fraction of Inspired Oxygen 07/31/24 02:01 07/31/24 02:11 07/31/24 02:24 Temperature Pulse Rate 77 77 69 Respiratory Rate 27 H Blood Pressure Pulse Oximetry 96 Oxygen Delivery High Flow Therapy with Na Oxygen Flow Rate 35 Fraction of Inspired Oxygen 50 07/31/24 04:00 07/31/24 04:00 07/31/24 04:00 Temperature 98.2 F Pulse Rate 66 68 Respiratory Rate 20 Blood Pressure 119/69 Pulse Oximetry 93 94 Oxygen Delivery High Flow Therapy with Na Oxygen Flow Rate 35 Fraction of Inspired Oxygen 50 07/31/24 06:00 07/31/24 08:00 07/31/24 08:13 Temperature 98.6 F Pulse Rate 64 63 75 Respiratory Rate 28 H 20 Blood Pressure 120/52 L Pulse Oximetry 99 98 Oxygen Delivery High Flow Therapy with Na Oxygen Flow Rate 35 Fraction of Inspired Oxygen 50 07/31/24 08:15 07/31/24 08:25 07/31/24 09:01 Temperature Pulse Rate 75 80 80 Respiratory Rate 20 20 20 Blood Pressure Pulse Oximetry 96 Oxygen Delivery High Flow Therapy with Na Oxygen Flow Rate 30 Fraction of Inspired Oxygen 40 Intake/Output Intake/Output: Intake & Output 07/28/24 07/29/24 07/30/24 07/31/24 23:59 23:59 23:59 23:59 Intake Total 150 217 1571 100 Output Total 1770 1900 Balance 250 -3414 -144 100 Meds/Results Medications: Active Medications Generic Name Dose Route Start Last Admin Trade Name Freq PRN Reason Stop Dose Admin Albuterol/Ipratropium 3 ml 07/29/24 08:00 07/31/24 08:26 Ipratropium 0.5 Mg/Albuterol Sulfate 2.5 Mg Ampul.Neb 3 Ml INHALATION 3 ml Q6HRT DIAZ Administration Apixaban 5 mg 07/29/24 09:00 07/30/24 20:32 Apixaban 5 Mg Tablet PO 5 mg Q12HR DIAZ Administration Atorvastatin Calcium 20 mg 07/30/24 09:00 07/30/24 09:47 Atorvastatin 20 Mg Tablet PO 20 mg DAILY DIAZ Administration Cyanocobalamin 1,000 mcg 07/30/24 09:00 07/30/24 09:48 Cyanocobalamin 1,000 Mcg Tablet PO 1,000 mcg QAM DIAZ Administration Dextrose 12.5 gm 07/29/24 03:41 Dextrose 50% 25 Gm/50 Ml Syringe IV PUSH PRN PRN Hypoglycemia Protocol Diltiazem HCl 300 mg 07/30/24 09:00 07/30/24 09:47 Diltiazem Hcl Cd 300 Mg Cap.24hr PO 300 mg QAM DIAZ Administration Donepezil HCl 10 mg 07/29/24 21:00 07/30/24 20:33 Donepezil Hcl 10 Mg Tablet PO 10 mg HS DIAZ Administration Ergocalciferol 50,000 mcg 08/01/24 09:00 Ergocalciferol (Vitamin D2) 1,250 Mcg (50,000 Units) Capsule PO WEEKLY DIAZ Ferrous Sulfate 325 mg 07/30/24 12:00 07/30/24 12:01 Ferrous Sulfate [address] BY MOUTH 325 mg DAILY@1200 DIAZ Administration Furosemide 40 mg 07/29/24 21:00 07/30/24 20:33 Furosemide Inj 40 Mg/4 Ml Vial IV PUSH 40 mg Q12HR DIAZ Administration Glucagon 1 mg 07/29/24 16:20 Glucagon For Inj 1 Mg Vial IM PRN PRN Hypoglycemia Protocol Glucose 15 gm 07/29/24 03:41 Glucose Oral Gel 15 Gm Of Glucse In 37.5 Gm Tube PO PRN PRN Hypoglycemia Protocol Doxycycline Hyclate 100 mg in 100 mls @ 100 mls/hr 07/29/24 10:00 07/31/24 06:44 Vibramycin 100 Mg/Ns 100 Ml IVPB Infused Q12H DIAZ Infusion Cefepime HCl 2 gm in 50 mls @ 100 mls/hr 07/29/24 10:00 07/30/24 21:33 Maxipime 2 Gm/Ns 50 Ml IVPB Infused Q12H DIAZ Infusion Dextrose 1,000 mls @ 100 mls/hr 07/29/24 03:41 Dextrose 5% 1,000 Ml IVPB PRN PRN Hypoglycemia Protocol Insulin Aspart 8 units 07/29/24 17:00 07/30/24 16:37 Insulin Aspart (*Bkc) 100 Units/Ml SUB-Q 8 units TIDWM DIAZ Administration Insulin Aspart 2 - 4 units 07/31/24 21:00 Insulin Aspart (*Bkc) 100 Units/Ml SUB-Q HS DIAZ Protocol Insulin Aspart 4 - 8 units 07/31/24 08:00 Insulin Aspart (*Bkc) 100 Units/Ml SUB-Q TIDWM DIAZ Protocol Insulin Glargine 35 units 07/29/24 21:00 07/30/24 20:33 Insulin Glargine (*Bkc) 100 Units/Ml SUB-Q 35 units HS DIAZ Administration Lactobacillus Acidophilus 1 tablet 07/30/24 09:00 07/30/24 09:48 Acidophilus/Bulgaricus Chewable Tablet BY MOUTH 1 tablet DAILY DIAZ Administration Levothyroxine Sodium 75 mcg 07/30/24 06:30 07/31/24 06:34 Levothyroxine Sodium 75 Mcg Tablet PO 75 mcg DAILY@0630 DIAZ Administration Methylprednisolone Sodium Succinate 60 mg 07/29/24 06:00 07/31/24 06:35 Methylprednisolone Sod Succ 125 Mg Vial IV PUSH 60 mg Q6HR DIAZ Administration Metoprolol Tartrate 12.5 mg 07/29/24 21:00 07/30/24 20:33 Metoprolol Tartrate 12.5 Mg Tablet PO 12.5 mg Q12HR DIAZ Administration Pantoprazole Sodium 40 mg 07/30/24 09:00 07/30/24 09:48 Pantoprazole 40 Mg Tablet PO 40 mg QAM DIAZ Administration Potassium Chloride 20 meq 07/30/24 09:00 07/30/24 09:47 Potassium Chloride 20 Meq Packet (For Liquid) PO 20 meq QAM DIAZ Administration Radiology Results: ITS Impressions Chest CTA 07/29/24 13:40 IMPRESSION: No pulmonary embolus. No thoracic aortic dissection. Bilateral pleural effusions, right greater than left with adjacent compressive consolidation in the left lower lobe and adjacent compressive atelectasis in the right lower lobe. Additional findings consistent with pulmonary edema within the remainder of the bilateral lung malik without focal infiltrate. Head CT 07/29/24 13:54 Impression: No acute intracranial hemorrhage or suspicious mass effect. Chest X-Ray 07/31/24 08:37 IMPRESSION: 1. No significant change in small bilateral pleural effusions and pneumonia in the left mid to lower and right lower lung zones. Labs Labs: Laboratory Results - last 24 hr 07/30/24 07/30/24 07/30/24 11:39 15:56 16:02 WBC RBC Hgb Hct MCV MCH MCHC RDW Plt Count MPV Immature Gran % (Auto) Neut % (Auto) Lymph % (Auto) [place] % (Auto) Eos % (Auto) Baso % (Auto) Lymph # (Auto) [place] # (Auto) Eos # (Auto) Baso # (Auto) Abs Immat Gran (auto) Absolute Neuts (auto) Absolute Nucleated RBC Band Neutrophils % Nucleated RBC % Platelet Estimate Clumped Platelets Anisocytosis Stomatocytes Schistocytes Puncture Site Left radial ABG pH 7.335 L ABG pCO2 69.1 H* ABG pO2 74.3 L ABG PO2/FiO2 Ratio 1.86 ABG HCO3 36.0 H ABG O2 Saturation 93.5 L ABG O2 Content 16.5 ABG Base Excess 7.9 A-a Gradient 131.4 Oxyhemoglobin 94.5 Total Hemoglobin 12.4 O2 Delivery Device Bipap O2 Liters/Min FiO2 40 Expiratory Pressure 5 Inspiratory Pressure Not Reportable Sodium Potassium Chloride Carbon Dioxide Anion Gap BUN Creatinine Estim Creat Clear Calc Estimated GFR Glucose POC Capillary Glucose 390 H 292 H Calcium Magnesium Total Bilirubin AST ALT Alkaline Phosphatase Total Protein Albumin TSH (Reflex) 07/30/24 07/30/24 07/31/24 19:42 23:11 04:02 WBC 12.6 H RBC 3.93 L Hgb 11.1 L Hct 38.5 MCV 98.0 MCH 28.2 MCHC 28.8 L RDW 13.9 Plt Count 279 MPV 10.6 H Immature Gran % (Auto) 0.3 Neut % (Auto) 94.4 H Lymph % (Auto) 1.9 L [place] % (Auto) 3.4 Eos % (Auto) 0.0 Baso % (Auto) 0.0 L Lymph # (Auto) 0.24 L [place] # (Auto) 0.4 Eos # (Auto) 0.0 Baso # (Auto) 0.0 Abs Immat Gran (auto) 0.04 H Absolute Neuts (auto) 11.9 H Absolute Nucleated RBC 0.000 Band Neutrophils % Not Reportable Nucleated RBC % 0.0 Platelet Estimate Adequate Clumped Platelets Present Anisocytosis 1+ Stomatocytes 1+ Schistocytes None seen Puncture Site ABG pH ABG pCO2 ABG pO2 ABG PO2/FiO2 Ratio ABG HCO3 ABG O2 Saturation ABG O2 Content ABG Base Excess A-a Gradient Oxyhemoglobin Total Hemoglobin O2 Delivery Device O2 Liters/Min FiO2 Expiratory Pressure Inspiratory Pressure Sodium 139 Potassium 3.4 Chloride 94 L Carbon Dioxide 37 H Anion Gap 8 BUN 39 H D Creatinine 1.02 H Estim Creat Clear Calc 41 Estimated GFR 52 L Glucose 314 H POC Capillary Glucose 402 H 348 H Calcium 8.7 Magnesium 2.2 Total Bilirubin 0.2 AST 17 ALT 17 Alkaline Phosphatase 109 Total Protein 7.0 Albumin 3.5 TSH (Reflex) 1.090 07/31/24 07:25 WBC RBC Hgb Hct MCV MCH MCHC RDW Plt Count MPV Immature Gran % (Auto) Neut % (Auto) Lymph % (Auto) [place] % (Auto) Eos % (Auto) Baso % (Auto) Lymph # (Auto) [place] # (Auto) Eos # (Auto) Baso # (Auto) Abs Immat Gran (auto) Absolute Neuts (auto) Absolute Nucleated RBC Band Neutrophils % Nucleated RBC % Platelet Estimate Clumped Platelets Anisocytosis Stomatocytes Schistocytes Puncture Site ABG pH ABG pCO2 ABG pO2 ABG PO2/FiO2 Ratio ABG HCO3 ABG O2 Saturation ABG O2 Content ABG Base Excess A-a Gradient Oxyhemoglobin Total Hemoglobin O2 Delivery Device O2 Liters/Min FiO2 Expiratory Pressure Inspiratory Pressure Sodium Potassium Chloride Carbon Dioxide Anion Gap BUN Creatinine Estim Creat Clear Calc Estimated GFR Glucose POC Capillary Glucose 303 H Calcium Magnesium Total Bilirubin AST ALT Alkaline Phosphatase Total Protein Albumin TSH (Reflex)
[2024-07-31 10:13] LABS: Alveolar/Arterial O2 Gradient 151.2 mmHg; Fractional Inspired Oxygen 40 %; HCO3 ABG 35.2 mEq/l (22.0-26.0); Oxygen Content ABG 15.4 %vol (16.0-22.0); Oxygen Saturation ABG 90.4 % (95.0-100.0); Oxyhemoglobin 91.3 % THb (90.0-100.0); PO2 FiO2 Ratio Arterial Blood 1.55 %; pH ABG 7.368 (7.350-7.450)
[2024-07-31 10:18] LABS: Device HIGH FLOW NASAL CANN; Modified Allen's Test Pass; PCO2 ABG 62.6 mmHg (35.0-45.0); Site Drawn RIGHT BRACHIAL
[2024-07-31 11:54] LABS: Glucose Point of Care 336 mg/dl (65-105)
[2024-07-31 16:57] LABS: Glucose Point of Care 294 mg/dl (65-105)
[2024-07-31] MEDS: DONEPEZIL HCL 10 MG TABLET PO (21:03)
[2024-07-31] MEDS: INSULIN GLARGINE (*BKC) 100 UNITS/ML 40 UNITS SUB-Q (21:32)
[2024-07-31] MEDS: LORazepam (*CRX) 0.5 MG TABLET PO (21:48)
[2024-07-31 23:24] LABS: Glucose Point of Care 330 mg/dl (65-105)
[2024-08-01] VITALS (27 sets, daily range): BP systolic 118–145; BP diastolic 52–72; PULSE 55–98; RESP 16–24; TEMP 36.4–36.8; O2SAT 94–100
--- NOTE | 2024-08-01 | ECHO_ITS ---
Patient Info Name: Ana Neely Age: 79 years : 1945 Gender: Female Ht: 63 in Wt: 189 lbs BSA: 1.99 m2 HR: 85 bpm BP: 132 / 59 mmHg Heart Rhythm: Atrial Fibrillation Technical Quality: Fair Exam Date: 08/01/2024 3:52 PM Patient Status: I Admit Date: 07/28/2024 Exam Type: CA echo dop color flow w con Complete two-dimensional, color flow and Doppler transthoracic echocardiogram is performed with contrast to opacify the left ventricle and to improve the deliniation of the left ventricle endocardial borders. Staff Referring Physician: Hernan Bass Sandwich Counter Attendant: Beth Burger Attending Provider: Reba Paulson Contrast/Agitated Saline Contrast/Ag. Saline: Definity Amount: 2.00 ml Administered By: Beth Burger Existing IV Access: Yes IV Access Condition: patent with no signs of infiltration Summary 1. Left ventricular chamber dimension is normal. 2. Left ventricular systolic function is normal, estimated at 60-65. 3. There is mildly increased left ventricular wall thickness. 4. Right ventricular systolic function is normal. 5. Left atrial chamber dimension is mildly enlarged. 6. There is mild tricuspid valve regurgitation. Left Ventricle Left ventricular chamber dimension is normal. Left ventricular systolic function is normal, estimated at 60-65. There is mildly increased left ventricular wall thickness. The left ventricular diastolic function is abnormal. Right Ventricle Right ventricular chamber dimension is normal. Right ventricular systolic function is normal. Left Atria Left atrial chamber dimension is mildly enlarged. Right Atria Right atrial chamber dimension is normal. Atrial Septum Intact interatrial septum visualized by color flow imaging. Aortic Valve The aortic valve is not well visualized. There is no aortic valve regurgitation. Pulmonic Valve The pulmonic valve is not well visualized. Mitral Valve There is trace mitral valve regurgitation. The mitral valve annulus is mildly calcified. Tricuspid Valve There is mild tricuspid valve regurgitation. Pericardium/Pleural The pericardium appears epicardial fat pad. There is no pericardial effusion. Inferior Vena Cava Normal inferior vena cava with >50% collapse upon inspiration consistent with normal right atrial pressure, 3 mmHg. Aorta The aortic root size at the sinus of Valsalva is normal. Left Ventricular Outflow Tract Name Value Normal LVOT 2D LVOT Diameter 1.7 cm LVOT Doppler LVOT Peak Velocity 139 cm/s LVOT Peak Gradient 8 mmHg LVOT Mean Gradient 4 mmHg LVOT VTI 24 cm LVOT VTI/AV VTI Ratio 0.8 LVOT Stroke Volume 58 ml LVOT CO 4.5 l/min LVOT CI 2.3 l/min/m2 Pulmonic Valve Name Value Normal PV Doppler PV Peak Velocity 138 cm/s PV Peak Gradient 8 mmHg Mitral Valve Name Value Normal MV Doppler MV Peak Gradient 11 mmHg MV Mean Gradient 5 mmHg MV Area (Cont Eq VTI) 2.0 cm2 MV Diastolic Function MV E Peak Velocity 125 cm/s MV A Peak Velocity 41 cm/s MV E/A 3.0 MV Decel Time (PW) 241 ms MV Annular TDI MV E/e' (Septal) 16.7 MV E/e' (Lateral) 14.6 MV E/e' (Average) 15.6 Tricuspid Valve Name Value Normal TV Regurgitation Doppler TR Peak Velocity 296 cm/s TR Peak Gradient 34 mmHg Estimated PAP/RSVP RA Pressure 3 mmHg <=5 PA Systolic Pressure 38 mmHg <36 RV Systolic Pressure 38 mmHg <36 TV Annular TDI TV [place] s' Velocity 9.0 cm/s >=9.5 Aortic Valve Name Value Normal AV Doppler AV Peak Velocity 163 cm/s AV Peak Gradient 11 mmHg AV Mean Gradient 7 mmHg AV VTI 32 cm AV Area (Cont Eq VTI) 1.8 cm2 >=3.0 AV Area (Cont Eq Jarett) 2.0 cm2 AV DI (Jarett) 0.85 AV Regurgitation 2D LVOT Area 2.4 cm2 Ventricles Name Value Normal LV Dimensions 2D/MM IVS Diastolic Thickness (2D) 1.1 cm 0.6-1.0 LVID Diastole (2D) 4.8 cm 3.8-5.2 LVIW Diastolic Thickness (2D) 1.1 cm 0.6-0.9 LVID Systole (2D) 2.9 cm 2.2-3.5 LVOT Diameter 1.7 cm LV Mass (2D Cubed) 191.62 g 67.00-162.00 LV Mass Index (2D Cubed) 96 g/m2 43-95 Relative Wall Thickness (2D) 0.47 <=0.42 LV Fractional Shortening/Ejection Fraction 2D/MM LV Fractional Shortening (2D) 38 % 27-45 LV EF (2D Teichholz) 69 % LV Diastolic Volume (4C MOD) 70 ml LV EF (4C MOD) 53 % LV Diastolic Volume (2C MOD) 79 ml LV EF (2C MOD) 71 % LV Diastolic Volume (BP MOD) 75 ml 46-106 LV Diastolic Volume Index (BP MOD) 38 ml/m2 29-61 LV Systolic Volume (BP MOD) 28 ml 14-42 LV Systolic Volume Index (BP MOD) 14 ml/m2 8-24 LV EF (BP MOD) 63 % 54-74 LV Diastolic Length (4C) 7.4 cm LV Systolic Length (4C) 6.3 cm LV Stroke Volume (4C MOD) 37 ml Atria Name Value Normal LA Dimensions LA Volume (4C A-L) 49 ml LA Volume (BP A-L) 53 ml RA Dimensions RA Area (4C) 16.6 cm2 <=18.0 Report Signatures
[2024-08-01] MEDS: IPRATROPIUM 0.5 MG/ALBUTEROL SULFATE 2.5 MG AMPUL.NEB 3 ML INHALATION ×4 (02:09→21:05)
[2024-08-01 04:45] LABS: Basophils Percent Auto 0.1 % (0.2-1.2); Hemoglobin 11.4 g/dL (12.0-15.0); Immature Granulocyte Absolute 0.04 K/mm3 (0.00-0.031); Immature Granulocyte Percent A 0.4 % (0-0.5); Lymphocytes Absolute Auto 0.25 K/mm3 (0.9-3.2); Lymphocytes Percent Auto 2.4 % (18.3-44.2); Mean Corpuscular HGB Conc 29.2 g/dl (32-36); Mean Corpuscular Hemoglobin 28.2 pg (26-34); Mean Corpuscular Volume 96.5 fl (80-100); Mean Platelet Volume 10.4 fl (7.4-10.4); Monocytes Absolute Auto 0.2 K/mm3 (0.1-0.6); Monocytes Percent Auto 1.9 % (2.6-8.5); Neutrophils Absolute Auto 9.8 K/mm3 (1.3-6.7); Neutrophils Percent Auto 95.2 % (45.5-73.1); Platelet Count Result 280 k/mm3 (150-375); Red Blood Count 4.04 M/mm3 (4.2-5.4); White Blood Count 10.3 K/mm3 (4.5-10.0)
[2024-08-01 05:01] LABS: Alanine Aminotransferase 18 U/L (6-35); Albumin Level 3.4 g/dL (3.5-5.1); Alkaline Phosphatase 98 U/L (38-126); Anion Gap 5 mmol/L (4-12); Aspartate Amino Transferase 17 U/L (14-36); Bilirubin,Total 0.3 mg/dL (0.2-1.3); Blood Urea Nitrogen 50 mg/dL (7-17); Calcium 8.4 mg/dL (8.4-10.2); Carbon Dioxide 38 mmol/L (22-30); Chloride 93 mmol/L (98-107); Estimated CRCL calculation 37 ml/min; Estimated Glomerular Filt Rate 47; Glucose 397 mg/dL (65-110); Magnesium 2.2 mg/dL (1.6-2.3); Potassium 3.6 mmol/L (3.4-5.0); Sodium 136 mmol/L (137-145)
[2024-08-01] MEDS: LEVOTHYROXINE SODIUM 75 MCG TABLET PO (06:35)
[2024-08-01] MEDS: methylPREDNISolone SOD SUCC 125 MG VIAL 60 MG IV PUSH ×2 (06:35→11:23)
[2024-08-01 07:22] LABS: Glucose Point of Care 368 mg/dl (65-105)
[2024-08-01] MEDS: INSULIN ASPART (*BKC) 100 UNITS/ML 12 UNITS SUB-Q ×3 (08:18→18:11)
[2024-08-01] MEDS: INSULIN ASPART (*BKC) 100 UNITS/ML SUB-Q ×4 (08:19→21:07)
[2024-08-01] MEDS: FUROSEMIDE INJ 40 MG/4 ML VIAL IV PUSH ×2 (08:19→21:10)
[2024-08-01] MEDS: POTASSIUM CHLORIDE 20 MEQ PACKET (FOR LIQUID) PO (08:19)
[2024-08-01] MEDS: CYANOCOBALAMIN 1,000 MCG TABLET 1000 MCG PO (08:20)
[2024-08-01] MEDS: APIXABAN 5 MG TABLET PO (08:20)
[2024-08-01] MEDS: ATORVASTATIN 20 MG TABLET PO (08:20)
[2024-08-01] MEDS: dilTIAZem HCL CD 300 MG CAP.24HR PO (08:20)
[2024-08-01] MEDS: PANTOPRAZOLE 40 MG TABLET PO (08:20)
[2024-08-01] MEDS: METOPROLOL TARTRATE 12.5 MG TABLET PO (08:20)
[2024-08-01] MEDS: ACIDOPHILUS/BULGARICUS CHEWABLE TABLET 1 TABLET BY MOUTH (08:21)
[2024-08-01 08:23] LABS: NT Pro B Type Natriuretic Pept 1570 pg/mL (19.9-100)
[2024-08-01 11:21] LABS: Glucose Point of Care 333 mg/dl (65-105)
[2024-08-01] MEDS: DOXYCYCLINE HYCLATE 100 MG TABLET PO (11:24)
[2024-08-01] MEDS: FERROUS SULFATE 325 MG TABLET DR BY MOUTH (11:24)
--- NOTE | 2024-08-01 13:12 | P.CONPL_ITS ---
Assessment and Plan Assessment and plan (1) CHF exacerbation: Code(s): I50.9 - Heart failure, unspecified Status: Acute Assessment and Plan: 07/30/24: This appears to an active diagnosis contributing to her hypercapnia, overall deterioration. plan: There have been some computer problems and this has made completing notes difficult. I had a long discussion with her sons, Jean in-person and Kwesi by phone. She normally gets her care at [facility]. We will optimize her treatment, use high-flow nasal cannula which is comfortable, wean O2 as tolerated, continue trials of BiPAP to help with her hypercapnia, bronchodilators for COPD and diuresis. Her chest CT shows significant pleural effusions more consistent with heart failure and not pneumonia. She has a code status of Do Not Resuscitate. Family is possibly open to discussion about palliative care. They realize she has been living in facilities for 6 years, and with her multiple disease processes her prognosis is very guarded. 08/01/24: The patient is on Lasix 40 IV b.i.d.. Yesterday she was +720 mL. Cumulative since admission she is -730. Her weight today is 86.1 with an admission weight of 89. Her BNP has increased from 687 to 1510. Plan: Continue as aggressive diuresis as tolerated break her cardiac and renal systems per the hospitalist team. Her oxygenation has improved with diuresis. Echocardiogram 11/26/2020 with LVEF 50-55%. Left atrium moderately enlarged, mild mitral valve regurg. Mild aortic valve sclerosis. Normal right ventricular dimension. Mildly enlarged right atrium. Tricuspid regurg peak gradient 44. Consider repeat echo. (2) COPD (chronic obstructive pulmonary disease): Code(s): J44.9 - Chronic obstructive pulmonary disease, unspecified Status: Acute Assessment and Plan: 07/30/24: Long standing, uses Anoro at home, and has orders for albuterol but she does not think to ask for it. These are p.r.n. orders. She is not allowed to have her inhaler by the bed because she has memory impairment and could not use it appropriately. 08/01/24: patient knows her name and place but does not know the year. Overall she tells me she is breathing normal in denies cough and phlegm production. She is afebrile. White blood cell count 10.3, creatinine 1.10, BNP 1510. When I enter the room she was on Vapotherm 35 L, 45% FiO2 with saturations 97%. I decreased the patient to 4 L nasal cannula her saturations were 97%. Plan: although I suspect the majority of patient's clinical deterioration is related to fluid overload, I will treat for COPD exacerbation. I will change to prednisone 40 mg p.o. q.day, today is day 3 of systemic steroids. Continue DuoNebs q.6 hours. I will perform home O2 assessment today to assess oxygen needs at rest and with activity. I will perform overnight oximetry tonight on the same level of oxygen receive he requires with activity. 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 It is possible that these discussions have taken place, pulmonary doctors at [facility], and decisions were made not to treat her with nppv because she states she will not comply with it. Plan: She has had elevated pCO2 since at least 2018, was admitted here again in 2020, his had the last several years with admissions at [facility]. Request records. We will continue BiPAP as tolerated, currently has used 15/ with O2 at 40% with improvement in her pCO2. 08/01/24: Patient tells me she cannot tolerate the BiPAP machine. Last BiPAP use was greater than 24 hours ago and the patient is alert. 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 She was brought to the hospital on 6 L.; Head CT was negative; ABG showed acute & chronic hypercapnic hypoxemic respiratory failure. She has been hypercapnic since 2019, see ABGs below. CTA chest = no PE; she has large pleural effusions R>L with compressive atelectasis RLL and pulmonary edema. I was able to speak with her son Jean at the bedside, and Kwesi by phone who is her main personnel specialist. She normally goes to [facility], goes about once a year for a pulmonary admission, however this admission at [place] is the most severe episode, has never had O2 sat this low, this much confusion and decreased responsiveness, and CO2 this high. She is never going to wear a PAP mask, does not use O2 at the [facility], my guess is that oxygen has been discussed and due to her poor memory, CO2 retention, noncompliance that a decision was made not to put her on it radio time buyer. It is possible that these discussions have taken place, pulmonary doctors at [facility], and decisions were made not to treat her with nppv because she states she will not comply with it. It does appear that she has probably needed oxygen for a while but she has not been prescribed oxygen. She has been getting care for 6 years total, the last 1 year has been in the memory care unit. She is not always cooperative, so this limits options. She was at [facility] a year ago for a bowel blockage, surgery was discussed but the surgeons told them that she would probably . She was treated with conservative medical management and seemed to resolve the problem. She has had several close calls. 08/01/24: patient knows her name and place but does not know the year. Overall she tells me she is breathing normal in denies cough and phlegm production. She is afebrile. White blood cell count 10.3, creatinine 1.10, BNP 1510. When I enter the room she was on Vapotherm 35 L, 45% FiO2 with saturations 97%. I decreased the patient to 4 L nasal cannula her saturations were 97%. PMH: diastolic CHF, atrial fibrillation on Eliquis, had new a fib in 2020, COPD, prior tobacco abuse, dementia, anemia, hypothyroidism, arthritis, insulin- dependent diabetes mellitus. Chronic low back pain. Tobacco: 50 pack years, none x 2009. No alcohol since 2007. DATA * 07/28/24 WBC 14.2K with 87% neutrophils, now 9.5 k * 07/28/24 serology negative Influenza A,B, SARS CoV-2, RSV. * 07/28/24 Na 140, K+ 4.1, chloride 97, HCO3 37, BUN 27, creatinine 0.83. * 07/28/24 VM-Lry-B-type NT 687; normal < 100; has had several higher BNP values in the past, over 1000. * 07/29/24 glucose 290, 442; July 30 today glucose has been 296, 390, still high. * 07/28/24; H/H 11.9/40.5% * 07/28/2024; EKG; sinus rhythm rate 82, occasional supraventricular complex. RBBB, LAFB, possible old anterior KS * 07/29/24 CTA; IMPRESSION: No pulmonary embolus. No thoracic aortic dissection. Bilateral pleural effusions, right greater than left with adjacent compressive consolidation in the left lower lobe and adjacent compressive atelectasis in the right lower lobe. Additional findings consistent with pulmonary edema within the remainder of the bilateral lung malik without focal infiltrate. ABGs; most recent ABG July 30; 4 pm pH 7.335, pCO2 69, pO2 74, HC03 36, saturation 93.5% on BiPAP and 40% Review of Systems 2 Constitutional: Constitutional: Reports no additional constitutional complaints Eyes: Eyes: Reports no additional eye complaints ENT: Reports system reviewed and no additional complaints, except as documented Cardiovascular: Cardiovascular: Reports no additional cardiovascular complaints Respiratory: Respiratory: Reports no additional respiratory complaints Gastrointestinal: Gastrointestinal: Reports no additional gastrointestinal complaints Musculoskeletal: Musculoskeletal: Reports no additional musculoskeletal complaints Neurologic: Reports system reviewed and no additional complaints, except as documented Psychiatric: Psychiatric: Reports no additional psychiatric complaints Endocrine: Endocrine: Reports no additional endocrine complaints Hematologic/Lymphatic: Hematologic/Lymphatic: Reports no additional hematologic/lymphatic complaints Allergic/Immunologic: Allergic/Immunologic: Reports no additional allergic/immunologic complaints [facility] Past Medical History Medical History CHF exacerbation Atrial fibrillation COPD (chronic obstructive pulmonary disease) Arthritis Former smoker 50 pack-year smoking history. Dementia Anemia Hypothyroidism Diabetic peripheral neuropathy Insulin dependent type 2 diabetes mellitus Grade II diastolic dysfunction Noted on echocardiogram in December 2018. Ejection fraction was 60 to 65%. Surgical History Surgical History History of dilation and curettage History of cataract extraction Family History Family History Father Cerebrovascular accident Grandparent Cerebrovascular accident Family history of heart disease in male family member before age 55 Mother Family history of heart disease in male family member before age 55 Heart disease of a heart attack Heart attack Social History Social History Social History: She is a resident at [facility] in [place]. Former smoker, up to a pack of cigarettes a day for 50 years, and quit in 2009. She stopped drinking alcohol in 2007. No illicit substance use. Three children. Her son Kwesi Neely is her healthcare power of laboratory animal facility supervisor. She wishes to be a do not resuscitate but son reports that she has an advance directive stating that she wishes to be a full code. 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 Smoking packs per day: 1 Smoking cigarettes per day: 20.0 Years smoked: 50 Smoking pack-years: 50.00 Smoking status: Former smoker Tobacco type: cigarettes Alcohol intake: former Substance use: never Substance use type: does not use Do You Feel Safe in your Home?: Yes Lack of Transportation: No Lack of Food: Never True Current Housing: I Have Housing Concerned About Future Housing: No Difficulty Paying Gas/Electric Bills: No Difficulty Paying for Meds: No Currently Unemployed: No Education: Trade/Vocational Certificate Difficulty w/ Childcare or Family Care: No Gender identity (if verbalized by the patient): Female Spiritual care concerns: No Meds Home Medications and Allergies Home Medications ?Medication ?Instructions ?Recorded ?Confirmed ?Type donepezil 10 mg tablet (Aricept) 10 mg PO HS 03/24/20 07/29/24 History insulin glargine 100 unit/mL (3 35 unit subcut HS 03/24/20 07/29/24 History mL) subcutaneous pen (Lantus Solostar U-100 Insulin) omeprazole 20 mg capsule,delayed 20 mg PO DAILY 03/24/20 07/29/24 History release umeclidinium 62.5 mcg-vilanterol 1 inh inhalation DAILY 03/24/20 07/29/24 History 25 mcg/actuation powdr for inhalation (Anoro Ellipta) albuterol sulfate 90 mcg/actuation 2 puff inhalation Q6H PRN COPD 03/25/20 07/29/24 History aerosol inhaler (Ventolin HFA) budesonide-formoterol HFA 160 2 puff inhalation Q12H 03/25/20 07/29/24 History mcg-4.5 mcg/actuation aerosol inhaler (Symbicort) ferrous sulfate 300 mg (60 mg 325 mg PO DAILY 03/25/20 07/29/24 History iron)/5 mL oral liquid ipratropium 0.5 mg-albuterol 3 mg 3 ml inhalation Q6H PRN COPD 03/25/20 07/29/24 History (2.5 mg base)/3 mL nebulization soln mecobalamin (vitamin B12) 1,000 1,000 mcg PO DAILY 03/25/20 07/29/24 History mcg chewable tablet apixaban 5 mg tablet (Eliquis) 5 mg PO Q12HR #60 tabs 03/27/20 07/29/24 Rx atorvastatin 20 mg tablet 20 mg PO DAILY 12/04/21 07/29/24 History furosemide 20 mg tablet (Lasix) 40 mg PO DAILY 12/04/21 07/29/24 History spironolactone 50 mg tablet 50 mg PO DAILY 12/04/21 07/29/24 History diltiazem HCl 300 mg 300 mg PO QAM #30 caps 12/09/21 07/29/24 Rx capsule,extended release 24 hr metoprolol tartrate 25 mg tablet 12.5 mg (1/2 x 25 mg) PO BID #30 12/09/21 07/29/24 Rx tabs acetaminophen 500 mg tablet 500 mg PO Q6H PRN Pain 03/20/22 07/29/24 History (Acetaminophen Pain Relief) Lactobacillus acidophilus 1 1,000 mmu cells PO DAILY 07/29/24 07/29/24 History billion cell capsule cholecalciferol (vitamin D3) 1,250 50,000 unit PO WEEKLY 07/29/24 07/29/24 History mcg (50,000 unit) capsule levothyroxine 75 mcg tablet 75 mcg PO DAILY 07/29/24 07/29/24 History medroxyprogesterone 2.5 mg tablet 2.5 mg PO DAILY 07/29/24 07/29/24 History potassium chloride 20 mEq/15 mL 20 meq PO DAILY 07/29/24 07/29/24 History oral liquid Allergies Allergy/AdvReac Type Severity Reaction Status Date / Time No Known Allergies Allergy Unknown Verified 07/28/24 18:26 Vital Signs Vital Signs - 24 hr 07/31/24 13:15 07/31/24 14:00 07/31/24 16:00 Temperature 36.8 C Pulse Rate 82 71 69 Respiratory Rate 20 24 H Blood Pressure 138/85 Pulse Oximetry 94 Oxygen Delivery Oxygen Flow Rate Fraction of Inspired Oxygen 07/31/24 16:00 07/31/24 16:00 07/31/24 18:00 Temperature Pulse Rate 66 69 Respiratory Rate Blood Pressure Pulse Oximetry 94 Oxygen Delivery High Flow Therapy with Na Oxygen Flow Rate 30 Fraction of Inspired Oxygen 40 07/31/24 18:53 07/31/24 20:00 07/31/24 20:00 Temperature 36.8 C Pulse Rate 70 66 Respiratory Rate 16 Blood Pressure 136/46 L Pulse Oximetry 91 94 Oxygen Delivery High Flow Therapy with Na Oxygen Flow Rate 30 Fraction of Inspired Oxygen 40 07/31/24 20:24 07/31/24 20:24 07/31/24 20:24 Temperature Pulse Rate 66 66 Respiratory Rate 28 H 28 H Blood Pressure Pulse Oximetry 96 Oxygen Delivery High Flow Therapy with Na High Flow Therapy with Na Oxygen Flow Rate 35 Fraction of Inspired Oxygen 40 07/31/24 20:35 07/31/24 21:02 07/31/24 22:00 Temperature Pulse Rate 61 61 61 Respiratory Rate 24 H Blood Pressure Pulse Oximetry Oxygen Delivery Oxygen Flow Rate Fraction of Inspired Oxygen 08/01/24 00:00 08/01/24 00:00 08/01/24 00:00 Temperature 36.4 C L Pulse Rate 61 57 L Respiratory Rate 16 Blood Pressure 145/59 H Pulse Oximetry 94 94 Oxygen Delivery High Flow Therapy with Na Oxygen Flow Rate 35 Fraction of Inspired Oxygen 45 08/01/24 02:00 08/01/24 02:09 08/01/24 02:09 Temperature Pulse Rate 60 59 L 59 L Respiratory Rate 24 H Blood Pressure Pulse Oximetry 95 95 Oxygen Delivery High Flow Therapy with Na High Flow Therapy with Na Oxygen Flow Rate 35 Fraction of Inspired Oxygen 40 08/01/24 02:09 08/01/24 02:25 08/01/24 04:00 Temperature Pulse Rate 59 L 58 L Respiratory Rate 24 H 24 H Blood Pressure Pulse Oximetry 96 Oxygen Delivery High Flow Therapy with Na Oxygen Flow Rate 35 Fraction of Inspired Oxygen 45 08/01/24 04:00 08/01/24 04:00 08/01/24 05:30 Temperature 36.4 C Pulse Rate 55 L 57 L Respiratory Rate 18 Blood Pressure 134/61 Pulse Oximetry 96 97 Oxygen Delivery High Flow Therapy with Na Oxygen Flow Rate 35 Fraction of Inspired Oxygen 40 08/01/24 06:00 08/01/24 07:23 08/01/24 08:00 Temperature 36.5 C Pulse Rate 65 58 L 72 Respiratory Rate 20 20 Blood Pressure 141/55 H Pulse Oximetry 97 97 Oxygen Delivery High Flow Therapy with Na Oxygen Flow Rate 35 Fraction of Inspired Oxygen 45 08/01/24 08:00 08/01/24 08:20 08/01/24 08:46 Temperature Pulse Rate 63 62 Respiratory Rate Blood Pressure Pulse Oximetry 97 Oxygen Delivery High Flow Therapy with Na Oxygen Flow Rate 35 Fraction of Inspired Oxygen 45 08/01/24 08:46 08/01/24 08:59 08/01/24 10:00 Temperature Pulse Rate 68 72 63 Respiratory Rate 22 H 20 Blood Pressure Pulse Oximetry Oxygen Delivery Oxygen Flow Rate Fraction of Inspired Oxygen 08/01/24 11:21 08/01/24 12:00 Temperature 36.7 C Pulse Rate 62 62 Respiratory Rate 18 18 Blood Pressure 132/59 L Pulse Oximetry 100 100 Oxygen Delivery High Flow Nasal Cannula Oxygen Flow Rate 4 Fraction of Inspired Oxygen 45 Exam 2 Const: General: cooperative and comfortable Orientation/consciousness: o riented to person and oriented to place HENMT: Head: normal to inspection Ears: hearing grossly normal bilaterally Eyes: General: appearance normal, both eyes and all related structures Neck: Neck: normal visual inspection Chest: Chest palpation & inspection: normal inspection of the chest Resp: Effort & Inspection: normal respiratory effort and able to speak in complete sentences Auscultation: crackles, no rales, no rhonchi, no wheezes and lung sounds not diminished Cardio: Jugular venous distension: no JVD GI: Inspection: normal to inspection GI Palp: No abdominal tenderness Skin: General skin exam: normal color Neuro: General: oriented to person, oriented to place and oriented to time Extrem: General: normal to inspection Psych: Appearance: grossly normal Results Laboratory Findings 08/01/24 04:22 08/01/24 04:21 ABG, PT/INR, D-dimer: ABG ABG pH 7.368 (7.350-7.450) 07/31/24 09:59 ABG pCO2 62.6 mmHg (35.0-45.0) H* 07/31/24 09:59 ABG pO2 62.0 mmHg (80.0-100.0) L 07/31/24 09:59 ABG O2 Saturation 90.4 % (95.0-100.0) L 07/31/24 09:59 PT/INR, D-dimer PT 16.8 Seconds (11.1-14.7) H 07/28/24 18:49 INR 1.3 07/28/24 18:49 Abnormal lab findings: Abnormal Labs 07/28/24 07/28/24 07/29/24 18:49 19:39 03:44 WBC 14.2 H RBC 4.19 L Hgb 11.9 L MCHC 29.4 L MPV 10.6 H Neut % (Auto) 87.1 H Lymph % (Auto) 4.4 L Glasscock % (Auto) Baso % (Auto) Lymph # (Auto) 0.63 L Glasscock # (Auto) 1.1 H Abs Immat Gran (auto) 0.06 H Absolute Neuts (auto) 12.3 H PT 16.8 H ABG pH 7.256 L* ABG pCO2 75.0 H* ABG pO2 ABG HCO3 32.6 H ABG O2 Saturation ABG O2 Content Sodium 136 L Potassium 3.3 L Chloride 97 L 97 L Carbon Dioxide 34 H BUN 20 H 18 H Creatinine Estimated GFR Glucose 256 H 306 H POC Capillary Glucose NT-Pro-B Natriuret Pep 687 H Albumin 07/29/24 07/29/24 07/29/24 03:45 07:14 07:55 WBC 13.2 H RBC 4.09 L Hgb 11.6 L MCHC 29.0 L MPV 10.6 H Neut % (Auto) 85.8 H Lymph % (Auto) 2.6 L Glasscock % (Auto) 10.3 H Baso % (Auto) Lymph # (Auto) 0.34 L Glasscock # (Auto) 1.4 H Abs Immat Gran (auto) 0.06 H Absolute Neuts (auto) 11.3 H PT ABG pH 7.327 L ABG pCO2 53.6 H ABG pO2 ABG HCO3 27.4 H ABG O2 Saturation ABG O2 Content Sodium Potassium Chloride Carbon Dioxide BUN Creatinine Estimated GFR Glucose POC Capillary Glucose 290 H NT-Pro-B Natriuret Pep Albumin 07/29/24 07/29/24 07/29/24 11:39 16:14 20:09 WBC RBC Hgb MCHC MPV Neut % (Auto) Lymph % (Auto) Glasscock % (Auto) Baso % (Auto) Lymph # (Auto) Glasscock # (Auto) Abs Immat Gran (auto) Absolute Neuts (auto) PT ABG pH ABG pCO2 ABG pO2 ABG HCO3 ABG O2 Saturation ABG O2 Content Sodium Potassium Chloride Carbon Dioxide BUN Creatinine Estimated GFR Glucose POC Capillary Glucose 351 H 442 H 385 H NT-Pro-B Natriuret Pep Albumin 07/30/24 07/30/24 07/30/24 04:26 07:21 09:06 WBC RBC 4.14 L Hgb 11.7 L MCHC 28.5 L MPV Neut % (Auto) 93.7 H Lymph % (Auto) 3.1 L Glasscock % (Auto) Baso % (Auto) 0.1 L Lymph # (Auto) 0.29 L Glasscock # (Auto) Abs Immat Gran (auto) 0.04 H Absolute Neuts (auto) 8.9 H PT ABG pH 7.268 L* ABG pCO2 79.1 H* ABG pO2 67.4 L ABG HCO3 35.3 H ABG O2 Saturation 89.8 L ABG O2 Content Sodium Potassium Chloride 97 L Carbon Dioxide 37 H BUN 27 H Creatinine Estimated GFR Glucose 307 H POC Capillary Glucose 296 H NT-Pro-B Natriuret Pep Albumin 07/30/24 07/30/24 07/30/24 11:39 15:56 16:02 WBC RBC Hgb MCHC MPV Neut % (Auto) Lymph % (Auto) Glasscock % (Auto) Baso % (Auto) Lymph # (Auto) Glasscock # (Auto) Abs Immat Gran (auto) Absolute Neuts (auto) PT ABG pH 7.335 L ABG pCO2 69.1 H* ABG pO2 74.3 L ABG HCO3 36.0 H ABG O2 Saturation 93.5 L ABG O2 Content Sodium Potassium Chloride Carbon Dioxide BUN Creatinine Estimated GFR Glucose POC Capillary Glucose 390 H 292 H NT-Pro-B Natriuret Pep Albumin 07/30/24 07/30/24 07/31/24 19:42 23:11 04:02 WBC 12.6 H RBC 3.93 L Hgb 11.1 L MCHC 28.8 L MPV 10.6 H Neut % (Auto) 94.4 H Lymph % (Auto) 1.9 L Glasscock % (Auto) Baso % (Auto) 0.0 L Lymph # (Auto) 0.24 L Glasscock # (Auto) Abs Immat Gran (auto) 0.04 H Absolute Neuts (auto) 11.9 H PT ABG pH ABG pCO2 ABG pO2 ABG HCO3 ABG O2 Saturation ABG O2 Content Sodium Potassium Chloride 94 L Carbon Dioxide 37 H BUN 39 H D Creatinine 1.02 H Estimated GFR 52 L Glucose 314 H POC Capillary Glucose 402 H 348 H NT-Pro-B Natriuret Pep Albumin 07/31/24 07/31/24 07/31/24 07:25 09:59 11:38 WBC RBC Hgb MCHC MPV Neut % (Auto) Lymph % (Auto) Glasscock % (Auto) Baso % (Auto) Lymph # (Auto) Glasscock # (Auto) Abs Immat Gran (auto) Absolute Neuts (auto) PT ABG pH ABG pCO2 62.6 H* ABG pO2 62.0 L ABG HCO3 35.2 H ABG O2 Saturation 90.4 L ABG O2 Content 15.4 L Sodium Potassium Chloride Carbon Dioxide BUN Creatinine Estimated GFR Glucose POC Capillary Glucose 303 H 336 H NT-Pro-B Natriuret Pep Albumin 07/31/24 07/31/24 08/01/24 16:54 21:25 04:21 WBC RBC Hgb MCHC MPV Neut % (Auto) Lymph % (Auto) Glasscock % (Auto) Baso % (Auto) Lymph # (Auto) Glasscock # (Auto) Abs Immat Gran (auto) Absolute Neuts (auto) PT ABG pH ABG pCO2 ABG pO2 ABG HCO3 ABG O2 Saturation ABG O2 Content Sodium 136 L Potassium Chloride 93 L Carbon Dioxide 38 H BUN 50 H D Creatinine 1.12 H Estimated GFR 47 L Glucose 397 H POC Capillary Glucose 294 H 330 H NT-Pro-B Natriuret Pep 1570 H Albumin 3.4 L 08/01/24 08/01/24 08/01/24 04:22 07:18 11:15 WBC 10.3 H RBC 4.04 L Hgb 11.4 L MCHC 29.2 L MPV Neut % (Auto) 95.2 H Lymph % (Auto) 2.4 L Glasscock % (Auto) 1.9 L Baso % (Auto) 0.1 L Lymph # (Auto) 0.25 L Glasscock # (Auto) Abs Immat Gran (auto) 0.04 H Absolute Neuts (auto) 9.8 H PT ABG pH ABG pCO2 ABG pO2 ABG HCO3 ABG O2 Saturation ABG O2 Content Sodium Potassium Chloride Carbon Dioxide BUN Creatinine Estimated GFR Glucose POC Capillary Glucose 368 H 333 H NT-Pro-B Natriuret Pep Albumin
--- NOTE | 2024-08-01 15:08 | P.PNIM_ITS ---
Progress Note: A&P Assessment and Plan (1) CO2 narcosis: Code(s): R06.89 - Other abnormalities of breathing Status: Acute (2) Pneumonia: Code(s): J18.9 - Pneumonia, unspecified organism Status: Acute (3) Acute respiratory failure with hypoxia: Code(s): J96.01 - Acute respiratory failure with hypoxia Status: Acute Plan 79-year-old female with past medical history diastolic CHF, atrial fibrillation on Eliquis, COPD, prior tobacco abuse, dementia, anemia, hypothyroidism, arthritis, insulin-dependent diabetes mellitus who presents with shortness of breath and somnolence. EN route EMS placed the patient on 6 L as she was saturating 70% on room air. ER evaluation demonstrated white count of 14.2, hemoglobin 11.9, INR 1.3, pH 7.256 with pCO2 75, bicarb 32.6, BNP 687, troponin 0.012, quad viral screen negative. Chest x-ray demonstrated cardiomegaly and pulmonary edema. Possible pneumonitis, atelectasis and pneumonia. An attempt at BiPAP was made but she cannot tolerate and was pulling the mask off. In light of the aforementioned in the patient's altered mental status family was contacted and they confirmed the patient will be DNR, only medical therapy to be administered. High-flow nasal cannula at 40 L and 30% FiO2 was placed. The patient was resting comfortably thereafter. She was given breathing treatments, cefepime, doxycycline, vancomycin, magnesium 2 g rider. Acute hypoxic hypercapnic respiratory failure suspected related to CHF/COPD exacerbation ABG has improved overnight. Recheck ABG reviewed Hypercapnia has improved will switch Vapotherm to nasal cannula. AVAPS at night with she has refused to use. Chest x-ray reviewed. COPD exacerbation continue steroid CHF exacerbation continue diuresis with IV Lasix check echo CTA chest reviewed. Negative for PE. Has evidence of pulmonary edema. Continue diuresis MRSA nares came back negative. Stop vancomycin Acute on Chronic diastolic CHF Atrial fibrillation on chronic anticoagulation with Eliquis Dementia Chronic anemia Hypothyroidism Insulin-dependent diabetes mellitus DVT prophylaxis on Eliquis Code status do not resuscitate Subjective Date/time seen: 08/01/24 15:08 Interval history: No new complaints did not use her AVAPS last night. On Airvo. Review of Systems Review of Systems: All systems reviewed & are unremarkable except as noted in HPI and below (HPI) Exam Narrative: APPEARANCE: patient is awake and alert oriented to place and person. Head: atraumatic. Normocephalic EYES: EOMI, NOSE: Atraumatic NECK: Trachea midline RESPIRATORY: Diminished breath sounds bilaterally no wheezes or rhonchi no respiratory distress CARDIOVASCULAR: RRR, no peripheral edema ABDOMINAL: Non-distended MUSCULOSKELETAl: No obvious deformities NEURO: Alert. Moving 4/4 extremities SKIN:: Warm, dry. Normal color PSYCHIATRIC: Calm and cooperative Objective Data Vital Signs Vital Signs: Vital Signs - 24 hr 07/31/24 16:00 07/31/24 16:00 07/31/24 16:00 Temperature 98.3 F Pulse Rate 69 66 Respiratory Rate 24 H Blood Pressure 138/85 Pulse Oximetry 94 94 Oxygen Delivery High Flow Therapy with Na Oxygen Flow Rate 30 Fraction of Inspired Oxygen 40 07/31/24 18:00 07/31/24 18:53 07/31/24 20:00 Temperature 98.2 F Pulse Rate 69 70 Respiratory Rate 16 Blood Pressure 136/46 L Pulse Oximetry 91 94 Oxygen Delivery High Flow Therapy with Na Oxygen Flow Rate 30 Fraction of Inspired Oxygen 40 07/31/24 20:00 07/31/24 20:24 07/31/24 20:24 Temperature Pulse Rate 66 66 Respiratory Rate 28 H Blood Pressure Pulse Oximetry 96 Oxygen Delivery High Flow Therapy with Na High Flow Therapy with Na Oxygen Flow Rate 35 Fraction of Inspired Oxygen 40 07/31/24 20:24 07/31/24 20:35 07/31/24 21:02 Temperature Pulse Rate 66 61 61 Respiratory Rate 28 H 24 H Blood Pressure Pulse Oximetry Oxygen Delivery Oxygen Flow Rate Fraction of Inspired Oxygen 07/31/24 22:00 08/01/24 00:00 08/01/24 00:00 Temperature 97.5 F L Pulse Rate 61 61 Respiratory Rate 16 Blood Pressure 145/59 H Pulse Oximetry 94 94 Oxygen Delivery High Flow Therapy with Na Oxygen Flow Rate 35 Fraction of Inspired Oxygen 45 08/01/24 00:00 08/01/24 02:00 08/01/24 02:09 Temperature Pulse Rate 57 L 60 59 L Respiratory Rate Blood Pressure Pulse Oximetry 95 Oxygen Delivery High Flow Therapy with Na Oxygen Flow Rate Fraction of Inspired Oxygen 08/01/24 02:09 08/01/24 02:09 08/01/24 02:25 Temperature Pulse Rate 59 L 59 L 58 L Respiratory Rate 24 H 24 H 24 H Blood Pressure Pulse Oximetry 95 Oxygen Delivery High Flow Therapy with Na Oxygen Flow Rate 35 Fraction of Inspired Oxygen 40 08/01/24 04:00 08/01/24 04:00 08/01/24 04:00 Temperature 97.6 F Pulse Rate 55 L Respiratory Rate 18 Blood Pressure 134/61 Pulse Oximetry 96 96 Oxygen Delivery High Flow Therapy with Na Oxygen Flow Rate 35 Fraction of Inspired Oxygen 45 08/01/24 05:30 08/01/24 06:00 08/01/24 07:23 Temperature 97.7 F Pulse Rate 57 L 65 58 L Respiratory Rate 20 Blood Pressure 141/55 H Pulse Oximetry 97 97 Oxygen Delivery High Flow Therapy with Na Oxygen Flow Rate 35 Fraction of Inspired Oxygen 40 08/01/24 08:00 08/01/24 08:00 08/01/24 08:20 Temperature Pulse Rate 72 63 62 Respiratory Rate 20 Blood Pressure Pulse Oximetry 97 Oxygen Delivery High Flow Therapy with Na Oxygen Flow Rate 35 Fraction of Inspired Oxygen 45 08/01/24 08:46 08/01/24 08:46 08/01/24 08:59 Temperature Pulse Rate 68 72 Respiratory Rate 22 H 20 Blood Pressure Pulse Oximetry 97 Oxygen Delivery High Flow Therapy with Na Oxygen Flow Rate 35 Fraction of Inspired Oxygen 45 08/01/24 10:00 08/01/24 11:21 08/01/24 12:00 Temperature 98.1 F Pulse Rate 63 62 62 Respiratory Rate 18 18 Blood Pressure 132/59 L Pulse Oximetry 100 100 Oxygen Delivery High Flow Nasal Cannula Oxygen Flow Rate 4 Fraction of Inspired Oxygen 45 08/01/24 14:31 08/01/24 14:40 Temperature Pulse Rate 82 85 Respiratory Rate 20 20 Blood Pressure Pulse Oximetry Oxygen Delivery Oxygen Flow Rate Fraction of Inspired Oxygen Intake/Output Intake/Output: Intake & Output 07/29/24 07/30/24 07/31/24 08/01/24 23:59 23:59 23:59 23:59 Intake Total 700 1220 1220 290 Output Total 1770 1447 477 3142 Balance -1070 -680 651 -628 Meds/Results Medications: Active Medications Generic Name Dose Route Start Last Admin Trade Name Freq PRN Reason Stop Dose Admin Albuterol/Ipratropium 3 ml 07/29/24 08:00 08/01/24 14:27 Ipratropium 0.5 Mg/Albuterol Sulfate 2.5 Mg Ampul.Neb 3 Ml INHALATION 3 ml Q6HRT DIAZ Administration Apixaban 5 mg 07/29/24 09:00 08/01/24 08:20 Apixaban 5 Mg Tablet PO 5 mg Q12HR DIAZ Administration Atorvastatin Calcium 20 mg 07/30/24 09:00 08/01/24 08:20 Atorvastatin 20 Mg Tablet PO 20 mg DAILY DIAZ Administration Cyanocobalamin 1,000 mcg 07/30/24 09:00 08/01/24 08:20 Cyanocobalamin 1,000 Mcg Tablet PO 1,000 mcg QAM DIAZ Administration Dextrose 12.5 gm 07/29/24 03:41 Dextrose 50% 25 Gm/50 Ml Syringe IV PUSH PRN PRN Hypoglycemia Protocol Diltiazem HCl 300 mg 07/30/24 09:00 08/01/24 08:20 Diltiazem Hcl Cd 300 Mg Cap.24hr PO 300 mg QAM DIAZ Administration Donepezil HCl 10 mg 07/29/24 21:00 07/31/24 21:03 Donepezil Hcl 10 Mg Tablet PO 10 mg HS DIAZ Administration Doxycycline Hyclate 100 mg 08/01/24 10:00 08/01/24 11:24 Doxycycline Hyclate 100 Mg Tablet PO 08/04/24 09:01 100 mg Q12HR DIAZ Administration Ergocalciferol 50,000 mcg 08/01/24 09:00 Ergocalciferol (Vitamin D2) 1,250 Mcg (50,000 Units) Capsule PO WEEKLY DIAZ Ferrous Sulfate 325 mg 07/30/24 12:00 08/01/24 11:24 Ferrous Sulfate [address] BY MOUTH 325 mg DAILY@1200 DIAZ Administration Furosemide 40 mg 07/29/24 21:00 08/01/24 08:19 Furosemide Inj 40 Mg/4 Ml Vial IV PUSH 40 mg Q12HR DIAZ Administration Glucagon 1 mg 07/29/24 16:20 Glucagon For Inj 1 Mg Vial IM PRN PRN Hypoglycemia Protocol Glucose 15 gm 07/29/24 03:41 Glucose Oral Gel 15 Gm Of Glucse In 37.5 Gm Tube PO PRN PRN Hypoglycemia Protocol Dextrose 1,000 mls @ 100 mls/hr 07/29/24 03:41 Dextrose 5% 1,000 Ml IVPB PRN PRN Hypoglycemia Protocol Insulin Aspart 2 - 4 units 07/31/24 21:00 07/31/24 21:27 Insulin Aspart (*Bkc) 100 Units/Ml SUB-Q 3 units HS [facility] Administration Protocol Insulin Aspart 4 - 8 units 07/31/24 08:00 08/01/24 11:24 Insulin Aspart (*Bkc) 100 Units/Ml SUB-Q 6 units TIDWM DIAZ Administration Protocol Insulin Aspart 12 units 08/01/24 08:00 08/01/24 11:26 Insulin Aspart (*Bkc) 100 Units/Ml SUB-Q 12 units TIDWM DIAZ Administration Insulin Glargine 40 units 07/31/24 21:00 07/31/24 21:32 Insulin Glargine (*Bkc) 100 Units/Ml SUB-Q 40 units HS [facility] Administration Lactobacillus Acidophilus 1 tablet 07/30/24 09:00 08/01/24 08:21 Acidophilus/Bulgaricus Chewable Tablet BY MOUTH 1 tablet DAILY DIAZ Administration Levothyroxine Sodium 75 mcg 07/30/24 06:30 08/01/24 06:35 Levothyroxine Sodium 75 Mcg Tablet PO 75 mcg DAILY@0630 [facility] Administration Metoprolol Tartrate 12.5 mg 07/29/24 21:00 08/01/24 08:20 Metoprolol Tartrate 12.5 Mg Tablet PO 12.5 mg Q12HR [facility] Administration Pantoprazole Sodium 40 mg 07/30/24 09:00 08/01/24 08:20 Pantoprazole 40 Mg Tablet PO 40 mg QAM [facility] Administration Potassium Chloride 20 meq 07/30/24 09:00 08/01/24 08:19 Potassium Chloride 20 Meq Packet (For Liquid) PO 20 meq QAM [facility] Administration Prednisone 40 mg 08/02/24 08:00 Prednisone 20 Mg Tablet PO DAILY@0800 [facility] Radiology Results: ITS Impressions Chest CTA 07/29/24 13:40 IMPRESSION: No pulmonary embolus. No thoracic aortic dissection. Bilateral pleural effusions, right greater than left with adjacent compressive consolidation in the left lower lobe and adjacent compressive atelectasis in the right lower lobe. Additional findings consistent with pulmonary edema within the remainder of the bilateral lung mailk without focal infiltrate. Head CT 07/29/24 13:54 Impression: No acute intracranial hemorrhage or suspicious mass effect. Chest X-Ray 07/31/24 08:37 IMPRESSION: 1. No significant change in small bilateral pleural effusions and pneumonia in the left mid to lower and right lower lung zones. Labs Labs: Laboratory Results - last 24 hr 07/31/24 07/31/24 08/01/24 16:54 21:25 04:21 WBC RBC Hgb Hct MCV MCH MCHC RDW Plt Count MPV Immature Gran % (Auto) Neut % (Auto) Lymph % (Auto) Braxton % (Auto) Eos % (Auto) Baso % (Auto) Lymph # (Auto) Braxton # (Auto) Eos # (Auto) Baso # (Auto) Abs Immat Gran (auto) Absolute Neuts (auto) Absolute Nucleated RBC Nucleated RBC % Sodium 136 L Potassium 3.6 Chloride 93 L Carbon Dioxide 38 H Anion Gap 5 BUN 50 H D Creatinine 1.12 H Estim Creat Clear Calc 37 Estimated GFR 47 L Glucose 397 H POC Capillary Glucose 294 H 330 H Calcium 8.4 Magnesium 2.2 Total Bilirubin 0.3 AST 17 ALT 18 Alkaline Phosphatase 98 NT-Pro-B Natriuret Pep 1570 H Total Protein 7.0 Albumin 3.4 L 08/01/24 08/01/24 08/01/24 04:22 07:18 11:15 WBC 10.3 H RBC 4.04 L Hgb 11.4 L Hct 39.0 MCV 96.5 MCH 28.2 MCHC 29.2 L RDW 14.0 Plt Count 280 MPV 10.4 Immature Gran % (Auto) 0.4 Neut % (Auto) 95.2 H Lymph % (Auto) 2.4 L Braxton % (Auto) 1.9 L Eos % (Auto) 0.0 Baso % (Auto) 0.1 L Lymph # (Auto) 0.25 L Braxton # (Auto) 0.2 Eos # (Auto) 0.0 Baso # (Auto) 0.0 Abs Immat Gran (auto) 0.04 H Absolute Neuts (auto) 9.8 H Absolute Nucleated RBC 0.000 Nucleated RBC % 0.0 Sodium Potassium Chloride Carbon Dioxide Anion Gap BUN Creatinine Estim Creat Clear Calc Estimated GFR Glucose POC Capillary Glucose 368 H 333 H Calcium Magnesium Total Bilirubin AST ALT Alkaline Phosphatase NT-Pro-B Natriuret Pep Total Protein Albumin
[2024-08-01] MEDS: PERFLUTREN LIPID MICROSPHERES 1.5 ML VIAL DILUTED TO 10 ML TOTAL VOLUME IV PUSH (16:10)
[2024-08-01 16:39] LABS: Glucose Point of Care 242 mg/dl (65-105)
[2024-08-01] MEDS: ERGOCALCIFEROL (VITAMIN D2) 1,250 MCG (50,000 UNITS) CAPSULE 1250 MCG PO (18:14)
[2024-08-01 20:08] LABS: Glucose Point of Care 356 mg/dl (65-105)
[2024-08-01] MEDS: WATER FOR IRRIGATION, STERILE 1,000 ML BOTTLE 1000 ML (20:53)
[2024-08-01] MEDS: INSULIN GLARGINE (*BKC) 100 UNITS/ML 40 UNITS SUB-Q (21:06)
[2024-08-02] VITALS (15 sets, daily range): BP systolic 102–130; BP diastolic 58–74; PULSE 92–108; RESP 16–20; TEMP 36.4–36.8; O2SAT 94–99
[2024-08-02 02:32] LABS: Glucose Point of Care 213 mg/dl (65-105)
[2024-08-02] MEDS: IPRATROPIUM 0.5 MG/ALBUTEROL SULFATE 2.5 MG AMPUL.NEB 3 ML INHALATION ×2 (02:44→08:20)
[2024-08-02 04:58] LABS: Basophils Percent Auto 0.1 % (0.2-1.2); Hematocrit 42.9 % (37.0-47.0); Hemoglobin 12.4 g/dL (12.0-15.0); Immature Granulocyte Absolute 0.05 K/mm3 (0.00-0.031); Immature Granulocyte Percent A 0.5 % (0-0.5); Lymphocytes Absolute Auto 0.25 K/mm3 (0.9-3.2); Lymphocytes Percent Auto 2.3 % (18.3-44.2); Mean Corpuscular HGB Conc 28.9 g/dl (32-36); Mean Corpuscular Hemoglobin 27.9 pg (26-34); Mean Corpuscular Volume 96.6 fl (80-100); Mean Platelet Volume 10.7 fl (7.4-10.4); Monocytes Absolute Auto 0.6 K/mm3 (0.1-0.6); Monocytes Percent Auto 5.8 % (2.6-8.5); Neutrophils Absolute Auto 9.7 K/mm3 (1.3-6.7); Neutrophils Percent Auto 91.3 % (45.5-73.1); Platelet Count Result 265 k/mm3 (150-375); Red Blood Count 4.44 M/mm3 (4.2-5.4); Red Cell Distribution Width 13.9 % (11.5-14.5); White Blood Count 10.7 K/mm3 (4.5-10.0)
[2024-08-02 05:13] LABS: Alanine Aminotransferase 21 U/L (6-35); Albumin Level 3.4 g/dL (3.5-5.1); Alkaline Phosphatase 89 U/L (38-126); Aspartate Amino Transferase 19 U/L (14-36); Bilirubin,Total 0.3 mg/dL (0.2-1.3); Blood Urea Nitrogen 49 mg/dL (7-17); Calcium 8.1 mg/dL (8.4-10.2); Carbon Dioxide > 40 mmol/L (22-30); Chloride 89 mmol/L (98-107); Estimated CRCL calculation 45 ml/min; Estimated Glomerular Filt Rate 59; Glucose 207 mg/dL (65-110); Magnesium 2.2 mg/dL (1.6-2.3); Potassium 2.9 mmol/L (3.4-5.0); Sodium 138 mmol/L (137-145)
[2024-08-02] MEDS: LEVOTHYROXINE SODIUM 75 MCG TABLET PO (05:44)
[2024-08-02 05:50] LABS: Anisocytosis 1+; Platelet Estimate Adequate (Adequate); Schistocytes None Seen
[2024-08-02] MEDS: METOPROLOL TARTRATE 12.5 MG TABLET PO ×2 (05:53→20:19)
[2024-08-02 07:32] LABS: Glucose Point of Care 191 mg/dl (65-105)
--- NOTE | 2024-08-02 09:00 | IVDEFINITY ---
Prior to administration of IV Definity the patient was educated on the risks and benefits of the imaging enhancing agent including potential adverse side effects. The patient verbalized understanding. Allergies were verified. No exclusion criteria were identified and at least one of the following inclusion criteria were met: 1) physician request, 2) patient technically difficult to image (per the [place] [employer] guidelines of two or more segments not discernable within the apical view), or 3) questionable left ventricular function. ?
[2024-08-02] MEDS: INSULIN ASPART (*BKC) 100 UNITS/ML 12 UNITS SUB-Q ×3 (10:07→18:11)
[2024-08-02] MEDS: POTASSIUM CHLORIDE 20 MEQ PACKET (FOR LIQUID) PO (10:07)
[2024-08-02] MEDS: FUROSEMIDE INJ 40 MG/4 ML VIAL IV PUSH ×2 (10:07→20:20)
[2024-08-02] MEDS: ACIDOPHILUS/BULGARICUS CHEWABLE TABLET 1 TABLET BY MOUTH (10:08)
[2024-08-02] MEDS: DOXYCYCLINE HYCLATE 100 MG TABLET PO ×2 (10:08→20:18)
[2024-08-02] MEDS: predniSONE 20 MG TABLET 40 MG PO (10:08)
[2024-08-02] MEDS: dilTIAZem HCL CD 300 MG CAP.24HR PO (10:08)
[2024-08-02] MEDS: APIXABAN 5 MG TABLET PO ×2 (10:09→20:19)
[2024-08-02] MEDS: ATORVASTATIN 20 MG TABLET PO (10:09)
[2024-08-02] MEDS: PANTOPRAZOLE 40 MG TABLET PO (10:09)
[2024-08-02] MEDS: CYANOCOBALAMIN 1,000 MCG TABLET 1000 MCG PO (10:09)
[2024-08-02 11:51] LABS: Glucose Point of Care 252 mg/dl (65-105)
--- NOTE | 2024-08-02 12:16 | P.PNPL_ITS ---
Progress Note: A&P Assessment and Plan (1) CHF exacerbation: Code(s): I50.9 - Heart failure, unspecified Status: Acute Assessment and Plan: 07/30/24: This appears to an active diagnosis contributing to her hypercapnia, overall deterioration. plan: There have been some computer problems and this has made completing notes difficult. I had a long discussion with her sons, Jean in-person and Kwesi by phone. She normally gets her care at [facility]. We will optimize her treatment, use high-flow nasal cannula which is comfortable, wean O2 as tolerated, continue trials of BiPAP to help with her hypercapnia, bronchodilators for COPD and diuresis. Her chest CT shows significant pleural effusions more consistent with heart failure and not pneumonia. She has a code status of Do Not Resuscitate. Family is possibly open to discussion about palliative care. They realize she has been living in facilities for 6 years, and with her multiple disease processes her prognosis is very guarded. 08/01/24: The patient is on Lasix 40 IV b.i.d.. Yesterday she was +720 mL. Cumulative since admission she is -730. Her weight today is 86.1 with an admission weight of 89. Her BNP has increased from 687 to 1510. Plan: Continue as aggressive diuresis as tolerated break her cardiac and renal systems per the hospitalist team. Her oxygenation has improved with diuresis. Echocardiogram 11/26/2020 with LVEF 50-55%. Left atrium moderately enlarged, mild mitral valve regurg. Mild aortic valve sclerosis. Normal right ventricular dimension. Mildly enlarged right atrium. Tricuspid regurg peak gradient 44. Consider repeat echo. 08/02/24: Patient tells me she is breathing normal in denies cough, phlegm or hemoptysis. She has been out of the chair to the bed. She is afebrile. White blood cell count 10.7, creatinine 0.92. Patient on 3 L nasal cannula saturations 93%. Yesterday she diuresed 220 mL and cumulative diuresis since admission is 1.6 L. her weight today is 86.3 With an admission weight of 89 kg. Later in the in the day that echocardiogram with LVEF 60- 65%, mild increased left ventricular wall thickness. Normal right ventricular size and function. Mildly enlarged left atrium. Normal right atrium size. RVSP 38. 08/02/24: Yesterday she diuresed 220 mL and cumulative diuresis since admission is 1.6 L. her weight today is 86.3 With an admission weight of 89 kg. Plan: Continue as aggressive diuresis as tolerated break her cardiac and renal systems per the hospitalist team. Her oxygenation has improved with diuresis. Will follow with you. (2) COPD (chronic obstructive pulmonary disease): Code(s): J44.9 - Chronic obstructive pulmonary disease, unspecified Status: Acute Assessment and Plan: 07/30/24: Long standing, uses Anoro at home, and has orders for albuterol but she does not think to ask for it. These are p.r.n. orders. She is not allowed to have her inhaler by the bed because she has memory impairment and could not use it appropriately. 08/01/24: patient knows her name and place but does not know the year. Overall she tells me she is breathing normal in denies cough and phlegm production. She is afebrile. White blood cell count 10.3, creatinine 1.10, BNP 1510. When I enter the room she was on Vapotherm 35 L, 45% FiO2 with saturations 97%. I decreased the patient to 4 L nasal cannula her saturations were 97%. Plan: although I suspect the majority of patient's clinical deterioration is related to fluid overload, I will treat for COPD exacerbation. I will change to prednisone 40 mg p.o. q.day, today is day 3 of systemic steroids. Continue DuoNebs q.6 hours. I will perform home O2 assessment today to assess oxygen needs at rest and with activity. I will perform overnight oximetry tonight on the same level of oxygen receive he requires with activity. 08/02/24: Patient tells me she is breathing normal in denies cough, phlegm or hemoptysis. She has been out of the chair to the bed. She is afebrile. White blood cell count 10.7, creatinine 0.92. Patient on 3 L nasal cannula saturations 93%. Plan: She has no wheezing today. Continue prednisone 40 mg a day, day 4 of steroids. Will change DuoNebs q.6 to Anoro Ellipta. Continue doxycycline, day 6 of 7. 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 It is possible that these discussions have taken place, pulmonary doctors at [facility], and decisions were made not to treat her with nppv because she states she will not comply with it. Plan: She has had elevated pCO2 since at least 2018, was admitted here again in 2020, his had the last several years with admissions at [facility]. Request records. We will continue BiPAP as tolerated, currently has used 15/5 with O2 at 40% with improvement in her pCO2. 08/01/24: Patient tells me she cannot tolerate the BiPAP machine. Last BiPAP use was greater than 24 hours ago and the patient is alert. Plan: If patient is going to return to assisted living, I will obtain home O2 assessment and overnight oximetry prior to discharge. If she is going to a half-way facility oxygen per their protocol. Subjective Date/time seen: 08/02/24 12:16 Interval history: pt was seen July 30 at 15:30; Room 206 NEW: Ana Neely is a 79-year-old female, retired [employer] from [employer], admitted through ED arrived by ambulance with decreased mentation and shortness of breath 07/28/2024; her room air saturation was in the 70s. She was brought to the hospital on 6 L.; Head CT was negative; ABG showed acute & chronic hypercapnic hypoxemic respiratory failure. She has been hypercapnic since 2019, see ABGs below. CTA chest = no PE; she has large pleural effusions R>L with compressive atelectasis RLL and pulmonary edema. I was able to speak with her son Jean at the bedside, and Kwesi by phone who is her main contact center specialist. She normally goes to [facility], goes about once a year for a pulmonary admission, however this admission at [place] is the most severe episode, has never had O2 sat this low, this much confusion and decreased responsiveness, and CO2 this high. 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 It is possible that these discussions have taken place, pulmonary doctors at [facility], and decisions were made not to treat her with nppv because she states she will not comply with it. It does appear that she has probably needed oxygen for a while but she has not been prescribed oxygen. She has been getting care for 6 years total, the last 1 year has been in the memory care unit. She is not always cooperative, so this limits options. PMH: diastolic CHF, atrial fibrillation on Eliquis, had new a fib in 2020, COPD, prior tobacco abuse, dementia, anemia, hypothyroidism, arthritis, insulin- dependent diabetes mellitus. Chronic low back pain. Tobacco: 50 pack years, none x 2009. No alcohol since 2007. She was at [facility] a year ago for a bowel blockage, surgery was discussed but [facility] surgeons told them that she would probably . She was treated with conservative medical management and seemed to resolve the problem. She has had several close calls. 08/01/24: patient knows her name and place but does not know the year. Overall she tells me she is breathing normal in denies cough and phlegm production. She is afebrile. White blood cell count 10.3, creatinine 1.10, BNP 1510. When I enter the room she was on Vapotherm 35 L, 45% FiO2 with saturations 97%. I decreased the patient to 4 L nasal cannula her saturations were 97%. Later in the in the day that echocardiogram with LVEF 60- 65%, mild increased left ventricular wall thickness. Normal right ventricular size and function. Mildly enlarged left atrium. Normal right atrium size. RVSP 38. 08/02/24: Patient tells me she is breathing normal in denies cough, phlegm or hemoptysis. She has been out of the chair to the bed. She is afebrile. White blood cell count 10.7, creatinine 0.92. Patient on 3 L nasal cannula saturations 93%. Yesterday she diuresed 220 mL and cumulative diuresis since admission is 1.6 L. her weight today is 86.3 With an admission weight of 89 kg. DATA: 08/01/24: Echo Summary 1. Left ventricular chamber dimension is normal. 2. Left ventricular systolic function is normal, estimated at 60-65. 3. There is mildly increased left ventricular wall thickness. 4. Right ventricular systolic function is normal. 5. Left atrial chamber dimension is mildly enlarged. 6. There is mild tricuspid valve regurgitation. Right Ventricle Right ventricular chamber dimension is normal. Right ventricular systolic function is normal. Right Atria Right atrial chamber dimension is normal. Atrial Septum Intact interatrial septum visualized by color flow imaging. RVSP 38. * 07/28/24 WBC 14.2K with 87% neutrophils, now 9.5 k * 07/28/24 serology negative Influenza A,B, SARS CoV-2, RSV. * 07/28/24 Na 140, K+ 4.1, chloride 97, HCO3 37, BUN 27, creatinine 0.83. * 07/28/24 [id number]-type NT 687; normal < 100; has had several higher BNP values in the past, over 1000. * 07/29/24 glucose 290, 442; July 30 today glucose has been 296, 390, still high. * 07/28/24; H/H 11.9/40.5% * 07/28/2024; EKG; sinus rhythm rate 82, occasional supraventricular complex. 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 No thoracic aortic dissection. Bilateral pleural effusions, right greater than left with adjacent compressive consolidation in the left lower lobe and adjacent compressive atelectasis in the right lower lobe. Additional findings consistent with pulmonary edema within the remainder of the bilateral lung malik without focal infiltrate. ABGs; most recent ABG July 30; 4 pm pH 7.335, pCO2 69, pO2 74, HC03 36, saturation 93.5% on BiPAP and 40% Review of Systems Review of Systems: All systems reviewed & are unremarkable except as noted in HPI and below Constitutional: Constitutional: Reports no additional constitutional complaints Eyes: Eyes: Reports no additional eye complaints ENT: Reports system reviewed and no additional complaints, except as documented Cardiovascular: Cardiovascular: Reports no additional cardiovascular complaints Respiratory: Respiratory: Reports no additional respiratory complaints Gastrointestinal: Gastrointestinal: Reports no additional gastrointestinal complaints Musculoskeletal: Musculoskeletal: Reports no additional musculoskeletal complaints Neurologic: Reports system reviewed and no additional complaints, except as documented Psychiatric: Psychiatric: Reports no additional psychiatric complaints Endocrine: Endocrine: Reports no additional endocrine complaints Hematologic/Lymphatic: Hematologic/Lymphatic: Reports no additional hematologic/lymphatic complaints Allergic/Immunologic: Allergic/Immunologic: Reports no additional allergic/immunologic complaints Exam Const: General: cooperative and comfortable Orientation/consciousness: oriented to person, oriented to place and oriented to time HENMT: Head: normal to inspection Ears: hearing grossly normal bilaterally Eyes: General: appearance normal, both eyes and all related structures Neck: Neck: normal visual inspection Chest: Chest palpation & inspection: normal inspection of the chest Resp: Effort & Inspection: normal respiratory effort and able to speak in complete sentences Auscultation: crackles, no rales, no rhonchi, no wheezes and lung sounds not diminished Cardio: Jugular venous distension: no JVD GI: Inspection: normal to inspection Skin: General skin exam: normal color Neuro: General: oriented to person, oriented to place and oriented to time Extrem: General: normal to inspection Psych: Appearance: grossly normal Objective Data Vital Signs Vital Signs: Vital Signs - 24 hr 08/01/24 14:00 08/01/24 14:31 08/01/24 14:40 Temperature Pulse Rate 94 82 85 Respiratory Rate 20 20 Blood Pressure Pulse Oximetry Oxygen Delivery Oxygen Flow Rate Fraction of Inspired Oxygen 08/01/24 15:00 08/01/24 15:30 08/01/24 15:39 Temperature 36.8 C Pulse Rate 82 Respiratory Rate 18 Blood Pressure 118/52 L Pulse Oximetry 97 Oxygen Delivery Nasal Cannula High Flow Therapy with Na Oxygen Flow Rate 4 3 Fraction of Inspired Oxygen 08/01/24 16:00 08/01/24 16:00 08/01/24 18:00 Temperature Pulse Rate 82 90 65 Respiratory Rate 18 Blood Pressure Pulse Oximetry 97 Oxygen Delivery High Flow Nasal Cannula Oxygen Flow Rate 4 Fraction of Inspired Oxygen 45 08/01/24 20:00 08/01/24 20:00 08/01/24 20:00 Temperature 36.8 C Pulse Rate 98 94 Respiratory Rate 19 Blood Pressure 122/72 Pulse Oximetry 99 98 Oxygen Delivery High Flow Nasal Cannula Oxygen Flow Rate 4 Fraction of Inspired Oxygen 08/01/24 21:08 08/01/24 21:29 08/01/24 21:46 Temperature Pulse Rate 91 95 87 Respiratory Rate 16 20 Blood Pressure Pulse Oximetry 98 Oxygen Delivery High Flow Nasal Cannula Oxygen Flow Rate 3 Fraction of Inspired Oxygen 08/01/24 22:00 08/01/24 22:02 08/02/24 00:00 Temperature 36.8 C Pulse Rate 96 85 99 Respiratory Rate 20 17 Blood Pressure 121/74 Pulse Oximetry 98 Oxygen Delivery Oxygen Flow Rate Fraction of Inspired Oxygen 08/02/24 00:00 08/02/24 02:00 08/02/24 02:47 Temperature Pulse Rate 97 97 Respiratory Rate 16 Blood Pressure Pulse Oximetry 98 Oxygen Delivery High Flow Nasal Cannula Oxygen Flow Rate 7 Fraction of Inspired Oxygen 08/02/24 02:53 08/02/24 04:00 08/02/24 04:00 Temperature 36.8 C Pulse Rate 98 99 Respiratory Rate 16 16 Blood Pressure 108/58 L Pulse Oximetry 99 99 Oxygen Delivery High Flow Nasal Cannula Oxygen Flow Rate 5 Fraction of Inspired Oxygen 08/02/24 04:00 08/02/24 05:53 08/02/24 06:00 Temperature Pulse Rate 106 H 106 H 106 H Respiratory Rate Blood Pressure Pulse Oximetry Oxygen Delivery Oxygen Flow Rate Fraction of Inspired Oxygen 08/02/24 08:00 08/02/24 08:22 08/02/24 08:22 Temperature 36.6 C Pulse Rate 108 H 96 Respiratory Rate 16 20 Blood Pressure 114/65 Pulse Oximetry 94 96 Oxygen Delivery Nasal Cannula Oxygen Flow Rate 3 Fraction of Inspired Oxygen 08/02/24 12:00 Temperature 36.4 C Pulse Rate 95 Respiratory Rate 20 Blood Pressure 128/69 Pulse Oximetry 96 Oxygen Delivery Oxygen Flow Rate Fraction of Inspired Oxygen Intake/Output Intake/Output: Intake & Output 07/30/24 07/31/24 08/01/24 08/02/24 23:59 23:59 23:59 23:59 Intake Total 1220 1220 1080 360 Output Total 8603 012 9397 600 Balance -680 720 -220 -240 Meds/Results Medications: Active Medications Generic Name Dose Route Start Last Admin Trade Name Freq PRN Reason Stop Dose Admin Apixaban 5 mg 07/29/24 09:00 08/02/24 10:09 Apixaban 5 Mg Tablet PO 5 mg Q12HR DIAZ Administration Atorvastatin Calcium 20 mg 07/30/24 09:00 08/02/24 10:09 Atorvastatin 20 Mg Tablet PO 20 mg DAILY DIAZ Administration Cyanocobalamin 1,000 mcg 07/30/24 09:00 08/02/24 10:09 Cyanocobalamin 1,000 Mcg Tablet PO 1,000 mcg QAM DIAZ Administration Dextrose 12.5 gm 07/29/24 03:41 Dextrose 50% 25 Gm/50 Ml Syringe IV PUSH PRN PRN Hypoglycemia Protocol Diltiazem HCl 300 mg 07/30/24 09:00 08/02/24 10:08 Diltiazem Hcl Cd 300 Mg Cap.24hr PO 300 mg QAM DIAZ Administration Donepezil HCl 10 mg 07/29/24 21:00 08/01/24 21:29 Donepezil Hcl 10 Mg Tablet PO Not Given HS DIAZ Doxycycline Hyclate 100 mg 08/01/24 10:00 08/02/24 10:08 Doxycycline Hyclate 100 Mg Tablet PO 08/04/24 09:01 100 mg Q12HR DIAZ Administration Ergocalciferol 1,250 mcg 08/01/24 17:40 08/01/24 18:14 Ergocalciferol (Vitamin D2) 1,250 Mcg (50,000 Units) Capsule PO 1,250 mcg WEEKLY DIAZ Administration Ferrous Sulfate 325 mg 07/30/24 12:00 08/01/24 11:24 Ferrous Sulfate [address] BY MOUTH 325 mg DAILY@1200 DIAZ Administration Furosemide 40 mg 07/29/24 21:00 08/02/24 10:07 Furosemide Inj 40 Mg/4 Ml Vial IV PUSH 40 mg Q12HR DIAZ Administration Glucagon 1 mg 07/29/24 16:20 Glucagon For Inj 1 Mg Vial IM PRN PRN Hypoglycemia Protocol Glucose 15 gm 07/29/24 03:41 Glucose Oral Gel 15 Gm Of Glucse In 37.5 Gm Tube PO PRN PRN Hypoglycemia Protocol Dextrose 1,000 mls @ 100 mls/hr 07/29/24 03:41 Dextrose 5% 1,000 Ml IVPB PRN PRN Hypoglycemia Protocol Insulin Aspart 2 - 4 units 07/31/24 21:00 08/01/24 21:07 Insulin Aspart (*Bkc) 100 Units/Ml SUB-Q 4 units HS DIAZ Administration Protocol Insulin Aspart 4 - 8 units 07/31/24 08:00 08/02/24 10:09 Insulin Aspart (*Bkc) 100 Units/Ml SUB-Q Not Given TIDWM DIAZ Protocol Insulin Aspart 12 units 08/01/24 08:00 08/02/24 10:07 Insulin Aspart (*Bkc) 100 Units/Ml SUB-Q 12 units TIDWM DIAZ Administration Insulin Glargine 40 units 07/31/24 21:00 08/01/24 21:06 Insulin Glargine (*Bkc) 100 Units/Ml SUB-Q 40 units HS DIAZ Administration Lactobacillus Acidophilus 1 tablet 07/30/24 09:00 08/02/24 10:08 Acidophilus/Bulgaricus Chewable Tablet BY MOUTH 1 tablet DAILY DIAZ Administration Levothyroxine Sodium 75 mcg 07/30/24 06:30 08/02/24 05:44 Levothyroxine Sodium 75 Mcg Tablet PO 75 mcg DAILY@0630 DIAZ Administration Metoprolol Tartrate 12.5 mg 07/29/24 21:00 08/02/24 05:53 Metoprolol Tartrate 12.5 Mg Tablet PO 12.5 mg Q12HR DIAZ Administration Pantoprazole Sodium 40 mg 07/30/24 09:00 08/02/24 10:09 Pantoprazole 40 Mg Tablet PO 40 mg QAM DIAZ Administration Potassium Chloride 20 meq 07/30/24 09:00 08/01/24 08:19 Potassium Chloride 20 Meq Packet (For Liquid) PO 20 meq QAM DIAZ Administration Prednisone 40 mg 08/02/24 08:00 08/02/24 10:08 Prednisone 20 Mg Tablet PO 40 mg DAILY@0800 [facility] Administration Umeclidinium/Vilanterol 1 puff 08/02/24 09:00 08/02/24 11:29 Umeclidinium/Vilanterol 62.5-25 Mcg Ellipta INHALATION Not Given DAILYRT [facility] Radiology Results: ITS Impressions Chest CTA 07/29/24 13:40 IMPRESSION: No pulmonary embolus. No thoracic aortic dissection. Bilateral pleural effusions, right greater than left with adjacent compressive consolidation in the left lower lobe and adjacent compressive atelectasis in the right lower lobe. Additional findings consistent with pulmonary edema within the remainder of the bilateral lung malik without focal infiltrate. Head CT 07/29/24 13:54 Impression: No acute intracranial hemorrhage or suspicious mass effect. Chest X-Ray 07/31/24 08:37 IMPRESSION: 1. No significant change in small bilateral pleural effusions and pneumonia in the left mid to lower and right lower lung zones. Labs Labs: Laboratory Results - last 24 hr 08/01/24 08/01/24 08/02/24 16:37 19:58 02:30 WBC RBC Hgb Hct MCV MCH MCHC RDW Plt Count MPV Immature Gran % (Auto) Neut % (Auto) Lymph % (Auto) Humphreys % (Auto) Eos % (Auto) Baso % (Auto) Lymph # (Auto) Humphreys # (Auto) Eos # (Auto) Baso # (Auto) Abs Immat Gran (auto) Absolute Neuts (auto) Absolute Nucleated RBC Band Neutrophils % Nucleated RBC % Platelet Estimate Anisocytosis Schistocytes Sodium Potassium Chloride Carbon Dioxide Anion Gap BUN Creatinine Estim Creat Clear Calc Estimated GFR Glucose POC Capillary Glucose 242 H 356 H 213 H Calcium Magnesium Total Bilirubin AST ALT Alkaline Phosphatase Total Protein Albumin 08/02/24 08/02/24 08/02/24 03:52 07:29 11:11 WBC 10.7 H RBC 4.44 Hgb 12.4 Hct 42.9 MCV 96.6 MCH 27.9 MCHC 28.9 L RDW 13.9 Plt Count 265 MPV 10.7 H Immature Gran % (Auto) 0.5 Neut % (Auto) 91.3 H Lymph % (Auto) 2.3 L Humphreys % (Auto) 5.8 Eos % (Auto) 0.0 Baso % (Auto) 0.1 L Lymph # (Auto) 0.25 L Humphreys # (Auto) 0.6 Eos # (Auto) 0.0 Baso # (Auto) 0.0 Abs Immat Gran (auto) 0.05 H Absolute Neuts (auto) 9.7 H Absolute Nucleated RBC 0.000 Band Neutrophils % Not Reportable Nucleated RBC % 0.0 Platelet Estimate Adequate Anisocytosis 1+ Schistocytes None seen Sodium 138 Potassium 2.9 L Chloride 89 L Carbon Dioxide > 40 H Anion Gap BUN 49 H Creatinine 0.92 Estim Creat Clear Calc 45 Estimated GFR 59 Glucose 207 H POC Capillary Glucose 191 H 252 H Calcium 8.1 L Magnesium 2.2 Total Bilirubin 0.3 AST 19 ALT 21 Alkaline Phosphatase 89 Total Protein 7.0 Albumin 3.4 L
[2024-08-02] MEDS: INSULIN ASPART (*BKC) 100 UNITS/ML SUB-Q ×3 (13:40→20:24)
[2024-08-02 15:51] LABS: Glucose Point of Care 237 mg/dl (65-105)
--- NOTE | 2024-08-02 17:24 | P.PNIM_ITS ---
Progress Note: A&P Assessment and Plan (1) CO2 narcosis: Code(s): R06.89 - Other abnormalities of breathing Status: Acute (2) Pneumonia: Code(s): J18.9 - Pneumonia, unspecified organism Status: Acute (3) Acute respiratory failure with hypoxia: Code(s): J96.01 - Acute respiratory failure with hypoxia Status: Acute Plan 79-year-old female with past medical history diastolic CHF, atrial fibrillation on Eliquis, COPD, prior tobacco abuse, dementia, anemia, hypothyroidism, arthritis, insulin-dependent diabetes mellitus who presents with shortness of breath and somnolence. EN route EMS placed the patient on 6 L as she was saturating 70% on room air. ER evaluation demonstrated white count of 14.2, hemoglobin 11.9, INR 1.3, pH 7.256 with pCO2 75, bicarb 32.6, BNP 687, troponin 0.012, quad viral screen negative. Chest x-ray demonstrated cardiomegaly and pulmonary edema. Possible pneumonitis, atelectasis and pneumonia. An attempt at BiPAP was made but she cannot tolerate and was pulling the mask off. In light of the aforementioned in the patient's altered mental status family was contacted and they confirmed the patient will be DNR, only medical therapy to be administered. High-flow nasal cannula at 40 L and 30% FiO2 was placed. The patient was resting comfortably thereafter. She was given breathing treatments, cefepime, doxycycline, vancomycin, magnesium 2 g rider. Acute hypoxic hypercapnic respiratory failure suspected related to CHF/COPD exacerbation ABG has improved overnight. Recheck ABG reviewed Hypercapnia has improved will switch Vapotherm to nasal cannula. AVAPS at night with she has refused to use. Chest x-ray reviewed. Oxygenation has been lowered to high- flow nasal cannula. Pulmonary on board. Off AVAPS due to refusal COPD exacerbation continue steroid on oral steroid CHF exacerbation continue diuresis with IV Lasix echo with EF 50-55% no significant valvular abnormality. CTA chest reviewed. Negative for PE. Has evidence of pulmonary edema. Continue diuresis MRSA nares came back negative. Stop vancomycin Acute on Chronic diastolic CHF on diuresis with IV Lasix Atrial fibrillation on chronic anticoagulation with Eliquis Dementia Chronic anemia Hypothyroidism Insulin-dependent diabetes mellitus DVT prophylaxis on Eliquis Code status do not resuscitate Subjective Date/time seen: 08/02/24 17:24 Interval history: No overnight events. Patient down to high-flow nasal cannula now. Minimal cough. Discussed with Pulmonary. Review of Systems Review of Systems: All systems reviewed & are unremarkable except as noted in HPI and below (HPI) Exam Narrative: APPEARANCE: patient is awake and alert oriented to place and person. Head: atraumatic. Normocephalic EYES: EOMI, NOSE: Atraumatic NECK: Trachea midline RESPIRATORY: Diminished breath sounds bilaterally no wheezes or rhonchi no respiratory distress CARDIOVASCULAR: RRR, no peripheral edema ABDOMINAL: Non-distended MUSCULOSKELETAl: No obvious deformities NEURO: Alert. Moving 4/4 extremities SKIN:: Warm, dry. Normal color PSYCHIATRIC: Calm and cooperative Objective Data Vital Signs Vital Signs: Vital Signs - 24 hr 08/01/24 18:00 08/01/24 20:00 08/01/24 20:00 Temperature 98.3 F Pulse Rate 65 98 Respiratory Rate 19 Blood Pressure 122/72 Pulse Oximetry 99 98 Oxygen Delivery High Flow Nasal Cannula Oxygen Flow Rate 4 08/01/24 20:00 08/01/24 21:08 08/01/24 21:29 Temperature Pulse Rate 94 91 95 Respiratory Rate 16 Blood Pressure Pulse Oximetry 98 Oxygen Delivery High Flow Nasal Cannula Oxygen Flow Rate 3 08/01/24 21:46 08/01/24 22:00 08/01/24 22:02 Temperature Pulse Rate 87 96 85 Respiratory Rate 20 20 Blood Pressure Pulse Oximetry Oxygen Delivery Oxygen Flow Rate 08/02/24 00:00 08/02/24 00:00 08/02/24 02:00 Temperature 98.2 F Pulse Rate 99 97 Respiratory Rate 17 Blood Pressure 121/74 Pulse Oximetry 98 98 Oxygen Delivery High Flow Nasal Cannula Oxygen Flow Rate 7 08/02/24 02:47 08/02/24 02:53 08/02/24 04:00 Temperature 98.2 F Pulse Rate 97 98 99 Respiratory Rate 16 16 16 Blood Pressure 108/58 L Pulse Oximetry 99 Oxygen Delivery Oxygen Flow Rate 08/02/24 04:00 08/02/24 04:00 08/02/24 05:53 Temperature Pulse Rate 106 H 106 H Respiratory Rate Blood Pressure Pulse Oximetry 99 Oxygen Delivery High Flow Nasal Cannula Oxygen Flow Rate 5 08/02/24 06:00 08/02/24 08:00 08/02/24 08:22 Temperature 97.9 F Pulse Rate 106 H 108 H Respiratory Rate 16 Blood Pressure 114/65 Pulse Oximetry 94 96 Oxygen Delivery Nasal Cannula Oxygen Flow Rate 3 08/02/24 08:22 08/02/24 12:00 08/02/24 16:00 Temperature 97.6 F 98.0 F Pulse Rate 96 95 95 Respiratory Rate 20 20 16 Blood Pressure 128/69 102/59 L Pulse Oximetry 96 99 Oxygen Delivery Oxygen Flow Rate Intake/Output Intake/Output: Intake & Output 07/30/24 07/31/24 08/01/24 08/02/24 23:59 23:59 23:59 23:59 Intake Total 1220 1220 1080 600 Output Total 9632 856 4735 600 Balance -680 720 -220 0 Meds/Results Medications: Active Medications Generic Name Dose Route Start Last Admin Trade Name Freq PRN Reason Stop Dose Admin Apixaban 5 mg 07/29/24 09:00 08/02/24 10:09 Apixaban 5 Mg Tablet PO 5 mg Q12HR DIAZ Administration Atorvastatin Calcium 20 mg 07/30/24 09:00 08/02/24 10:09 Atorvastatin 20 Mg Tablet PO 20 mg DAILY DIAZ Administration Cyanocobalamin 1,000 mcg 07/30/24 09:00 08/02/24 10:09 Cyanocobalamin 1,000 Mcg Tablet PO 1,000 mcg QAM DIAZ Administration Dextrose 12.5 gm 07/29/24 03:41 Dextrose 50% 25 Gm/50 Ml Syringe IV PUSH PRN PRN Hypoglycemia Protocol Diltiazem HCl 300 mg 07/30/24 09:00 08/02/24 10:08 Diltiazem Hcl Cd 300 Mg Cap.24hr PO 300 mg QAM DIAZ Administration Donepezil HCl 10 mg 07/29/24 21:00 08/01/24 21:29 Donepezil Hcl 10 Mg Tablet PO Not Given HS DIAZ Doxycycline Hyclate 100 mg 08/01/24 10:00 08/02/24 10:08 Doxycycline Hyclate 100 Mg Tablet PO 08/04/24 09:01 100 mg Q12HR DIAZ Administration Ergocalciferol 1,250 mcg 08/01/24 17:40 08/01/24 18:14 Ergocalciferol (Vitamin D2) 1,250 Mcg (50,000 Units) Capsule PO 1,250 mcg WEEKLY DIAZ Administration Ferrous Sulfate 325 mg 07/30/24 12:00 08/01/24 11:24 Ferrous Sulfate [address] BY MOUTH 325 mg DAILY@1200 DIAZ Administration Furosemide 40 mg 07/29/24 21:00 08/02/24 10:07 Furosemide Inj 40 Mg/4 Ml Vial IV PUSH 40 mg Q12HR DIAZ Administration Glucagon 1 mg 07/29/24 16:20 Glucagon For Inj 1 Mg Vial IM PRN PRN Hypoglycemia Protocol Glucose 15 gm 07/29/24 03:41 Glucose Oral Gel 15 Gm Of Glucse In 37.5 Gm Tube PO PRN PRN Hypoglycemia Protocol Dextrose 1,000 mls @ 100 mls/hr 07/29/24 03:41 Dextrose 5% 1,000 Ml IVPB PRN PRN Hypoglycemia Protocol Insulin Aspart 2 - 4 units 07/31/24 21:00 08/01/24 21:07 Insulin Aspart (*Bkc) 100 Units/Ml SUB-Q 4 units HS DIAZ Administration Protocol Insulin Aspart 4 - 8 units 07/31/24 08:00 08/02/24 13:40 Insulin Aspart (*Bkc) 100 Units/Ml SUB-Q 4 units TIDWM DIAZ Administration Protocol Insulin Aspart 12 units 08/01/24 08:00 08/02/24 13:40 Insulin Aspart (*Bkc) 100 Units/Ml SUB-Q 12 units TIDWM DIAZ Administration Insulin Glargine 40 units 07/31/24 21:00 08/01/24 21:06 Insulin Glargine (*Bkc) 100 Units/Ml SUB-Q 40 units HS DIAZ Administration Lactobacillus Acidophilus 1 tablet 07/30/24 09:00 08/02/24 10:08 Acidophilus/Bulgaricus Chewable Tablet BY MOUTH 1 tablet DAILY DIAZ Administration Levothyroxine Sodium 75 mcg 07/30/24 06:30 08/02/24 05:44 Levothyroxine Sodium 75 Mcg Tablet PO 75 mcg DAILY@0630 DIAZ Administration Metoprolol Tartrate 12.5 mg 07/29/24 21:00 08/02/24 05:53 Metoprolol Tartrate 12.5 Mg Tablet PO 12.5 mg Q12HR DIAZ Administration Pantoprazole Sodium 40 mg 07/30/24 09:00 08/02/24 10:09 Pantoprazole 40 Mg Tablet PO 40 mg QAM DIAZ Administration Potassium Chloride 20 meq 07/30/24 09:00 08/02/24 10:07 Potassium Chloride 20 Meq Packet (For Liquid) PO 20 meq QAM DIAZ Administration Prednisone 40 mg 08/02/24 08:00 08/02/24 10:08 Prednisone 20 Mg Tablet PO 40 mg DAILY@0800 [facility] Administration Umeclidinium/Vilanterol 1 puff 08/02/24 09:00 08/02/24 11:29 Umeclidinium/Vilanterol 62.5-25 Mcg Ellipta INHALATION Not Given DAILYRT [facility] Radiology Results: ITS Impressions Chest CTA 07/29/24 13:40 IMPRESSION: No pulmonary embolus. No thoracic aortic dissection. Bilateral pleural effusions, right greater than left with adjacent compressive consolidation in the left lower lobe and adjacent compressive atelectasis in the right lower lobe. Additional findings consistent with pulmonary edema within the remainder of the bilateral lung malik without focal infiltrate. Head CT 07/29/24 13:54 Impression: No acute intracranial hemorrhage or suspicious mass effect. Chest X-Ray 07/31/24 08:37 IMPRESSION: 1. No significant change in small bilateral pleural effusions and pneumonia in the left mid to lower and right lower lung zones. Labs Labs: Laboratory Results - last 24 hr 08/01/24 08/02/24 08/02/24 19:58 02:30 03:52 WBC 10.7 H RBC 4.44 Hgb 12.4 Hct 42.9 MCV 96.6 MCH 27.9 MCHC 28.9 L RDW 13.9 Plt Count 265 MPV 10.7 H Immature Gran % (Auto) 0.5 Neut % (Auto) 91.3 H Lymph % (Auto) 2.3 L Lucas % (Auto) 5.8 Eos % (Auto) 0.0 Baso % (Auto) 0.1 L Lymph # (Auto) 0.25 L Lucas # (Auto) 0.6 Eos # (Auto) 0.0 Baso # (Auto) 0.0 Abs Immat Gran (auto) 0.05 H Absolute Neuts (auto) 9.7 H Absolute Nucleated RBC 0.000 Band Neutrophils % Not Reportable Nucleated RBC % 0.0 Platelet Estimate Adequate Anisocytosis 1+ Schistocytes None seen Sodium 138 Potassium 2.9 L Chloride 89 L Carbon Dioxide > 40 H Anion Gap BUN 49 H Creatinine 0.92 Estim Creat Clear Calc 45 Estimated GFR 59 Glucose 207 H POC Capillary Glucose 356 H 213 H Calcium 8.1 L Magnesium 2.2 Total Bilirubin 0.3 AST 19 ALT 21 Alkaline Phosphatase 89 Total Protein 7.0 Albumin 3.4 L 08/02/24 08/02/24 08/02/24 07:29 11:11 15:48 WBC RBC Hgb Hct MCV MCH MCHC RDW Plt Count MPV Immature Gran % (Auto) Neut % (Auto) Lymph % (Auto) Lucas % (Auto) Eos % (Auto) Baso % (Auto) Lymph # (Auto) Lucas # (Auto) Eos # (Auto) Baso # (Auto) Abs Immat Gran (auto) Absolute Neuts (auto) Absolute Nucleated RBC Band Neutrophils % Nucleated RBC % Platelet Estimate Anisocytosis Schistocytes Sodium Potassium Chloride Carbon Dioxide Anion Gap BUN Creatinine Estim Creat Clear Calc Estimated GFR Glucose POC Capillary Glucose 191 H 252 H 237 H Calcium Magnesium Total Bilirubin AST ALT Alkaline Phosphatase Total Protein Albumin
[2024-08-02] MEDS: FERROUS SULFATE 325 MG TABLET DR BY MOUTH (18:11)
[2024-08-02] MEDS: POTASSIUM CHLORIDE 20 MEQ ER TABLET 40 MEQ PO (18:14)
[2024-08-02 20:08] LABS: Glucose Point of Care 254 mg/dl (65-105)
[2024-08-02] MEDS: DONEPEZIL HCL 10 MG TABLET PO (20:18)
[2024-08-02] MEDS: INSULIN GLARGINE (*BKC) 100 UNITS/ML 40 UNITS SUB-Q (20:22)
[2024-08-03] VITALS (16 sets, daily range): BP systolic 114–141; BP diastolic 59–72; PULSE 64–119; RESP 18–22; TEMP 36.3–37.7; O2SAT 88–96
[2024-08-03 05:01] LABS: Basophils Percent Auto 0.2 % (0.2-1.2); Hematocrit 43.9 % (37.0-47.0); Hemoglobin 12.9 g/dL (12.0-15.0); Immature Granulocyte Absolute 0.08 K/mm3 (0.00-0.031); Immature Granulocyte Percent A 0.6 % (0-0.5); Lymphocytes Absolute Auto 0.38 K/mm3 (0.9-3.2); Lymphocytes Percent Auto 2.9 % (18.3-44.2); Mean Corpuscular HGB Conc 29.4 g/dl (32-36); Mean Corpuscular Hemoglobin 27.7 pg (26-34); Mean Corpuscular Volume 94.4 fl (80-100); Mean Platelet Volume 10.5 fl (7.4-10.4); Monocytes Absolute Auto 0.9 K/mm3 (0.1-0.6); Monocytes Percent Auto 6.7 % (2.6-8.5); Neutrophils Absolute Auto 11.9 K/mm3 (1.3-6.7); Neutrophils Percent Auto 89.6 % (45.5-73.1); Platelet Count Result 282 k/mm3 (150-375); Red Blood Count 4.65 M/mm3 (4.2-5.4); Red Cell Distribution Width 13.9 % (11.5-14.5); White Blood Count 13.2 K/mm3 (4.5-10.0)
[2024-08-03 05:13] LABS: Alanine Aminotransferase 75 U/L (6-35); Albumin Level 3.4 g/dL (3.5-5.1); Alkaline Phosphatase 90 U/L (38-126); Aspartate Amino Transferase 80 U/L (14-36); Bilirubin,Total 0.2 mg/dL (0.2-1.3); Blood Urea Nitrogen 48 mg/dL (7-17); Chloride 85 mmol/L (98-107); Estimated CRCL calculation 39 ml/min; Estimated Glomerular Filt Rate 50; Glucose 198 mg/dL (65-110); Magnesium 2.1 mg/dL (1.6-2.3); Potassium 3.6 mmol/L (3.4-5.0); Sodium 137 mmol/L (137-145); Total Protein 6.8 g/dL (6.3-8.2)
[2024-08-03 05:17] LABS: Carbon Dioxide > 40 mmol/L (22-30)
[2024-08-03 05:24] LABS: Band Neutrophils Percent 0 % (0-6); Hypochromasia 1+; Platelet Estimate Adequate (Adequate); Schistocytes None Seen
[2024-08-03] MEDS: LEVOTHYROXINE SODIUM 75 MCG TABLET PO (06:01)
[2024-08-03 08:58] LABS: NT Pro B Type Natriuretic Pept 4290 pg/mL (19.9-100)
[2024-08-03] MEDS: UMECLIDINIUM/VILANTEROL 62.5-25 MCG ELLIPTA 1 PUFF INHALATION (09:03)
[2024-08-03] MEDS: ATORVASTATIN 20 MG TABLET PO (09:46)
[2024-08-03] MEDS: CYANOCOBALAMIN 1,000 MCG TABLET 1000 MCG PO (09:46)
[2024-08-03] MEDS: INSULIN ASPART (*BKC) 100 UNITS/ML 12 UNITS SUB-Q ×3 (09:46→17:57)
[2024-08-03] MEDS: POTASSIUM CHLORIDE 20 MEQ PACKET (FOR LIQUID) PO (09:46)
[2024-08-03] MEDS: ACIDOPHILUS/BULGARICUS CHEWABLE TABLET 1 TABLET BY MOUTH (09:46)
[2024-08-03] MEDS: APIXABAN 5 MG TABLET PO ×2 (09:47→20:18)
[2024-08-03] MEDS: FUROSEMIDE INJ 40 MG/4 ML VIAL IV PUSH ×2 (09:47→20:18)
[2024-08-03] MEDS: predniSONE 20 MG TABLET 40 MG PO (09:47)
[2024-08-03] MEDS: DOXYCYCLINE HYCLATE 100 MG TABLET PO ×2 (09:47→20:17)
[2024-08-03] MEDS: dilTIAZem HCL CD 300 MG CAP.24HR PO (09:47)
[2024-08-03] MEDS: PANTOPRAZOLE 40 MG TABLET PO (09:47)
[2024-08-03] MEDS: METOPROLOL TARTRATE 12.5 MG TABLET PO ×2 (09:47→20:17)
--- NOTE | 2024-08-03 11:16 | HOMEO2EVAL ---
Evaluation was performed at [facility] Home Oxygen Evaluation RC: Home Oxygen (O2) Evaluation Start: 08/01/24 13:17 Freq: ONCE Status: Active Protocol: RPE Activity Type Activity Date Activity User E-sign Co-sign Detail Recorded Client Recorded Date Recorded By Document 08/03/24 10:30 [email or web address] 08/03/24 11:16 DJO Document 08/03/24 10:35 [email or web address] 08/03/24 11:16 DJO Document 08/03/24 10:40 [email or web address] 08/03/24 11:16 DJO Document 08/03/24 10:45 [email or web address] 08/03/24 11:16 DJO Document 08/03/24 11:00 [email or web address] 08/03/24 11:16 DJO 08/03/24 08/03/24 08/03/24 10:30 10:35 10:40 Home O2 Evaluation [Oxygen] -Test Phase Resting Resting Exercise -Oxygen Delivery Room Air Nasal Cannula Nasal Cannula -Oxygen Flow Rate (L/min) 1 1 [Pulse Oximetry] -Pulse Oximetry (90-100 %) 88 L 91 88 L [Pulse Rate] -Pulse Rate (60-100 beats/min) 104 H 103 H 117 H [Evaluation] -Activity Tolerance [Charges] -Evaluation Charges O2 Evaluation by Pulmonary 08/03/24 08/03/24 10:45 11:00 Home O2 Evaluation [Oxygen] -Test Phase Exercise Resting -Oxygen Delivery Nasal Cannula Nasal Cannula -Oxygen Flow Rate (L/min) 2 1 [Pulse Oximetry] -Pulse Oximetry (90-100 %) 90 90 [Pulse Rate] -Pulse Rate (60-100 beats/min) 119 H 102 H [Evaluation] -Activity Tolerance Fair [Charges] -Evaluation Charges
--- NOTE | 2024-08-03 11:31 | PCRCNOTE ---
HOME O2 EVAL COMPLETE, 1L REST, 2L ACTIVITY AND NOCTURNAL. SET UP WITH [employer]. PHONE NUMBER [phone]. TANK IN ROOM FOR DISCHARGE
--- NOTE | 2024-08-03 11:46 | PM.PNPUL ---
Progress Note: A&P Assessment and Plan (1) CHF exacerbation: Code(s): I50.9 - Heart failure, unspecified Status: Acute Assessment and Plan: 07/30/24: This appears to an active diagnosis contributing to her hypercapnia, overall deterioration. plan: There have been some computer problems and this has made completing notes difficult. I had a long discussion with her sons, Jean in-person and Kwesi by phone. She normally gets her care at [facility]. We will optimize her treatment, use high-flow nasal cannula which is comfortable, wean O2 as tolerated, continue trials of BiPAP to help with her hypercapnia, bronchodilators for COPD and diuresis. Her chest CT shows significant pleural effusions more consistent with heart failure and not pneumonia. She has a code status of Do Not Resuscitate. Family is possibly open to discussion about palliative care. They realize she has been living in facilities for 6 years, and with her multiple disease processes her prognosis is very guarded. 08/01/24: The patient is on Lasix 40 IV b.i.d.. Yesterday she was +720 mL. Cumulative since admission she is -730. Her weight today is 86.1 with an admission weight of 89. Her BNP has increased from 687 to 1510. Plan: Continue as aggressive diuresis as tolerated break her cardiac and renal systems per the hospitalist team. Her oxygenation has improved with diuresis. Echocardiogram 11/26/2020 with LVEF 50-55%. Left atrium moderately enlarged, mild mitral valve regurg. Mild aortic valve sclerosis. Normal right ventricular dimension. Mildly enlarged right atrium. Tricuspid regurg peak gradient 44. Consider repeat echo. 08/02/24: Patient tells me she is breathing normal in denies cough, phlegm or hemoptysis. She has been out of the chair to the bed. She is afebrile. White blood cell count 10.7, creatinine 0.92. Patient on 3 L nasal cannula saturations 93%. Yesterday she diuresed 220 mL and cumulative diuresis since admission is 1.6 L. her weight today is 86.3 With an admission weight of 89 kg. Later in the in the day that echocardiogram with LVEF 60- 65%, mild increased left ventricular wall thickness. Normal right ventricular size and function. Mildly enlarged left atrium. Normal right atrium size. RVSP 38. 08/02/24: Yesterday she diuresed 220 mL and cumulative diuresis since admission is 1.6 L. her weight today is 86.3 With an admission weight of 89 kg. Plan: Continue as aggressive diuresis as tolerated break her cardiac and renal systems per the hospitalist team. Her oxygenation has improved with diuresis. 08/03/2024: Patient tells me she is breathing good and back to her baseline. She denies cough, phlegm or hemoptysis. She is afebrile. White blood cell count 13.2, creatinine 1.06. BNP 4290, increased from 1570 on 08/01/2024. Yesterday she diuresed 260 mL. Cumulative diuresis since admission 2.0 L. Weight today 82.3 kg with an admission weight of 89 kg. Home O2 assessment: Rest room air saturation 88%. Rest nasal cannula 1 L saturation 91%. Exercise nasal cannula 1 L saturation 88%. Exercise nasal cannula 2 L saturation 90%. Patient requires 1 L at rest and 2 with activity. Plan: From a pulmonary perspective patient is ready to be discharged on these pulmonary medicines: Anoro Ellipta 62.5-25 at 1 puff q.day Rescue albuterol 2 puffs q.4 hours p.r.n. shortness of breath or wheezing oxygen 1 L at rest and 2 with activity. When she naps or sleeps 2 L nasal cannula. diuretics per hospitalist team. Patient can follow-up with her PCP. Discussed with Dr. Porter, will sign off, call with questions. (2) COPD (chronic obstructive pulmonary disease): Code(s): J44.9 - Chronic obstructive pulmonary disease, unspecified Status: Acute Assessment and Plan: 07/30/24: Long standing, uses Anoro at home, and has orders for albuterol but she does not think to ask for it. These are p.r.n. orders. She is not allowed to have her inhaler by the bed because she has memory impairment and could not use it appropriately. 08/01/24: patient knows her name and place but does not know the year. Overall she tells me she is breathing normal in denies cough and phlegm production. She is afebrile. White blood cell count 10.3, creatinine 1.10, BNP 1510. When I enter the room she was on Vapotherm 35 L, 45% FiO2 with saturations 97%. I decreased the patient to 4 L nasal cannula her saturations were 97%. Plan: although I suspect the majority of patient's clinical deterioration is related to fluid overload, I will treat for COPD exacerbation. I will change to prednisone 40 mg p.o. q.day, today is day 3 of systemic steroids. Continue DuoNebs q.6 hours. I will perform home O2 assessment today to assess oxygen needs at rest and with activity. I will perform overnight oximetry tonight on the same level of oxygen receive he requires with activity. 08/02/24: Patient tells me she is breathing normal in denies cough, phlegm or hemoptysis. She has been out of the chair to the bed. She is afebrile. White blood cell count 10.7, creatinine 0.92. Patient on 3 L nasal cannula saturations 93%. Plan: She has no wheezing today. Continue prednisone 40 mg a day, day 4 of steroids. Will change DuoNebs q.6 to Anoro Ellipta. Continue doxycycline, day 6 of 7. 08/03/2024: Patient tells me she is breathing good and back to her baseline. She denies cough, phlegm or hemoptysis. She is afebrile. White blood cell count 13.2, creatinine 1.06. Home O2 assessment: Rest room air saturation 88%. Rest nasal cannula 1 L saturation 91%. Exercise nasal cannula 1 L saturation 88%. Exercise nasal cannula 2 L saturation 90%. Patient requires 1 L at rest and 2 with activity. plan: no wheezes today. Today is day 5 of steroids and will discontinue. Today is day 7 of doxycycline will discontinue. Will discharge home on Anoro Ellipta. 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 It is possible that these discussions have taken place, pulmonary doctors at [facility], and decisions were made not to treat her with nppv because she states she will not comply with it. Plan: She has had elevated pCO2 since at least 2018, was admitted here again in 2020, his had the last several years with admissions at [facility]. Request records. We will continue BiPAP as tolerated, currently has used 15/ with O2 at 40% with improvement in her pCO2. 08/01/24: Patient tells me she cannot tolerate the BiPAP machine. Last BiPAP use was greater than 24 hours ago and the patient is alert. Plan: If patient is going to return to assisted living, I will obtain home O2 assessment and overnight oximetry prior to discharge. If she is going to a snf facility oxygen per their protocol. 08/02/24: Patient on 3 L nasal cannula saturations 93%. Plan: Goal saturation 90 94%. Wean as tolerated. Will perform overnight oximetry on room air. 08/03/2024: Overnight oximetry on room air was ordered but not performed. Plan: I will perform home O2 assessment to assess oxygen needs and she requires 1 L at rest and 2 with activity. She should be discharged on 2 L nasal cannula at night. Subjective Date/time seen: 08/03/24 11:46 Interval history: pt was seen July 30 at 15:30; Room 206 NEW: Ana Neely is a 79-year-old female, retired [employer] from [employer], admitted through ED arrived by ambulance with decreased mentation and shortness of breath 07/28/2024; her room air saturation was in the 70s. She was brought to the hospital on 6 L.; Head CT was negative; ABG showed acute & chronic hypercapnic hypoxemic respiratory failure. She has been hypercapnic since 2019, see ABGs below. CTA chest = no PE; she has large pleural effusions R>L with compressive atelectasis RLL and pulmonary edema. I was able to speak with her son Jean at the bedside, and Kweis by phone who is her main adjuster electrical contacts. She normally goes to [facility], goes about once a year for a pulmonary admission, however this admission at [employer] is the most severe episode, has never had O2 sat this low, this much confusion and decreased responsiveness, and CO2 this high. 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 It is possible that these discussions have taken place, pulmonary doctors at [facility], and decisions were made not to treat her with nppv because she states she will not comply with it. It does appear that she has probably needed oxygen for a while but she has not been prescribed oxygen. She has been getting care for 6 years total, the last 1 year has been in the memory care unit. She is not always cooperative, so this limits options. PMH: diastolic CHF, atrial fibrillation on Eliquis, had new a fib in 2020, COPD, prior tobacco abuse, dementia, anemia, hypothyroidism, arthritis, insulin-dependent diabetes mellitus. Chronic low back pain. Tobacco: 50 pack years, none x 2009. No alcohol since 2007. She was at [facility] a year ago for a bowel blockage, surgery was discussed but the surgeons told them that she would probably . She was treated with conservative medical management and seemed to resolve the problem. She has had several close calls. 08/01/24: patient knows her name and place but does not know the year. Overall she tells me she is breathing normal in denies cough and phlegm production. She is afebrile. White blood cell count 10.3, creatinine 1.10, BNP 1510. When I enter the room she was on Vapotherm 35 L, 45% FiO2 with saturations 97%. I decreased the patient to 4 L nasal cannula her saturations were 97%. Later in the in the day that echocardiogram with LVEF 60- 65%, mild increased left ventricular wall thickness. Normal right ventricular size and function. Mildly enlarged left atrium. Normal right atrium size. RVSP 38. 08/02/24: Patient tells me she is breathing normal in denies cough, phlegm or hemoptysis. She has been out of the chair to the bed. She is afebrile. White blood cell count 10.7, creatinine 0.92. Patient on 3 L nasal cannula saturations 93%. Yesterday she diuresed 220 mL and cumulative diuresis since admission is 1.6 L. her weight today is 86.3 With an admission weight of 89 kg. 08/03/2024: Patient tells me she is breathing good and back to her baseline. She denies cough, phlegm or hemoptysis. She is afebrile. White blood cell count 13.2, creatinine 1.06. BNP 4290, increased from 1500 70 on 08/01/2024. Yesterday she diuresed 260 mL. Cumulative diuresis since admission 2.0 L. Weight today 82.3 kg with an admission weight of 89 kg. Home O2 assessment: Rest room air saturation 88%. Rest nasal cannula 1 L saturation 91%. Exercise nasal cannula 1 L saturation 88%. Exercise nasal cannula 2 L saturation 90%. Patient requires 1 L at rest and 2 with activity. DATA: 08/03/2024: Home O2 assessment: Rest room air saturation 88%. Rest nasal cannula 1 L saturation 91%. Exercise nasal cannula 1 L saturation 88%. Exercise nasal cannula 2 L saturation 90%. Patient requires 1 L at rest and 2 with activity. 08/01/24: Echo Summary 1. Left ventricular chamber dimension is normal. 2. Left ventricular systolic function is normal, estimated at 60-65. 3. There is mildly increased left ventricular wall thickness. 4. Right ventricular systolic function is normal. 5. Left atrial chamber dimension is mildly enlarged. 6. There is mild tricuspid valve regurgitation. Right Ventricle Right ventricular chamber dimension is normal. Right ventricular systolic function is normal. Right Atria Right atrial chamber dimension is normal. Atrial Septum Intact interatrial septum visualized by color flow imaging. RVSP 38. * 07/28/24 WBC 14.2K with 87% neutrophils, now 9.5 k * 07/28/24 serology negative Influenza A,B, SARS CoV-2, RSV. * 07/28/24 Na 140, K+ 4.1, chloride 97, HCO3 37, BUN 27, creatinine 0.83. * 07/28/24 EJ-Hus-N-type NT 687; normal < 100; has had several higher BNP values in the past, over 1000. * 07/29/24 glucose 290, 442; July 30 today glucose has been 296, 390, still high. * 07/28/24; H/H 11.9/40.5% * 07/28/2024; EKG; sinus rhythm rate 82, occasional supraventricular complex. RBBB, LAFB, possible old anterior DC * 07/29/24 CTA; IMPRESSION: No pulmonary embolus. No thoracic aortic dissection. Bilateral pleural effusions, right greater than left with adjacent compressive consolidation in the left lower lobe and adjacent compressive atelectasis in the right lower lobe. Additional findings consistent with pulmonary edema within the remainder of the bilateral lung malik without focal infiltrate. ABGs; most recent ABG July 30; 4 pm pH 7.335, pCO2 69, pO2 74, HC03 36, saturation 93.5% on BiPAP and 40% Review of Systems Review of Systems: All systems reviewed & are unremarkable except as noted in HPI and below Constitutional: Constitutional: Reports no additional constitutional complaints Eyes: Eyes: Reports no additional eye complaints ENT: Reports system reviewed and no additional complaints, except as documented Cardiovascular: Cardiovascular: Reports no additional cardiovascular complaints Respiratory: Respiratory: Reports no additional respiratory complaints Gastrointestinal: Gastrointestinal: Reports no additional gastrointestinal complaints Musculoskeletal: Musculoskeletal: Reports no additional musculoskeletal complaints Neurologic: Reports system reviewed and no additional complaints, except as documented Psychiatric: Psychiatric: Reports no additional psychiatric complaints Endocrine: Endocrine: Reports no additional endocrine complaints Hematologic/Lymphatic: Hematologic/Lymphatic: Reports no additional hematologic/lymphatic complaints Allergic/Immunologic: Allergic/Immunologic: Reports no additional allergic/immunologic complaints Exam Const: General: cooperative and comfortable Orientation/consciousness: oriented to person, oriented to place and oriented to time HENMT: Head: normal to inspection Ears: hearing grossly normal bilaterally Eyes: General: appearance normal, both eyes and all related structures Neck: Neck: normal visual inspection Chest: Chest palpation & inspection: normal inspection of the chest Resp: Effort & Inspection: normal respiratory effort and able to speak in complete sentences Auscultation: no crackles, no rales, no rhonchi, no wheezes and lung sounds not diminished Cardio: Jugular venous distension: no JVD GI: Inspection: normal to inspection Skin: General skin exam: normal color Neuro: General: oriented to person, oriented to place and oriented to time Extrem: General: normal to inspection Psych: Appearance: grossly normal Objective Data Vital Signs Vital Signs: Vital Signs - 24 hr 08/02/24 12:00 08/02/24 12:00 08/02/24 16:00 Temperature 36.4 C 36.7 C Pulse Rate 95 96 95 Respiratory Rate 20 16 Blood Pressure 128/69 102/59 L Pulse Oximetry 96 99 Oxygen Delivery Oxygen Flow Rate 08/02/24 16:00 08/02/24 19:58 08/02/24 20:00 Temperature 36.8 C Pulse Rate 96 97 Respiratory Rate 20 Blood Pressure 130/60 Pulse Oximetry 95 95 Oxygen Delivery High Flow Therapy with Na Oxygen Flow Rate 2 08/02/24 20:00 08/02/24 20:19 08/02/24 22:15 Temperature Pulse Rate 97 100 Respiratory Rate Blood Pressure Pulse Oximetry 94 Oxygen Delivery Nasal Cannula Oxygen Flow Rate 2 08/03/24 00:00 08/03/24 00:00 08/03/24 00:18 Temperature 36.6 C Pulse Rate 98 104 H Respiratory Rate 22 H Blood Pressure 114/72 Pulse Oximetry 90 96 Oxygen Delivery High Flow Therapy with Na Oxygen Flow Rate 2 08/03/24 04:00 08/03/24 04:00 08/03/24 08:00 Temperature 36.9 C Pulse Rate 101 H 98 Respiratory Rate 18 Blood Pressure 141/70 H Pulse Oximetry 96 92 Oxygen Delivery High Flow Therapy with Na Oxygen Flow Rate 2 08/03/24 08:00 08/03/24 08:00 08/03/24 09:04 Temperature Pulse Rate 108 H Respiratory Rate Blood Pressure Pulse Oximetry 96 92 Oxygen Delivery High Flow Therapy with Na Nasal Cannula Oxygen Flow Rate 2 1 08/03/24 09:04 08/03/24 10:30 08/03/24 10:35 Temperature Pulse Rate 113 H 104 H 103 H Respiratory Rate 20 Blood Pressure Pulse Oximetry 88 L 91 Oxygen Delivery Room Air Nasal Cannula Oxygen Flow Rate 1 08/03/24 10:40 08/03/24 10:45 08/03/24 11:00 Temperature Pulse Rate 117 H 119 H 102 H Respiratory Rate Blood Pressure Pulse Oximetry 88 L 90 90 Oxygen Delivery Nasal Cannula Nasal Cannula Nasal Cannula Oxygen Flow Rate 1 2 1 Intake/Output Intake/Output: Intake & Output 07/31/24 08/01/24 08/02/24 08/03/24 23:59 23:59 23:59 23:59 Intake Total 1220 1080 1140 790 Output Total 500 1300 1400 1325 Balance 720 -220 -260 -535 Meds/Results Medications: Active Medications Generic Name Dose Route Start Last Admin Trade Name Freq PRN Reason Stop Dose Admin Apixaban 5 mg 07/29/24 09:00 08/03/24 09:47 Apixaban 5 Mg Tablet PO 5 mg Q12HR DIAZ Administration Atorvastatin Calcium 20 mg 07/30/24 09:00 08/03/24 09:46 Atorvastatin 20 Mg Tablet PO 20 mg DAILY DIAZ Administration Cyanocobalamin 1,000 mcg 07/30/24 09:00 08/03/24 09:46 Cyanocobalamin 1,000 Mcg Tablet PO 1,000 mcg QAM DIAZ Administration Dextrose 12.5 gm 07/29/24 03:41 Dextrose 50% 25 Gm/50 Ml Syringe IV PUSH PRN PRN Hypoglycemia Protocol Diltiazem HCl 300 mg 07/30/24 09:00 08/03/24 09:47 Diltiazem Hcl Cd 300 Mg Cap.24hr PO 300 mg QAM DIAZ Administration Donepezil HCl 10 mg 07/29/24 21:00 08/02/24 20:18 Donepezil Hcl 10 Mg Tablet PO 10 mg HS DIAZ Administration Doxycycline Hyclate 100 mg 08/01/24 10:00 08/03/24 09:47 Doxycycline Hyclate 100 Mg Tablet PO 08/04/24 09:01 100 mg Q12HR DIAZ Administration Ergocalciferol 1,250 mcg 08/01/24 17:40 08/01/24 18:14 Ergocalciferol (Vitamin D2) 1,250 Mcg (50,000 Units) Capsule PO 1,250 mcg WEEKLY DIAZ Administration Ferrous Sulfate 325 mg 07/30/24 12:00 08/02/24 18:11 Ferrous Sulfate [address] BY MOUTH 325 mg DAILY@1200 DIAZ Administration Furosemide 40 mg 07/29/24 21:00 08/03/24 09:47 Furosemide Inj 40 Mg/4 Ml Vial IV PUSH 40 mg Q12HR DIAZ Administration Glucagon 1 mg 07/29/24 16:20 Glucagon For Inj 1 Mg Vial IM PRN PRN Hypoglycemia Protocol Glucose 15 gm 07/29/24 03:41 Glucose Oral Gel 15 Gm Of Glucse In 37.5 Gm Tube PO PRN PRN Hypoglycemia Protocol Dextrose 1,000 mls @ 100 mls/hr 07/29/24 03:41 Dextrose 5% 1,000 Ml IVPB PRN PRN Hypoglycemia Protocol Insulin Aspart 2 - 4 units 07/31/24 21:00 08/02/24 20:24 Insulin Aspart (*Bkc) 100 Units/Ml SUB-Q 2 units HS DIAZ Administration Protocol Insulin Aspart 4 - 8 units 07/31/24 08:00 08/03/24 09:46 Insulin Aspart (*Bkc) 100 Units/Ml SUB-Q Not Given TIDWM DIAZ Protocol Insulin Aspart 12 units 08/01/24 08:00 08/03/24 09:46 Insulin Aspart (*Bkc) 100 Units/Ml SUB-Q 12 units TIDWM DIAZ Administration Insulin Glargine 40 units 07/31/24 21:00 08/02/24 20:22 Insulin Glargine (*Bkc) 100 Units/Ml SUB-Q 40 units HS DIAZ Administration Lactobacillus Acidophilus 1 tablet 07/30/24 09:00 08/03/24 09:46 Acidophilus/Bulgaricus Chewable Tablet BY MOUTH 1 tablet DAILY DIAZ Administration Levothyroxine Sodium 75 mcg 07/30/24 06:30 08/03/24 06:01 Levothyroxine Sodium 75 Mcg Tablet PO 75 mcg DAILY@0630 DIAZ Administration Metoprolol Tartrate 12.5 mg 07/29/24 21:00 08/03/24 09:47 Metoprolol Tartrate 12.5 Mg Tablet PO 12.5 mg Q12HR DIAZ Administration Pantoprazole Sodium 40 mg 07/30/24 09:00 08/03/24 09:47 Pantoprazole 40 Mg Tablet PO 40 mg QAM DIAZ Administration Potassium Chloride 20 meq 07/30/24 09:00 08/03/24 09:46 Potassium Chloride 20 Meq Packet (For Liquid) PO 20 meq QAM DIAZ Administration Prednisone 40 mg 08/02/24 08:00 08/03/24 09:47 Prednisone 20 Mg Tablet PO 40 mg DAILY@0800 DIAZ Administration Umeclidinium/Vilanterol 1 puff 08/02/24 09:00 08/03/24 09:03 Umeclidinium/Vilanterol 62.5-25 Mcg Ellipta INHALATION 1 puff DAILYRT DIAZ Administration Radiology Results: ITS Impressions Chest CTA 07/29/24 13:40 IMPRESSION: No pulmonary embolus. No thoracic aortic dissection. Bilateral pleural effusions, right greater than left with adjacent compressive consolidation in the left lower lobe and adjacent compressive atelectasis in the right lower lobe. Additional findings consistent with pulmonary edema within the remainder of the bilateral lung malik without focal infiltrate. Head CT 07/29/24 13:54 Impression: No acute intracranial hemorrhage or suspicious mass effect. Chest X-Ray 07/31/24 08:37 IMPRESSION: 1. No significant change in small bilateral pleural effusions and pneumonia in the left mid to lower and right lower lung zones. Labs Labs: Laboratory Results - last 24 hr 08/02/24 08/02/24 08/02/24 11:11 15:48 20:06 WBC RBC Hgb Hct MCV MCH MCHC RDW Plt Count MPV Immature Gran % (Auto) Neut % (Auto) Lymph % (Auto) [place] % (Auto) Eos % (Auto) Baso % (Auto) Lymph # (Auto) [place] # (Auto) Eos # (Auto) Baso # (Auto) Abs Immat Gran (auto) Absolute Neuts (auto) Absolute Nucleated RBC Band Neutrophils % Nucleated RBC % Platelet Estimate Hypochromasia Schistocytes Sodium Potassium Chloride Carbon Dioxide Anion Gap BUN Creatinine Estim Creat Clear Calc Estimated GFR Glucose POC Capillary Glucose 252 H 237 H 254 H Calcium Magnesium Total Bilirubin AST ALT Alkaline Phosphatase NT-Pro-B Natriuret Pep Total Protein Albumin 08/03/24 04:13 WBC 13.2 H RBC 4.65 Hgb 12.9 Hct 43.9 MCV 94.4 MCH 27.7 MCHC 29.4 L RDW 13.9 Plt Count 282 MPV 10.5 H Immature Gran % (Auto) 0.6 H Neut % (Auto) 89.6 H Lymph % (Auto) 2.9 L [place] % (Auto) 6.7 Eos % (Auto) 0.0 Baso % (Auto) 0.2 Lymph # (Auto) 0.38 L [place] # (Auto) 0.9 H Eos # (Auto) 0.0 Baso # (Auto) 0.0 Abs Immat Gran (auto) 0.08 H Absolute Neuts (auto) 11.9 H Absolute Nucleated RBC 0.000 Band Neutrophils % 0 Nucleated RBC % 0.0 Platelet Estimate Adequate Hypochromasia 1+ Schistocytes None seen Sodium 137 Potassium 3.6 Chloride 85 L Carbon Dioxide > 40 H Anion Gap BUN 48 H Creatinine 1.06 H Estim Creat Clear Calc 39 Estimated GFR 50 L Glucose 198 H POC Capillary Glucose Calcium 8.0 L Magnesium 2.1 Total Bilirubin 0.2 AST 80 H ALT 75 H Alkaline Phosphatase 90 NT-Pro-B Natriuret Pep 4290 H Total Protein 6.8 Albumin 3.4 L
[2024-08-03 12:18] LABS: Glucose Point of Care 160 mg/dl (65-105)
[2024-08-03 12:18] LABS: Glucose Point of Care 386 mg/dl (65-105)
[2024-08-03] MEDS: INSULIN ASPART (*BKC) 100 UNITS/ML SUB-Q ×3 (12:21→20:21)
[2024-08-03] MEDS: FERROUS SULFATE 325 MG TABLET DR BY MOUTH (12:22)
--- NOTE | 2024-08-03 14:43 | PCOTNOTE ---
Attempted OT Tx, unable to complete at 1445 due to patient with PT.
--- NOTE | 2024-08-03 16:10 | PM.IMPN ---
Progress Note: A&P Assessment and Plan (1) CO2 narcosis: Code(s): R06.89 - Other abnormalities of breathing Status: Acute (2) Pneumonia: Code(s): J18.9 - Pneumonia, unspecified organism Status: Acute (3) Acute respiratory failure with hypoxia: Code(s): J96.01 - Acute respiratory failure with hypoxia Status: Acute Plan patient is 79 y/o female with dementia and poor historian was admitted with shortness of breath suspect multifactorial as patient has abnormal diastolic dysfunction with history of smoking in the past, upon arrival ABG showed hypercapnia, patient is seen by technical applications scientist started patient on BIPAP, which did improve pCO2, added broncho dilators, and being dirused aggressively, patient clinical symptoms are improving compare to when she arrived, and the being diuresed, patient may be discharged will do overnight [place] link at 2L O2, and plan. 79-year-old female with past medical history diastolic CHF, atrial fibrillation on Eliquis, COPD, prior tobacco abuse, dementia, anemia, hypothyroidism, arthritis, insulin-dependent diabetes mellitus who presents with shortness of breath and somnolence. EN route EMS placed the patient on 6 L as she was saturating 70% on room air. ER evaluation demonstrated white count of 14.2, hemoglobin 11.9, INR 1.3, pH 7.256 with pCO2 75, bicarb 32.6, BNP 687, troponin 0.012, quad viral screen negative. Chest x-ray demonstrated cardiomegaly and pulmonary edema. Possible pneumonitis, atelectasis and pneumonia. An attempt at BiPAP was made but she cannot tolerate and was pulling the mask off. In light of the aforementioned in the patient's altered mental status family was contacted and they confirmed the patient will be DNR, only medical therapy to be administered. High-flow nasal cannula at 40 L and 30% FiO2 was placed. The patient was resting comfortably thereafter. She was given breathing treatments, cefepime, doxycycline, vancomycin, magnesium 2 g rider. Acute hypoxic hypercapnic respiratory failure suspected related to CHF/COPD exacerbation ABG has improved overnight. Recheck ABG reviewed Hypercapnia has improved will switch Vapotherm to nasal cannula. AVAPS at night with she has refused to use. Chest x-ray reviewed. Oxygenation has been lowered to high-flow nasal cannula. Pulmonary on board. Off AVAPS due to refusal COPD exacerbation continue steroid on oral steroid CHF exacerbation continue diuresis with IV Lasix echo with EF 50-55% no significant valvular abnormality. CTA chest reviewed. Negative for PE. Has evidence of pulmonary edema. Continue diuresis MRSA nares came back negative. Stop vancomycin Acute on Chronic diastolic CHF on diuresis with IV Lasix Atrial fibrillation on chronic anticoagulation with Eliquis Dementia Chronic anemia Hypothyroidism Insulin-dependent diabetes mellitus DVT prophylaxis on Eliquis Code status do not resuscitate Subjective Date/time seen: 08/03/24 16:10 Interval history: No overnight events. Patient down to high-flow nasal cannula now. Minimal cough. Discussed with Pulmonary. patient is 79 y/o female with dementia and poor historian was admitted with shortness of breath suspect multifactorial as patient has abnormal diastolic dysfunction with history of smoking in the past, upon arrival ABG showed hypercapnia, patient is seen by technical applications scientist started patient on BIPAP, which did improve pCO2, added broncho dilators, and being dirused aggressively, patient clinical symptoms are improving compare to when she arrived, and the being diuresed, patient may be discharged will do overnight [place] link at 2L O2, and plan. Review of Systems Review of Systems: All systems reviewed & are unremarkable except as noted in HPI and below ROS unobtainable: Yes unobtainable due to mental status Exam Narrative: Patient is comfortable, NAD HEENT: eyes are clear and none icteric LUNGS:CTA HEART: RR S1S2 ABD: BS+, Soft and nontender Lower extremities: no edema SKIN: nonjaundiced Neuro: grossly intact. Objective Data Vital Signs Vital Signs: Vital Signs - 24 hr 08/02/24 19:58 08/02/24 20:00 08/02/24 20:00 Temperature 36.8 C Pulse Rate 97 97 Respiratory Rate 20 Blood Pressure 130/60 Pulse Oximetry 95 95 Oxygen Delivery High Flow Therapy with Na Oxygen Flow Rate 2 08/02/24 20:19 08/02/24 22:15 08/03/24 00:00 Temperature Pulse Rate 100 Respiratory Rate Blood Pressure Pulse Oximetry 94 90 Oxygen Delivery Nasal Cannula High Flow Therapy with Na Oxygen Flow Rate 2 2 08/03/24 00:00 08/03/24 00:18 08/03/24 04:00 Temperature 36.6 C Pulse Rate 98 104 H Respiratory Rate 22 H Blood Pressure 114/72 Pulse Oximetry 96 96 Oxygen Delivery High Flow Therapy with Na Oxygen Flow Rate 2 08/03/24 04:00 08/03/24 08:00 08/03/24 08:00 Temperature 36.9 C Pulse Rate 101 H 98 Respiratory Rate 18 Blood Pressure 141/70 H Pulse Oximetry 92 96 Oxygen Delivery High Flow Therapy with Na Oxygen Flow Rate 2 08/03/24 08:00 08/03/24 09:04 08/03/24 09:04 Temperature Pulse Rate 108 H 113 H Respiratory Rate 20 Blood Pressure Pulse Oximetry 92 Oxygen Delivery Nasal Cannula Oxygen Flow Rate 1 08/03/24 10:30 08/03/24 10:35 08/03/24 10:40 Temperature Pulse Rate 104 H 103 H 117 H Respiratory Rate Blood Pressure Pulse Oximetry 88 L 91 88 L Oxygen Delivery Room Air Nasal Cannula Nasal Cannula Oxygen Flow Rate 1 1 08/03/24 10:45 08/03/24 11:00 08/03/24 12:00 Temperature Pulse Rate 119 H 102 H 113 H Respiratory Rate Blood Pressure Pulse Oximetry 90 90 Oxygen Delivery Nasal Cannula Nasal Cannula Oxygen Flow Rate 2 1 Intake/Output Intake/Output: Intake & Output 07/31/24 08/01/24 08/02/24 08/03/24 23:59 23:59 23:59 23:59 Intake Total 1220 1080 1140 1030 Output Total 500 1300 1400 1325 Balance 981 -220 -260 -295 Meds/Results Medications: Active Medications Generic Name Dose Route Start Last Admin Trade Name Freq PRN Reason Stop Dose Admin Apixaban 5 mg 07/29/24 09:00 08/03/24 09:47 Apixaban 5 Mg Tablet PO 5 mg Q12HR DIAZ Administration Atorvastatin Calcium 20 mg 07/30/24 09:00 08/03/24 09:46 Atorvastatin 20 Mg Tablet PO 20 mg DAILY DIAZ Administration Cyanocobalamin 1,000 mcg 07/30/24 09:00 08/03/24 09:46 Cyanocobalamin 1,000 Mcg Tablet PO 1,000 mcg QAM DIAZ Administration Dextrose 12.5 gm 07/29/24 03:41 Dextrose 50% 25 Gm/50 Ml Syringe IV PUSH PRN PRN Hypoglycemia Protocol Diltiazem HCl 300 mg 07/30/24 09:00 08/03/24 09:47 Diltiazem Hcl Cd 300 Mg Cap.24hr PO 300 mg QAM DIAZ Administration Donepezil HCl 10 mg 07/29/24 21:00 08/02/24 20:18 Donepezil Hcl 10 Mg Tablet PO 10 mg HS DIAZ Administration Doxycycline Hyclate 100 mg 08/01/24 10:00 08/03/24 09:47 Doxycycline Hyclate 100 Mg Tablet PO 08/04/24 09:01 100 mg Q12HR DIAZ Administration Ergocalciferol 1,250 mcg 08/01/24 17:40 08/01/24 18:14 Ergocalciferol (Vitamin D2) 1,250 Mcg (50,000 Units) Capsule PO 1,250 mcg WEEKLY DIAZ Administration Ferrous Sulfate 325 mg 07/30/24 12:00 08/03/24 12:22 Ferrous Sulfate [address] BY MOUTH 325 mg DAILY@1200 DIAZ Administration Furosemide 40 mg 07/29/24 21:00 08/03/24 09:47 Furosemide Inj 40 Mg/4 Ml Vial IV PUSH 40 mg Q12HR DIAZ Administration Glucagon 1 mg 07/29/24 16:20 Glucagon For Inj 1 Mg Vial IM PRN PRN Hypoglycemia Protocol Glucose 15 gm 07/29/24 03:41 Glucose Oral Gel 15 Gm Of Glucse In 37.5 Gm Tube PO PRN PRN Hypoglycemia Protocol Dextrose 1,000 mls @ 100 mls/hr 07/29/24 03:41 Dextrose 5% 1,000 Ml IVPB PRN PRN Hypoglycemia Protocol Insulin Aspart 2 - 4 units 07/31/24 21:00 08/02/24 20:24 Insulin Aspart (*Bkc) 100 Units/Ml SUB-Q 2 units HS DIAZ Administration Protocol Insulin Aspart 4 - 8 units 07/31/24 08:00 08/03/24 12:21 Insulin Aspart (*Bkc) 100 Units/Ml SUB-Q 8 units TIDWM DIAZ Administration Protocol Insulin Aspart 12 units 08/01/24 08:00 08/03/24 12:21 Insulin Aspart (*Bkc) 100 Units/Ml SUB-Q 12 units TIDWM DIAZ Administration Insulin Glargine 40 units 07/31/24 21:00 08/02/24 20:22 Insulin Glargine (*Bkc) 100 Units/Ml SUB-Q 40 units HS DIAZ Administration Lactobacillus Acidophilus 1 tablet 07/30/24 09:00 08/03/24 09:46 Acidophilus/Bulgaricus Chewable Tablet BY MOUTH 1 tablet DAILY DIAZ Administration Levothyroxine Sodium 75 mcg 07/30/24 06:30 08/03/24 06:01 Levothyroxine Sodium 75 Mcg Tablet PO 75 mcg DAILY@0630 DIAZ Administration Metoprolol Tartrate 12.5 mg 07/29/24 21:00 08/03/24 09:47 Metoprolol Tartrate 12.5 Mg Tablet PO 12.5 mg Q12HR DIAZ Administration Pantoprazole Sodium 40 mg 07/30/24 09:00 08/03/24 09:47 Pantoprazole 40 Mg Tablet PO 40 mg QAM DIAZ Administration Potassium Chloride 20 meq 07/30/24 09:00 08/03/24 09:46 Potassium Chloride 20 Meq Packet (For Liquid) PO 20 meq QAM DIAZ Administration Prednisone 40 mg 08/02/24 08:00 08/03/24 09:47 Prednisone 20 Mg Tablet PO 40 mg DAILY@0800 DIAZ Administration Umeclidinium/Vilanterol 1 puff 08/02/24 09:00 08/03/24 09:03 Umeclidinium/Vilanterol 62.5-25 Mcg Ellipta INHALATION 1 puff DAILYRT DIAZ Administration Radiology Results: ITS Impressions Chest CTA 07/29/24 13:40 IMPRESSION: No pulmonary embolus. No thoracic aortic dissection. Bilateral pleural effusions, right greater than left with adjacent compressive consolidation in the left lower lobe and adjacent compressive atelectasis in the right lower lobe. Additional findings consistent with pulmonary edema within the remainder of the bilateral lung malik without focal infiltrate. Head CT 07/29/24 13:54 Impression: No acute intracranial hemorrhage or suspicious mass effect. Chest X-Ray 07/31/24 08:37 IMPRESSION: 1. No significant change in small bilateral pleural effusions and pneumonia in the left mid to lower and right lower lung zones. Labs Labs: Laboratory Results - last 24 hr 08/02/24 08/03/24 08/03/24 20:06 04:13 07:36 WBC 13.2 H RBC 4.65 Hgb 12.9 Hct 43.9 MCV 94.4 MCH 27.7 MCHC 29.4 L RDW 13.9 Plt Count 282 MPV 10.5 H Immature Gran % (Auto) 0.6 H Neut % (Auto) 89.6 H Lymph % (Auto) 2.9 L Sawyer % (Auto) 6.7 Eos % (Auto) 0.0 Baso % (Auto) 0.2 Lymph # (Auto) 0.38 L Sawyer # (Auto) 0.9 H Eos # (Auto) 0.0 Baso # (Auto) 0.0 Abs Immat Gran (auto) 0.08 H Absolute Neuts (auto) 11.9 H Absolute Nucleated RBC 0.000 Band Neutrophils % 0 Nucleated RBC % 0.0 Platelet Estimate Adequate Hypochromasia 1+ Schistocytes None seen Sodium 137 Potassium 3.6 Chloride 85 L Carbon Dioxide > 40 H Anion Gap BUN 48 H Creatinine 1.06 H Estim Creat Clear Calc 39 Estimated GFR 50 L Glucose 198 H POC Capillary Glucose 254 H 160 H Calcium 8.0 L Magnesium 2.1 Total Bilirubin 0.2 AST 80 H ALT 75 H Alkaline Phosphatase 90 NT-Pro-B Natriuret Pep 4290 H Total Protein 6.8 Albumin 3.4 L 08/03/24 11:55 WBC RBC Hgb Hct MCV MCH MCHC RDW Plt Count MPV Immature Gran % (Auto) Neut % (Auto) Lymph % (Auto) Sawyer % (Auto) Eos % (Auto) Baso % (Auto) Lymph # (Auto) Sawyer # (Auto) Eos # (Auto) Baso # (Auto) Abs Immat Gran (auto) Absolute Neuts (auto) Absolute Nucleated RBC Band Neutrophils % Nucleated RBC % Platelet Estimate Hypochromasia Schistocytes Sodium Potassium Chloride Carbon Dioxide Anion Gap BUN Creatinine Estim Creat Clear Calc Estimated GFR Glucose POC Capillary Glucose 386 H Calcium Magnesium Total Bilirubin AST ALT Alkaline Phosphatase NT-Pro-B Natriuret Pep Total Protein Albumin
[2024-08-03 16:51] LABS: Glucose Point of Care 328 mg/dl (65-105)
[2024-08-03 20:16] LABS: Glucose Point of Care 350 mg/dl (65-105)
[2024-08-03] MEDS: DONEPEZIL HCL 10 MG TABLET PO (20:18)
[2024-08-03] MEDS: INSULIN GLARGINE (*BKC) 100 UNITS/ML 40 UNITS SUB-Q (20:20)
[2024-08-04] VITALS (14 sets, daily range): BP systolic 110–119; BP diastolic 40–68; PULSE 62–110; RESP 18–23; TEMP 36.3–36.8; O2SAT 92–96
[2024-08-04 05:27] LABS: Hematocrit 43.4 % (37.0-47.0); Hemoglobin 12.8 g/dL (12.0-15.0); Mean Corpuscular HGB Conc 29.5 g/dl (32-36); Mean Corpuscular Hemoglobin 27.9 pg (26-34); Mean Corpuscular Volume 94.6 fl (80-100); Mean Platelet Volume 10.3 fl (7.4-10.4); Platelet Count Result 230 k/mm3 (150-375); Red Blood Count 4.59 M/mm3 (4.2-5.4); Red Cell Distribution Width 13.6 % (11.5-14.5); White Blood Count 14.4 K/mm3 (4.5-10.0)
[2024-08-04] MEDS: LEVOTHYROXINE SODIUM 75 MCG TABLET PO (05:40)
[2024-08-04 05:47] LABS: Blood Urea Nitrogen 47 mg/dL (7-17); Calcium 7.8 mg/dL (8.4-10.2); Chloride 82 mmol/L (98-107); Estimated CRCL calculation 42 ml/min; Estimated Glomerular Filt Rate 55; Glucose 153 mg/dL (65-110); Potassium 3.4 mmol/L (3.4-5.0); Sodium 135 mmol/L (137-145)
[2024-08-04 06:26] LABS: Carbon Dioxide > 40 mmol/L (22-30)
[2024-08-04 07:42] LABS: Glucose Point of Care 113 mg/dl (65-105)
[2024-08-04] MEDS: UMECLIDINIUM/VILANTEROL 62.5-25 MCG ELLIPTA 1 PUFF INHALATION (08:30)
[2024-08-04] MEDS: METOPROLOL TARTRATE 12.5 MG TABLET PO ×2 (09:00→17:17)
[2024-08-04] MEDS: FUROSEMIDE INJ 40 MG/4 ML VIAL IV PUSH (09:00)
[2024-08-04] MEDS: APIXABAN 5 MG TABLET PO ×2 (09:00→21:41)
[2024-08-04] MEDS: DOXYCYCLINE HYCLATE 100 MG TABLET PO (09:00)
[2024-08-04] MEDS: dilTIAZem HCL CD 300 MG CAP.24HR PO (09:00)
[2024-08-04] MEDS: INSULIN ASPART (*BKC) 100 UNITS/ML 12 UNITS SUB-Q ×2 (09:00→12:07)
[2024-08-04] MEDS: ATORVASTATIN 20 MG TABLET PO (09:00)
[2024-08-04 09:32] LABS: Procalcitonin 0.7 ng/mL
--- NOTE | 2024-08-04 10:59 | PCNWS ---
Weekly nutritional screen. Patient is tolerating current Heart Healthy diet with adequate intake, 75-100%. No weight loss reported. No nutritional needs at this time.
--- NOTE | 2024-08-04 11:00 | PC.NURSE ---
Received from [facility] via bed.
--- NOTE | 2024-08-04 11:02 | PC.NURSE ---
This patient, Ana Neely, was transferred to [[id number]] on 08/04/24 at 1100. Personal belongings sent with patient. Report given to [ GILMAR Tee @ [phone]]. Appropriate documentation sent with patient.
--- NOTE | 2024-08-04 11:23 | PM.PNPUL ---
Progress Note: A&P Assessment and Plan (1) CHF exacerbation: Code(s): I50.9 - Heart failure, unspecified Status: Acute Assessment and Plan: 07/30/24: This appears to an active diagnosis contributing to her hypercapnia, overall deterioration. plan: There have been some computer problems and this has made completing notes difficult. I had a long discussion with her sons, Jean in-person and Kwesi by phone. She normally gets her care at [facility]. We will optimize her treatment, use high-flow nasal cannula which is comfortable, wean O2 as tolerated, continue trials of BiPAP to help with her hypercapnia, bronchodilators for COPD and diuresis. Her chest CT shows significant pleural effusions more consistent with heart failure and not pneumonia. She has a code status of Do Not Resuscitate. Family is possibly open to discussion about palliative care. They realize she has been living in facilities for 6 years, and with her multiple disease processes her prognosis is very guarded. 08/01/24: The patient is on Lasix 40 IV b.i.d.. Yesterday she was +720 mL. Cumulative since admission she is -730. Her weight today is 86.1 with an admission weight of 89. Her BNP has increased from 687 to 1510. Plan: Continue as aggressive diuresis as tolerated break her cardiac and renal systems per the hospitalist team. Her oxygenation has improved with diuresis. Echocardiogram 11/26/2020 with LVEF 50-55%. Left atrium moderately enlarged, mild mitral valve regurg. Mild aortic valve sclerosis. Normal right ventricular dimension. Mildly enlarged right atrium. Tricuspid regurg peak gradient 44. Consider repeat echo. 08/02/24: Patient tells me she is breathing normal in denies cough, phlegm or hemoptysis. She has been out of the chair to the bed. She is afebrile. White blood cell count 10.7, creatinine 0.92. Patient on 3 L nasal cannula saturations 93%. Yesterday she diuresed 220 mL and cumulative diuresis since admission is 1.6 L. her weight today is 86.3 With an admission weight of 89 kg. Later in the in the day that echocardiogram with LVEF 60- 65%, mild increased left ventricular wall thickness. Normal right ventricular size and function. Mildly enlarged left atrium. Normal right atrium size. RVSP 38. 08/02/24: Yesterday she diuresed 220 mL and cumulative diuresis since admission is 1.6 L. her weight today is 86.3 With an admission weight of 89 kg. Plan: Continue as aggressive diuresis as tolerated break her cardiac and renal systems per the hospitalist team. Her oxygenation has improved with diuresis. 08/03/2024: Patient tells me she is breathing good and back to her baseline. She denies cough, phlegm or hemoptysis. She is afebrile. White blood cell count 13.2, creatinine 1.06. BNP 4290, increased from 1570 on 08/01/2024. Yesterday she diuresed 260 mL. Cumulative diuresis since admission 2.0 L. Weight today 82.3 kg with an admission weight of 89 kg. Home O2 assessment: Rest room air saturation 88%. Rest nasal cannula 1 L saturation 91%. Exercise nasal cannula 1 L saturation 88%. Exercise nasal cannula 2 L saturation 90%. Patient requires 1 L at rest and 2 with activity. 08/04/2024: Patient tells me she is breathing normally. She denies cough, phlegm or hemoptysis. She has been walking with a walker and sitting in the chair. She had a low-grade temperature of 37.7?. White blood cell count 14.4, creatinine 0.98. Yesterday she was positive 245 mL an cumulative she has diuresed 1.3 L. Her weight today is 83.5 kg. Patient had an overnight oximetry on 2 L with recording duration of 7 hours and 48 minutes. Average saturation 92%. Low saturation 79%. Time with saturation less than or equal to 88% was 31 minutes. Oxygen desaturation index 0.5. Plan: From a pulmonary perspective patient is ready to be discharged on these pulmonary medicines: Anoro Ellipta 62.5-25 at 1 puff q.day Rescue albuterol 2 puffs q.4 hours p.r.n. shortness of breath or wheezing oxygen 1 L at rest and 2 with activity. When she naps or sleeps 3 L nasal cannula. Diuretics per hospitalist team. Patient was on 40 mg Lasix p.o. and spironolactone 50 q.day and came in with fluid overload. Patient can follow-up with her PCP. Discussed with Dr. Porter, will sign off, call with questions. (2) COPD (chronic obstructive pulmonary disease): Code(s): J44.9 - Chronic obstructive pulmonary disease, unspecified Status: Acute Assessment and Plan: 07/30/24: Long standing, uses Anoro at home, and has orders for albuterol but she does not think to ask for it. These are p.r.n. orders. She is not allowed to have her inhaler by the bed because she has memory impairment and could not use it appropriately. 08/01/24: patient knows her name and place but does not know the year. Overall she tells me she is breathing normal in denies cough and phlegm production. She is afebrile. White blood cell count 10.3, creatinine 1.10, BNP 1510. When I enter the room she was on Vapotherm 35 L, 45% FiO2 with saturations 97%. I decreased the patient to 4 L nasal cannula her saturations were 97%. Plan: although I suspect the majority of patient's clinical deterioration is related to fluid overload, I will treat for COPD exacerbation. I will change to prednisone 40 mg p.o. q.day, today is day 3 of systemic steroids. Continue DuoNebs q.6 hours. I will perform home O2 assessment today to assess oxygen needs at rest and with activity. I will perform overnight oximetry tonight on the same level of oxygen receive he requires with activity. 08/02/24: Patient tells me she is breathing normal in denies cough, phlegm or hemoptysis. She has been out of the chair to the bed. She is afebrile. White blood cell count 10.7, creatinine 0.92. Patient on 3 L nasal cannula saturations 93%. Plan: She has no wheezing today. Continue prednisone 40 mg a day, day 4 of steroids. Will change DuoNebs q.6 to Anoro Ellipta. Continue doxycycline, day 6 of 7. 08/03/2024: Patient tells me she is breathing good and back to her baseline. She denies cough, phlegm or hemoptysis. She is afebrile. White blood cell count 13.2, creatinine 1.06. Home O2 assessment: Rest room air saturation 88%. Rest nasal cannula 1 L saturation 91%. Exercise nasal cannula 1 L saturation 88%. Exercise nasal cannula 2 L saturation 90%. Patient requires 1 L at rest and 2 with activity. plan: no wheezes today. Today is day 5 of steroids and will discontinue. Today is day 7 of doxycycline will discontinue. Will discharge home on Anoro Ellipta. 08/04/24: No wheezes today. Patient is stable off of oral steroids. Plan: Continue Anoro Ellipta at home. (3) Acute on chronic respiratory failure with hypoxia and hypercapnia: Code(s): J96.21 - Acute and chronic respiratory failure with hypoxia; J96.22 - Acute and chronic respiratory failure with hypercapnia Status: Acute Assessment and Plan: 07/30/24: She is never going to wear a PAP mask, does not use O2 at the memory care unit, my guess is that oxygen has been discussed and due to her poor memory, CO2 retention, noncompliance that a decision was made not to put her on it time clerk. It is possible that these discussions have taken place, pulmonary doctors at [facility], and decisions were made not to treat her with nppv because she states she will not comply with it. Plan: She has had elevated pCO2 since at least 2018, was admitted here again in 2020, his had the last several years with admissions at [facility]. Request records. We will continue BiPAP as tolerated, currently has used 15/5 with O2 at 40% with improvement in her pCO2. 08/01/24: Patient tells me she cannot tolerate the BiPAP machine. Last BiPAP use was greater than 24 hours ago and the patient is alert. Plan: If patient is going to return to assisted living, I will obtain home O2 assessment and overnight oximetry prior to discharge. If she is going to a halfway facility oxygen per their protocol. 08/02/24: Patient on 3 L nasal cannula saturations 93%. Plan: Goal saturation 90 94%. Wean as tolerated. Will perform overnight oximetry on room air. 08/03/2024: Overnight oximetry on room air was ordered but not performed. Plan: I will perform home O2 assessment to assess oxygen needs and she requires 1 L at rest and 2 with activity. She should be discharged on 2 L nasal cannula at night. 08/04/24: Patient had an overnight oximetry on 2 L with recording duration of 7 hours and 48 minutes. Average saturation 92%. Low saturation 79%. Time with saturation less than or equal to 88% was 31 minutes. Oxygen desaturation index 0.5. Patient may have a sleep-related breathing disorder but as noted above she is not tolerant of a PAP mask and therefore would not perform an outpatient sleep study. Plan: Discharge on 1 L at rest, 2 L with activity and 3 L at night. Subjective Date/time seen: 08/04/24 11:23 Interval history: pt was seen July 30 at 15:30; Room 206 NEW: Ana Neely is a 79-year-old female, retired [employer] from [place], admitted through ED arrived by ambulance with decreased mentation and shortness of breath 07/28/2024; her room air saturation was in the 70s. She was brought to the hospital on 6 L.; Head CT was negative; ABG showed acute & chronic hypercapnic hypoxemic respiratory failure. She has been hypercapnic since 2019, see ABGs below. CTA chest = no PE; she has large pleural effusions R>L with compressive atelectasis RLL and pulmonary edema. I was able to speak with her son Jean at the bedside, and Kwesi by phone who is her main personal carer. She normally goes to [facility], goes about once a year for a pulmonary admission, however this admission at [place] is the most severe episode, has never had O2 sat this low, this much confusion and decreased responsiveness, and CO2 this high. She is never going to wear a PAP mask, does not use O2 at the memory care unit, my guess is that oxygen has been discussed and due to her poor memory, CO2 retention, noncompliance that a decision was made not to put her on it time clerk. It is possible that these discussions have taken place, pulmonary doctors at [facility], and decisions were made not to treat her with nppv because she states she will not comply with it. It does appear that she has probably needed oxygen for a while but she has not been prescribed oxygen. She has been getting care for 6 years total, the last 1 year has been in the memory care unit. She is not always cooperative, so this limits options. PMH: diastolic CHF, atrial fibrillation on Eliquis, had new a fib in 2020, COPD, prior tobacco abuse, dementia, anemia, hypothyroidism, arthritis, insulin-dependent diabetes mellitus. Chronic low back pain. Tobacco: 50 pack years, none x 2009. No alcohol since 2007. She was at [facility] a year ago for a bowel blockage, surgery was discussed but the surgeons told them that she would probably . She was treated with conservative medical management and seemed to resolve the problem. She has had several close calls. 08/01/24: patient knows her name and place but does not know the year. Overall she tells me she is breathing normal in denies cough and phlegm production. She is afebrile. White blood cell count 10.3, creatinine 1.10, BNP 1510. When I enter the room she was on Vapotherm 35 L, 45% FiO2 with saturations 97%. I decreased the patient to 4 L nasal cannula her saturations were 97%. Later in the in the day that echocardiogram with LVEF 60- 65%, mild increased left ventricular wall thickness. Normal right ventricular size and function. Mildly enlarged left atrium. Normal right atrium size. RVSP 38. 08/02/24: Patient tells me she is breathing normal in denies cough, phlegm or hemoptysis. She has been out of the chair to the bed. She is afebrile. White blood cell count 10.7, creatinine 0.92. Patient on 3 L nasal cannula saturations 93%. Yesterday she diuresed 220 mL and cumulative diuresis since admission is 1.6 L. her weight today is 86.3 With an admission weight of 89 kg. 08/03/2024: Patient tells me she is breathing good and back to her baseline. She denies cough, phlegm or hemoptysis. She is afebrile. White blood cell count 13.2, creatinine 1.06. BNP 4290, increased from 1500 70 on 08/01/2024. Yesterday she diuresed 260 mL. Cumulative diuresis since admission 2.0 L. Weight today 82.3 kg with an admission weight of 89 kg. Home O2 assessment: Rest room air saturation 88%. Rest nasal cannula 1 L saturation 91%. Exercise nasal cannula 1 L saturation 88%. Exercise nasal cannula 2 L saturation 90%. Patient requires 1 L at rest and 2 with activity. 08/04/2024: Patient tells me she is breathing normally. She denies cough, phlegm or hemoptysis. She has been walking with a walker and sitting in the chair. She had a low-grade temperature of 37.7?. White blood cell count 14.4, creatinine 0.98. Yesterday she was positive 245 mL an cumulative she has diuresed 1.3 L. Her weight today is 83.5 kg. Patient had an overnight oximetry on 2 L with recording duration of 7 hours and 48 minutes. Average saturation 92%. Low saturation 79%. Time with saturation less than or equal to 88% was 31 minutes. Oxygen desaturation index 0.5. DATA: 08/03/2024: Home O2 assessment: Rest room air saturation 88%. Rest nasal cannula 1 L saturation 91%. Exercise nasal cannula 1 L saturation 88%. Exercise nasal cannula 2 L saturation 90%. Patient requires 1 L at rest and 2 with activity. 08/01/24: Echo Summary 1. Left ventricular chamber dimension is normal. 2. Left ventricular systolic function is normal, estimated at 60-65. 3. There is mildly increased left ventricular wall thickness. 4. Right ventricular systolic function is normal. 5. Left atrial chamber dimension is mildly enlarged. 6. There is mild tricuspid valve regurgitation. Right Ventricle Right ventricular chamber dimension is normal. Right ventricular systolic function is normal. Right Atria Right atrial chamber dimension is normal. Atrial Septum Intact interatrial septum visualized by color flow imaging. RVSP 38. * 07/28/24 WBC 14.2K with 87% neutrophils, now 9.5 k * 07/28/24 serology negative Influenza A,B, SARS CoV-2, RSV. * 07/28/24 Na 140, K+ 4.1, chloride 97, HCO3 37, BUN 27, creatinine 0.83. * 07/28/24 FQ-Mnz-R-type NT 687; normal < 100; has had several higher BNP values in the past, over 1000. * 07/29/24 glucose 290, 442; July 30 today glucose has been 296, 390, still high. * 07/28/24; H/H 11.9/40.5% * 07/28/2024; EKG; sinus rhythm rate 82, occasional supraventricular complex. RBBB, LAFB, possible old anterior NM * 07/29/24 CTA; IMPRESSION: No pulmonary embolus. No thoracic aortic dissection. Bilateral pleural effusions, right greater than left with adjacent compressive consolidation in the left lower lobe and adjacent compressive atelectasis in the right lower lobe. Additional findings consistent with pulmonary edema within the remainder of the bilateral lung malik without focal infiltrate. ABGs; most recent ABG July 30; 4 pm pH 7.335, pCO2 69, pO2 74, HC03 36, saturation 93.5% on BiPAP and 40% Review of Systems Review of Systems: All systems reviewed & are unremarkable except as noted in HPI and below Constitutional: Constitutional: Reports no additional constitutional complaints Eyes: Eyes: Reports no additional eye complaints ENT: Reports system reviewed and no additional complaints, except as documented Cardiovascular: Cardiovascular: Reports no additional cardiovascular complaints Respiratory: Respiratory: Reports no additional respiratory complaints Gastrointestinal: Gastrointestinal: Reports no additional gastrointestinal complaints Musculoskeletal: Musculoskeletal: Reports no additional musculoskeletal complaints Neurologic: Reports system reviewed and no additional complaints, except as documented Psychiatric: Psychiatric: Reports no additional psychiatric complaints Endocrine: Endocrine: Reports no additional endocrine complaints Hematologic/Lymphatic: Hematologic/Lymphatic: Reports no additional hematologic/lymphatic complaints Allergic/Immunologic: Allergic/Immunologic: Reports no additional allergic/immunologic complaints Exam Const: General: cooperative and comfortable Orientation/consciousness: oriented to person, oriented to place and oriented to time HENMT: Head: normal to inspection Ears: hearing grossly normal bilaterally Eyes: General: appearance normal, both eyes and all related structures Neck: Neck: normal visual inspection Chest: Chest palpation & inspection: normal inspection of the chest Resp: Effort & Inspection: normal respiratory effort and able to speak in complete sentences Auscultation: no crackles, no rales, no rhonchi, no wheezes and lung sounds not diminished Cardio: Jugular venous distension: no JVD GI: Inspection: normal to inspection Skin: General skin exam: normal color Neuro: General: oriented to person, oriented to place and oriented to time Extrem: General: normal to inspection Psych: Appearance: grossly normal Objective Data Vital Signs Vital Signs: Vital Signs - 24 hr 08/03/24 12:00 08/03/24 16:00 08/03/24 16:00 Temperature 37.7 C H Pulse Rate 113 H 91 64 Respiratory Rate 20 Blood Pressure 123/64 Pulse Oximetry 93 Oxygen Delivery Oxygen Flow Rate 08/03/24 20:00 08/03/24 20:00 08/03/24 20:00 Temperature 36.6 C Pulse Rate 103 H Respiratory Rate Blood Pressure Pulse Oximetry 93 Oxygen Delivery High Flow Therapy with Na Oxygen Flow Rate 2 08/03/24 20:05 08/03/24 20:17 08/03/24 20:50 Temperature 36.3 C L Pulse Rate 110 H 102 H Respiratory Rate 22 H Blood Pressure 119/59 L Pulse Oximetry 92 95 Oxygen Delivery Nasal Cannula Oxygen Flow Rate 1 08/04/24 04:00 08/04/24 08:00 08/04/24 08:00 Temperature 36.8 C Pulse Rate 87 90 94 Respiratory Rate 20 Blood Pressure 114/68 Pulse Oximetry 94 Oxygen Delivery Oxygen Flow Rate 08/04/24 08:00 08/04/24 08:25 08/04/24 09:00 Temperature Pulse Rate 102 H 102 H Respiratory Rate 20 Blood Pressure Pulse Oximetry 94 92 Oxygen Delivery Nasal Cannula Nasal Cannula Oxygen Flow Rate 1 1 Intake/Output Intake/Output: Intake & Output 08/01/24 08/02/24 08/03/24 08/04/24 23:59 23:59 23:59 23:59 Intake Total 1080 1140 2470 990 Output Total 1300 1400 2225 1100 Balance -220 -260 245 -110 Meds/Results Medications: Active Medications Generic Name Dose Route Start Last Admin Trade Name Freq PRN Reason Stop Dose Admin Apixaban 5 mg 07/29/24 09:00 08/04/24 09:00 Apixaban 5 Mg Tablet PO 5 mg Q12HR DIAZ Administration Atorvastatin Calcium 20 mg 07/30/24 09:00 08/04/24 09:00 Atorvastatin 20 Mg Tablet PO 20 mg DAILY DIAZ Administration Cyanocobalamin 1,000 mcg 07/30/24 09:00 08/04/24 09:00 Cyanocobalamin 1,000 Mcg Tablet PO Not Given QAM DIAZ Dextrose 12.5 gm 07/29/24 03:41 Dextrose 50% 25 Gm/50 Ml Syringe IV PUSH PRN PRN Hypoglycemia Protocol Diltiazem HCl 300 mg 07/30/24 09:00 08/04/24 09:00 Diltiazem Hcl Cd 300 Mg Cap.24hr PO 300 mg QAM DIAZ Administration Donepezil HCl 10 mg 07/29/24 21:00 08/03/24 20:18 Donepezil Hcl 10 Mg Tablet PO 10 mg HS DIAZ Administration Ergocalciferol 1,250 mcg 08/01/24 17:40 08/01/24 18:14 Ergocalciferol (Vitamin D2) 1,250 Mcg (50,000 Units) Capsule PO 1,250 mcg WEEKLY DIAZ Administration Ferrous Sulfate 325 mg 07/30/24 12:00 08/03/24 12:22 Ferrous Sulfate [address] BY MOUTH 325 mg DAILY@1200 DIAZ Administration Furosemide 40 mg 08/04/24 17:00 Furosemide 40 Mg Tablet PO BID DIAZ Glucagon 1 mg 07/29/24 16:20 Glucagon For Inj 1 Mg Vial IM PRN PRN Hypoglycemia Protocol Glucose 15 gm 07/29/24 03:41 Glucose Oral Gel 15 Gm Of Glucse In 37.5 Gm Tube PO PRN PRN Hypoglycemia Protocol Dextrose 1,000 mls @ 100 mls/hr 07/29/24 03:41 Dextrose 5% 1,000 Ml IVPB PRN PRN Hypoglycemia Protocol Insulin Aspart 2 - 4 units 07/31/24 21:00 08/03/24 20:21 Insulin Aspart (*Bkc) 100 Units/Ml SUB-Q 3 units HS DIAZ Administration Protocol Insulin Aspart 4 - 8 units 07/31/24 08:00 08/04/24 09:00 Insulin Aspart (*Bkc) 100 Units/Ml SUB-Q Not Given TIDWM DIAZ Protocol Insulin Aspart 12 units 08/01/24 08:00 08/04/24 09:00 Insulin Aspart (*Bkc) 100 Units/Ml SUB-Q 12 units TIDWM DIAZ Administration Insulin Glargine 40 units 07/31/24 21:00 08/03/24 20:20 Insulin Glargine (*Bkc) 100 Units/Ml SUB-Q 40 units HS DIAZ Administration Lactobacillus Acidophilus 1 tablet 07/30/24 09:00 08/04/24 09:31 Acidophilus/Bulgaricus Chewable Tablet BY MOUTH Not Given DAILY DIAZ Levothyroxine Sodium 75 mcg 07/30/24 06:30 08/04/24 05:40 Levothyroxine Sodium 75 Mcg Tablet PO 75 mcg DAILY@0630 DIAZ Administration Metoprolol Tartrate 12.5 mg 07/29/24 21:00 08/04/24 09:00 Metoprolol Tartrate 12.5 Mg Tablet PO 12.5 mg Q12HR DIAZ Administration Pantoprazole Sodium 40 mg 07/30/24 09:00 08/04/24 09:00 Pantoprazole 40 Mg Tablet PO Not Given QAM DIAZ Potassium Chloride 20 meq 07/30/24 09:00 08/04/24 09:33 Potassium Chloride 20 Meq Packet (For Liquid) PO Not Given QAM DIAZ Umeclidinium/Vilanterol 1 puff 08/02/24 09:00 08/04/24 08:30 Umeclidinium/Vilanterol 62.5-25 Mcg Ellipta INHALATION 1 puff DAILYRT DIAZ Administration Radiology Results: ITS Impressions Chest CTA 07/29/24 13:40 IMPRESSION: No pulmonary embolus. No thoracic aortic dissection. Bilateral pleural effusions, right greater than left with adjacent compressive consolidation in the left lower lobe and adjacent compressive atelectasis in the right lower lobe. Additional findings consistent with pulmonary edema within the remainder of the bilateral lung malik without focal infiltrate. Head CT 07/29/24 13:54 Impression: No acute intracranial hemorrhage or suspicious mass effect. Chest X-Ray 08/04/24 10:15 Impression: 1: Bibasilar airspace disease may represent pneumonia or edema. 2: Small pleural effusions. Labs Labs: Laboratory Results - last 24 hr 08/03/24 08/03/24 08/03/24 07:36 11:55 16:30 WBC RBC Hgb Hct MCV MCH MCHC RDW Plt Count MPV Sodium Potassium Chloride Carbon Dioxide Anion Gap BUN Creatinine Estim Creat Clear Calc Estimated GFR Glucose POC Capillary Glucose 160 H 386 H 328 H Calcium Magnesium Procalcitonin 08/03/24 08/04/24 08/04/24 19:33 05:19 07:26 WBC 14.4 H RBC 4.59 Hgb 12.8 Hct 43.4 MCV 94.6 MCH 27.9 MCHC 29.5 L RDW 13.6 Plt Count 230 MPV 10.3 Sodium 135 L Potassium 3.4 Chloride 82 L Carbon Dioxide > 40 H Anion Gap BUN 47 H Creatinine 0.98 Estim Creat Clear Calc 42 Estimated GFR 55 L Glucose 153 H POC Capillary Glucose 350 H 113 H Calcium 7.8 L Magnesium 2.0 Procalcitonin 0.7
[2024-08-04 12:00] LABS: Glucose Point of Care 165 mg/dl (65-105)
[2024-08-04] MEDS: FERROUS SULFATE 325 MG TABLET DR BY MOUTH (12:06)
--- NOTE | 2024-08-04 13:59 | PM.IMPN ---
Progress Note: A&P Assessment and Plan (1) CO2 narcosis: Code(s): R06.89 - Other abnormalities of breathing Status: Acute (2) Pneumonia: Code(s): J18.9 - Pneumonia, unspecified organism Status: Acute (3) Acute respiratory failure with hypoxia: Code(s): J96.01 - Acute respiratory failure with hypoxia Status: Acute Plan patient is 79 y/o female with dementia and poor historian was admitted with shortness of breath suspect multifactorial as patient has abnormal diastolic dysfunction with history of smoking in the past, upon arrival ABG showed hypercapnia, patient is seen by electric motor assembler and tester started patient on BIPAP, which did improve pCO2, added broncho dilators, and being dirused aggressively, patient clinical symptoms are improving compare to when she arrived, and the being diuresed, and clinical symptoms are improving, will stop IV lasix and start patient on PO lasix before charging patient to the NH. will monitor overnight and monitor. 79-year-old female with past medical history diastolic CHF, atrial fibrillation on Eliquis, COPD, prior tobacco abuse, dementia, anemia, hypothyroidism, arthritis, insulin-dependent diabetes mellitus who presents with shortness of breath and somnolence. EN route EMS placed the patient on 6 L as she was saturating 70% on room air. ER evaluation demonstrated white count of 14.2, hemoglobin 11.9, INR 1.3, pH 7.256 with pCO2 75, bicarb 32.6, BNP 687, troponin 0.012, quad viral screen negative. Chest x-ray demonstrated cardiomegaly and pulmonary edema. Possible pneumonitis, atelectasis and pneumonia. An attempt at BiPAP was made but she cannot tolerate and was pulling the mask off. In light of the aforementioned in the patient's altered mental status family was contacted and they confirmed the patient will be DNR, only medical therapy to be administered. High-flow nasal cannula at 40 L and 30% FiO2 was placed. The patient was resting comfortably thereafter. She was given breathing treatments, cefepime, doxycycline, vancomycin, magnesium 2 g rider. Acute hypoxic hypercapnic respiratory failure suspected related to CHF/COPD exacerbation ABG has improved overnight. Recheck ABG reviewed Hypercapnia has improved will switch Vapotherm to nasal cannula. AVAPS at night with she has refused to use. Chest x-ray reviewed. Oxygenation has been lowered to high-flow nasal cannula. Pulmonary on board. Off AVAPS due to refusal COPD exacerbation continue steroid on oral steroid CHF exacerbation continue diuresis with IV Lasix echo with EF 50-55% no significant valvular abnormality. CTA chest reviewed. Negative for PE. Has evidence of pulmonary edema. Continue diuresis MRSA nares came back negative. Stop vancomycin Acute on Chronic diastolic CHF on diuresis with IV Lasix Atrial fibrillation on chronic anticoagulation with Eliquis Dementia Chronic anemia Hypothyroidism Insulin-dependent diabetes mellitus DVT prophylaxis on Eliquis Code status do not resuscitate Subjective Date/time seen: 08/04/24 13:59 Interval history: No overnight events. Patient down to high-flow nasal cannula now. Minimal cough. Discussed with Pulmonary. patient is 79 y/o female with dementia and poor historian was admitted with shortness of breath suspect multifactorial as patient has abnormal diastolic dysfunction with history of smoking in the past, upon arrival ABG showed hypercapnia, patient is seen by electric motor assembler and tester started patient on BIPAP, which did improve pCO2, added broncho dilators, and being dirused aggressively, patient clinical symptoms are improving compare to when she arrived, and the being diuresed, and clinical symptoms are improving, will stop IV lasix and start patient on PO lasix before charging patient to the NH. will monitor overnight and monitor. Review of Systems Review of Systems: ROS unobtainable: Yes unobtainable due to mental status Exam Narrative: Patient is comfortable, NAD HEENT: eyes are clear and none icteric LUNGS:CTA HEART: RR S1S2 ABD: BS+, Soft and nontender Lower extremities: no edema SKIN: nonjaundiced Neuro: grossly intact. Objective Data Vital Signs Vital Signs: Vital Signs - 24 hr 08/03/24 16:00 08/03/24 16:00 08/03/24 20:00 Temperature 37.7 C H Pulse Rate 91 64 Respiratory Rate 20 Blood Pressure 123/64 Pulse Oximetry 93 93 Oxygen Delivery High Flow Therapy with Na Oxygen Flow Rate 2 08/03/24 20:00 08/03/24 20:00 08/03/24 20:05 Temperature 36.6 C 36.3 C L Pulse Rate 103 H 110 H Respiratory Rate 22 H Blood Pressure 119/59 L Pulse Oximetry 92 Oxygen Delivery Oxygen Flow Rate 08/03/24 20:17 08/03/24 20:50 08/04/24 04:00 Temperature Pulse Rate 102 H 87 Respiratory Rate Blood Pressure Pulse Oximetry 95 Oxygen Delivery Nasal Cannula Oxygen Flow Rate 1 08/04/24 08:00 08/04/24 08:00 08/04/24 08:00 Temperature 36.8 C Pulse Rate 90 94 102 H Respiratory Rate 20 20 Blood Pressure 114/68 Pulse Oximetry 94 94 Oxygen Delivery Nasal Cannula Oxygen Flow Rate 1 08/04/24 08:25 08/04/24 09:00 08/04/24 11:05 Temperature Pulse Rate 102 H Respiratory Rate 20 Blood Pressure Pulse Oximetry 92 92 Oxygen Delivery Nasal Cannula Nasal Cannula Oxygen Flow Rate 1 2 Intake/Output Intake/Output: Intake & Output 08/01/24 08/02/24 08/03/24 08/04/24 23:59 23:59 23:59 23:59 Intake Total 1080 1140 2470 1110 Output Total 1300 1400 2225 1100 Balance -220 -260 245 10 Meds/Results Medications: Active Medications Generic Name Dose Route Start Last Admin Trade Name Freq PRN Reason Stop Dose Admin Apixaban 5 mg 07/29/24 09:00 08/04/24 09:00 Apixaban 5 Mg Tablet PO 5 mg Q12HR DIAZ Administration Atorvastatin Calcium 20 mg 07/30/24 09:00 08/04/24 09:00 Atorvastatin 20 Mg Tablet PO 20 mg DAILY DIAZ Administration Cyanocobalamin 1,000 mcg 07/30/24 09:00 08/04/24 09:00 Cyanocobalamin 1,000 Mcg Tablet PO Not Given QAM DIAZ Dextrose 12.5 gm 07/29/24 03:41 Dextrose 50% 25 Gm/50 Ml Syringe IV PUSH PRN PRN Hypoglycemia Protocol Diltiazem HCl 300 mg 07/30/24 09:00 08/04/24 09:00 Diltiazem Hcl Cd 300 Mg Cap.24hr PO 300 mg QAM DIAZ Administration Donepezil HCl 10 mg 07/29/24 21:00 08/03/24 20:18 Donepezil Hcl 10 Mg Tablet PO 10 mg HS DIAZ Administration Ergocalciferol 1,250 mcg 08/01/24 17:40 08/01/24 18:14 Ergocalciferol (Vitamin D2) 1,250 Mcg (50,000 Units) Capsule PO 1,250 mcg WEEKLY DIAZ Administration Ferrous Sulfate 325 mg 07/30/24 12:00 08/04/24 12:06 Ferrous Sulfate [address] BY MOUTH 325 mg DAILY@1200 DIAZ Administration Furosemide 40 mg 08/04/24 17:00 Furosemide 40 Mg Tablet PO BID DIAZ Glucagon 1 mg 07/29/24 16:20 Glucagon For Inj 1 Mg Vial IM PRN PRN Hypoglycemia Protocol Glucose 15 gm 07/29/24 03:41 Glucose Oral Gel 15 Gm Of Glucse In 37.5 Gm Tube PO PRN PRN Hypoglycemia Protocol Dextrose 1,000 mls @ 100 mls/hr 07/29/24 03:41 Dextrose 5% 1,000 Ml IVPB PRN PRN Hypoglycemia Protocol Insulin Aspart 2 - 4 units 07/31/24 21:00 08/03/24 20:21 Insulin Aspart (*Bkc) 100 Units/Ml SUB-Q 3 units HS DIAZ Administration Protocol Insulin Aspart 4 - 8 units 07/31/24 08:00 08/04/24 12:06 Insulin Aspart (*Bkc) 100 Units/Ml SUB-Q Not Given TIDWM DIAZ Protocol Insulin Aspart 12 units 08/01/24 08:00 08/04/24 12:07 Insulin Aspart (*Bkc) 100 Units/Ml SUB-Q 12 units TIDWM DIAZ Administration Insulin Glargine 40 units 07/31/24 21:00 08/03/24 20:20 Insulin Glargine (*Bkc) 100 Units/Ml SUB-Q 40 units HS DIAZ Administration Lactobacillus Acidophilus 1 tablet 07/30/24 09:00 08/04/24 09:31 Acidophilus/Bulgaricus Chewable Tablet BY MOUTH Not Given DAILY DIAZ Levothyroxine Sodium 75 mcg 07/30/24 06:30 08/04/24 05:40 Levothyroxine Sodium 75 Mcg Tablet PO 75 mcg DAILY@0630 DIAZ Administration Metoprolol Tartrate 12.5 mg 07/29/24 21:00 08/04/24 09:00 Metoprolol Tartrate 12.5 Mg Tablet PO 12.5 mg Q12HR DIAZ Administration Pantoprazole Sodium 40 mg 07/30/24 09:00 08/04/24 09:00 Pantoprazole 40 Mg Tablet PO Not Given QAM DIAZ Potassium Chloride 20 meq 07/30/24 09:00 08/04/24 09:33 Potassium Chloride 20 Meq Packet (For Liquid) PO Not Given QAM DIAZ Umeclidinium/Vilanterol 1 puff 08/02/24 09:00 08/04/24 08:30 Umeclidinium/Vilanterol 62.5-25 Mcg Ellipta INHALATION 1 puff DAILYRT DIAZ Administration Radiology Results: ITS Impressions Chest CTA 07/29/24 13:40 IMPRESSION: No pulmonary embolus. No thoracic aortic dissection. Bilateral pleural effusions, right greater than left with adjacent compressive consolidation in the left lower lobe and adjacent compressive atelectasis in the right lower lobe. Additional findings consistent with pulmonary edema within the remainder of the bilateral lung malik without focal infiltrate. Head CT 07/29/24 13:54 Impression: No acute intracranial hemorrhage or suspicious mass effect. Chest X-Ray 08/04/24 10:15 Impression: 1: Bibasilar airspace disease may represent pneumonia or edema. 2: Small pleural effusions. Labs Labs: Laboratory Results - last 24 hr 08/03/24 08/03/24 08/04/24 16:30 19:33 05:19 WBC 14.4 H RBC 4.59 Hgb 12.8 Hct 43.4 MCV 94.6 MCH 27.9 MCHC 29.5 L RDW 13.6 Plt Count 230 MPV 10.3 Sodium 135 L Potassium 3.4 Chloride 82 L Carbon Dioxide > 40 H Anion Gap BUN 47 H Creatinine 0.98 Estim Creat Clear Calc 42 Estimated GFR 55 L Glucose 153 H POC Capillary Glucose 328 H 350 H Calcium 7.8 L Magnesium 2.0 Procalcitonin 0.7 08/04/24 08/04/24 07:26 11:54 WBC RBC Hgb Hct MCV MCH MCHC RDW Plt Count MPV Sodium Potassium Chloride Carbon Dioxide Anion Gap BUN Creatinine Estim Creat Clear Calc Estimated GFR Glucose POC Capillary Glucose 113 H 165 H Calcium Magnesium Procalcitonin
[2024-08-04] MEDS: FUROSEMIDE 40 MG TABLET PO (16:32)
[2024-08-04 17:00] LABS: Glucose Point of Care 80 mg/dl (65-105)
--- NOTE | 2024-08-04 17:00 | ECG_ITS ---
Test Date: 2024-08-04 17:09:43 Measurements Intervals [place] Rate: 106 P: 0 NC: 0 QRS: 143 QRSD: 141 T: 21 QT: 375 QTc: 500 Interpretive Statements ATRIAL FIBRILLATION WITH RAPID VENTRICULAR RESPONSE RIGHT BUNDLE BRANCH BLOCK LEFT POSTERIOR FASCICULAR BLOCK POSSIBLE ANTERIOR MYOCARDIAL INFARCTION , PROBABLY OLD BASELINE ARTIFACT- I, II, AVR, AVL, AVF, V1-V3 ABNORMAL ECG Compared to ECG 07/28/2024 18:48:58 SINUS RHYTHM NO LONGER PRESENT Electronically Signed On 08-04-2024 19:22:23 CDT by Andre Campoverde D.O.
[2024-08-04 20:26] LABS: Glucose Point of Care 241 mg/dl (65-105)
[2024-08-04] MEDS: DONEPEZIL HCL 10 MG TABLET PO (21:41)
[2024-08-04] MEDS: INSULIN GLARGINE (*BKC) 100 UNITS/ML 40 UNITS SUB-Q (21:42)
[2024-08-04] MEDS: INSULIN ASPART (*BKC) 100 UNITS/ML SUB-Q (21:42)
[2024-08-05] VITALS (7 sets, daily range): BP systolic 115; BP diastolic 66; PULSE 77–96; RESP 17; TEMP 36.8; O2SAT 91–94
[2024-08-05] MEDS: LEVOTHYROXINE SODIUM 75 MCG TABLET PO (05:46)
[2024-08-05 06:20] LABS: Hematocrit 46.3 % (37.0-47.0); Hemoglobin 13.4 g/dL (12.0-15.0); Mean Corpuscular HGB Conc 28.9 g/dl (32-36); Mean Corpuscular Hemoglobin 27.6 pg (26-34); Mean Corpuscular Volume 95.5 fl (80-100); Mean Platelet Volume 10.6 fl (7.4-10.4); Platelet Count Result 266 k/mm3 (150-375); Red Blood Count 4.85 M/mm3 (4.2-5.4); Red Cell Distribution Width 13.8 % (11.5-14.5)
--- NOTE | 2024-08-05 06:21 | PCRCNOTE ---
The oximetry study attempted on 08/03/24 on room air was terminated within 5 mins due to an O2 desaturation to 83%. The patient had to be placed back on 2L of oxygen. RT tried to print the study, but there was no available data from that short period.
[2024-08-05 06:28] LABS: Blood Urea Nitrogen 44 mg/dL (7-17); Calcium 8.2 mg/dL (8.4-10.2); Carbon Dioxide > 40 mmol/L (22-30); Chloride 83 mmol/L (98-107); Estimated CRCL calculation 48 ml/min; Estimated Glomerular Filt Rate > 60; Glucose 46 mg/dL (65-110); Potassium 3.1 mmol/L (3.4-5.0); Sodium 136 mmol/L (137-145)
[2024-08-05 06:51] LABS: Glucose Point of Care 100 mg/dl (65-105)
[2024-08-05 08:37] LABS: Glucose Point of Care 98 mg/dl (65-105)
[2024-08-05] MEDS: UMECLIDINIUM/VILANTEROL 62.5-25 MCG ELLIPTA 1 PUFF INHALATION (08:49)
[2024-08-05] MEDS: APIXABAN 5 MG TABLET PO (11:00)
[2024-08-05] MEDS: METOPROLOL TARTRATE 12.5 MG TABLET PO (11:00)
[2024-08-05] MEDS: CYANOCOBALAMIN 1,000 MCG TABLET 1000 MCG PO (11:00)
[2024-08-05] MEDS: POTASSIUM CHLORIDE 20 MEQ PACKET (FOR LIQUID) PO (11:00)
[2024-08-05] MEDS: FUROSEMIDE 40 MG TABLET PO (11:00)
[2024-08-05] MEDS: PANTOPRAZOLE 40 MG TABLET PO (11:00)
[2024-08-05] MEDS: dilTIAZem HCL CD 300 MG CAP.24HR PO (11:00)
[2024-08-05] MEDS: ACIDOPHILUS/BULGARICUS CHEWABLE TABLET 1 TABLET BY MOUTH (11:00)
[2024-08-05] MEDS: ATORVASTATIN 20 MG TABLET PO (11:00)
--- NOTE | 2024-08-05 11:20 | PC.NURSE ---
Patient was refusing all medication this AM and spitting out pills. Pills crushed and patient agreed to swallow pudding @1100
[2024-08-05] MEDS: POTASSIUM CHLORIDE 20 MEQ PACKET (FOR LIQUID) 40 MEQ PO (11:27)
[2024-08-05 12:14] LABS: Glucose Point of Care 239 mg/dl (65-105)
[2024-08-05] MEDS: INSULIN ASPART (*BKC) 100 UNITS/ML 12 UNITS SUB-Q (12:39)
[2024-08-05] MEDS: INSULIN ASPART (*BKC) 100 UNITS/ML SUB-Q (12:39)
--- NOTE | 2024-08-05 12:53 | P.DS_ITS ---
DS: Admitting Diagnosis Discharge Date 08/05/24 Admitting Diagnosis Shortness of breath DS: Discharge Diagnosis Discharge Diagnosis (1) CO2 narcosis: Code(s): R06.89 - Other abnormalities of breathing Status: Acute (2) Pneumonia: Code(s): J18.9 - Pneumonia, unspecified organism Status: Acute (3) Acute respiratory failure with hypoxia: Code(s): J96.01 - Acute respiratory failure with hypoxia Status: Acute Plan 79-year-old female with past medical history diastolic CHF, atrial fibrillation on Eliquis, COPD, prior tobacco abuse, dementia, anemia, hypothyroidism, arthritis, insulin-dependent diabetes mellitus who presents with shortness of breath and somnolence. EN route EMS placed the patient on 6 L as she was saturating 70% on room air. ER evaluation demonstrated white count of 14.2, hemoglobin 11.9, INR 1.3, pH 7.256 with pCO2 75, bicarb 32.6, BNP 687, troponin 0.012, quad viral screen negative. Chest x-ray demonstrated cardiomegaly and pulmonary edema. Possible pneumonitis, atelectasis and pneumonia. An attempt at BiPAP was made but she cannot tolerate and was pulling the mask off. In light of the aforementioned in the patient's altered mental status family was contacted and they confirmed the patient will be DNR, only medical therapy to be administered. High-flow nasal cannula at 40 L and 30% FiO2 was placed. The patient was resting comfortably thereafter. She was given breathing treatments, cefepime, doxycycline, vancomycin, magnesium 2 g rider. patient is 79 y/o female with dementia and poor historian was admitted with shortness of breath suspect multifactorial as patient has abnormal diastolic dysfunction with history of smoking in the past, upon arrival ABG showed hypercapnia, patient is seen by evaluation assistant started patient on BIPAP, which did improve pCO2, added broncho dilators, and being dirused aggressively, patient clinical symptoms are improving compare to when she arrived, and the being diuresed, and clinical symptoms are improving, will stop IV lasix and started patient on PO lasix before charging patient to the NH. will monitor overnight and monitor. Patient is clinically stable, will discharge the patient. DS: Summary Hospital Course Hospital Course: patient is 79 y/o female with dementia and poor historian was admitted with shortness of breath suspect multifactorial as patient has abnormal diastolic dysfunction with history of smoking in the past, upon arrival ABG showed hypercapnia, patient is seen by evaluation assistant started patient on BIPAP, which did improve pCO2, added broncho dilators, and being dirused aggressively, patient clinical symptoms are improving compare to when she arrived, and the being diuresed, and clinical symptoms are improving, will stop IV lasix and started patient on PO lasix before charging patient to the NH. will monitor overnight and monitor. Patient is clinically stable, will discharge the patient. Time Spent with Patient Time attestation: Total time spent providing and/or coordinating discharge services: Exam Narrative: Patient is comfortable, NAD HEENT: eyes are clear and none icteric LUNGS:CTA HEART: RR S1S2 ABD: BS+, Soft and nontender Lower extremities: no edema SKIN: nonjaundiced Neuro: grossly intact. DS: Data Data Completed and Pending Labs on day of discharge: Labs from last 24 hours 08/05/24 08/05/24 08/05/24 12:45 11:42 07:44 WBC RBC Hgb Hct MCV MCH MCHC RDW Plt Count MPV Sodium Potassium Chloride Carbon Dioxide Anion Gap BUN Creatinine Estim Creat Clear Calc Estimated GFR Glucose POC Capillary Glucose 239 H 98 Calcium Magnesium SARS-CoV-2 RNA (RT-PCR) Pending 08/05/24 08/05/24 08/04/24 06:47 05:37 20:01 WBC 15.0 H RBC 4.85 Hgb 13.4 Hct 46.3 MCV 95.5 MCH 27.6 MCHC 28.9 L RDW 13.8 Plt Count 266 MPV 10.6 H Sodium 136 L Potassium 3.1 L Chloride 83 L Carbon Dioxide > 40 H Anion Gap BUN 44 H Creatinine 0.85 Estim Creat Clear Calc 48 Estimated GFR > 60 Glucose 46 L* POC Capillary Glucose 100 241 H Calcium 8.2 L Magnesium 2.0 SARS-CoV-2 RNA (RT-PCR) 08/04/24 16:48 WBC RBC Hgb Hct MCV MCH MCHC RDW Plt Count MPV Sodium Potassium Chloride Carbon Dioxide Anion Gap BUN Creatinine Estim Creat Clear Calc Estimated GFR Glucose POC Capillary Glucose 80 Calcium Magnesium SARS-CoV-2 RNA (RT-PCR) Discharge Plan Discharge Attending physician on discharge: Reba Paulson Consulting providers: Gloria Hardy; Soniya Gamino; Hernan Bass; Iam Christianson; Andre Campoverde; Bobby Royal; Yuli Alberto; Jean Kirby; Nathanael Granado Discharging Clinician: Juan [place] Anticipated Discharge Date/Time: 08/03/24 14:05 Patient Disposition: NH Care Home/Asst Living Activity: as tolerated Diet: heart healthy Discharge Instructions: Per Care Coordination: [facility] has been arranged to follow at discharge. [facility] will follow for RN and PT/OT eval and treat. [facility] can be contacted at [phone]. Nursing please fax discharge paperwork to [phone]. patient to follow up with her evaluation assistant and primary care provider as soon as possible. 1L of oxygen at rest, 2L NC with activity and sleep [phone] [facility] oxygen delivery call on D/C Patient Instructions: Antibiotic Form, Apixaban (By mouth), Heart Failure (DC), Safe Use of Anticoagulants (DC) Patient Language: Kazakh Stand Alone Forms: General Discharge Information Follow-up/Referrals: Shimon,Sean Rendon DO [Primary Care Provider] - Discharge Medications: Continued atorvastatin 20 mg tablet 20 mg PO DAILY spironolactone 50 mg tablet 50 mg PO DAILY furosemide [Lasix] 20 mg tablet 40 mg PO DAILY diltiazem HCl 300 mg Capsule,Extended Release 24hr 300 mg PO QAM Qty: 30 0RF metoprolol tartrate 25 mg tablet 12.5 mg PO BID Qty: 30 0RF acetaminophen [Acetaminophen Pain Relief] 500 mg Tablet 500 mg PO Q6H PRN (Reason: Pain) levothyroxine 75 mcg tablet 75 mcg PO DAILY potassium chloride 20 mEq/15 mL liquid 20 meq PO DAILY medroxyprogesterone 2.5 mg tablet 2.5 mg PO DAILY cholecalciferol (vitamin D3) 1,250 mcg (50,000 unit) capsule 50,000 unit PO WEEKLY Rx Instructions: on mondays Lactobacillus acidophilus 1 billion cell capsule 1,000 mmu cells PO DAILY donepezil [Aricept] 10 mg Tablet 10 mg PO HS omeprazole 20 mg Capsule,Delayed Release(Dr/Ec) 20 mg PO DAILY insulin glargine [Lantus Solostar U-100 Insulin] 100 unit/mL (3 mL) Insulin Pen 35 unit SUBCUT HS umeclidinium-vilanterol [Anoro Ellipta] 62.5-25 mcg/actuation Blister With Device 1 inh INHALATION DAILY ipratropium-albuterol 0.5 mg-3 mg(2.5 mg base)/3 mL Solution For Nebulization 3 ml INHALATION Q6H PRN (Reason: COPD) ferrous sulfate 300 mg (60 mg iron)/5 mL Liquid 325 mg PO DAILY albuterol sulfate [Ventolin HFA] 90 mcg/actuation Hfa Aerosol Inhaler 2 puff INHALATION Q6H PRN (Reason: COPD) mecobalamin (vitamin B12) 1,000 mcg Tablet,Chewable 1,000 mcg PO DAILY Eliquis 5 mg Tablet 5 mg PO Q12HR Qty: 60 0RF Held budesonide-formoterol [Symbicort] 160-4.5 mcg/actuation Hfa Aerosol Inhaler 2 puff INHALATION Q12H Hold Instructions: until seen by her primary care provider Date of admission: 07/28/24 21:53 Primary Care Provider: Shimon,Sean Rendon Admitting Provider: Reba Paulson Attending physician on admission: Juan [place] Condition: Stable
[2024-08-05 13:27] LABS: SARS-CoV-2 RNA PCR Negative (Negative)
== END 2024-08-05 15:10 | disposition home health service (06) | DRG 193 ==
LOC: ANHED 21:34 → ANHIMU 22:54 → ANH2MED 08-05 12:53 → ANHIMU 08-08 08:43
PROVIDERS: Internal Medicine; Internal Medicine Critical Care Medicine; Internal Medicine Pulmonary Disease; Admitting Provider General Practice; Emergency Provider Emergency Medicine; PCP Internal Medicine; Visit Provider Family Medicine
DX: J18.9 Pneumonia, unspecified organism (principal); I50.33 Acute on chronic diastolic (congestive) heart failure; J96.21 Acute and chronic respiratory failure with hypoxia; J96.22 Acute and chronic respiratory failure with hypercapnia; J44.0 Chronic obstructive pulmonary disease with (acute) lower respiratory infection; J44.1 Chronic obstructive pulmonary disease with (acute) exacerbation; I48.91 Unspecified atrial fibrillation; F03.90 Unspecified dementia, unspecified severity, without behavioral disturbance, psychotic disturbance, mood disturbance, and anxiety; D64.9 Anemia, unspecified; E03.9 Hypothyroidism, unspecified; M19.90 Unspecified osteoarthritis, unspecified site; E11.42 Type 2 diabetes mellitus with diabetic polyneuropathy; E11.9 Type 2 diabetes mellitus without complications; Z79.01 Long term (current) use of anticoagulants; Z87.891 Personal history of nicotine dependence; Z66 Do not resuscitate; Z20.822 Contact with and (suspected) exposure to COVID-19
CPT/HCPCS: 36415; 36600; 70450; 71045; 71275; 80048; 80053; 82375; 82805; 82948; 83050; 83735; 83880; 84145; 84443; 84484; 85018; 85025; 85027; 85610; 85730; 87635; 87637; 87641; 93005; 94002; 94003; 94618; 94640; 94762; 96365; 96366; 96367; 96375; 97110; 97116; 97161; 97166; 97530; 97535; 99285; A9270; C8929; J0692; J0696; J1815; J1938; J2919; J3370; J3475; J7512; Q9957; Q9967

== ENCOUNTER 2024-08-05 22:07 | Observation (INO) | payer OTHER, SELFPAY ==
--- NOTE | ~2024-08-05 | XR_ITS ---
EXAMINATION: XR chest 1V portable DATE: 08/06/2024 00:54 INDICATION: Hypoxia TECHNIQUE: frontal view of the chest was obtained. COMPARISON: Chest radiograph dated 08/04/2024 FINDINGS: No significant change in airspace opacities in the bilateral lower lung zones, left greater than righ t with some improved aeration on the left and mild worsening on the right. No pulmonary edema, pleura l effusion or pneumothorax. Calcified nodules in the left lower lung zone consistent with old granulo matous disease. Heart size is normal. IMPRESSION: 1. Opacities in the lower lung zones, left greater than right, which could represent atelectasis or p neumonia with some interval improvement on the left and worsening on the right. Reviewed, dictated and finalized at location A. IMPRESSION: 1. Opacities in the lower lung zones, left greater than right, which could repr esent atelectasis or pneumonia with some interval improvement on the left and w orsening on the right.
[2024-08-05 22:08] VITALS: BP 106/60; PULSE 80; RESP 20; TEMP 36.6; O2SAT 95
[2024-08-05 22:10] VITALS: O2SAT 98
--- NOTE | 2024-08-05 22:50 | PC.NURSE ---
This RN spoke with Juliette @ [facility]. Pt is on assisted living/memory care unit and the rooms do not have oxygen set up. Pt was sent out with 1 oxygen tank and it ran out. Facility does not have spare tanks laying around and the number on the patient oxygen tank has a voice mail that says they are closed until Thursday. So patient will not be able to return until then unless provided with oxygen.
--- NOTE | 2024-08-05 22:52 | PC.NURSE ---
[phone]
[2024-08-06] VITALS (31 sets, daily range): BP systolic 95–139; BP diastolic 50–85; PULSE 62–107; RESP 16–25; TEMP 35.8–36.8; O2SAT 91–100; BMI 35.4
[2024-08-06 00:36] LABS: Basophils Percent Auto 0.1 % (0.2-1.2); Eosinophils Absolute Auto 0.2 K/mm3 (0-0.3); Eosinophils Percent Auto 1.1 % (0-4.4); Hematocrit 45.2 % (37.0-47.0); Hemoglobin 13.5 g/dL (12.0-15.0); Immature Granulocyte Absolute 0.13 K/mm3 (0.00-0.031); Immature Granulocyte Percent A 0.8 % (0-0.5); Lymphocytes Absolute Auto 0.96 K/mm3 (0.9-3.2); Lymphocytes Percent Auto 6.2 % (18.3-44.2); Mean Corpuscular HGB Conc 29.9 g/dl (32-36); Mean Corpuscular Volume 93.8 fl (80-100); Mean Platelet Volume 10.6 fl (7.4-10.4); Monocytes Absolute Auto 0.9 K/mm3 (0.1-0.6); Monocytes Percent Auto 5.7 % (2.6-8.5); Neutrophils Absolute Auto 13.3 K/mm3 (1.3-6.7); Neutrophils Percent Auto 86.1 % (45.5-73.1); Platelet Count Result 228 k/mm3 (150-375); Red Blood Count 4.82 M/mm3 (4.2-5.4); Red Cell Distribution Width 13.9 % (11.5-14.5); White Blood Count 15.5 K/mm3 (4.5-10.0)
[2024-08-06 00:45] LABS: Blood Urea Nitrogen 41 mg/dL (7-17); Calcium 8.4 mg/dL (8.4-10.2); Chloride 80 mmol/L (98-107); Estimated CRCL calculation 44 ml/min; Estimated Glomerular Filt Rate 54; Glucose 239 mg/dL (65-110); Potassium 3.2 mmol/L (3.4-5.0); Sodium 134 mmol/L (137-145)
--- OUTSIDE RECORDS SUMMARY | 2024-08-06 00:50 | XMS_ITS | Continuity of Care Document ---
Author Organization [facility] Address [address] [place] [address] [place] [address] Phone Care Team Providers Care Nursing Program Manager Name Role Phone Kalyan Villarreal Unavailable Unavailable Procedures Procedure Date Post-op Follow-up Visit Remove Cataract, Insert Lens Post-op Follow-up Visit [facility] Post-op Follow-up Visit Remove Cataract, Insert Lens Office/outpatient Visit, New [facility] Advance Directives Directive Yes / No Effective Date File Name No Information Encounters Encounter Description Practice Location Reason(s) For Visit Diagnoses Date Provider Providers Copied on Encounter [facility], [id number] [place] [address] [address], [place], [place], [id number], [place] tel:[phone] [facility] No Information 4-200 9 Krishnasamy Kalyan. [address], [facility], [place]. tel:[phone] [facility], [address] [place] [address] [address], [place], [place], [id number], [place] tel:[phone] [facility] No Information May-2 3-200 9 Krishnasamy Kalyan. [address], [facility], [place]. tel:[phone] Referring Provider: Jada Wharton OD, [facility] [address] [place], [address]. tel:[phone] [facility], [address], [place], [place], [id number], [place] tel:[phone] [facility] No Information 5-200 9 Krishnasamy Kalyan. [address], [place], [address], [place]. tel:[phone] Referring Provider: Kalyan cobb, [address] [facility] [address], [place], [address]. tel:[phone] [facility], [address], [place], [place], [id number], [place] tel:[phone] [facility] No Information 2 7-[address] [facility] [address], [place], [facility], [place]. tel:[phone] [facility], [address], [place], [place], [id number], [place] tel:[phone] [facility] No Information 2 6-[address] [facility] [address], [address], [place]. tel:[phone] Referring Provider: Jada Wharton OD, [facility] [address] [place], [address]. tel:[phone] Office/outpat ient Visit, [facility], [address], [place], [place], [id number], [place] tel:[phone] [facility] No Information 1 1-[address] [facility] [address], [address], [place]. tel:[phone] Referring Provider: Kalyan cobb, [address] [facility] [address], [place], [address]. tel:[phone] Family History Family Member Type Diagnosis Age [...]
[2024-08-06 00:55] LABS: Carbon Dioxide > 40 mmol/L (22-30)
--- NOTE | 2024-08-06 00:58 | ED_ITS ---
HPI - Recheck/Abnormal Lab/Rx General Chief Complaint: Recheck/Abnormal Lab/Rx Stated Complaint: low o2, facility had no oxygen Time Seen by Provider: 08/06/24 00:03 History of Present Illness HPI narrative: 79-year-old female with history of diastolic congestive heart failure, AFib on Eliquis, COPD, tobacco abuse, dementia. Patient was just discharged from the facility yesterday afternoon and was sent to an assisted living center where they did not have any appropriate oxygen tanks for patient's new hypoxia requiring oxygen from her recent hospital stay. Oxygen company was at the facility and only gave them 1 tank which quickly ran out. Patient transferred to the hospital for evaluation. Nursing staff informed me that they were not able to coordinate care or additional oxygen until potential Thursday for this facility with that company. Patient herself has no complaints and just wants to go back home. Patient denies any trouble breathing, chest pain, shortness of breath, abdominal pain, fever, chills, back pain. No interval change from when she was discharged earlier yesterday afternoon. Related Data Home Medications ?Medication ?Instructions ?Recorded ?Confirmed ?Last Taken ?Type donepezil 10 mg tablet (Aricept) 10 mg PO HS 03/24/20 07/29/24 Unknown History insulin glargine 100 unit/mL (3 35 unit subcut HS 03/24/20 07/29/24 Unknown History mL) subcutaneous pen (Lantus Solostar U-100 Insulin) omeprazole 20 mg capsule,delayed 20 mg PO DAILY 03/24/20 07/29/24 Unknown History release umeclidinium 62.5 mcg-vilanterol 1 inh inhalation DAILY 03/24/20 07/29/24 Unknown History 25 mcg/actuation powdr for inhalation (Anoro Ellipta) albuterol sulfate 90 mcg/actuation 2 puff inhalation Q6H PRN COPD 03/25/20 07/29/24 Unknown History aerosol inhaler (Ventolin HFA) budesonide-formoterol HFA 160 2 puff inhalation Q12H 03/25/20 07/29/24 Unknown History mcg-4.5 mcg/actuation aerosol inhaler (Symbicort) ferrous sulfate 300 mg (60 mg 325 mg PO DAILY 03/25/20 07/29/24 Unknown History iron)/5 mL oral liquid ipratropium 0.5 mg-albuterol 3 mg 3 ml inhalation Q6H PRN COPD 03/25/20 07/29/24 Unknown History (2.5 mg base)/3 mL nebulization soln mecobalamin (vitamin B12) 1,000 1,000 mcg PO DAILY 03/25/20 07/29/24 Unknown History mcg chewable tablet atorvastatin 20 mg tablet 20 mg PO DAILY 12/04/21 07/29/24 Unknown History furosemide 20 mg tablet (Lasix) 40 mg PO DAILY 12/04/21 07/29/24 Unknown History spironolactone 50 mg tablet 50 mg PO DAILY 12/04/21 07/29/24 Unknown History acetaminophen 500 mg tablet 500 mg PO Q6H PRN Pain 03/20/22 07/29/24 Unknown History (Acetaminophen Pain Relief) Lactobacillus acidophilus 1 1,000 mmu cells PO DAILY 07/29/24 07/29/24 Unknown History billion cell capsule cholecalciferol (vitamin D3) 1,250 50,000 unit PO WEEKLY 07/29/24 07/29/24 Unknown History mcg (50,000 unit) capsule levothyroxine 75 mcg tablet 75 mcg PO DAILY 07/29/24 07/29/24 Unknown History medroxyprogesterone 2.5 mg tablet 2.5 mg PO DAILY 07/29/24 07/29/24 Unknown History potassium chloride 20 mEq/15 mL 20 meq PO DAILY 07/29/24 07/29/24 Unknown History oral liquid Allergies Allergy/AdvReac Type Severity Reaction Status Date / Time No Known Allergies Allergy Unknown Verified 07/28/24 18:26 Review of Systems 2 Review of Systems: As reviewed above in HPI [facility] Past Medical History Medical History CHF exacerbation Atrial fibrillation COPD (chronic obstructive pulmonary disease) Arthritis Former smoker 50 pack-year smoking history. Dementia Anemia Hypothyroidism Diabetic peripheral neuropathy Insulin dependent type 2 diabetes mellitus Grade II diastolic dysfunction Noted on echocardiogram in December 2018. Ejection fraction was 60 to 65%. Surgical History Surgical History History of dilation and curettage History of cataract extraction Family History Family History Father Cerebrovascular accident Grandparent Cerebrovascular accident Family history of heart disease in male family member before age 55 Mother Family history of heart disease in male family member before age 55 Heart disease of a heart attack Heart attack Social History Social History Social History: She is a resident at [facility] in [place]. Former smoker, up to a pack of cigarettes a day for 50 years, and quit in 2009. She stopped drinking alcohol in 2007. No illicit substance use. Three children. Her son Kwesi Neely is her healthcare power of patent prosecution attorney. She wishes to be a do not resuscitate but son reports that she has an advance directive stating that she wishes to be a full code. 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 Smoking packs per day: 1 Smoking cigarettes per day: 20.0 Years smoked: 50 Smoking pack-years: 50.00 Smoking status: Former smoker Tobacco type: cigarettes Alcohol intake: former Substance use: never Substance use type: does not use Do You Feel Safe in your Home?: Yes Lack of Transportation: No Lack of Food: Never True Current Housing: I Have Housing Concerned About Future Housing: No Difficulty Paying Gas/Electric Bills: No Difficulty Paying for Meds: No Currently Unemployed: No Education: Trade/Vocational Certificate Difficulty w/ Childcare or Family Care: No Gender identity (if verbalized by the patient): Female Spiritual care concerns: No Exam 2 Narrative: GENERAL: Elderly appearing, but awake answering questions and not any distress HEAD: [Normocephalic, atraumatic.] EYES: [PERRLA and EOMI.] ENT: Nares clear, no rhinorrhea or epistaxis. Mucous membranes moist. NECK: Supple. CHEST: [Clear to auscultation. No respiratory distress.] HEART: [Regular rate and rhythm]. No murmur heard. [Normal peripheral pulses.] ABDOMEN: [Soft, nondistended], [nontender], [No rigidity or guarding] EXTREMITIES: Normal range of motion. [No edema.] SKIN: Warm, dry, no rash. NEURO: [No focal deficits]. Alert and oriented [x3.] PSYCH: [Normal mood and affect.] Course Vital Signs Vital signs: Vital Signs Temperature 36.6 C 08/05/24 22:08 Pulse Rate 80 08/05/24 22:08 Respiratory Rate 20 08/05/24 22:08 Blood Pressure 106/60 08/05/24 22:08 Pulse Oximetry 95 08/05/24 22:08 Oxygen Delivery Nasal Cannula 08/05/24 22:08 Oxygen Flow Rate 2 08/05/24 22:08 Temperature 36.6 C 08/05/24 22:08 Pulse Rate 95 08/06/24 02:46 Respiratory Rate 16 08/06/24 02:46 Blood Pressure 130/78 08/06/24 02:46 Pulse Oximetry 98 08/06/24 02:46 Oxygen Delivery Nasal Cannula 08/05/24 22:10 Oxygen Flow Rate 2 08/05/24 22:10 MDM - Recheck/Abnormal Lab/Rx MDM Narrative Medical decision making narrative: 79-year-old female with history of CHF, AFib on Eliquis, COPD, dementia, tobacco abuse. Also has a history of insulin-dependent diabetes. She was hospitalized recently for hypoxic and hypercapnic respiratory failure likely combination CHF and COPD. Patient had significant improvement was discharged on home oxygen back to her assisted living facility. She was discharged without an appropriate coordination with oxygen delivery as patient has no oxygen upon arrival to the facility. Oxygen company was dispatched and only available to give her 1 tank according to report I obtained from nursing staff. Patient presents here for evaluation now that she is on oxygen without any supplemental supply at her home. She is not any distress, has no complaints at this time, states that she feels well and wants to go back home. She is on 2 L nasal cannula saturating 95%. Afebrile, no tachypnea tachycardia or blood pressure concerns. Do not suspect any interval development of pneumonia, pneumothorax, pulmonary edema or effusions from recent admission and likely patient just needs coordinated care for appropriate oxygen at her final disposition site however I was informed by nursing staff who spoke with facility that this could not happen until potentially Thursday with that same oxygen company. Chest x-ray and basic laboratory studies were obtained here to see if there is any interval anomalies and she will be admitted to the hospital to coordinate care and patient was accepting of this. Spoke to the hospitalist who accepted the patient to a [facility] bed. Medical Records Attestation: I reviewed the patient's medical records. Lab Data Attestation: I reviewed the patient's lab results. 08/06/24 00:29 08/06/24 00:29 Labs: Lab Results 08/06/24 Range/Units 00:29 WBC 15.5 H (4.5-10.0) K/mm3 RBC 4.82 (4.2-5.4) M/mm3 Hgb 13.5 (12.0-15.0) g/dL Hct 45.2 (37.0-47.0) % MCV 93.8 (80-100) fl MCH 28.0 (26-34) pg MCHC 29.9 L (32-36) g/dl RDW 13.9 (11.5-14.5) % Plt Count 228 (150-375) k/mm3 MPV 10.6 H (7.4-10.4) fl Immature Gran % (Auto) 0.8 H (0-0.5) % Neut % (Auto) 86.1 H (45.5-73.1) % Lymph % (Auto) 6.2 L (18.3-44.2) % [place] % (Auto) 5.7 (2.6-8.5) % Eos % (Auto) 1.1 (0-4.4) % Baso % (Auto) 0.1 L (0.2-1.2) % Lymph # (Auto) 0.96 (0.9-3.2) K/mm3 [place] # (Auto) 0.9 H (0.1-0.6) K/mm3 Eos # (Auto) 0.2 (0-0.3) K/mm3 Baso # (Auto) 0.0 (0.0-0.1) K/mm3 Abs Immat Gran (auto) 0.13 H (0.00-0.031) K/mm3 Absolute Neuts (auto) 13.3 H (1.3-6.7) K/mm3 Absolute Nucleated RBC 0.000 (0.0-0.012) K/mm3 Nucleated RBC % 0.0 (0.0-0.2) % Sodium 134 L (137-145) mmol/L Potassium 3.2 L (3.4-5.0) mmol/L Chloride 80 L (98-107) mmol/L Carbon Dioxide > 40 H (22-30) mmol/L Anion Gap (4-12) mmol/L BUN 41 H (7-17) mg/dL Creatinine 0.99 (0.7-1.0) mg/dL Estim Creat Clear Calc 44 ml/min Estimated GFR 54 L (59 - ) Glucose 239 H (65-110) mg/dL Calcium 8.4 (8.4-10.2) mg/dL Imaging Data Attestation: I personally reviewed and interpreted this imaging study as follows: My impression: Improvement in pulmonary edema/effusion compared to prior study. No new consolidations or pneumothorax. Discharge Plan Discharge Clinical Impression: Hypoxemia requiring supplemental oxygen Patient Disposition: Still a Patient Condition: Stable Patient Language: Upper Sorbian Prescriptions: No Action atorvastatin 20 mg tablet 20 mg PO DAILY spironolactone 50 mg tablet 50 mg PO DAILY furosemide [Lasix] 20 mg tablet 40 mg PO DAILY diltiazem HCl 300 mg Capsule,Extended Release 24hr 300 mg PO QAM Qty: 30 0RF metoprolol tartrate 25 mg tablet 12.5 mg PO BID Qty: 30 0RF acetaminophen [Acetaminophen Pain Relief] 500 mg Tablet 500 mg PO Q6H PRN (Reason: Pain) levothyroxine 75 mcg tablet 75 mcg PO DAILY potassium chloride 20 mEq/15 mL liquid 20 meq PO DAILY medroxyprogesterone 2.5 mg tablet 2.5 mg PO DAILY cholecalciferol (vitamin D3) 1,250 mcg (50,000 unit) capsule 50,000 unit PO WEEKLY Rx Instructions: on mondays Lactobacillus acidophilus 1 billion cell capsule 1,000 mmu cells PO DAILY donepezil [Aricept] 10 mg Tablet 10 mg PO HS omeprazole 20 mg Capsule,Delayed Release(Dr/Ec) 20 mg PO DAILY insulin glargine [Lantus Solostar U-100 Insulin] 100 unit/mL (3 mL) Insulin Pen 35 unit SUBCUT HS umeclidinium-vilanterol [Anoro Ellipta] 62.5-25 mcg/actuation Blister With Device 1 inh INHALATION DAILY ipratropium-albuterol 0.5 mg-3 mg(2.5 mg base)/3 mL Solution For Nebulization 3 ml INHALATION Q6H PRN (Reason: COPD) ferrous sulfate 300 mg (60 mg iron)/5 mL Liquid 325 mg PO DAILY albuterol sulfate [Ventolin HFA] 90 mcg/actuation Hfa Aerosol Inhaler 2 puff INHALATION Q6H PRN (Reason: COPD) budesonide-formoterol [Symbicort] 160-4.5 mcg/actuation Hfa Aerosol Inhaler 2 puff INHALATION Q12H mecobalamin (vitamin B12) 1,000 mcg Tablet,Chewable 1,000 mcg PO DAILY Eliquis 5 mg Tablet 5 mg PO Q12HR Qty: 60 0RF Follow-up/Referrals: Shimon,Sean Rendon DO [Primary Care Provider] - Time of Disposition: 02:54
--- NOTE | 2024-08-06 03:58 | ADMGEN ---
This patient, Ana Neely, was admitted to [facility] Room 324-01. Patient/family oriented to hospital policies and general routines including ID bracelet, bed and alarms, visiting hours, pain management, procedures, bathroom and other care routines, personal items, smoking policy, room service/diet, and visiting hours. Information on how to activate the Rapid Response Team has been discussed. Patient/Family are encouraged to report perceived risks to care and to ask questions if they do not understand what they are told or what they should do.
[2024-08-06] MEDS: POTASSIUM CHLORIDE 20 MEQ PACKET (FOR LIQUID) 40 MEQ PO (09:43)
[2024-08-06] MEDS: POTASSIUM CHLORIDE 20 MEQ PACKET (FOR LIQUID) PO (09:43)
[2024-08-06] MEDS: APIXABAN 5 MG TABLET PO ×2 (09:46→21:27)
[2024-08-06] MEDS: ATORVASTATIN 20 MG TABLET PO (09:47)
[2024-08-06] MEDS: dilTIAZem HCL CD 300 MG CAP.24HR PO (09:47)
[2024-08-06] MEDS: FUROSEMIDE 40 MG TABLET PO (09:47)
[2024-08-06] MEDS: PANTOPRAZOLE 40 MG TABLET PO (09:47)
[2024-08-06] MEDS: ACIDOPHILUS/BULGARICUS CHEWABLE TABLET 1 TABLET PO (09:48)
[2024-08-06] MEDS: SPIRONOLACTONE 50 MG TABLET PO (09:48)
[2024-08-06] MEDS: CYANOCOBALAMIN 1,000 MCG TABLET 1000 MCG PO (09:48)
[2024-08-06] MEDS: METOPROLOL TARTRATE 12.5 MG TABLET PO ×2 (09:48→21:27)
[2024-08-06] MEDS: FERROUS SULFATE 325 MG TABLET DR PO (12:14)
--- NOTE | 2024-08-06 14:42 | P.HP_ITS ---
H&P: HPI History of Present Illness Date/Time: 08/06/24 14:42 Chief Complaint: low o2, facility had no oxygen Narrative: ER-HPI narrative: 79-year-old female with history of diastolic congestive heart failure, AFib on Eliquis, COPD, tobacco abuse, dementia. Patient was just discharged from the facility yesterday afternoon and was sent to an assisted living center where they did not have any appropriate oxygen tanks for patient's new hypoxia requiring oxygen from her recent hospital stay. Oxygen company was at the facility and only gave them 1 tank which quickly ran out. Patient transferred to the hospital for evaluation. Nursing staff informed me that they were not able to coordinate care or additional oxygen until potential Thursday for this facility with that company. Patient herself has no complaints and just wants to go back home. Patient denies any trouble breathing, chest pain, shortness of breath, abdominal pain, fever, chills, back pain. No interval change from when she was discharged earlier yesterday afternoon. patient is known to me as I just discharged her yesterday after patient [facility] and patient was sent back to the hospital. patient remains clinically stable, will resume patient discharge medications and monitor. Review of Systems Review of Systems: As reviewed above in HPI [facility] Past Medical History Medical History CHF exacerbation Atrial fibrillation COPD (chronic obstructive pulmonary disease) Arthritis Former smoker 50 pack-year smoking history. Dementia Anemia Hypothyroidism Diabetic peripheral neuropathy Insulin dependent type 2 diabetes mellitus Grade II diastolic dysfunction Noted on echocardiogram in December 2018. Ejection fraction was 60 to 65%. Surgical History Surgical History History of dilation and curettage History of cataract extraction Family History Family History Father Cerebrovascular accident Grandparent Cerebrovascular accident Family history of heart disease in male family member before age 55 Mother Family history of heart disease in male family member before age 55 Heart disease of a heart attack Heart attack Social History Social History Social History: She is a resident at [facility] in [place]. Former smoker, up to a pack of cigarettes a day for 50 years, and quit in 2009. She stopped drinking alcohol in 2007. No illicit substance use. Three children. Her son Kwesi Neely is her healthcare power of document review attorney. She wishes to be a do not resuscitate but son reports that she has an advance directive stating that she wishes to be a full code. 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 Smoking packs per day: 1 Smoking cigarettes per day: 20.0 Years smoked: 50 Smoking pack-years: 50.00 Smoking status: Former smoker Alcohol intake: former Substance use: never Substance use type: does not use Do You Feel Safe in your Home?: Yes Lack of Transportation: No Lack of Food: Never True Current Housing: I Have Housing Concerned About Future Housing: No Difficulty Paying Gas/Electric Bills: No Difficulty Paying for Meds: No Currently Unemployed: No Education: Trade/Vocational Certificate Difficulty w/ Childcare or Family Care: No Gender identity (if verbalized by the patient): Female Spiritual care concerns: No Meds Home Medications and Allergies Home Medications ?Medication ?Instructions ?Recorded ?Confirmed ?Type donepezil 10 mg tablet (Aricept) 10 mg PO HS 03/24/20 08/06/24 History insulin glargine 100 unit/mL (3 35 unit subcut HS 03/24/20 08/06/24 History mL) subcutaneous pen (Lantus Solostar U-100 Insulin) omeprazole 20 mg capsule,delayed 20 mg PO DAILY 03/24/20 08/06/24 History release umeclidinium 62.5 mcg-vilanterol 1 inh inhalation DAILY 03/24/20 08/06/24 History 25 mcg/actuation powdr for inhalation (Anoro Ellipta) albuterol sulfate 90 mcg/actuation 2 puff inhalation Q6H PRN COPD 03/25/20 08/06/24 History aerosol inhaler (Ventolin HFA) budesonide-formoterol HFA 160 2 puff inhalation Q12H 03/25/20 08/06/24 History mcg-4.5 mcg/actuation aerosol inhaler (Symbicort) ferrous sulfate 300 mg (60 mg 325 mg PO DAILY 03/25/20 08/06/24 History iron)/5 mL oral liquid ipratropium 0.5 mg-albuterol 3 mg 3 ml inhalation Q6H PRN COPD 03/25/20 08/06/24 History (2.5 mg base)/3 mL nebulization soln mecobalamin (vitamin B12) 1,000 1,000 mcg PO DAILY 03/25/20 08/06/24 History mcg chewable tablet apixaban 5 mg tablet (Eliquis) 5 mg PO Q12HR #60 tabs 03/27/20 08/06/24 Rx atorvastatin 20 mg tablet 20 mg PO DAILY 12/04/21 08/06/24 History furosemide 20 mg tablet (Lasix) 40 mg PO DAILY 12/04/21 08/06/24 History spironolactone 50 mg tablet 50 mg PO DAILY 12/04/21 08/06/24 History diltiazem HCl 300 mg 300 mg PO QAM #30 caps 12/09/21 08/06/24 Rx capsule,extended release 24 hr metoprolol tartrate 25 mg tablet 12.5 mg (1/2 x 25 mg) PO BID #30 12/09/21 0 08/06/24 Rx tabs acetaminophen 500 mg tablet 500 mg PO Q6H PRN Pain 03/20/22 08/06/24 History (Acetaminophen Pain Relief) Lactobacillus acidophilus 1 1,000 mmu cells PO DAILY 07/29/24 08/06/24 History billion cell capsule cholecalciferol (vitamin D3) 1,250 50,000 unit PO WEEKLY 07/29/24 08/06/24 History mcg (50,000 unit) capsule levothyroxine 75 mcg tablet 75 mcg PO DAILY 07/29/24 08/06/24 History medroxyprogesterone 2.5 mg tablet 2.5 mg PO DAILY 07/29/24 08/06/24 History potassium chloride 20 mEq/15 mL 20 meq PO DAILY 07/29/24 08/06/24 History oral liquid Allergies Allergy/AdvReac Type Severity Reaction Status Date / Time No Known Allergies Allergy Unknown Verified 07/28/24 18:26 Vital Signs Vital Signs - 24 hr 08/05/24 22:08 08/05/24 22:10 08/06/24 00:27 Temperature 36.6 C Pulse Rate 80 89 Respiratory Rate 20 25 H Blood Pressure 106/60 Pulse Oximetry 95 98 98 Oxygen Delivery Nasal Cannula Nasal Cannula Oxygen Flow Rate 2 2 08/06/24 00:30 08/06/24 00:31 08/06/24 00:45 Temperature Pulse Rate 98 100 95 Respiratory Rate 17 19 21 H Blood Pressure 128/81 Pulse Oximetry 97 91 Oxygen Delivery Oxygen Flow Rate 08/06/24 00:46 08/06/24 01:00 08/06/24 01:01 Temperature Pulse Rate 97 95 93 Respiratory Rate 21 H 18 20 Blood Pressure 125/84 121/85 Pulse Oximetry Oxygen Delivery Oxygen Flow Rate 08/06/24 01:15 08/06/24 01:16 08/06/24 01:30 Temperature Pulse Rate 93 90 88 Respiratory Rate 18 19 17 Blood Pressure 132/75 Pulse Oximetry Oxygen Delivery Oxygen Flow Rate 08/06/24 01:31 08/06/24 01:45 08/06/24 01:46 Temperature Pulse Rate 107 H 98 85 Respiratory Rate 17 19 19 Blood Pressure 139/82 135/70 Pulse Oximetry Oxygen Delivery Oxygen Flow Rate 08/06/24 02:00 08/06/24 02:02 08/06/24 02:32 Temperature Pulse Rate 84 97 78 Respiratory Rate 25 H 18 17 Blood Pressure 136/79 Pulse Oximetry Oxygen Delivery Oxygen Flow Rate 08/06/24 02:45 08/06/24 02:46 08/06/24 02:47 Temperature Pulse Rate 90 95 97 Respiratory Rate 17 16 17 Blood Pressure 130/78 Pulse Oximetry 98 100 Oxygen Delivery Oxygen Flow Rate 08/06/24 03:00 08/06/24 03:01 08/06/24 03:15 Temperature Pulse Rate 92 96 86 Respiratory Rate 16 17 18 Blood Pressure 137/82 Pulse Oximetry 99 99 Oxygen Delivery Oxygen Flow Rate 08/06/24 03:16 08/06/24 03:38 08/06/24 04:00 Temperature Pulse Rate 93 89 Respiratory Rate 16 16 Blood Pressure 133/71 129/84 Pulse Oximetry 98 98 98 Oxygen Delivery Nasal Cannula Oxygen Flow Rate 2 08/06/24 06:00 08/06/24 08:00 08/06/24 09:48 Temperature 36.8 C Pulse Rate 82 90 90 Respiratory Rate 18 Blood Pressure 95/70 L Pulse Oximetry 94 92 Oxygen Delivery Nasal Cannula Oxygen Flow Rate 2 Exam Narrative: Patient is comfortable, NAD HEENT: eyes are clear and none icteric LUNGS:CTA HEART: RR S1S2 ABD: BS+, Soft and nontender Lower extremities: no edema SKIN: nonjaundiced Neuro: grossly intact. 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 patient remains clinically stable, will resume patient discharge medications and monitor. Quality VTE Prophylaxis VTE prophylaxis: pharmacologic ordered Hospitalist MIPS Advance Care Plan I have confirmed that the patient's Advanced Care Plan is present, code status is documented, or surrogate decision maker is listed in patient medical record.: Yes Medication Reconciliation I have utilized all available resources to obtain, update and review the patients current medications (includes all prescriptions, OTC, herbals, cannabis, and nutritional supplements).: Yes
[2024-08-06 18:02] LABS: Glucose Point of Care 428 mg/dl (65-105)
[2024-08-06] MEDS: INSULIN GLARGINE (*BKC) 100 UNITS/ML 35 UNITS SUB-Q (18:30)
[2024-08-06] MEDS: INSULIN ASPART (*BKC) 100 UNITS/ML SUB-Q ×2 (18:30→20:28)
[2024-08-06 20:26] LABS: Glucose Point of Care 396 mg/dl (65-105)
[2024-08-06 21:10] LABS: Glucose Point of Care 340 mg/dl (65-105)
[2024-08-06] MEDS: DONEPEZIL HCL 10 MG TABLET PO (21:27)
[2024-08-06 23:01] LABS: Glucose Point of Care 233 mg/dl (65-105)
[2024-08-07] VITALS (10 sets, daily range): BP systolic 105–120; BP diastolic 50–64; PULSE 64–93; RESP 14–20; TEMP 36.2–36.6; O2SAT 87–97
[2024-08-07 00:41] LABS: Glucose Point of Care 266 mg/dl (65-105)
[2024-08-07 06:01] LABS: Hematocrit 41.4 % (37.0-47.0); Hemoglobin 12.1 g/dL (12.0-15.0); Mean Corpuscular HGB Conc 29.2 g/dl (32-36); Mean Corpuscular Hemoglobin 27.6 pg (26-34); Mean Corpuscular Volume 94.5 fl (80-100); Mean Platelet Volume 11.1 fl (7.4-10.4); Platelet Count Result 232 k/mm3 (150-375); Red Blood Count 4.38 M/mm3 (4.2-5.4); Red Cell Distribution Width 13.8 % (11.5-14.5); White Blood Count 14.3 K/mm3 (4.5-10.0)
[2024-08-07] MEDS: LEVOTHYROXINE SODIUM 75 MCG TABLET PO (06:02)
[2024-08-07 06:15] LABS: Blood Urea Nitrogen 35 mg/dL (7-17); Calcium 8.6 mg/dL (8.4-10.2); Carbon Dioxide > 40 mmol/L (22-30); Chloride 86 mmol/L (98-107); Estimated CRCL calculation 47 ml/min; Estimated Glomerular Filt Rate 60; Glucose 194 mg/dL (65-110); Magnesium 2.1 mg/dL (1.6-2.3); Potassium 3.8 mmol/L (3.4-5.0); Sodium 133 mmol/L (137-145)
[2024-08-07 07:46] LABS: Glucose Point of Care 182 mg/dl (65-105)
[2024-08-07] MEDS: UMECLIDINIUM/VILANTEROL 62.5-25 MCG ELLIPTA 1 PUFF INHALATION (08:41)
[2024-08-07] MEDS: POTASSIUM CHLORIDE 20 MEQ PACKET (FOR LIQUID) PO (09:30)
[2024-08-07] MEDS: APIXABAN 5 MG TABLET PO ×2 (09:32→20:31)
[2024-08-07] MEDS: ATORVASTATIN 20 MG TABLET PO (09:32)
[2024-08-07] MEDS: CYANOCOBALAMIN 1,000 MCG TABLET 1000 MCG PO (09:32)
[2024-08-07] MEDS: SPIRONOLACTONE 50 MG TABLET PO (09:32)
[2024-08-07] MEDS: dilTIAZem HCL CD 300 MG CAP.24HR PO (09:33)
[2024-08-07] MEDS: ACIDOPHILUS/BULGARICUS CHEWABLE TABLET 1 TABLET PO (09:33)
[2024-08-07] MEDS: FERROUS SULFATE 325 MG TABLET DR PO (09:33)
[2024-08-07] MEDS: PANTOPRAZOLE 40 MG TABLET PO (09:33)
[2024-08-07] MEDS: METOPROLOL TARTRATE 12.5 MG TABLET PO ×2 (09:34→20:28)
--- NOTE | 2024-08-07 10:01 | PM.IMPN ---
Progress Note: A&P Assessment and Plan (1) Congestive heart failure (CHF): Code(s): I50.9 - Heart failure, unspecified Status: Acute (2) Insulin dependent type 2 diabetes mellitus: Code(s): E11.9 - Type 2 diabetes mellitus without complications; Z79.4 - long term care administrator (current) use of insulin Status: Acute (3) Obesity, morbid, BMI 40.0-49.9: Code(s): E66.01 - Morbid (severe) obesity due to excess calories Status: Acute (4) Hypoxia: Code(s): R09.02 - Hypoxemia Status: Acute Plan patient is known to me as I just discharged her yesterday after patient was treated for diastolic congestive heart failure, to half-way facility, however the facility was out of oxygen and patient was sent back to the hospital. patient remains clinically stable, will resume patient discharge medications and monitor. patient is clinically stable and has no complaints, will monitor patient one more day and possible discharge her tomorrow. Subjective Date/time seen: 08/07/24 10:01 Interval history: patient is known to me as I just discharged her yesterday after patient was treated for diastolic congestive heart failure, to half-way facility, however the facility was out of oxygen and patient was sent back to the hospital. patient remains clinically stable, will resume patient discharge medications and monitor. patient is clinically stable and has no complaints, will monitor patient one more day and possible discharge her tomorrow. Review of Systems Review of Systems: As reviewed above in HPI Exam Narrative: Patient is comfortable, NAD HEENT: eyes are clear and none icteric LUNGS:CTA HEART: RR S1S2 ABD: BS+, Soft and nontender Lower extremities: no edema SKIN: nonjaundiced Neuro: grossly intact. Objective Data Vital Signs Vital Signs: Vital Signs - 24 hr 08/06/24 14:00 08/06/24 20:42 08/06/24 21:27 Temperature 36.1 C L 35.8 C L Pulse Rate 105 H 74 62 Respiratory Rate 18 17 Blood Pressure 123/50 L 121/65 Pulse Oximetry 97 96 Oxygen Delivery 08/07/24 06:00 08/07/24 08:01 08/07/24 08:42 Temperature 36.2 C L Pulse Rate 93 64 Respiratory Rate 16 20 Blood Pressure 108/64 105/50 L Pulse Oximetry 94 87 L Oxygen Delivery Room Air 08/07/24 08:42 08/07/24 09:34 Temperature Pulse Rate 64 76 Respiratory Rate 20 Blood Pressure Pulse Oximetry Oxygen Delivery Intake/Output Intake/Output: Intake & Output 08/04/24 08/05/24 08/06/24 08/07/24 23:59 23:59 23:59 23:59 Intake Total 2240 120 Output Total 600 Balance 2240 -480 Meds/Results Medications: Active Medications Generic Name Dose Route Start Last Admin Trade Name Freq PRN Reason Stop Dose Admin Acetaminophen 500 mg 08/06/24 08:04 Acetaminophen 500 Mg Tablet PO Q6H PRN Pain Albuterol 2 puff 08/06/24 08:04 Albuterol Sulfate (*Sp) Aerosol 1 Puff INHALATION Q6H PRN COPD Albuterol/Ipratropium 3 ml 08/06/24 08:04 Ipratropium 0.5 Mg/Albuterol Sulfate 2.5 Mg Ampul.Neb 3 Ml INHALATION Q6HRT PRN COPD Apixaban 5 mg 08/06/24 09:00 08/07/24 09:32 Apixaban 5 Mg Tablet PO 5 mg Q12HR DIAZ Administration Atorvastatin Calcium 20 mg 08/06/24 09:00 08/07/24 09:32 Atorvastatin 20 Mg Tablet PO 20 mg DAILY DIAZ Administration Cyanocobalamin 1,000 mcg 08/06/24 09:00 08/07/24 09:32 Cyanocobalamin 1,000 Mcg Tablet PO 1,000 mcg QAM DIAZ Administration Dextrose 12.5 gm 08/06/24 18:05 Dextrose 50% 25 Gm/50 Ml Syringe IV PUSH PRN PRN Hypoglycemia Protocol Diltiazem HCl 300 mg 08/06/24 09:00 08/07/24 09:33 Diltiazem Hcl Cd 300 Mg Cap.24hr PO 300 mg QAM DIAZ Administration Donepezil HCl 10 mg 08/06/24 21:00 08/06/24 21:27 Donepezil Hcl 10 Mg Tablet PO 10 mg HS DIAZ Administration Ergocalciferol 50,000 mcg 08/08/24 09:00 Ergocalciferol (Vitamin D2) 1,250 Mcg (50,000 Units) Capsule PO 09/07/24 08:59 Mo@0900 DIAZ Ferrous Sulfate 325 mg 08/06/24 12:00 08/07/24 09:33 Ferrous Sulfate [address] PO 325 mg DAILY@0800 DIAZ Administration Furosemide 40 mg 08/06/24 09:00 08/07/24 08:20 Furosemide 40 Mg Tablet PO Not Given DAILY DIAZ Glucagon 1 mg 08/06/24 18:05 Glucagon For Inj 1 Mg Vial IM PRN PRN Hypoglycemia Protocol Glucose 15 gm 08/06/24 18:05 Glucose Oral Gel 15 Gm Of Glucse In 37.5 Gm Tube PO PRN PRN Hypoglycemia Protocol Dextrose 1,000 mls @ 100 mls/hr 08/06/24 18:05 Dextrose 5% 1,000 Ml IVPB PRN PRN Hypoglycemia Protocol Insulin Aspart 2 - 5 units 08/07/24 08:00 08/07/24 07:41 Insulin Aspart (*Bkc) 100 Units/Ml SUB-Q Not Given TIDWM DIAZ Protocol Insulin Glargine 35 units 08/07/24 21:00 Insulin Glargine (*Bkc) 100 Units/Ml SUB-Q HS DIAZ Lactobacillus Acidophilus 1 tablet 08/06/24 09:00 08/07/24 09:33 Acidophilus/Bulgaricus Chewable Tablet PO 09/05/24 08:59 1 tablet DAILY DIAZ Administration Levothyroxine Sodium 75 mcg 08/06/24 08:20 08/07/24 06:02 Levothyroxine Sodium 75 Mcg Tablet PO 75 mcg DAILY@0630 DIAZ Administration Medroxyprogesterone Acetate 2.5 mg 08/06/24 09:00 08/07/24 09:32 Medroxyprogesterone Acetate 2.5 Mg Tablet PO 2.5 mg DAILY DIAZ Administration Metoprolol Tartrate 12.5 mg 08/06/24 09:00 08/07/24 09:34 Metoprolol Tartrate 12.5 Mg Tablet PO 12.5 mg Q12HR DIAZ Administration Miscellaneous Information 0 each 08/06/24 00:01 Clarify Which To Use 1st For Copd- Albuterol Or Duoneb XX 09/05/24 00:00 CLARIFY DIAZ Pantoprazole Sodium 40 mg 08/06/24 09:00 08/07/24 09:33 Pantoprazole 40 Mg Tablet PO 09/05/24 08:59 40 mg DAILY DIAZ Administration Potassium Chloride 20 meq 08/06/24 09:00 08/07/24 09:30 Potassium Chloride 20 Meq Packet (For Liquid) PO 09/05/24 08:59 20 meq DAILY DIAZ Administration Spironolactone 50 mg 08/06/24 09:00 08/07/24 09:32 Spironolactone 50 Mg Tablet PO 50 mg DAILY DIAZ Administration Umeclidinium/Vilanterol 1 puff 08/06/24 08:00 08/07/24 08:41 Umeclidinium/Vilanterol 62.5-25 Mcg Ellipta INHALATION 1 puff DAILYRT DIAZ Administration Radiology Results: ITS Impressions Chest X-Ray 08/06/24 06:46 IMPRESSION: 1. Opacities in the lower lung zones, left greater than right, which could represent atelectasis or pneumonia with some interval improvement on the left and worsening on the right. Labs Labs: Laboratory Results - last 24 hr 08/06/24 08/06/24 08/06/24 18:00 20:04 21:08 WBC RBC Hgb Hct MCV MCH MCHC RDW Plt Count MPV Sodium Potassium Chloride Carbon Dioxide Anion Gap BUN Creatinine Estim Creat Clear Calc Estimated GFR Glucose POC Capillary Glucose 428 H 396 H 340 H Calcium Magnesium 08/06/24 08/07/24 08/07/24 22:58 00:35 05:30 WBC 14.3 H RBC 4.38 Hgb 12.1 Hct 41.4 MCV 94.5 MCH 27.6 MCHC 29.2 L RDW 13.8 Plt Count 232 MPV 11.1 H Sodium 133 L Potassium 3.8 Chloride 86 L Carbon Dioxide > 40 H Anion Gap BUN 35 H Creatinine 0.91 Estim Creat Clear Calc 47 Estimated GFR 60 Glucose 194 H POC Capillary Glucose 233 H 266 H Calcium 8.6 Magnesium 2.1 08/07/24 07:40 WBC RBC Hgb Hct MCV MCH MCHC RDW Plt Count MPV Sodium Potassium Chloride Carbon Dioxide Anion Gap BUN Creatinine Estim Creat Clear Calc Estimated GFR Glucose POC Capillary Glucose 182 H Calcium Magnesium Quality VTE Prophylaxis VTE prophylaxis: pharmacologic ordered
[2024-08-07 11:42] LABS: Glucose Point of Care 349 mg/dl (65-105)
[2024-08-07] MEDS: INSULIN ASPART (*BKC) 100 UNITS/ML SUB-Q ×2 (11:48→17:42)
[2024-08-07 16:54] LABS: Glucose Point of Care 260 mg/dl (65-105)
[2024-08-07 20:04] LABS: Glucose Point of Care 244 mg/dl (65-105)
[2024-08-07] MEDS: DONEPEZIL HCL 10 MG TABLET PO (20:31)
[2024-08-07] MEDS: INSULIN GLARGINE (*BKC) 100 UNITS/ML 35 UNITS SUB-Q (20:31)
[2024-08-07] MEDS: INSULIN GLARGINE (*BKC) 100 UNITS/ML SUB-Q (21:06)
[2024-08-07 23:50] LABS: Glucose Point of Care 209 mg/dl (65-105)
[2024-08-08] VITALS (13 sets, daily range): BP systolic 101–118; BP diastolic 55–69; PULSE 59–93; RESP 16–20; TEMP 36.2–36.9; O2SAT 87–100
[2024-08-08] MEDS: LEVOTHYROXINE SODIUM 75 MCG TABLET PO (05:54)
[2024-08-08 06:24] LABS: Hematocrit 38.5 % (37.0-47.0); Hemoglobin 11.7 g/dL (12.0-15.0); Mean Corpuscular HGB Conc 30.4 g/dl (32-36); Mean Corpuscular Hemoglobin 28.4 pg (26-34); Mean Corpuscular Volume 93.4 fl (80-100); Mean Platelet Volume 12.3 fl (7.4-10.4); Platelet Count Result 184 k/mm3 (150-375); Red Blood Count 4.12 M/mm3 (4.2-5.4); White Blood Count 12.3 K/mm3 (4.5-10.0)
[2024-08-08 06:46] LABS: Blood Urea Nitrogen 29 mg/dL (7-17); Calcium 8.5 mg/dL (8.4-10.2); Carbon Dioxide > 40 mmol/L (22-30); Chloride 87 mmol/L (98-107); Estimated CRCL calculation 56 ml/min; Estimated Glomerular Filt Rate > 60; Glucose 124 mg/dL (65-110); Magnesium 2.1 mg/dL (1.6-2.3); Potassium 4.3 mmol/L (3.4-5.0); Sodium 132 mmol/L (137-145)
[2024-08-08] MEDS: UMECLIDINIUM/VILANTEROL 62.5-25 MCG ELLIPTA 1 PUFF INHALATION (07:14)
[2024-08-08 07:44] LABS: Glucose Point of Care 91 mg/dl (65-105)
[2024-08-08] MEDS: SPIRONOLACTONE 50 MG TABLET PO (09:30)
[2024-08-08] MEDS: FUROSEMIDE 40 MG TABLET PO (09:30)
[2024-08-08] MEDS: APIXABAN 5 MG TABLET PO ×2 (09:30→21:04)
[2024-08-08] MEDS: METOPROLOL TARTRATE 12.5 MG TABLET PO ×2 (09:30→21:04)
[2024-08-08] MEDS: ATORVASTATIN 20 MG TABLET PO (09:30)
[2024-08-08] MEDS: PANTOPRAZOLE 40 MG TABLET PO (09:31)
[2024-08-08] MEDS: FERROUS SULFATE 325 MG TABLET DR PO (09:31)
[2024-08-08] MEDS: dilTIAZem HCL CD 300 MG CAP.24HR PO (09:31)
[2024-08-08] MEDS: CYANOCOBALAMIN 1,000 MCG TABLET 1000 MCG PO (09:31)
[2024-08-08] MEDS: ACIDOPHILUS/BULGARICUS CHEWABLE TABLET 1 TABLET PO (09:31)
[2024-08-08] MEDS: POTASSIUM CHLORIDE 20 MEQ PACKET (FOR LIQUID) PO (09:31)
[2024-08-08] MEDS: INSULIN ASPART (*BKC) 100 UNITS/ML SUB-Q ×5 (09:32→21:10)
--- NOTE | 2024-08-08 11:08 | HOMEO2EVAL ---
Evaluation was performed at [facility] Home Oxygen Evaluation RC: Home Oxygen (O2) Evaluation Start: 08/08/24 09:39 Freq: ONCE Status: Active Protocol: RPE Activity Type Activity Date Activity User E-sign Co-sign Detail Recorded Client Recorded Date Recorded By Document 08/08/24 09:45 [email or web address] 08/08/24 11:07 BETO Document 08/08/24 09:50 [email or web address] [email or web address] 08/08/24 11:07 BETO Document 08/08/24 09:55 [email or web address] [email or web address] 08/08/24 11:07 BETO Document 08/08/24 09:56 [email or web address] [email or web address] 08/08/24 11:07 BETO Document 08/08/24 10:00 [email or web address] [email or web address] 08/08/24 11:07 BETO 08/08/24 08/08/24 08/08/24 09:45 09:50 09:55 Home O2 Evaluation [Oxygen] -Test Phase Resting Resting Exercise -Oxygen Delivery Room Air Nasal Cannula Nasal Cannula -Oxygen Flow Rate (L/min) 1 1 [Pulse Oximetry] -Pulse Oximetry (90-100 %) 87 L 93 87 L [Pulse Rate] -Pulse Rate (60-100 beats/min) 90 [Comments] -Home Oxygen Evaluation Comments [Charges] -Evaluation Charges O2 Evaluation by Pulmonary 08/08/24 08/08/24 09:56 10:00 Home O2 Evaluation [Oxygen] -Test Phase Exercise Resting -Oxygen Delivery Nasal Cannula Nasal Cannula -Oxygen Flow Rate (L/min) 2 1 [Pulse Oximetry] -Pulse Oximetry (90-100 %) 93 92 [Pulse Rate] -Pulse Rate (60-100 beats/min) 93 [Comments] -Home Oxygen Evaluation Comments Pt requires 1 l rest and 2 l activity [Charges] -Evaluation Charges
--- NOTE | 2024-08-08 11:16 | HOMEO2EVAL ---
Evaluation was performed at [facility] Home Oxygen Evaluation RC: Home Oxygen (O2) Evaluation Start: 08/08/24 09:39 Freq: ONCE Status: Active Protocol: RPE Activity Type Activity Date Activity User E-sign Co-sign Detail Recorded Client Recorded Date Recorded By Document 08/08/24 09:45 [email or web address] 08/08/24 11:07 BETO Document 08/08/24 09:50 [email or web address] [email or web address] 08/08/24 11:07 BETO Document 08/08/24 09:55 [email or web address] [email or web address] 08/08/24 11:07 BETO Document 08/08/24 09:56 [email or web address] [email or web address] 08/08/24 11:07 BETO Document 08/08/24 10:00 [email or web address] [email or web address] 08/08/24 11:07 BETO 08/08/24 08/08/24 08/08/24 09:45 09:50 09:55 Home O2 Evaluation [Oxygen] -Test Phase Resting Resting Exercise -Oxygen Delivery Room Air Nasal Cannula Nasal Cannula -Oxygen Flow Rate (L/min) 1 1 [Pulse Oximetry] -Pulse Oximetry (90-100 %) 87 L 93 87 L [Pulse Rate] -Pulse Rate (60-100 beats/min) 90 [Comments] -Home Oxygen Evaluation Comments [Charges] -Evaluation Charges O2 Evaluation by Pulmonary 08/08/24 08/08/24 09:56 10:00 Home O2 Evaluation [Oxygen] -Test Phase Exercise Resting -Oxygen Delivery Nasal Cannula Nasal Cannula -Oxygen Flow Rate (L/min) 2 1 [Pulse Oximetry] -Pulse Oximetry (90-100 %) 93 92 [Pulse Rate] -Pulse Rate (60-100 beats/min) 93 [Comments] -Home Oxygen Evaluation Comments Pt requires 1 l rest and 2 l activity [Charges] -Evaluation Charges
--- NOTE | 2024-08-08 11:18 | PCRCNOTE ---
Pt resides in memory care unit at assisted living facility. Changed o2 DME to [facility], as this is a familiar DME for [facility], has contact info if any issues arise with O2 equipment. Jean is son, he is main contact- [phone], as pt is in memory care. I will give tank for transport back to [facility], [facility] will provide concentrator, tanks and any other O2 supplies needed. [facility] #
[2024-08-08 11:35] LABS: Glucose Point of Care 224 mg/dl (65-105)
--- NOTE | 2024-08-08 13:49 | P.DS_ITS ---
DS: Summary Time Spent with Patient Time attestation: Total time spent providing and/or coordinating discharge services: DS: Data Data Completed and Pending Labs on day of discharge: Labs from last 24 hours 08/08/24 08/08/24 08/08/24 11:31 07:35 05:48 WBC 12.3 H RBC 4.12 L Hgb 11.7 L Hct 38.5 MCV 93.4 MCH 28.4 MCHC 30.4 L RDW 14.0 Plt Count 184 MPV 12.3 H Sodium 132 L Potassium 4.3 Chloride 87 L Carbon Dioxide > 40 H Anion Gap BUN 29 H Creatinine 0.75 Estim Creat Clear Calc 56 Estimated GFR > 60 Glucose 124 H POC Capillary Glucose 224 H 91 Calcium 8.5 Magnesium 2.1 08/07/24 08/07/24 08/07/24 23:46 20:00 16:46 WBC RBC Hgb Hct MCV MCH MCHC RDW Plt Count MPV Sodium Potassium Chloride Carbon Dioxide Anion Gap BUN Creatinine Estim Creat Clear Calc Estimated GFR Glucose POC Capillary Glucose 209 H 244 H 260 H Calcium Magnesium Discharge Plan Discharge Attending physician on discharge: Yakelin Lemos Discharging Clinician: Juan Porter Patient Disposition: Home with Home Health Service Discharge Instructions: Per Care Coordination Patient is current with [facility] for RN, PT, OT. Please resume at discharge. [phone]. RN please fax completed discharge instructions to [phone] Patient to follow up with her primary care provider as soon as possible. Patient Instructions: Antibiotic Form Patient Language: Com[place]an Stand Alone Forms: General Discharge Information Follow-up/Referrals: Shimon,Sean Rendon DO [Primary Care Provider] - Discharge Medications: Continued atorvastatin 20 mg tablet 20 mg PO DAILY spironolactone 50 mg tablet 50 mg PO DAILY furosemide [Lasix] 20 mg tablet 40 mg PO DAILY diltiazem HCl 300 mg Capsule,Extended Release 24hr 300 mg PO QAM Qty: 30 0RF metoprolol tartrate 25 mg tablet 12.5 mg PO BID Qty: 30 0RF acetaminophen [Acetaminophen Pain Relief] 500 mg Tablet 500 mg PO Q6H PRN (Reason: Pain) levothyroxine 75 mcg tablet 75 mcg PO DAILY potassium chloride 20 mEq/15 mL liquid 20 meq PO DAILY medroxyprogesterone 2.5 mg tablet 2.5 mg PO DAILY cholecalciferol (vitamin D3) 1,250 mcg (50,000 unit) capsule 50,000 unit PO WEEKLY Rx Instructions: on mondays Lactobacillus acidophilus 1 billion cell capsule 1,000 mmu cells PO DAILY donepezil [Aricept] 10 mg Tablet 10 mg PO HS omeprazole 20 mg Capsule,Delayed Release(Dr/Ec) 20 mg PO DAILY insulin glargine [Lantus Solostar U-100 Insulin] 100 unit/mL (3 mL) Insulin Pen 35 unit SUBCUT HS umeclidinium-vilanterol [Anoro Ellipta] 62.5-25 mcg/actuation Blister With Device 1 inh INHALATION DAILY ipratropium-albuterol 0.5 mg-3 mg(2.5 mg base)/3 mL Solution For Nebulization 3 ml INHALATION Q6H PRN (Reason: COPD) ferrous sulfate 300 mg (60 mg iron)/5 mL Liquid 325 mg PO DAILY albuterol sulfate [Ventolin HFA] 90 mcg/actuation Hfa Aerosol Inhaler 2 puff INHALATION Q6H PRN (Reason: COPD) budesonide-formoterol [Symbicort] 160-4.5 mcg/actuation Hfa Aerosol Inhaler 2 puff INHALATION Q12H mecobalamin (vitamin B12) 1,000 mcg Tablet,Chewable 1,000 mcg PO DAILY Eliquis 5 mg Tablet 5 mg PO Q12HR Qty: 60 0RF Date of admission: 08/06/24 02:35 Primary Care Provider: Shimon,Sean Rendon Admitting Provider: Yakelin Lemos Attending physician on admission: Yakelin Lemos Condition: Stable
[2024-08-08 16:17] LABS: Glucose Point of Care 176 mg/dl (65-105)
--- NOTE | 2024-08-08 16:59 | P.PNIM_ITS ---
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 patient remains clinically stable, will resume patient discharge medications and monitor. patient is clinically stable and has no complaints, plan was discharge patient today however the oxygen company is unable to deliver oxygen until tomorrow, will discharge patient tomorrow. Subjective Date/time seen: 08/08/24 16:59 Interval history: patient is known to me as I just discharged her yesterday after patient was treated for diastolic congestive heart failure, to halfway facility, however the facility was out of oxygen and patient was sent back to the hospital. patient remains clinically stable, will resume patient discharge medications and monitor. patient is clinically stable and has no complaints, plan was discharge patient today however the oxygen company is unable to deliver oxygen until tomorrow, will discharge patient tomorrow. Review of Systems Review of Systems: As reviewed above in HPI Exam Narrative: Patient is comfortable, NAD HEENT: eyes are clear and none icteric LUNGS:CTA HEART: RR S1S2 ABD: BS+, Soft and nontender Lower extremities: no edema SKIN: nonjaundiced Neuro: grossly intact. Objective Data Vital Signs Vital Signs: Vital Signs - 24 hr 08/07/24 20:28 08/07/24 20:31 08/07/24 21:18 Temperature Pulse Rate 67 Respiratory Rate Blood Pressure Pulse Oximetry 97 97 Oxygen Delivery Nasal Cannula Nasal Cannula Oxygen Flow Rate 1 1 08/07/24 21:39 08/08/24 06:00 08/08/24 07:15 Temperature 36.2 C L 36.2 C L Pulse Rate 73 59 L Respiratory Rate 14 16 Blood Pressure 120/54 L 101/55 L Pulse Oximetry 97 95 97 Oxygen Delivery Nasal Cannula Oxygen Flow Rate 1 08/08/24 09:30 08/08/24 09:30 08/08/24 09:45 Temperature Pulse Rate 62 90 Respiratory Rate Blood Pressure Pulse Oximetry 92 87 L Oxygen Delivery Nasal Cannula Room Air Oxygen Flow Rate 1 08/08/24 09:50 08/08/24 09:55 08/08/24 09:56 Temperature Pulse Rate Respiratory Rate Blood Pressure Pulse Oximetry 93 87 L 93 Oxygen Delivery Nasal Cannula Nasal Cannula Nasal Cannula Oxygen Flow Rate 1 1 2 08/08/24 10:00 08/08/24 13:54 Temperature 36.9 C Pulse Rate 93 80 Respiratory Rate 18 Blood Pressure 103/55 L Pulse Oximetry 92 98 Oxygen Delivery Nasal Cannula Oxygen Flow Rate 1 Intake/Output Intake/Output: Intake & Output 08/05/24 08/06/24 08/07/24 08/08/24 23:59 23:59 23:59 23:59 Intake Total 2240 360 460 Output Total 1200 500 Balance 2240 -840 -40 Meds/Results Medications: Active Medications Generic Name Dose Route Start Last Admin Trade Name Freq PRN Reason Stop Dose Admin Acetaminophen 500 mg 08/06/24 08:04 Acetaminophen 500 Mg Tablet PO Q6H PRN Pain Albuterol 2 puff 08/06/24 08:04 Albuterol Sulfate (*Sp) Aerosol 1 Puff INHALATION Q6H PRN COPD Albuterol/Ipratropium 3 ml 08/06/24 08:04 Ipratropium 0.5 Mg/Albuterol Sulfate 2.5 Mg Ampul.Neb 3 Ml INHALATION Q6HRT PRN COPD Apixaban 5 mg 08/06/24 09:00 08/08/24 09:30 Apixaban 5 Mg Tablet PO 5 mg Q12HR DIAZ Administration Atorvastatin Calcium 20 mg 08/06/24 09:00 08/08/24 09:30 Atorvastatin 20 Mg Tablet PO 20 mg DAILY DIAZ Administration Cyanocobalamin 1,000 mcg 08/06/24 09:00 08/08/24 09:31 Cyanocobalamin 1,000 Mcg Tablet PO 1,000 mcg QAM DIAZ Administration Dextrose 12.5 gm 08/06/24 18:05 Dextrose 50% 25 Gm/50 Ml Syringe IV PUSH PRN PRN Hypoglycemia Protocol Diltiazem HCl 300 mg 08/06/24 09:00 08/08/24 09:31 Diltiazem Hcl Cd 300 Mg Cap.24hr PO 300 mg QAM DIAZ Administration Donepezil HCl 10 mg 08/06/24 21:00 08/07/24 20:31 Donepezil Hcl 10 Mg Tablet PO 10 mg HS DIAZ Administration Ergocalciferol 50,000 mcg 08/08/24 09:00 08/08/24 11:13 Ergocalciferol (Vitamin D2) 1,250 Mcg (50,000 Units) Capsule PO 09/07/24 08:59 Not Given Mo@0900 DIAZ Ferrous Sulfate 325 mg 08/06/24 12:00 08/08/24 09:31 Ferrous Sulfate [address] PO 325 mg DAILY@0800 DIAZ Administration Furosemide 40 mg 08/06/24 09:00 08/08/24 09:30 Furosemide 40 Mg Tablet PO 40 mg DAILY DIAZ Administration Glucagon 1 mg 08/06/24 18:05 Glucagon For Inj 1 Mg Vial IM PRN PRN Hypoglycemia Protocol Glucose 15 gm 08/06/24 18:05 Glucose Oral Gel 15 Gm Of Glucse In 37.5 Gm Tube PO PRN PRN Hypoglycemia Protocol Dextrose 1,000 mls @ 100 mls/hr 08/06/24 18:05 Dextrose 5% 1,000 Ml IVPB PRN PRN Hypoglycemia Protocol Insulin Aspart 5 units 08/08/24 08:00 08/08/24 11:45 Insulin Aspart (*Bkc) 100 Units/Ml 0.05 units/kg (5 units) 5 units SUB-Q Administration TIDWM [facility] Insulin Aspart 3 - 6 units 08/08/24 08:00 08/08/24 11:45 Insulin Aspart (*Bkc) 100 Units/Ml SUB-Q 3 units TIDWM [facility] Administration Protocol Insulin Aspart 1 - 3 units 08/07/24 21:00 08/08/24 02:23 Insulin Aspart (*Bkc) 100 Units/Ml SUB-Q Not Given HS [facility] Protocol Insulin Glargine 40 units 08/08/24 21:00 Insulin Glargine (*Bkc) 100 Units/Ml SUB-Q HS [facility] Lactobacillus Acidophilus 1 tablet 08/06/24 09:00 08/08/24 09:31 Acidophilus/Bulgaricus Chewable Tablet PO 09/05/24 08:59 1 tablet DAILY DIAZ Administration Levothyroxine Sodium 75 mcg 08/06/24 08:20 08/08/24 05:54 Levothyroxine Sodium 75 Mcg Tablet PO 75 mcg DAILY@0630 DIZA Administration Medroxyprogesterone Acetate 2.5 mg 08/06/24 09:00 08/08/24 09:31 Medroxyprogesterone Acetate 2.5 Mg Tablet PO 2.5 mg DAILY DIAZ Administration Metoprolol Tartrate 12.5 mg 08/06/24 09:00 08/08/24 09:30 Metoprolol Tartrate 12.5 Mg Tablet PO 12.5 mg Q12HR DIAZ Administration Pantoprazole Sodium 40 mg 08/06/24 09:00 08/08/24 09:31 Pantoprazole 40 Mg Tablet PO 09/05/24 08:59 40 mg DAILY DIAZ Administration Potassium Chloride 20 meq 08/06/24 09:00 08/08/24 09:31 Potassium Chloride 20 Meq Packet (For Liquid) PO 09/05/24 08:59 20 meq DAILY DIAZ Administration Spironolactone 50 mg 08/06/24 09:00 08/08/24 09:30 Spironolactone 50 Mg Tablet PO 50 mg DAILY DIAZ Administration Umeclidinium/Vilanterol 1 puff 08/06/24 08:00 08/08/24 07:14 Umeclidinium/Vilanterol 62.5-25 Mcg Ellipta INHALATION 1 puff DAILYRT DIAZ Administration Radiology Results: ITS Impressions Chest X-Ray 08/06/24 06:46 IMPRESSION: 1. Opacities in the lower lung zones, left greater than right, which could represent atelectasis or pneumonia with some interval improvement on the left and worsening on the right. Labs Labs: Laboratory Results - last 24 hr 08/07/24 08/07/24 08/08/24 20:00 23:46 05:48 WBC 12.3 H RBC 4.12 L Hgb 11.7 L Hct 38.5 MCV 93.4 MCH 28.4 MCHC 30.4 L RDW 14.0 Plt Count 184 MPV 12.3 H Sodium 132 L Potassium 4.3 Chloride 87 L Carbon Dioxide > 40 H Anion Gap BUN 29 H Creatinine 0.75 Estim Creat Clear Calc 56 Estimated GFR > 60 Glucose 124 H POC Capillary Glucose 244 H 209 H Calcium 8.5 Magnesium 2.1 08/08/24 08/08/24 08/08/24 07:35 11:31 16:14 WBC RBC Hgb Hct MCV MCH MCHC RDW Plt Count MPV Sodium Potassium Chloride Carbon Dioxide Anion Gap BUN Creatinine Estim Creat Clear Calc Estimated GFR Glucose POC Capillary Glucose 91 224 H 176 H Calcium Magnesium Quality VTE Prophylaxis VTE prophylaxis: pharmacologic ordered
[2024-08-08 20:06] LABS: Glucose Point of Care 222 mg/dl (65-105)
[2024-08-08] MEDS: DONEPEZIL HCL 10 MG TABLET PO (21:03)
[2024-08-08] MEDS: INSULIN GLARGINE (*BKC) 100 UNITS/ML 40 UNITS SUB-Q (21:08)
--- NOTE | 2024-08-09 01:56 | PC.NURSE ---
Dr. Lemos notified patient has Purewick in place. There not any urine output. Bladder was mildly distended, no discomfort, nor feel urge to urinate. Bladder scanned 456ml in bladder. Pt assisted to void in toilet, was not able to expel any urine without successful attempts. VORB given to straight cath Q6H with post void residual. Straight cath removed 425ml urine from bladder. After, bladder scanned was 0 left in bladder.. Will continue to monitor pt for retention throughout shift.
[2024-08-09 05:07] VITALS: BP 126/71; PULSE 88; RESP 16; TEMP 36.6; O2SAT 98
[2024-08-09] MEDS: LEVOTHYROXINE SODIUM 75 MCG TABLET PO (05:59)
[2024-08-09 06:20] LABS: Hematocrit 38.4 % (37.0-47.0); Hemoglobin 11.4 g/dL (12.0-15.0); Mean Corpuscular HGB Conc 29.7 g/dl (32-36); Mean Corpuscular Hemoglobin 27.9 pg (26-34); Mean Corpuscular Volume 93.9 fl (80-100); Mean Platelet Volume 10.2 fl (7.4-10.4); Platelet Count Result 306 k/mm3 (150-375); Red Blood Count 4.09 M/mm3 (4.2-5.4)
[2024-08-09 07:47] LABS: Glucose Point of Care 91 mg/dl (65-105)
[2024-08-09 07:53] VITALS: O2SAT 95
[2024-08-09] MEDS: UMECLIDINIUM/VILANTEROL 62.5-25 MCG ELLIPTA 1 PUFF INHALATION (07:53)
[2024-08-09 08:52] VITALS: PULSE 88
[2024-08-09] MEDS: SPIRONOLACTONE 50 MG TABLET PO (08:52)
[2024-08-09] MEDS: FUROSEMIDE 40 MG TABLET PO (08:52)
[2024-08-09] MEDS: PANTOPRAZOLE 40 MG TABLET PO (08:52)
[2024-08-09] MEDS: CYANOCOBALAMIN 1,000 MCG TABLET 1000 MCG PO (08:52)
[2024-08-09] MEDS: ACIDOPHILUS/BULGARICUS CHEWABLE TABLET 1 TABLET PO (08:52)
[2024-08-09] MEDS: METOPROLOL TARTRATE 12.5 MG TABLET PO (08:52)
[2024-08-09] MEDS: FERROUS SULFATE 325 MG TABLET DR PO (08:52)
[2024-08-09] MEDS: ATORVASTATIN 20 MG TABLET PO (08:52)
[2024-08-09] MEDS: APIXABAN 5 MG TABLET PO (08:52)
[2024-08-09] MEDS: dilTIAZem HCL CD 300 MG CAP.24HR PO (08:52)
[2024-08-09] MEDS: POTASSIUM CHLORIDE 20 MEQ PACKET (FOR LIQUID) PO (08:52)
[2024-08-09] MEDS: INSULIN ASPART (*BKC) 100 UNITS/ML SUB-Q ×2 (08:53→12:03)
[2024-08-09 08:55] VITALS: O2SAT 95
[2024-08-09 08:59] LABS: Blood Urea Nitrogen 24 mg/dL (7-17); Calcium 8.6 mg/dL (8.4-10.2); Carbon Dioxide > 40 mmol/L (22-30); Chloride 92 mmol/L (98-107); Estimated CRCL calculation 44 ml/min; Estimated Glomerular Filt Rate 55; Glucose 92 mg/dL (65-110); Potassium 4.2 mmol/L (3.4-5.0); Sodium 136 mmol/L (137-145)
[2024-08-09 11:24] LABS: Glucose Point of Care 193 mg/dl (65-105)
--- NOTE | 2024-08-09 13:33 | P.DS_ITS ---
DS: Admitting Diagnosis Discharge Date 07/1024 Admitting Diagnosis low o2, facility had no oxygen DS: Discharge Diagnosis Discharge Diagnosis (1) Congestive heart failure (CHF): Code(s): I50.9 - Heart failure, unspecified Status: Acute (2) Insulin dependent type 2 diabetes mellitus: Code(s): E11.9 - Type 2 diabetes mellitus without complications; Z79.4 - intermediate (current) use of insulin Status: Acute (3) Obesity, morbid, BMI 40.0-49.9: Code(s): E66.01 - Morbid (severe) obesity due to excess calories Status: Acute (4) Hypoxia: Code(s): R09.02 - Hypoxemia Status: Acute Plan patient is known to me as I just discharged her yesterday after patient was treated for diastolic congestive heart failure, to snf facility, however the facility was out of oxygen and patient was sent back to the hospital. patient remains clinically stable, will resume patient discharge medications and monitor. patient is clinically stable and has no complaints, plan was discharge patient today however the oxygen company is unable to deliver oxygen until tomorrow, will discharge patient tomorrow. DS: Summary Hospital Course Hospital Course: patient is known to me as I just discharged her yesterday after patient was treated for diastolic congestive heart failure, to snf facility, however the facility was out of oxygen and patient was sent back to the hospital. patient remains clinically stable, will resume patient discharge medications and monitor. patient is clinically stable and has no complaints, plan was discharge patient today however the oxygen company is unable to deliver oxygen until tomorrow, will discharge patient tomorrow. Today patient facility has oxygen, patient is clinically stable, will discharge today. Time Spent with Patient Time attestation: Total time spent providing and/or coordinating discharge services: Exam Narrative: Patient is comfortable, NAD HEENT: eyes are clear and none icteric LUNGS:CTA HEART: RR S1S2 ABD: BS+, Soft and nontender Lower extremities: no edema SKIN: nonjaundiced Neuro: grossly intact. DS: Data Data Completed and Pending Labs on day of discharge: Labs from last 24 hours 08/09/24 08/09/24 08/09/24 11:08 08:05 07:23 WBC RBC Hgb Hct MCV MCH MCHC RDW Plt Count MPV Sodium 136 L Potassium 4.2 Chloride 92 L Carbon Dioxide > 40 H Anion Gap BUN 24 H Creatinine 0.97 Estim Creat Clear Calc 44 Estimated GFR 55 L Glucose 92 POC Capillary Glucose 193 H 91 Calcium 8.6 Magnesium 2.0 08/09/24 08/08/24 08/08/24 06:13 19:23 16:14 WBC 12.0 H RBC 4.09 L Hgb 11.4 L Hct 38.4 MCV 93.9 MCH 27.9 MCHC 29.7 L RDW 14.0 Plt Count 306 D MPV 10.2 Sodium Potassium Chloride Carbon Dioxide Anion Gap BUN Creatinine Estim Creat Clear Calc Estimated GFR Glucose POC Capillary Glucose 222 H 176 H Calcium Magnesium Discharge Plan Discharge Attending physician on discharge: Yakelin Lemos Consulting providers: Jean Kirby Discharging Clinician: Juan Porter Patient Disposition: Home with Home Health Service Activity: as tolerated Diet: heart healthy Discharge Instructions: Per Care Coordination Patient is current with [facility] for RN, PT, OT. Please resume at discharge. [phone]. RN please fax completed discharge instructions to [phone] Patient to follow up with her primary care provider as soon as possible. Patient Instructions: Antibiotic Form Patient Language: South [place] Stand Alone Forms: General Discharge Information Follow-up/Referrals: Shimon,Sean Rendon DO [Primary Care Provider] - Discharge Medications: Continued atorvastatin 20 mg tablet 20 mg PO DAILY spironolactone 50 mg tablet 50 mg PO DAILY furosemide [Lasix] 20 mg tablet 40 mg PO DAILY diltiazem HCl 300 mg Capsule,Extended Release 24hr 300 mg PO QAM Qty: 30 0RF metoprolol tartrate 25 mg tablet 12.5 mg PO BID Qty: 30 0RF acetaminophen [Acetaminophen Pain Relief] 500 mg Tablet 500 mg PO Q6H PRN (Reason: Pain) levothyroxine 75 mcg tablet 75 mcg PO DAILY potassium chloride 20 mEq/15 mL liquid 20 meq PO DAILY medroxyprogesterone 2.5 mg tablet 2.5 mg PO DAILY cholecalciferol (vitamin D3) 1,250 mcg (50,000 unit) capsule 50,000 unit PO WEEKLY Rx Instructions: on mondays Lactobacillus acidophilus 1 billion cell capsule 1,000 mmu cells PO DAILY donepezil [Aricept] 10 mg Tablet 10 mg PO HS omeprazole 20 mg Capsule,Delayed Release(Dr/Ec) 20 mg PO DAILY insulin glargine [Lantus Solostar U-100 Insulin] 100 unit/mL (3 mL) Insulin Pen 35 unit SUBCUT HS umeclidinium-vilanterol [Anoro Ellipta] 62.5-25 mcg/actuation Blister With Device 1 inh INHALATION DAILY ipratropium-albuterol 0.5 mg-3 mg(2.5 mg base)/3 mL Solution For Nebulization 3 ml INHALATION Q6H PRN (Reason: COPD) ferrous sulfate 300 mg (60 mg iron)/5 mL Liquid 325 mg PO DAILY albuterol sulfate [Ventolin HFA] 90 mcg/actuation Hfa Aerosol Inhaler 2 puff INHALATION Q6H PRN (Reason: COPD) budesonide-formoterol [Symbicort] 160-4.5 mcg/actuation Hfa Aerosol Inhaler 2 puff INHALATION Q12H mecobalamin (vitamin B12) 1,000 mcg Tablet,Chewable 1,000 mcg PO DAILY Eliquis 5 mg Tablet 5 mg PO Q12HR Qty: 60 0RF Date of admission: 08/06/24 02:35 Primary Care Provider: Shimon,Sean Rendon Admitting Provider: Yakelin Lemos Attending physician on admission: Juan Porter Condition: Stable
== END 2024-08-09 14:48 | disposition home health service (06) ==
LOC: ANHED 08-06 02:54 → ANH3MEDSUR 08-06 14:06
PROVIDERS: Admitting Provider Internal Medicine; Emergency Provider Student in an Organized Health Care Education/Training Program; PCP Internal Medicine; Visit Provider Family Medicine
DX: R09.02 Hypoxemia (principal); Z99.81 Dependence on supplemental oxygen; I50.32 Chronic diastolic (congestive) heart failure; I48.91 Unspecified atrial fibrillation; J44.9 Chronic obstructive pulmonary disease, unspecified; E11.42 Type 2 diabetes mellitus with diabetic polyneuropathy; E66.01 Morbid (severe) obesity due to excess calories; Z68.35 Body mass index [BMI] 35.0-35.9, adult; F03.90 Unspecified dementia, unspecified severity, without behavioral disturbance, psychotic disturbance, mood disturbance, and anxiety; M19.90 Unspecified osteoarthritis, unspecified site; E03.9 Hypothyroidism, unspecified; Z66 Do not resuscitate; Z87.891 Personal history of nicotine dependence; Z79.01 Long term (current) use of anticoagulants; Z79.4 Long term (current) use of insulin; Z79.51 Long term (current) use of inhaled steroids; Z79.899 Other long term (current) drug therapy; Z98.49 Cataract extraction status, unspecified eye
CPT/HCPCS: 36415; 71045; 80048; 82948; 83735; 85025; 85027; 94618; 94640; 99285; A9270; G0378; J1815

== ENCOUNTER 2024-10-14 06:22 | Emergency (ER) | payer OTHER, SELFPAY ==
--- NOTE | ~2024-10-14 | CT_ITS ---
EXAMINATION: CT facial & cervical spine wo DATE: 10/14/2024 07:31 INDICATION: Status post fall. Trauma. TECHNIQUE: Computed tomography (CT) of the maxillofacial region and cervical spine was performed with out intravenous contrast. The dose-length product (DLP) was 572.55 mGy-cm. Automated exposure control and iterative reconstruction technique were employed. COMPARISON: CT cervical spine dated 03/20/2022 FINDINGS: MAXILLOFACIAL CT: There is right orbital floor fracture. Lamina papyracea are intact. There is a fracture of the latera l wall of the maxillary sinus. There is fluid in the right maxillary sinus, likely hemorrhage. There is also fracture medial wall of the right maxillary sinus. Ethmoid air cells are pneumatized. There i s right periorbital soft tissue swelling. Mandible intact. Mastoids are pneumatized. CERVICAL SPINE CT: There are bilateral pleural effusions. There is loss of disc height at multiple levels unchanged, inc luding C4-5, C5-6 and C6-7. There are mild chronic wedge compression deformities at C4 and C5. Odonto id process is normal. Craniovertebral junction within normal limits. No evidence for perched facet. T here is multilevel uncinate and facet hypertrophy. IMPRESSION: 1. Fractures right orbital floor as well as the medial and lateral simpson of the maxillary sinus. Flui d present in the maxillary sinus, consistent with hemorrhage. 2: No acute abnormality of the cervical spine. 3: Severe cervical spondylosis. Reviewed, dictated and finalized at location A. IMPRESSION: 1. Fractures right orbital floor as well as the medial and lateral simpson of the maxillary sinus. Fluid present in the maxillary sinus, consistent with hemorrh age. 2: No acute abnormality of the cervical spine. 3: Severe cervical spondylosis.
--- NOTE | ~2024-10-14 | CT_ITS ---
EXAMINATION: CT brain wo con DATE: 10/14/2024 07:31 INDICATION: Status post fall. Head trauma. TECHNIQUE: Computed tomography (CT) of the head was performed without intravenous contrast. The dose- length product was 1513.33 mGy-cm. Automated exposure control and iterative reconstruction technique were employed. COMPARISON: CT dated 07/29/2024 FINDINGS: Study degraded by motion artifact. Generalized atrophy. There are scattered moderate perive ntricular and subcortical white matter changes, most likely related to small vessel ischemic disease (microangiopathy). No ventriculomegaly or midline shift. Basilar cisterns are patent. No acute intrac ranial hemorrhage, infarction, mass or mass effect. There is chronic mucosal thickening of the right maxillary sinus. Mastoids are pneumatized. No depressed skull fractures. IMPRESSION: 1. No acute intracranial abnormality. Reviewed, dictated and finalized at location A.
[2024-10-14 06:30] VITALS: BP 126/80; PULSE 128; RESP 15; TEMP 37; O2SAT 100
--- OUTSIDE RECORDS SUMMARY | 2024-10-14 07:31 | XMS_ITS | Continuity of Care Document ---
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 Role Phone Kalyan Villarreal Unavailable Unavailable Procedures Procedure Date Post-op Follow-up Visit Remove Cataract, Insert Lens Post-op Follow-up Visit [facility] Post-op Follow-up Visit Remove Cataract, Insert Lens Office/outpatient Visit, New [facility] Advance Directives Directive Yes / No Effective Date File Name No Information Encounters Encounter Description Practice Location Reason(s) For Visit Diagnoses Date Provider Providers Copied on Encounter [facility], [id number] [place] [address] [address], [place], [place], [id number], [place] tel:[phone] [facility] No Information 4-200 9 Krishnasamy Kalyan. [address], [facility] [place], [place]. tel:[phone] [facility], [address] [place] [address] [address], [place], [place], [id number], [place] tel:[phone] [facility] No Information May-2 3-200 9 Krishnasamy Kalyan. [address], [facility] [place], [place]. tel:[phone] Referring Provider: Jada Wharton OD, [facility] [address] [place], [address]. tel:[phone] [facility], [address], [place], [place], [id number], [place] tel:[phone] [facility] No Information 5-200 9 Krishnasamy Kalyan. [address], [place], [address], [place]. tel:[phone] Referring Provider: Kalyan cobb, [address] [facility] [address], [place], [address]. tel:[phone] [facility], [address], [place], [place], [id number], [place] tel:[phone] [facility] No Information 2 7-200 9 Krishnasamy Kalyan. [address] [facility] [address] [place], [facility], [place]. tel:[phone] [facility], [address], [place], [place], [id number], [place] tel:[phone] [facility] No Information 2 6-200 9 Krishnasamy Kalyan. 2421 [facility] [address], [place], [address], [place]. tel:[phone] Referring Provider: Jada Wharton OD, [facility] [address] [place], [address]. tel:[phone] Office/outpat ient Visit, [facility], [address], [place], [place], [id number], [place] tel:[phone] [facility] No Information 1 1-200 9 Krishnasamy Kalyan. [address] [facility] [address], [place], [address], [place]. tel:[phone] Referring Provider: Kalyan cobb, [address] [facility] [address], [place], [address]. tel:[phone] Family History Family Member Type Diagnosis Age At Onset No Information Payers Payer name Insurance type Covered democrat ID Authoriza tion(s) No Information Social History [...]
--- NOTE | 2024-10-14 07:46 | PC.NURSE ---
patient had dried blood on face and hand, no visible wounds or active bleeding- blood cleaned up. pattern gater at bedside discussing plan of care with Dr. Baird at this time
--- NOTE | 2024-10-14 07:47 | ED.GENADULT ---
HPI - General Adult General Chief complaint: Fall Stated complaint: ROLL OUT OF BED, FACIAL/NASAL INJURY Time Seen by Provider: 10/14/24 06:59 History of Present Illness HPI narrative: 79-year-old female on hospice presenting after a fall out of bed. Currently she rolled out of bed and struck her nose. She had bleeding of the nose that was uncontrolled so she was sent to the hospital. Bleeding has since stopped. She is at her baseline. She has no complaints. Hospice is at bedside. Related Data Home Medications ?Medication ?Instructions ?Recorded ?Confirmed ?Last Taken ?Type donepezil 10 mg tablet (Aricept) 10 mg PO HS 03/24/20 08/06/24 Unknown History insulin glargine 100 unit/mL (3 35 unit subcut HS 03/24/20 08/06/24 Unknown History mL) subcutaneous pen (Lantus Solostar U-100 Insulin) omeprazole 20 mg capsule,delayed 20 mg PO DAILY 03/24/20 08/06/24 Unknown History release umeclidinium 62.5 mcg-vilanterol 1 inh inhalation DAILY 03/24/20 08/06/24 Unknown History 25 mcg/actuation powdr for inhalation (Anoro Ellipta) albuterol sulfate 90 mcg/actuation 2 puff inhalation Q6H PRN COPD 03/25/20 08/06/24 Unknown History aerosol inhaler (Ventolin HFA) budesonide-formoterol HFA 160 2 puff inhalation Q12H 03/25/20 08/06/24 Unknown History mcg-4.5 mcg/actuation aerosol inhaler (Symbicort) ferrous sulfate 300 mg (60 mg 325 mg PO DAILY 03/25/20 08/06/24 Unknown History iron)/5 mL oral liquid ipratropium 0.5 mg-albuterol 3 mg 3 ml inhalation Q6H PRN COPD 03/25/20 08/06/24 Unknown History (2.5 mg base)/3 mL nebulization soln mecobalamin (vitamin B12) 1,000 1,000 mcg PO DAILY 03/25/20 08/06/24 Unknown History mcg chewable tablet atorvastatin 20 mg tablet 20 mg PO DAILY 12/04/21 08/06/24 Unknown History furosemide 20 mg tablet (Lasix) 40 mg PO DAILY 12/04/21 08/06/24 Unknown History spironolactone 50 mg tablet 50 mg PO DAILY 12/04/21 08/06/24 Unknown History acetaminophen 500 mg tablet 500 mg PO Q6H PRN Pain 03/20/22 08/06/24 Unknown History (Acetaminophen Pain Relief) Lactobacillus acidophilus 1 1,000 mmu cells PO DAILY 07/29/24 08/06/24 Unknown History billion cell capsule cholecalciferol (vitamin D3) 1,250 50,000 unit PO WEEKLY 07/29/24 08/06/24 Unknown History mcg (50,000 unit) capsule levothyroxine 75 mcg tablet 75 mcg PO DAILY 07/29/24 08/06/24 Unknown History medroxyprogesterone 2.5 mg tablet 2.5 mg PO DAILY 07/29/24 08/06/24 Unknown History potassium chloride 20 mEq/15 mL 20 meq PO DAILY 07/29/24 08/06/24 Unknown History oral liquid Allergies Allergy/AdvReac Type Severity Reaction Status Date / Time No Known Allergies Allergy Unknown Verified 07/28/24 18:26 [facility] Past Medical History Medical History CHF exacerbation Atrial fibrillation COPD (chronic obstructive pulmonary disease) Arthritis Former smoker 50 pack-year smoking history. Dementia Anemia Hypothyroidism Diabetic peripheral neuropathy Insulin dependent type 2 diabetes mellitus Grade II diastolic dysfunction Noted on echocardiogram in December 2018. Ejection fraction was 60 to 65%. Surgical History Surgical History History of dilation and curettage History of cataract extraction Family History Family History Father Cerebrovascular accident Grandparent Cerebrovascular accident Family history of heart disease in male family member before age 55 Mother Family history of heart disease in male family member before age 55 Heart disease of a heart attack Heart attack Social History Social History Social History: She is a resident at [facility] in [place]. Former smoker, up to a pack of cigarettes a day for 50 years, and quit in 2009. She stopped drinking alcohol in 2007. No illicit substance use. Three children. Her son Kwesi Neely is her healthcare power of solution consultant. She wishes to be a do not resuscitate but son reports that she has an advance directive stating that she wishes to be a full code. 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 Smoking packs per day: 1 Smoking cigarettes per day: 20.0 Years smoked: 50 Smoking pack-years: 50.00 Smoking status: Former smoker Alcohol intake: former Substance use: never Substance use type: does not use Do You Feel Safe in your Home?: Yes Lack of Transportation: No Lack of Food: Never True Current Housing: I Have Housing Concerned About Future Housing: No Difficulty Paying Gas/Electric Bills: No Difficulty Paying for Meds: No Currently Unemployed: No Education: Trade/Vocational Certificate Difficulty w/ Childcare or Family Care: No Gender identity (if verbalized by the patient): Female Spiritual care concerns: No Exam Narrative: APPEARANCE: No apparent distress. A&O x1 Head: Dried blood in the right nare no significant trauma to the nose EYES: EOMI, NOSE: Atraumatic NECK: Trachea midline RESPIRATORY: No increased rate of breathing CTAB CARDIOVASCULAR: RRR, ABDOMINAL: Non-distended MUSCULOSKELETAl: Head to toe trauma exam revealed no traumatic injuries NEURO: Alert. Moving 4/4 extremities SKIN:: Warm, dry. Normal color PSYCHIATRIC: Normal affect Course Vital Signs Vital signs: Vital Signs Temperature 98.6 F 10/14/24 06:30 Pulse Rate 128 H 10/14/24 06:30 Respiratory Rate 15 10/14/24 06:30 Blood Pressure 126/80 10/14/24 06:30 Pulse Oximetry 100 10/14/24 06:30 Oxygen Delivery Nasal Cannula 10/14/24 06:30 Oxygen Flow Rate 2 10/14/24 06:30 Temperature 98.6 F 10/14/24 06:30 Pulse Rate 128 H 10/14/24 06:30 Respiratory Rate 15 10/14/24 06:30 Blood Pressure 126/80 10/14/24 06:30 Pulse Oximetry 100 10/14/24 06:30 Oxygen Delivery Nasal Cannula 10/14/24 06:30 Oxygen Flow Rate 2 10/14/24 06:30 Medical Decision Making MDM Narrative Medical decision making narrative: -Course: 79-year-old female on hospice presenting after fall bed. She is sent because she had uncontrolled bleeding from her [place]. There is no bleeding at this time. She is resting comfortably in bed. Head to toe screening exam but not reveal any other traumatic injuries. CT brain negative for bleed. CT of facial bones showed a right orbital wall fractures. Patient's mental status is poor and she has trouble following commands but there does not appear to be entrapment of the eye. Regardless she is on hospice and there will be no interventions made. patient discharged back to hospice. Differential: Nasal bone fracture, orbital wall fracture, intracranial hemorrhage Vital Signs Vital Signs: Vital Signs Temperature 98.6 F 10/14/24 06:30 Pulse Rate 128 H 10/14/24 06:30 Respiratory Rate 15 10/14/24 06:30 Blood Pressure 126/80 10/14/24 06:30 Pulse Oximetry 100 10/14/24 06:30 Oxygen Delivery Nasal Cannula 10/14/24 06:30 Oxygen Flow Rate 2 10/14/24 06:30 Temperature 98.6 F 10/14/24 06:30 Pulse Rate 128 H 10/14/24 06:30 Respiratory Rate 15 10/14/24 06:30 Blood Pressure 126/80 10/14/24 06:30 Pulse Oximetry 100 10/14/24 06:30 Oxygen Delivery Nasal Cannula 10/14/24 06:30 Oxygen Flow Rate 2 10/14/24 06:30 Discharge Plan Discharge Clinical Impression: Fall, Fracture of orbital wall Patient Disposition: Home Condition: Stable Instructions: Antibiotic Form Additional Instructions: Ana was seen after a fall. The bleeding from her nose stopped. She has fractures of her right orbital wall but as she is on hospice there is no intervention to be made. Care should focus on her comfort and limit her trips to the emergency room. Further care per hospice management. Patient Language: Prydeinig Prescriptions: No Action atorvastatin 20 mg tablet 20 mg PO DAILY spironolactone 50 mg tablet 50 mg PO DAILY furosemide [Lasix] 20 mg tablet 40 mg PO DAILY diltiazem HCl 300 mg Capsule,Extended Release 24hr 300 mg PO QAM Qty: 30 0RF metoprolol tartrate 25 mg tablet 12.5 mg PO BID Qty: 30 0RF acetaminophen [Acetaminophen Pain Relief] 500 mg Tablet 500 mg PO Q6H PRN (Reason: Pain) levothyroxine 75 mcg tablet 75 mcg PO DAILY potassium chloride 20 mEq/15 mL liquid 20 meq PO DAILY medroxyprogesterone 2.5 mg tablet 2.5 mg PO DAILY cholecalciferol (vitamin D3) 1,250 mcg (50,000 unit) capsule 50,000 unit PO WEEKLY Rx Instructions: on mondays Lactobacillus acidophilus 1 billion cell capsule 1,000 mmu cells PO DAILY donepezil [Aricept] 10 mg Tablet 10 mg PO HS omeprazole 20 mg Capsule,Delayed Release(Dr/Ec) 20 mg PO DAILY insulin glargine [Lantus Solostar U-100 Insulin] 100 unit/mL (3 mL) Insulin Pen 35 unit SUBCUT HS umeclidinium-vilanterol [Anoro Ellipta] 62.5-25 mcg/actuation Blister With Device 1 inh INHALATION DAILY ipratropium-albuterol 0.5 mg-3 mg(2.5 mg base)/3 mL Solution For Nebulization 3 ml INHALATION Q6H PRN (Reason: COPD) ferrous sulfate 300 mg (60 mg iron)/5 mL Liquid 325 mg PO DAILY albuterol sulfate [Ventolin HFA] 90 mcg/actuation Hfa Aerosol Inhaler 2 puff INHALATION Q6H PRN (Reason: COPD) budesonide-formoterol [Symbicort] 160-4.5 mcg/actuation Hfa Aerosol Inhaler 2 puff INHALATION Q12H mecobalamin (vitamin B12) 1,000 mcg Tablet,Chewable 1,000 mcg PO DAILY Eliquis 5 mg Tablet 5 mg PO Q12HR Qty: 60 0RF Follow-up/Referrals: Shimon,Sean Rendon DO [Primary Care Provider] -
--- NOTE | 2024-10-14 08:14 | PC.NURSE ---
called to give report to [facility] - spoke with Mai who states that nurses don't get in until 830 or so and that I can call back for report then and they will handle it from there
== END 2024-10-14 09:48 | disposition hospice, home (50) ==
PROVIDERS: Emergency Provider Emergency Medicine; PCP Internal Medicine
DX: S02.31XA Fracture of orbital floor, right side, initial encounter for closed fracture (principal); S02.841A Fracture of lateral orbital wall, right side, initial encounter for closed fracture; S02.831A Fracture of medial orbital wall, right side, initial encounter for closed fracture; F03.90 Unspecified dementia, unspecified severity, without behavioral disturbance, psychotic disturbance, mood disturbance, and anxiety; I50.9 Heart failure, unspecified; I48.91 Unspecified atrial fibrillation; I51.89 Other ill-defined heart diseases; J44.9 Chronic obstructive pulmonary disease, unspecified; E03.9 Hypothyroidism, unspecified; E11.42 Type 2 diabetes mellitus with diabetic polyneuropathy; M19.90 Unspecified osteoarthritis, unspecified site; Z87.891 Personal history of nicotine dependence; Z98.49 Cataract extraction status, unspecified eye; Z79.899 Other long term (current) drug therapy; Z79.4 Long term (current) use of insulin; Z79.01 Long term (current) use of anticoagulants; M47.812 Spondylosis without myelopathy or radiculopathy, cervical region; W06.XXXA Fall from bed, initial encounter
CPT/HCPCS: 70450; 70486; 72125; 99284